=== PATIENT | male | born 1935 | race Caucasian/White ===

== ENCOUNTER 2016-06-29 16:10 | Inpatient (IN) | payer OTHER ==
[~2016-06-29] VITALS: Ht 170.2 cm; Wt 95.9 kg
[~2016-06-29 16:10] MED LIST: ALBU6.7H INH; ASPI81 PO; ATOR20TA PO; CLOP75 PO; DILT360T PO; FENO160T2 PO; FLUO40CA PO; IPRA0.02 NEB; ISOS30TA3 PO; LEVO112T2 PO; METF-324 PO; NITR.3 SL
[2016-06-29 16:11] VITALS: BP_SYST 146; BP_DIAS 70; BP_DIAS 78; PULSE 101; PULSE 113; RESP 18; RESP 33; TEMP 97.7; TEMP 98; O2SAT 84
[2016-06-29 16:18] VITALS: BP 146/70; PULSE 113; RESP 22; RESP 33; TEMP 98; O2SAT 84; O2SAT 94
[2016-06-29] MEDS ORDERED: SODIUM CHLORIDE 0.9% FLUSH 5 ML FLUSH IVF PRN ×2 (16:30→20:00)
[2016-06-29] MEDS: RESP: ALBUTEROL 2.5 MG/IPRATROPIUM 0.5 MG NEB (SCH) INH ×2 (16:51→20:38)
--- NOTE | 2016-06-29 16:52 | RADRPT ---
EXAM DATE/TIME: 06/29/2016 16:23 [facility] COMPARISON: No previous studies available for comparison. INDICATIONS : Wheezing and very short of breath today, no chest pain at this time MEDICAL HISTORY : Emphysema. Chronic obstructive pulmonary disease. Cardiovascular disease. asthma SURGICAL HISTORY : Coronary artery stent. ENCOUNTER: Initial ACUITY: 1 day PAIN SCORE: 0/10 LOCATION: Bilateral chest FINDINGS: The heart size is normal. There is elevation of the right hemidiaphragm. There does appear to be so me prominence in the interstitium throughout. A focal consolidation is not seen. CONCLUSION: 1. Scattered areas of interstitial disease. This may represent some underlying chronic disease. 2. Elevation of the right hemidiaphragm. Tate Parada MD on June 29, 2016 at 16:47 Board Certified Radiologist. This report was verified electronically.
[2016-06-29 17:00] VITALS: BP 151/70; PULSE 103; RESP 32; O2SAT 92
[2016-06-29 17:08] LABS: AUTOMATED NEUTROPHIL # 14.7 TH/MM3 (1.8-7.7); BASOPHIL # 0.1 TH/MM3 (0-0.2); BASOPHIL % 0.4 % (0.0-2.0); EOSINOPHIL # 0.1 TH/MM3 (0-0.4); EOSINOPHIL % 0.4 % (0.0-4.0); HEMATOCRIT 42.7 % (39.0-51.0); HEMO FLAGS DIFF FINAL; LYMPH % 15.7 % (9.0-44.0); MEAN CELL VOLUME 84.5 FL (80.0-100.0); MEAN CORPUSCULAR HEMOGLOBIN 27.2 PG (27.0-34.0); MEAN CORPUSCULAR HGB CONC 32.2 % (32.0-36.0); MONO % 7.1 % (0.0-8.0); NEUT % 76.4 % (16.0-70.0); PLATELET COUNT 320 TH/MM3 (150-450); RED BLOOD COUNT 5.05 MIL/MM3 (4.50-5.90); RED CELL DISTRIBUTION WIDTH 16.8 % (11.6-17.2); WHITE BLOOD COUNT 19.2 TH/MM3 (4.0-11.0)
--- NOTE | 2016-06-29 17:11 | PD ---
HPI Chief Complaint: Respiratory Distress Time Seen by Provider: 16:20 Travel History International Travel<30 days: No Contact w/Intl Traveler<30days: No Traveled to known affect area: No History of Present Illness HPI Patient 80-year-old male presents emergency murmur or shortness of breath and cough for the past few weeks. Patient states that several courses of prednisone as well as other steroids at home and is not beginning to be any better. He does have a history of COPD and is on home oxygen. On arrival patient's oxygen tank is nearly empty but still has some flow to it. Patient is saturating 82% on this tank by nasal cannula. On arrival he appears quite short of breath and was removing emergency department immediately. She states he did have fever to 102 prior to arrival yesterday. States symptoms are gradually worsening. Denies any chest pain abdominal pain nausea vomiting or diarrhea. PFSH Past Medical History Hx Anticoagulant Therapy: Yes (PLAVIX , ASA ) Atrial Fibrillation: Yes Cancer: No Cardiac Catheterization: Yes Cardiovascular Problems: Yes (STENTS, HTN , CAD ) Chest Pain: Yes COPD: Yes Coronary Artery Disease: Yes Diabetes: Yes Patient Takes Glucophage: Yes Diminished Hearing: No Hepatitis: No Hiatal Hernia: No Hypertension: Yes Respiratory: Yes (COPD ) Sleep Apnea: Yes Thyroid Disease: Yes Tetanus Vaccination: < 5 Years Influenza Vaccination: Yes Past Surgical History Abdominal Surgery: Yes (APPENDECTOMY AGE 23) Appendectomy: Yes (AGE 23) Cardiac Surgery: Yes (CARDIAC STENTS X 3) Coronary Stent: Yes (X3) Pacemaker: No Other Surgery: Yes Social History Alcohol Use: Yes (OCC) Tobacco Use: Yes (QUIT) Substance Use: No Allergies-Medications (Allergen,Severity, Reaction): Coded Allergies: Sulfa (Verified Allergy, Unknown, CAN'T RECALL , 06/29/16) Reported Meds & Prescriptions Reported Meds & Active Scripts Active Reported Nitrostat (Nitroglycerin) 0.3 Mg Sub Unknown Dose SL DIRECTED PRN Atrovent Ud 0.02% (0.5 Mg/2.5 Ml) (Ipratropium [place]) 0.5 Mg/2.5 Ml Nebu 0.5 Mg NEB BID NEB PRN Proventil Hfa (Albuterol Sulfate) 6.7 Gm Aero 2 Puff INH QID PRN * SHAKE WELL BEFORE USE * Isosorbide Mononitrate Er (Isosorbide Mononitrate) 30 Mg Tab 30 Mg PO DAILY Fluoxetine (Fluoxetine HCl) 40 Mg Cap 40 Mg PO DAILY Atorvastatin 20 mg tab (Atorvastatin Calcium) 20 Mg Tab 20 Mg PO HS 30 Days Metformin ER 24 HR (Metformin HCl) 1,000 Mg Tab 1,000 Mg PO HS Cardizem La 360 mg (Diltiazem La 360 mg) 360 Mg Tab 360 Mg PO HS Levothyroxine 112 mcg (Levothyroxine Sodium) 112 Mcg Tab 112 Mcg PO DAILY Plavix (Clopidogrel Bisulfate) 75 Mg Tab 75 Mg PO HS Aspirin 81 Mg Tab 162 Mg PO BID Review of Systems Except as stated in HPI: all other systems reviewed are Neg Physical Exam Narrative GENERAL: Well developed well-nourished, tachypneic and increased work of breathing. SKIN: Warm and dry. And pink. HEAD: Atraumatic. Normocephalic. EYES: Pupils equal and round. No scleral icterus. No injection or drainage. ENT: No nasal bleeding or discharge. Mucous membranes pink and moist. NECK: Trachea midline. No JVD. CARDIOVASCULAR: Regular rhythm with tachycardia. No murmurs gallops or rubs. 2 + bilaterally compulsive all 4 extremity's. RESPIRATORY: Tachypneic, clear to auscultation all lung winn, fair air entry. Super clavicular retractions. GASTROINTESTINAL: Abdomen soft, non-tender, nondistended. Hepatic and splenic margins not palpable. MUSCULOSKELETAL: No obvious deformities. No clubbing. No cyanosis. No edema. NEUROLOGICAL: Awake and alert. No obvious cranial nerve deficits. Motor grossly within normal limits. Normal speech. PSYCHIATRIC: Appropriate mood and affect; insight and judgment normal. Data Data Last Documented VS Vital Signs Date Time Temp Pulse Resp B/P Pulse Ox O2 Delivery O2 Flow Rate FiO2 06/29/16 17:00 103 32 151/70 92 Nasal Cannula 4 06/29/16 16:18 98.0 Orders Electrocardiogram (06/29/16 16:20) Arterial Blood Gas (Abg) (06/29/16 16:20) Complete Blood Count With Diff (06/29/16 16:20) Comprehensive Metabolic Panel (06/29/16 16:20) Chest, Single Ap (06/29/16 16:20) Ecg Monitoring (06/29/16 16:20) Iv Access Insert/Monitor (06/29/16 16:20) Oximetry (06/29/16 16:20) Oxygen Administration (06/29/16 16:20) Albuterol-Ipratropium Neb (Duoneb Neb) (06/29/16 16:30) Sodium Chloride 0.9% Flush (Ns Flush) (06/29/16 16:30) Troponin I (06/29/16 16:20) Ct Pulmonary Angiogram (06/29/16 ) Lactic Acid (06/29/16 16:20) Blood Culture (06/29/16 16:20) Sodium Chlor 0.9% 1000 Ml Inj (Ns 1000 M (06/29/16 17:45) Sodium Chlor 0.9% 1000 Ml Inj (Ns 1000 M (06/29/16 17:45) Vancomycin Inj (Vancomycin Inj) (06/29/16 17:45) Piperacil-Tazo 3.375 Gm Premix (Zosyn 3. (06/29/16 17:45) Sodium Chlor 0.9% 1000 Ml Inj (Ns 1000 M (06/29/16 17:45) Iohexol 350 Inj (Omnipaque 350 Inj) (06/29/16 19:03) Admit Order (Ed Use Only) (06/29/16 ) Labs Laboratory Tests Test 06/29/16 06/29/16 06/29/16 16:25 16:32 16:35 White Blood Count 19.2 TH/MM3 Red Blood Count 5.05 MIL/MM3 Hemoglobin 13.7 GM/DL Hematocrit 42.7 % Mean Corpuscular Volume 84.5 FL Mean Corpuscular Hemoglobin 27.2 PG Mean Corpuscular Hemoglobin 32.2 % Concent Red Cell Distribution Width 16.8 % Platelet Count 320 TH/MM3 Mean Platelet Volume 8.5 FL Neutrophils (%) (Auto) 76.4 % Lymphocytes (%) (Auto) 15.7 % Monocytes (%) (Auto) 7.1 % Eosinophils (%) (Auto) 0.4 % Basophils (%) (Auto) 0.4 % Neutrophils # (Auto) 14.7 TH/MM3 Lymphocytes # (Auto) 3.0 TH/MM3 Monocytes # (Auto) 1.4 TH/MM3 Eosinophils # (Auto) 0.1 TH/MM3 Basophils # (Auto) 0.1 TH/MM3 CBC Comment DIFF FINAL Differential Comment Sodium Level 141 MEQ/L Potassium Level 3.3 MEQ/L Chloride Level 103 MEQ/L Carbon Dioxide Level 24.6 MEQ/L Anion Gap 13 MEQ/L Blood Urea Nitrogen 21 MG/DL Creatinine 1.30 MG/DL Estimat Glomerular Filtration 53 ML/MIN Rate Random Glucose 205 MG/DL Calcium Level 8.6 MG/DL Total Bilirubin 0.5 MG/DL Aspartate Amino Transf 31 U/L (AST/SGOT) Alanine Aminotransferase 42 U/L (ALT/SGPT) Alkaline Phosphatase 117 U/L Troponin I LESS THAN 0.02 NG/ML Total Protein 6.6 GM/DL Albumin 2.1 GM/DL Blood Gas Puncture Site RT BRACHIAL Blood Gas Patient Temperature 98.6 Blood Gas HCO3 23 mmol/L Blood Gas Base Excess -0.6 mmol/L Blood Gas Oxygen Saturation 92 % Arterial Blood pH 7.46 Arterial Blood Partial 33 mmHg Pressure CO2 Arterial Blood Partial 66 mmHG Pressure O2 Arterial Blood Oxygen Content 19.8 Vol % Arterial Blood 1.2 % Carboxyhemoglobin Arterial Blood Methemoglobin 0.7 % Blood Gas Hemoglobin 15.4 G/DL Oxygen Delivery Device NASAL CANNULA Blood Gas Liter Flow 5 L/M Blood Gas Inspired Oxygen 40 % Lactic Acid Level 4.6 mmol/L MDM Medical Decision Making Medical Screen Exam Complete: Yes Emergency Medical Condition: Yes Interpretation(s) EKG shows sinus rhythm with a normal axis and normal R-wave progression. Large QRS, which is in V1 and nonspecific RSR prime pattern in 1-[address] No [address] T changes. Is a nonspecific EKG. Comparison to 11/01/2015 shows no change Differential Diagnosis COPD exacerbation, pneumonia, hypoxic respiratory failure, hypercapnic respiratory failure. Narrative Course Patient was roomed in the emergency department, he was placed on 4 L nasal cannula, respiratory was paged visit. We would escalate BiPAP however on respiratory arrival patient is now satting 93-95% on 4 L cannula. BiPAP was placed on hold his patient was started to feel better and ABG reveals the patient's pH is 7.5 with a PCO2 of 30. She'll presents mild respiratory alkalosis. Last [address] Angiography 06/29/16 0000 Signed Impressions: Service Date/Time: Wednesday, June 29, 2016 18:47 - CONCLUSION: 1. No evidence of PE. 2. 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 Jeison Deutsch MD Patient's white blood count is elevated 19 lactic acid is 4. This meets Sirs criteria given his vital signs. Suspecting a pneumonia as cause sepsis protocol was started. However the patient does not have confirmed pneumonia at this time. His white blood cell count could be from hysteria use concurrently lactic acid could be from stress reaction from hypoxia. However at this time patient does meet admission criteria. Patient was discussed with Dr. Gutierrez for admission and he is agreeable. Diagnosis Primary Impression: Acute respiratory failure with hypoxia Additional Impression: SIRS (systemic inflammatory response syndrome) Admitting Information Admitting Physician Requests: Admit Condition: Stable Hubert Sampson MD Jun 29, 2016 17:11
[2016-06-29 17:16] LABS: BLOOD GAS BASE EXCESS -0.6 mmol/L (-2-2); BLOOD GAS CARBOXYHEMOGLOBIN 1.2 % (0-4); BLOOD GAS HCO3 23 mmol/L (22-26); BLOOD GAS METHEMOGLOBIN 0.7 % (0-2); BLOOD GAS O2 HGB SATURATION 92 % (90-100); BLOOD GAS OXYGEN CONTENT 19.8 Vol % (12.0-20.0); BLOOD GAS PCO2 33 mmHg (38-42); BLOOD GAS PO2 66 mmHG (61-120); BLOOD GAS TOTAL HGB 15.4 G/DL (12.0-16.0); TEMP CORR TO 98.6
[2016-06-29 17:17] LABS: CRITICAL VALUE NO; DRAW SITE RT BRACHIAL; FIO2 40 %; LITER FLOW 5 L/M; NUMBER OF ARTERIAL PUNCTURES 1; OXYGEN DEVICE NASAL CANNULA; STAT YES
[2016-06-29 17:25] LABS: ANION GAP 13 MEQ/L (5-15); AST (GOT) 31 U/L (15-37); BICARBONATE 24.6 MEQ/L (21.0-32.0); BLOOD UREA NITROGEN 21 MG/DL (7-18); CHLORIDE 103 MEQ/L (98-107); GLOMERULAR FILTRATION RATE 53 ML/MIN (>89); POTASSIUM 3.3 MEQ/L (3.5-5.1); SODIUM (NA) 141 MEQ/L (136-145)
[2016-06-29 17:30] LABS: ALKALINE PHOSPHATASE 117 U/L (45-117); ALT (GPT) 42 U/L (12-78); TOTAL BILIRUBIN ADULT 0.5 MG/DL (0.2-1.0)
[2016-06-29] MEDS ORDERED: PIPERACIL-TAZO 3.375 GM PREMIX 50 ML IV ONE (17:45)
[2016-06-29] MEDS ORDERED: VANCOMYCIN INJ 1,000 MG in SODIUM CHLOR 0.9% 250 ML INJ 250 ML IV ONE (17:45)
[2016-06-29] MEDS ORDERED: SODIUM CHLOR 0.9% 1000 ML INJ 1,000 ML IV ONE ×3 (17:45)
[2016-06-29] MEDS ORDERED: IOHEXOL 350 MG/ML 10 ML VIAL (for RAD DIAG) IV ONE (19:03)
--- NOTE | 2016-06-29 19:11 | RADRPT ---
EXAM DATE/TIME: 06/29/2016 18:47 [facility] COMPARISON: No previous studies available for comparison. INDICATIONS : respiratory distress,for one month. IV CONTRAST: 65 cc Omnipaque 350 (iohexol) IV RADIATION DOSE: 6.24 CTDIvol (mGy) MEDICAL HISTORY : Chronic obstructive pulmonary disease. Cardiovascular disease Hypertension.Diabetes SURGICAL HISTORY : Appendectomy. ENCOUNTER: Initial ACUITY: 1 month PAIN SCALE: 0/10 LOCATION: chest TECHNIQUE: Volumetric scanning of the chest was performed using a pulmonary embolism protocol MIP images were re constructed. Using automated exposure control and adjustment of the mA and/or kV according to patien t size, radiation dose was kept as low as reasonably achievable to obtain optimal diagnostic quality images. FINDINGS: PULMONARY ARTERIES: No filling defects are seen in the pulmonary arteries through the segmental level. LUNGS: Severe bullous emphysema with chronic bilateral interstitial lung disease. Some of this appears to be most likely pulmonary fibrosis. Can't exclude underlying inflammatory process. PLEURAE: Mild pleural thickening. No pleural effusions. MEDIASTINUM: Nonspecific lymph nodes in the mediastinum. MUSCULOSKELETAL: Within normal limits for patient age. MISCELLANEOUS: The visualized upper abdominal organs demonstrate no acute abnormality. CONCLUSION: 1. No evidence of PE. 2. 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 Jeison Deutsch MD on June 29, 2016 at 19:07 Board Certified Radiologist. This report was verified electronically.
[2016-06-29 20:35] VITALS: O2SAT 94
[2016-06-29] MEDS: methylPREDNISolone SOD SUCC 125 MG/2 ML VIAL IVP SCH (21:14)
[2016-06-29] MEDS: ENOXAPARIN SODIUM 30 MG/0.3 ML SYRINGE SQ SCH (21:17)
[2016-06-29] MEDS: AZITHROMYCIN INJ 500 MG in SODIUM CHLOR 0.9% 250 ML INJ 250 ML IV SCH (21:18)
[2016-06-29 21:37] VITALS: BP 184/82; PULSE 97; RESP 24; O2SAT 94
[2016-06-29] MEDS: cefTRIAXone INJ 2,000 MG in SODIUM CHLORIDE 0.9% INJ 100 ML IV SCH (22:51)
[2016-06-29] MEDS: SODIUM CHLORIDE 0.9% FLUSH 5 ML FLUSH IVF SCH (22:52)
[2016-06-29 23:18] LABS: LACTIC ACID GHOST NOT REPORTABLE
[2016-06-30] VITALS (12 sets, daily range): BP systolic 142–181; BP diastolic 68–83; PULSE 69–93; RESP 18–22; TEMP 97–99; O2SAT 92–96
[2016-06-30] MEDS: RESP: ALBUTEROL 2.5 MG/3 ML NEB (PRN) INH (00:04)
[2016-06-30] MEDS ORDERED: cloNIDine HCL 0.1 MG TAB PO ONE (01:00)
[2016-06-30] MEDS: methylPREDNISolone SOD SUCC 125 MG/2 ML VIAL IVP SCH ×4 (01:57→22:21)
[2016-06-30] MEDS ORDERED: RESP: IPRATROPIUM 0.5 MG/2.5 ML NEB NEB PRN (03:00)
[2016-06-30] MEDS ORDERED: ALBUTEROL SULFATE 90 MCG/ACT HFA 8 GM INHALER INH PRN (03:00)
[2016-06-30] MEDS ORDERED: DILTIAZEM-CD 180 MG CAP ER PO ONE (03:00)
--- NOTE | 2016-06-30 03:16 | HHI.HP ---
[facility] Service [facility] Primary Care Physician Corby Tavera MD Admission Diagnosis Hypoxic Respiratory failure, COPD exacerbation, SIRS. Diagnoses: Chief Complaint: sob Travel History International Travel<30 Days: No Contact w/Intl Traveler <30 Da: No Traveled to Known Affected Are: No Sepsis Criteria SIRS Criteria (2 or more): Heart rate over 90, WBC > 23881, < 4000 or > 10% bands History of Present Illness 80 y/o male with a history of COPD and continuous 3 L at home, CAD, diabetes, A. fib, hypothyroidism, and depression presented to the ED with worsening shortness of breath. Patient states his wheezing and shortness of breath began about 5 weeks ago with the increase in pollen, and over the course of time he was treated with prednisone by his PCP. Today he called his iuss master analyst Dr. booker who reviewed his outpatient chest x-rays and sent him to the ED. Patient states over the last week he is just continued to get worse despite taking prednisone 20 mg daily, he had a fever at home of 100.7, complains of having a productive cough with very little sputum, night sweats and chills. He denies any chest pain, nausea or vomiting. PCP is Dr. Tavera Supervisor Winter is Dr. booker Review of Systems Constitutional: COMPLAINS OF: Fever, Chills, DENIES: Dizziness Respiratory: COMPLAINS OF: Cough, Sputum production, Shortness of breath Cardiovascular: DENIES: Chest pain, Dyspnea on Exertion, Lower Extremity Edema Gastrointestinal: DENIES: Constipation, Diarrhea, Nausea, Vomiting Genitourinary: DENIES: Hematuria, Dysuria Musculoskeletal: DENIES: Back pain, Neck pain Integumentary: DENIES: Rash Hematologic/lymphatic: DENIES: Lymphadenopathy Immunologic/allergic: DENIES: Urticaria Neurologic: DENIES: Headache, Localized weakness Past Family Social History Past Medical History COPD on continuous 3 L at home CAD Diabetes A. fib Hypothyroidism Depression Past Surgical History Heart stents Tonsillectomy Appendectomy Reported Medications Reported Meds & Active Scripts Active Reported Nitrostat (Nitroglycerin) 0.3 Mg Sub Unknown Dose SL DIRECTED PRN Atrovent Ud 0.02% (0.5 Mg/2.5 Ml) (Ipratropium [place]) 0.5 Mg/2.5 Ml Nebu 0.5 Mg NEB BID NEB PRN Proventil Hfa (Albuterol Sulfate) 6.7 Gm Aero 2 Puff INH QID PRN * SHAKE WELL BEFORE USE * Isosorbide Mononitrate Er (Isosorbide Mononitrate) 30 Mg Tab 30 Mg PO DAILY Fluoxetine (Fluoxetine HCl) 40 Mg Cap 40 Mg PO DAILY Atorvastatin 20 mg tab (Atorvastatin Calcium) 20 Mg Tab 20 Mg PO HS 30 Days Metformin ER 24 HR (Metformin HCl) 1,000 Mg Tab 1,000 Mg PO HS Cardizem La 360 mg (Diltiazem La 360 mg) 360 Mg Tab 360 Mg PO HS Levothyroxine 112 mcg (Levothyroxine Sodium) 112 Mcg Tab 112 Mcg PO DAILY Plavix (Clopidogrel Bisulfate) 75 Mg Tab 75 Mg PO HS Aspirin 81 Mg Tab 162 Mg PO BID Allergies: Coded Allergies: Sulfa (Verified Allergy, Unknown, CAN'T RECALL , 06/29/16) Active Ordered Medications Current Medications Medications (Trade) Dose Ordered Sig/Nya Route Start Time Stop Time Status Last Admin Ceftriaxone Sodium 2000 mg/ Sodium Chloride 100 ml @ 200 mls/hr Q24H IV 06/29/16 22:00 06/29/16 22:51 (Zithromax Inj/ NS 250 ml Inj) 250 ml @ 250 mls/hr Q24H IV 06/29/16 21:00 06/29/16 21:18 (NS Flush) 2 ml BID IVF 06/29/16 21:00 06/29/16 22:52 (NS Flush) 2 ml UNSCH PRN IVF 06/29/16 20:00 (SoluMEDROL INJ) 60 mg Q6H IVP 06/29/16 21:00 06/30/16 01:57 (Lovenox Inj) 30 mg Q24H SQ 06/29/16 21:00 06/29/16 21:17 (Proair Hfa Inh) 2 puff QID PRN INH 06/30/16 03:00 (Aspirin Chew) 162 mg BID PO 06/30/16 09:00 (Lipitor) 20 mg HS PO 06/30/16 21:00 (Plavix) 75 mg HS PO 06/30/16 21:00 (Imdur) 30 mg DAILY PO 06/30/16 09:00 (Synthroid) 112 mcg DAILY@0600 PO 06/30/16 06:00 Non-Formulary Medication 360 mg HS PO 06/30/16 21:00 UNV (PROzac) 40 mg DAILY PO 06/30/16 09:00 Non-Formulary Medication 1,000 mg HS PO 06/30/16 21:00 UNV Family History Patient denies any family history of cardiac history or diabetes Social History Tobacco use: Quit 25 years ago prior to this he smoked for 45 years. Alcohol use: Denies Illicit drug use: Denies Physical Exam Vital Signs Vital Signs Date Time Temp Pulse Resp B/P Pulse Ox O2 Delivery O2 Flow Rate FiO2 06/30/16 00:07 93 Nasal Cannula 3.00 06/30/16 00:00 99.0 93 20 181/81 94 06/29/16 21:37 97 24 184/82 94 Nasal Cannula 06/29/16 20:35 94 Nasal Cannula 5.00 06/29/16 17:00 103 32 151/70 92 Nasal Cannula 4 06/29/16 16:35 93 Aerosol Mask 06/29/16 16:32 Aerosol Mask 06/29/16 16:25 3 Nasal Cannula 06/29/16 16:25 84 Nasal Cannula 3 06/29/16 16:18 98.0 113 33 146/70 84 06/29/16 16:11 98.0 113 33 146/70 84 Nasal Cannula 3 06/29/16 16:11 97.7 101 18 146/78 84 Physical Exam GENERAL: This is a well-nourished, well-developed patient, in no apparent distress. SKIN: No rashes, ecchymoses or lesions. Cool and dry. HEAD: Atraumatic. Normocephalic. No temporal or scalp tenderness. EYES: Pupils equal round and reactive. Extraocular motions intact. No scleral icterus. No injection or drainage. ENT: Nose without bleeding, purulent drainage or septal hematoma. Throat without erythema, tonsillar hypertrophy or exudate. Uvula midline. Airway patent. NECK: Trachea midline. No JVD or lymphadenopathy. Supple, nontender, no meningeal signs. CARDIOVASCULAR: Regular rate and rhythm without murmurs, gallops, or rubs. RESPIRATORY: Clear to auscultation. Breath sounds equal bilaterally. No wheezes , rales, or rhonchi. GASTROINTESTINAL: Abdomen soft, non-tender, nondistended. No hepato-splenomegaly , or palpable masses. No guarding. MUSCULOSKELETAL: Extremities without clubbing, cyanosis, or edema. No joint tenderness, effusion, or edema noted. No calf tenderness. Negative Homans sign bilaterally. NEUROLOGICAL: Awake and alert. Cranial nerves II through XII intact. Motor and sensory grossly within normal limits. Five out of 5 muscle strength in all muscle groups. Normal speech. Laboratory Laboratory Tests Test 06/29/16 06/29/16 06/29/16 06/29/16 16:25 16:32 16:35 20:55 White Blood Count 19.2 Red Blood Count 5.05 Hemoglobin 13.7 Hematocrit 42.7 Mean Corpuscular Volume 84.5 Mean Corpuscular Hemoglobin 27.2 Mean Corpuscular Hemoglobin 32.2 Concent Red Cell Distribution Width 16.8 Platelet Count 320 Mean Platelet Volume 8.5 Neutrophils (%) (Auto) 76.4 Lymphocytes (%) (Auto) 15.7 Monocytes (%) (Auto) 7.1 Eosinophils (%) (Auto) 0.4 Basophils (%) (Auto) 0.4 Neutrophils # (Auto) 14.7 Lymphocytes # (Auto) 3.0 Monocytes # (Auto) 1.4 Eosinophils # (Auto) 0.1 Basophils # (Auto) 0.1 CBC Comment DIFF FINAL Differential Comment Sodium Level 141 Potassium Level 3.3 Chloride Level 103 Carbon Dioxide Level 24.6 Anion Gap 13 Blood Urea Nitrogen 21 Creatinine 1.30 Estimat Glomerular Filtration 53 Rate Random Glucose 205 Calcium Level 8.6 Total Bilirubin 0.5 Aspartate Amino Transf 31 (AST/SGOT) Alanine Aminotransferase 42 (ALT/SGPT) Alkaline Phosphatase 117 Troponin I LESS THAN 0.02 Total Protein 6.6 Albumin 2.1 Blood Gas Puncture Site RT BRACHIAL Blood Gas Patient Temperature 98.6 Blood Gas HCO3 23 Blood Gas Base Excess -0.6 Blood Gas Oxygen Saturation 92 Arterial Blood pH 7.46 Arterial Blood Partial 33 Pressure CO2 Arterial Blood Partial 66 Pressure O2 Arterial Blood Oxygen Content 19.8 Arterial Blood 1.2 Carboxyhemoglobin Arterial Blood Methemoglobin 0.7 Blood Gas Hemoglobin 15.4 Oxygen Delivery Device NASAL CANNULA Blood Gas Liter Flow 5 Blood Gas Inspired Oxygen 40 Lactic Acid Level 4.6 2.7 Test 06/30/16 00:21 Lactic Acid Level 1.7 Date/Time Procedure Status Source Growth 06/29/16 21:15 Influenza Types A,B Antigen (BRIDGER) - Final Complete Nasal Washing NEGATIVE FOR FLU A AND B ANTIGEN.... 06/29/16 16:35 Aerobic Blood Culture Received Blood Peripheral Pending 06/29/16 16:35 Anaerobic Blood Culture Received Blood Peripheral Pending Result Diagram: 06/29/16 1625 06/29/[address] Angiography 06/29/16 0000 Signed Impressions: Service Date/Time: Wednesday, June 29, 2016 18:47 - CONCLUSION: 1. No evidence of PE. 2. 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 Jeison Deutsch MD Assessment and Plan Problem List: (1) COPD exacerbation ICD Code: J44.1 Status: Acute (2) Leukocytosis ICD Code: D72.829 Status: Acute (3) HTN (hypertension) ICD Code: I10 Status: Chronic (4) A-fib ICD Code: I48.91 Status: Chronic (5) Diabetes ICD Code: E11.9 Status: Chronic Assessment and Plan 80 y/o male with a history of COPD and continuous 3 L at home, CAD, diabetes, A. fib, hypothyroidism, and depression presented to the ED with worsening shortness of breath. COPD exacerbation Imaging: CTA shows No evidence PE. 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 Labs: Flu negative -DuoNeb's -Consult pulmonology -IV antibiotics Rocephin and azithromycin -Solu-Medrol IV Leukocytosis/ Sirs criteria Labs: WBC is 19.2, neutrophils 76%, lactic acid 4.6, down to 1.7, heart rate greater than 90 -CBC in a.m. -Blood cultures pending Hypertension, chronic -Monitor vitals -PRNs if needed A. fib, chronic -Monitor telemetry -Order home medications Cardizem 240mg HS, Plavix Diabetes, chronic -Accu-Cheks AC/HS with SSI -Order home medications metformin DVT prophylaxis: Lovenox GI prophylaxis: Protonix Written by Katelin NOYOLA, acting as scribe for Dr. Rodriguez on 06/30/16 at 0237. All or portions of this note were transcribed by JAZMÍN Peters. I, Dr. Michael Rodriguez personally performed the history, physical exam, and medical decision making; and confirmed the accuracy of the information in the transcribed note. Authenticated by Dr. Michael Rodriguez on 06/30/16 at 04:54. Code Status FULL Discussed Condition With Patient and RN Physician Certification 2 Midnight Certification Type: Admission for Inpatient Services Order for Inpatient Services The services are ordered in accordance with Medicare regulations or non- Medicare payer requirements, as applicable. In the case of services not specified as inpatient-only, they are appropriately provided as inpatient services in accordance with the 2-midnight benchmark. Estimated LOS (days): 3 days is the estimated time the patient will need to remain in the hospital, assuming treatment plan goals are met and no additional complications. Post-Hospital Plan: Home Problem Qualifiers (1) Diabetes: Katelin Dixon Jun 30, 2016 03:16 Michael Rodriguez MD Jun 30, 2016 04:54
[2016-06-30] MEDS ORDERED: DEXTROSE 50% IN WATER 50 ML VIAL(D50) IV PUSH PRN (03:30)
[2016-06-30] MEDS ORDERED: GLUCAGON 1 MG/ML VIAL OTHER PRN (03:30)
[2016-06-30] MEDS ORDERED: PANTOPRAZOLE SODIUM 40 MG VIAL IV PUSH ONE (04:30)
[2016-06-30] MEDS ORDERED: DILTIAZEM-CD 240 MG CAP ER PO ONE (04:45)
[2016-06-30] MEDS: LEVOTHYROXINE SODIUM 112 MCG TAB PO SCH (04:59)
[2016-06-30] MEDS: INSULIN ASPART SUPPLEMENTAL SCALE SQ SCH ×4 (05:53→22:22)
[2016-06-30] MEDS: RESP: ALBUTEROL 2.5 MG/IPRATROPIUM 0.5 MG NEB (SCH) INH ×4 (07:44→19:18)
[2016-06-30] MEDS: SODIUM CHLORIDE 0.9% FLUSH 5 ML FLUSH IVF SCH ×2 (08:50→22:23)
[2016-06-30] MEDS: ASPIRIN 81 MG CHEW TAB PO SCH ×2 (08:50→22:21)
[2016-06-30] MEDS: ISOSORBIDE MONONITRATE 30 MG TAB PO SCH (08:50)
[2016-06-30] MEDS: FLUoxetine HCL 20 MG CAP PO SCH (08:50)
[2016-06-30 08:52] LABS: AUTOMATED NEUTROPHIL # 7.5 TH/MM3 (1.8-7.7); HEMATOCRIT 34.5 % (39.0-51.0); HEMO FLAGS DIFF FINAL; LYMPH % 5.3 % (9.0-44.0); LYMPHOCYTE # 0.4 TH/MM3 (1.0-4.8); MEAN CELL VOLUME 84.3 FL (80.0-100.0); MEAN CORPUSCULAR HEMOGLOBIN 27.7 PG (27.0-34.0); MEAN CORPUSCULAR HGB CONC 32.9 % (32.0-36.0); MONO % 5.1 % (0.0-8.0); NEUT % 89.6 % (16.0-70.0); PLATELET COUNT 197 TH/MM3 (150-450); RED BLOOD COUNT 4.09 MIL/MM3 (4.50-5.90); RED CELL DISTRIBUTION WIDTH 16.6 % (11.6-17.2); WHITE BLOOD COUNT 8.4 TH/MM3 (4.0-11.0)
[2016-06-30] MEDS ORDERED: metFORMIN HCL 500 MG TAB PO SCH (09:00)
[2016-06-30 09:19] LABS: BICARBONATE 21.6 MEQ/L (21.0-32.0); POTASSIUM 3.9 MEQ/L (3.5-5.1)
[2016-06-30 09:33] LABS: CALCIUM-PROTEIN CORRECTED 8.1 MG/DL (8.5-10.1)
--- NOTE | 2016-06-30 11:14 | HHI.PR ---
Subjective Remarks in no acute distress. says that his sob has improved. no chest pain. afebrile. Objective Vitals Vital Signs Date Time Temp Pulse Resp B/P Pulse Ox O2 Delivery O2 Flow Rate FiO2 06/30/16 09:40 Nasal Cannula 3.00 06/30/16 08:00 97.7 81 20 160/76 95 06/30/16 07:47 95 Nasal Cannula 3.00 06/30/16 04:00 98.5 92 18 171/83 93 06/30/16 00:07 93 Nasal Cannula 3.00 06/30/16 00:00 99.0 93 20 181/81 94 06/30/16 00:00 93 06/29/16 23:00 Nasal Cannula 3.00 06/29/16 21:37 97 24 184/82 94 Nasal Cannula 06/29/16 20:35 94 Nasal Cannula 5.00 06/29/16 17:00 103 32 151/70 92 Nasal Cannula 4 06/29/16 16:35 93 Aerosol Mask 06/29/16 16:32 Aerosol Mask 06/29/16 16:25 3 Nasal Cannula 06/29/16 16:25 84 Nasal Cannula 3 06/29/16 16:18 98.0 113 33 146/70 84 06/29/16 16:11 98.0 113 33 146/70 84 Nasal Cannula 3 06/29/16 16:11 97.7 101 18 146/78 84 I/O 06/29/16 06/29/16 06/29/16 06/30/16 06/30/16 06/30/16 07:00 15:00 23:00 07:00 15:00 23:00 Intake Total 240 ml Output Total 400 ml Balance -160 ml Intake Oral 240 ml Output Urine Total 400 ml # Bowel Movements 0 Result Diagram: 06/30/16 0753 06/30/16 [address] Angiography 06/29/16 0000 Signed Impressions: Service Date/Time: Wednesday, June 29, 2016 18:47 - CONCLUSION: 1. No evidence of PE. 2. 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 Jeison Deutsch MD Objective Remarks GENERAL: This is a well-nourished, well-developed patient, in no apparent distress. CARDIOVASCULAR: Regular rate and regular rhythm without murmurs, gallops, or rubs. RESPIRATORY: bilateral crackles GASTROINTESTINAL: Abdomen soft, non-tender, nondistended. Normal, active bowel sounds MUSCULOSKELETAL: Extremities without clubbing, cyanosis, or edema. NEURO: Alert & Oriented x4 to person, place, time, situation. Moves all ext x4 Procedures none Medications and IVs Current Medications Albuterol/ Ipratropium (Duoneb Neb) 1 ampule Q15M INH Last administered on 06/29 16:51; Start 06/29/16 at 16:30; Stop 06/29/16 at 17:01; Status DC IV Flush 2 ml 2 ml UNSCH PRN IVF FLUSH AFTER USING IV ACCESS; Start 06/29/16 at 16:30; Stop 06/29/16 at 20:09; Status DC Sodium Chloride 1,000 ml @ 999 mls/hr BOLUS ONCE IV Last administered on 06/29 19:24; Start 06/29/16 at 17:45; Stop 06/29/16 at 18:45; Status DC Sodium Chloride 1,000 ml @ 999 mls/hr BOLUS ONCE IV Last administered on 06/29 20:36; Start 06/29/16 at 17:45; Stop 06/29/16 at 18:45; Status DC Vancomycin HCl 1000 mg/Sodium Chloride 250 ml @ 250 mls/hr ONCE ONCE IV Last administered on 06/29/16 19:05; Start 06/29/16 at 17:45; Stop 06/29/16 at 18:44 ; Status DC Piperacillin Sod/ Tazobactam Sod 50 ml @ 100 mls/hr ONCE ONCE IV Last administered on 06/29/16 17:45; Start 06/29/16 at 17:45; Stop 06/29/16 at 18:14 ; Status DC Sodium Chloride (NS 1000 ml Inj) 1,000 ml @ 999 mls/hr BOLUS ONCE IV Last administered on 06/29/16 20:36; Start 06/29/16 at 17:45; Stop 06/29/16 at 18:45 ; Status DC Iohexol 65 ml 65 ml STK-MED ONCE IV ; Start 06/29/16 at 19:03; Stop 06/29/16 at 19:04; Status DC Ceftriaxone Sodium 2000 mg/ Sodium Chloride 100 ml @ 200 mls/hr Q24H IV Last administered on 06/29/16 22:51; Start 06/29/16 at 22:00 Azithromycin/ Sodium Chloride (Zithromax Inj/ NS 250 ml Inj) 250 ml @ 250 mls/ hr Q24H IV Last administered on 06/29/16 21:18; Start 06/29/16 at 21:00 IV Flush (NS Flush) 2 ml BID IVF Last administered on 06/30/16 08:50; Start at 21:00 IV Flush (NS Flush) 2 ml UNSCH PRN IVF FLUSH AFTER USING IV ACCESS; Start 06/29 at 20:00 Albuterol/ Ipratropium (Duoneb Neb) 1 ampule QID NEB INH Last administered on 06/30/16 07:44; Start 06/29/16 at 20:00 Albuterol Sulfate (Albuterol Neb) 2.5 mg Q2HR NEB PRN INH SHORTNESS OF BREATH Last administered on 06/30/16 00:04; Start 06/29/16 at 20:00 Methylprednisolone Sodium Succinate (SoluMEDROL INJ) 60 mg Q6H IVP Last administered on 06/30/16 08:50; Start 06/29/16 at 21:00 Enoxaparin Sodium (Lovenox Inj) 30 mg Q24H SQ Last administered on 06/29/16 21 :17; Start 06/29/16 at 21:00 Clonidine (Catapres) 0.1 mg ONCE ONCE PO Last administered on 06/30/16 01:53 ; Start 06/30/16 at 01:00; Stop 06/30/16 at 01:01; Status DC Albuterol Sulfate (Proair Hfa Inh) 2 puff QID PRN INH SHORTNESS OF BREATH; Start 06/30/16 at 03:00 Aspirin (Aspirin Chew) 162 mg BID PO Last administered on 06/30/16 08:50; Start 06/30/16 at 09:00 Atorvastatin Calcium (Lipitor) 20 mg HS PO ; Start 06/30/16 at 21:00 Clopidogrel Bisulfate (Plavix) 75 mg HS PO ; Start 06/30/16 at 21:00 Ipratropium [place] (Atrovent Neb) 0.5 mg BID NEB PRN NEB SHORTNESS OF BREATH; Start 06/30/16 at 03:00 Isosorbide Mononitrate (Imdur) 30 mg DAILY PO Last administered on 06/30/16 08 :50; Start 06/30/16 at 09:00 Levothyroxine Sodium (Synthroid) 112 mcg DAILY@0600 PO Last administered on 04:59; Start 06/30/16 at 06:00 Diltiazem HCl (Cardizem Cd) 360 mg HS PO ; Start 06/30/16 at 21:00; Stop at 21:00; Status DC Fluoxetine HCl (PROzac) 40 mg DAILY PO Last administered on 06/30/16 08:50; Start 06/30/16 at 09:00 Metformin HCl (Glucophage) 500 mg BIDPC PO ; Start 06/30/16 at 09:00; Stop 06/30 at 09:00; Status DC Diltiazem HCl (Cardizem Cd) 360 mg ONCE ONCE PO ; Start 06/30/16 at 03:00; Stop 06/30/16 at 03:16; Status DC Dextrose (D50w (Vial) Inj) 25 ml UNSCH PRN IV PUSH HYPOGLYCEMIA-SEE COMMENTS; Start 06/30/16 at 03:30 Glucagon (Glucagon Inj) 1 mg UNSCH PRN OTHER HYPOGLYCEMIA-SEE COMMENTS; Start 06/30/16 at 03:30 Insulin Aspart (NovoLOG SUPPLEMENTAL SCALE) 1 ACHS SLIDING SCALE SQ Last administered on 06/30/16 05:53; Start 06/30/16 at 07:00 Pantoprazole Sodium (Protonix Inj) 40 mg NOW ONCE IV PUSH Last administered on 06/30/16 04:58; Start 06/30/16 at 04:30; Stop 06/30/16 at 04:31; Status DC Pantoprazole Sodium (Protonix Inj) 40 mg DAILY@04 IV PUSH ; Start 07/01/16 at 04 :00 Diltiazem HCl (Cardizem Cd) 240 mg HS PO ; Start 06/30/16 at 21:00; Stop at 21:00; Status DC Diltiazem HCl (Cardizem Cd) 240 mg ONCE ONCE PO Last administered on 04:57; Start 06/30/16 at 04:45; Stop 06/30/16 at 04:46; Status DC Diltiazem HCl (Cardizem Cd) 240 mg HS PO ; Start 06/30/16 at 21:00 A/P Assessment and Plan A/P COPD exacerbation Imaging: CTA shows No evidence PE. 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 Flu negative -DuoNeb's -Consulted pulmonology -IV antibiotics Rocephin and azithromycin -Solu-Medrol IV Leukocytosis/ Sirs criteria Labs: WBC is 19.2, neutrophils 76%, lactic acid 4.6, down to 1.7, heart rate greater than 90 -Blood cultures pending Hypertension, chronic - continue imdur and Cardizem -Monitor vitals -vasotec prn A. fib, chronic -Monitor telemetry -Order home medications Cardizem 240mg HS, Plavix Diabetes, chronic -Accu-Cheks AC/HS with SSI -hold metformin DVT prophylaxis: Lovenox GI prophylaxis: Protonix Kalie Quintero MD Jun 30, 2016 11:14
[2016-06-30] MEDS ORDERED: ENALAPRILAT 1.25 MG/ML VIAL IV PUSH PRN (11:15)
--- NOTE | 2016-06-30 14:59 | EKG ---
Date Performed: 06/29/2016 Time Performed: 16:37:52 PTAGE: 80 years EKG: Sinus rhythm Compared to prior tracing no significant change NORMAL ECG INTERPRETATION BASED ON A DEFAULT AGE OF 40 YEARS PREVIOUS TRACING 11/01/2015@16.19.59 DOCTOR: Barry Ruelas Interpretating Date/Time 06/30/2016 15:04:07
--- NOTE | 2016-06-30 20:16 | MB ---
cc: KATHY BYRD M.D., R. STEVEN M.D. DATE OF CONSULTATION: 06/30/2016 HISTORY Mr. Munguia is an 80-year-old white male whom I have followed for two years now with COPD and chronic fibrosis mild severity. I last saw him in the office in March at which time he had been recovering from an acute exacerbation treated with antibiotics and steroids. Apparently he improved and had done well until about a week ago when he called complaining of an additional flareup. Chest x-ray was negative, there was no purulent sputum. We placed him on a short course of prednisone but he called yesterday with increasing shortness of breath, some sputum production and now a low-grade temperature. We referred him to the ER for possible pneumonia and respiratory failure. He was admitted after initial evaluation in the ER. He presented hypoxic and in some respiratory distress but with no significant temperature. Initial blood gases on 5 liters nasal cannula pO2 of 66, pH 7.4, pCO2 of 33. White count was markedly elevated though at 19. CT angiogram revealed no evidence of pulmonary embolism with severe bullous emphysema and chronic interstitial changes but no acute infiltrates were identified or fluid. Nasal washing for influenza negative and blood cultures initial report negative. He was begun on aerosol bronchodilators along with corticosteroids, Zithromax and Rocephin and today is sitting up in bed feeling much better. PAST MEDICAL HISTORY 1. Hypertension. 2. Coronary artery disease as well as peripheral arterial disease, he has had previous stents. 3. He has had a stable pulmonary nodule for at least two years. 4. He also has a history of obstructive sleep apnea but has not used CPAP recently. 5. Prior history of kidney stones. 6. Atrial fibrillation for which he had an ablation. 7. He had pneumonia and was hospitalized in July of 2014. No history of respiratory failure with mechanical ventilatory support. MEDICATIONS Medications were reviewed in the EMR. SOCIAL HISTORY , living with his . They do have a dog at home. He is retired from sales work. Smoked [id number] packs per day for 20-30 years, quit smoking many years ago. No significant alcohol intake. REVIEW OF SYSTEMS No chest pain. No increasing edema. No nausea or vomiting. Cough with some clear sputum. No hemoptysis. PHYSICAL EXAMINATION VITAL SIGNS: 98, 113 pulse, respirations 24, sat on 4 liters 92-94%. HEENT: Sclerae anicteric. Mucous membranes are moist. NECK: Neck veins are flat. No adenopathy in the neck. CHEST: Some minimal scattered wheezes with mild congestion. No rhonchi. CARDIAC: Regular rhythm. No harsh murmur. ABDOMEN: Abdomen is soft. EXTREMITIES: No pitting edema. No cyanosis or clubbing. DISCUSSION Mr. Munguia presents with an acute exacerbation of COPD/fibrosis. He is doing well. We will continue the antibiotics, IV corticosteroids, aerosolized bronchodilators and oxygen for the next 24-48 hours, try to get him more mobilized. Further diagnostic and/or therapeutic intervention will depend on his ongoing clinical course and response to therapy. R. MD DAVID Mascorro/[place] /7:23 PM /7:59 PM
[2016-06-30] MEDS ORDERED: DILTIAZEM-CD 180 MG CAP ER PO SCH ×2 (21:00)
[2016-06-30] MEDS: ENOXAPARIN SODIUM 30 MG/0.3 ML SYRINGE SQ SCH (22:19)
[2016-06-30] MEDS: CLOPIDOGREL 75 MG TAB PO SCH (22:20)
[2016-06-30] MEDS: DILTIAZEM-CD 240 MG CAP ER PO SCH (22:20)
[2016-06-30] MEDS: ATORVASTATIN 20 MG TAB PO SCH (22:21)
[2016-06-30] MEDS: cefTRIAXone INJ 2,000 MG in SODIUM CHLORIDE 0.9% INJ 100 ML IV SCH (22:22)
[2016-06-30] MEDS: AZITHROMYCIN INJ 500 MG in SODIUM CHLOR 0.9% 250 ML INJ 250 ML IV SCH (22:23)
[2016-07-01] VITALS (11 sets, daily range): BP systolic 136–160; BP diastolic 63–77; PULSE 60–76; RESP 18–24; TEMP 97.3–97.7; O2SAT 92–96
[2016-07-01] MEDS: PANTOPRAZOLE SODIUM 40 MG VIAL IV PUSH SCH (03:52)
[2016-07-01] MEDS: methylPREDNISolone SOD SUCC 125 MG/2 ML VIAL IVP SCH ×4 (03:53→21:58)
[2016-07-01] MEDS: RESP: ALBUTEROL 2.5 MG/3 ML NEB (PRN) INH (06:17)
[2016-07-01] MEDS: LEVOTHYROXINE SODIUM 112 MCG TAB PO SCH (06:19)
[2016-07-01] MEDS: INSULIN ASPART SUPPLEMENTAL SCALE SQ SCH ×3 (06:20→15:12)
[2016-07-01] MEDS: ISOSORBIDE MONONITRATE 30 MG TAB PO SCH (08:11)
[2016-07-01] MEDS: FLUoxetine HCL 20 MG CAP PO SCH (08:12)
[2016-07-01] MEDS: ASPIRIN 81 MG CHEW TAB PO SCH ×2 (08:12→21:59)
[2016-07-01] MEDS: SODIUM CHLORIDE 0.9% FLUSH 5 ML FLUSH IVF SCH ×2 (08:12→22:00)
[2016-07-01] MEDS: RESP: ALBUTEROL 2.5 MG/IPRATROPIUM 0.5 MG NEB (SCH) INH ×4 (09:35→19:52)
--- NOTE | 2016-07-01 11:24 | HHI.PR ---
Subjective Remarks f/u; copd exacerbation still with some sob. says that he's not feeling as good as yesterday. has some dry cough. no fever. Objective Vitals Vital Signs Date Time Temp Pulse Resp B/P Pulse Ox O2 Delivery O2 Flow Rate FiO2 07/01/16 09:47 66 07/01/16 09:35 96 Nasal Cannula 3.00 07/01/16 08:50 Nasal Cannula 3.00 07/01/16 08:00 97.7 68 20 160/77 92 07/01/16 06:20 93 Nasal Cannula 3.00 07/01/16 04:07 97.4 60 18 136/65 94 06/30/16 23:20 97.2 74 18 147/70 95 06/30/16 20:45 Nasal Cannula 3.00 06/30/16 20:24 86 06/30/16 20:15 97.3 84 20 148/68 93 06/30/16 16:00 97.4 74 22 163/78 96 06/30/16 15:54 92 Nasal Cannula 3.00 06/30/16 12:00 97.0 69 20 142/72 92 I/O 06/30/16 06/30/16 06/30/16 07/01/16 07/01/16 07/01/16 07:00 15:00 23:00 07:00 15:00 23:00 Intake Total 240 ml 240 ml 240 ml Output Total 400 ml 650 ml 200 ml 250 ml Balance -160 ml -650 ml 40 ml -10 ml Intake Oral 240 ml 240 ml 240 ml Output Urine Total 400 ml 650 ml 200 ml 250 ml # Bowel Movements 0 0 2 0 Result Diagram: 06/30/16 0753 06/30/16 0753 Imaging Last Impressions Chest X-Ray 06/29/16 1620 Signed Impressions: Service Date/Time: Wednesday, June 29, 2016 16:23 - CONCLUSION: 1. Scattered areas of interstitial disease. This may represent some underlying chronic disease. 2. Elevation of the right hemidiaphragm. Tate Parada MD CT Angiography 06/29/16 0000 Signed Impressions: Service Date/Time: Wednesday, June 29, 2016 18:47 - CONCLUSION: 1. No evidence of PE. 2. 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 Jeison Deutsch MD Objective Remarks GENERAL: with some sob CARDIOVASCULAR: Regular rate and regular rhythm without murmurs, gallops, or rubs. RESPIRATORY: bilateral crackles GASTROINTESTINAL: Abdomen soft, non-tender, nondistended. Normal, active bowel sounds MUSCULOSKELETAL: Extremities without clubbing, cyanosis, or edema. NEURO: Alert & Oriented x4 to person, place, time, situation. Moves all ext x4 Procedures none Medications and IVs Current Medications Albuterol/ Ipratropium (Duoneb Neb) 1 ampule Q15M INH Last administered on 06/29 16:51; Start 06/29/16 at 16:30; Stop 06/29/16 at 17:01; Status DC IV Flush 2 ml 2 ml UNSCH PRN IVF FLUSH AFTER USING IV ACCESS; Start 06/29/16 at 16:30; Stop 06/29/16 at 20:09; Status DC Sodium Chloride 1,000 ml @ 999 mls/hr BOLUS ONCE IV Last administered on 06/29 19:24; Start 06/29/16 at 17:45; Stop 06/29/16 at 18:45; Status DC Sodium Chloride 1,000 ml @ 999 mls/hr BOLUS ONCE IV Last administered on 06/29 20:36; Start 06/29/16 at 17:45; Stop 06/29/16 at 18:45; Status DC Vancomycin HCl 1000 mg/Sodium Chloride 250 ml @ 250 mls/hr ONCE ONCE IV Last administered on 06/29/16 19:05; Start 06/29/16 at 17:45; Stop 06/29/16 at 18:44 ; Status DC Piperacillin Sod/ Tazobactam Sod 50 ml @ 100 mls/hr ONCE ONCE IV Last administered on 06/29/16 17:45; Start 06/29/16 at 17:45; Stop 06/29/16 at 18:14 ; Status DC Sodium Chloride (NS 1000 ml Inj) 1,000 ml @ 999 mls/hr BOLUS ONCE IV Last administered on 06/29/16 20:36; Start 06/29/16 at 17:45; Stop 06/29/16 at 18:45 ; Status DC Iohexol 65 ml 65 ml STK-MED ONCE IV ; Start 06/29/16 at 19:03; Stop 06/29/16 at 19:04; Status DC Ceftriaxone Sodium 2000 mg/ Sodium Chloride 100 ml @ 200 mls/hr Q24H IV Last administered on 06/30/16 22:22; Start 06/29/16 at 22:00 Azithromycin/ Sodium Chloride (Zithromax Inj/ NS 250 ml Inj) 250 ml @ 250 mls/ hr Q24H IV Last administered on 06/30/16 22:23; Start 06/29/16 at 21:00 IV Flush (NS Flush) 2 ml BID IVF Last administered on 07/01/16 08:12; Start at 21:00 IV Flush (NS Flush) 2 ml UNSCH PRN IVF FLUSH AFTER USING IV ACCESS; Start 06/29 at 20:00 Albuterol/ Ipratropium (Duoneb Neb) 1 ampule QID NEB INH Last administered on 07/01/16 09:35; Start 06/29/16 at 20:00 Albuterol Sulfate (Albuterol Neb) 2.5 mg Q2HR NEB PRN INH SHORTNESS OF BREATH Last administered on 07/01/16 06:17; Start 06/29/16 at 20:00 Methylprednisolone Sodium Succinate (SoluMEDROL INJ) 60 mg Q6H IVP Last administered on 07/01/16 08:12; Start 06/29/16 at 21:00 Enoxaparin Sodium (Lovenox Inj) 30 mg Q24H SQ Last administered on 06/30/16 22 :19; Start 06/29/16 at 21:00 Clonidine (Catapres) 0.1 mg ONCE ONCE PO Last administered on 06/30/16 01:53 ; Start 06/30/16 at 01:00; Stop 06/30/16 at 01:01; Status DC Albuterol Sulfate (Proair Hfa Inh) 2 puff QID PRN INH SHORTNESS OF BREATH; Start 06/30/16 at 03:00 Aspirin (Aspirin Chew) 162 mg BID PO Last administered on 07/01/16 08:12; Start 06/30/16 at 09:00 Atorvastatin Calcium (Lipitor) 20 mg HS PO Last administered on 06/30/16 22:21 ; Start 06/30/16 at 21:00 Clopidogrel Bisulfate (Plavix) 75 mg HS PO Last administered on 06/30/16 22:20 ; Start 06/30/16 at 21:00 Ipratropium [place] (Atrovent Neb) 0.5 mg BID NEB PRN NEB SHORTNESS OF BREATH; Start 06/30/16 at 03:00 Isosorbide Mononitrate (Imdur) 30 mg DAILY PO Last administered on 07/01/16 08 :11; Start 06/30/16 at 09:00 Levothyroxine Sodium (Synthroid) 112 mcg DAILY@0600 PO Last administered on 06:19; Start 06/30/16 at 06:00 Diltiazem HCl (Cardizem Cd) 360 mg HS PO ; Start 06/30/16 at 21:00; Stop at 21:00; Status DC Fluoxetine HCl (PROzac) 40 mg DAILY PO Last administered on 07/01/16 08:12; Start 06/30/16 at 09:00 Metformin HCl (Glucophage) 500 mg BIDPC PO ; Start 06/30/16 at 09:00; Stop 06/30 at 09:00; Status DC Diltiazem HCl (Cardizem Cd) 360 mg ONCE ONCE PO ; Start 06/30/16 at 03:00; Stop 06/30/16 at 03:16; Status DC Dextrose (D50w (Vial) Inj) 25 ml UNSCH PRN IV PUSH HYPOGLYCEMIA-SEE COMMENTS; Start 06/30/16 at 03:30 Glucagon (Glucagon Inj) 1 mg UNSCH PRN OTHER HYPOGLYCEMIA-SEE COMMENTS; Start 06/30/16 at 03:30 Insulin Aspart (NovoLOG SUPPLEMENTAL SCALE) 1 ACHS SLIDING SCALE SQ Last administered on 07/01/16 06:20; Start 06/30/16 at 07:00 Pantoprazole Sodium (Protonix Inj) 40 mg NOW ONCE IV PUSH Last administered on 06/30/16 04:58; Start 06/30/16 at 04:30; Stop 06/30/16 at 04:31; Status DC Pantoprazole Sodium (Protonix Inj) 40 mg DAILY@04 IV PUSH Last administered on 07/01/16 03:52; Start 07/01/16 at 04:00 Diltiazem HCl (Cardizem Cd) 240 mg HS PO ; Start 3/14/17 at 21:00; Stop at 21:00; Status DC Diltiazem HCl (Cardizem Cd) 240 mg ONCE ONCE PO Last administered on 04:57; Start 06/30/16 at 04:45; Stop 06/30/16 at 04:46; Status DC Diltiazem HCl (Cardizem Cd) 240 mg HS PO Last administered on 06/30/16 22:20; Start 06/30/16 at 21:00 Enalaprilat (Vasotec Inj) 1.25 mg Q8H PRN IV PUSH SBP> OR = 180, DBP> OR = 100 ; Start 06/30/16 at 11:15 A/P Assessment and Plan A/P COPD exacerbation Imaging: CTA shows No evidence PE. 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 Flu negative -DuoNeb's -pulmonary consult appreciated. -IV antibiotics Rocephin and azithromycin -Solu-Medrol IV Leukocytosis/ Sirs criteria Labs: WBC is 19.2, neutrophils 76%, lactic acid 4.6, down to 1.7, heart rate greater than 90 -Blood cultures negative. Hypertension, chronic - continue imdur and Cardizem -Monitor vitals -vasotec prn A. fib, chronic -Monitor telemetry -Order home medications Cardizem 240mg HS, Plavix Diabetes, chronic- -Accu-Cheks AC/HS with SSI -start long acting insulin while in the hospital -hold metformin DVT prophylaxis: Lovenox GI prophylaxis: Protonix Kalie Quintero MD Jul 01, 2016 11:24
[2016-07-01] MEDS ORDERED: INSULIN ASPART 1,000 UNITS/10 ML VIAL SQ ONE (16:15)
[2016-07-01] MEDS ORDERED: INSULIN DETEMIR 100 UNITS/ML VIAL SQ SCH (21:00)
[2016-07-01] MEDS: ENOXAPARIN SODIUM 30 MG/0.3 ML SYRINGE SQ SCH (21:54)
--- NOTE | 2016-07-01 21:54 | HHI.PR ---
Subjective Remarks 80 YOWM with COPD Exac,HTN,DM,AF Feels better has wheezing, " I always have wheezing" No Cough or sp Objective Vital Signs Vital Signs Date Time Temp Pulse Resp B/P Pulse Ox O2 Delivery O2 Flow Rate FiO2 07/01/16 20:17 97.3 73 24 154/71 92 07/01/16 16:00 97.5 70 20 148/70 92 07/01/16 15:58 92 Nasal Cannula 3.00 07/01/16 12:00 97.4 73 20 145/63 94 07/01/16 09:47 66 07/01/16 09:35 96 Nasal Cannula 3.00 07/01/16 08:50 Nasal Cannula 3.00 07/01/16 08:00 97.7 68 20 160/77 92 07/01/16 06:20 93 Nasal Cannula 3.00 07/01/16 04:07 97.4 60 18 136/65 94 06/30/16 23:20 97.2 74 18 147/70 95 I/O 06/30/16 06/30/16 06/30/16 07/01/16 07/01/16 07/01/16 07:00 15:00 23:00 07:00 15:00 23:00 Intake Total 240 ml 240 ml 240 ml 960 ml Output Total 400 ml 650 ml 200 ml 250 ml 450 ml Balance -160 ml -650 ml 40 ml -10 ml 510 ml Intake Oral 240 ml 240 ml 240 ml 960 ml Output Urine Total 400 ml 650 ml 200 ml 250 ml 450 ml # Bowel Movements 0 0 2 0 1 Result Diagram: 06/30/16 0753 07/01/16 1625 Objective Remarks GENERAL:WBWn Wm, mild sob SKIN: Warm and dry. HEAD: Normocephalic. EYES: No scleral icterus. No injection or drainage. NECK: Supple, trachea midline. No JVD or lymphadenopathy. CARDIOVASCULAR: Regular rate and rhythm without murmurs, gallops, or rubs. RESPIRATORY: Breath sounds equal bilaterally. No accessory muscle use. Exp rhonchi GASTROINTESTINAL: Abdomen soft, non-tender, nondistended. MUSCULOSKELETAL: No cyanosis, or edema. BACK: Nontender without obvious deformity. No CVA tenderness. A/P Assessment and Plan COPD exac Bronchitis DM AF Leucocytosis PLAN: IV Solumedrol Aerosol nebs Cont Abx monitor CBC 02 to keep sat >90% Brandin Gayle MD Jul 01, 2016 21:54
[2016-07-01] MEDS: cefTRIAXone INJ 2,000 MG in SODIUM CHLORIDE 0.9% INJ 100 ML IV SCH (21:56)
[2016-07-01] MEDS: AZITHROMYCIN INJ 500 MG in SODIUM CHLOR 0.9% 250 ML INJ 250 ML IV SCH (21:58)
[2016-07-01] MEDS: ATORVASTATIN 20 MG TAB PO SCH (21:59)
[2016-07-01] MEDS: CLOPIDOGREL 75 MG TAB PO SCH (21:59)
[2016-07-01] MEDS: DILTIAZEM-CD 240 MG CAP ER PO SCH (21:59)
[2016-07-01] MEDS: MEDIUM DOSE INSULIN NOVOLOG SUPPLEMENTAL SCALE SQ SCH (22:01)
[2016-07-02] MEDS: methylPREDNISolone SOD SUCC 125 MG/2 ML VIAL IVP SCH (04:01)
[2016-07-02] MEDS: PANTOPRAZOLE SODIUM 40 MG VIAL IV PUSH SCH (04:01)
[2016-07-02 04:27] VITALS: BP 162/76; PULSE 74; RESP 20; TEMP 97.5; O2SAT 93
[2016-07-02] MEDS: LEVOTHYROXINE SODIUM 112 MCG TAB PO SCH (06:19)
[2016-07-02] MEDS: MEDIUM DOSE INSULIN NOVOLOG SUPPLEMENTAL SCALE SQ SCH ×2 (06:20→11:13)
[2016-07-02 08:00] VITALS: BP 173/76; PULSE 69; RESP 20; TEMP 97.4; O2SAT 91
--- NOTE | 2016-07-02 08:10 | HHI.PR ---
Subjective Remarks Follow-up COPD exacerbation 07/02/16-patient seen and examined, reports significant improvement or shortness of breath and denies any wheezing. Currently afebrile and no acute event overnight. States he would like to be discharged home as patient in his own words says "I feel good" Objective Vitals Vital Signs Date Time Temp Pulse Resp B/P Pulse Ox O2 Delivery O2 Flow Rate FiO2 07/02/16 04:27 97.5 74 20 162/76 93 07/01/16 23:28 97.7 76 24 159/73 92 07/01/16 20:45 Nasal Cannula 3.00 07/01/16 20:41 71 07/01/16 20:17 97.3 73 24 154/71 92 07/01/16 16:00 97.5 70 20 148/70 92 07/01/16 15:58 92 Nasal Cannula 3.00 07/01/16 12:00 97.4 73 20 145/63 94 07/01/16 09:47 66 07/01/16 09:35 96 Nasal Cannula 3.00 07/01/16 08:50 Nasal Cannula 3.00 I/O 07/01/16 07/01/16 07/01/16 07/02/16 07/02/16 07/02/16 07:00 15:00 23:00 07:00 15:00 23:00 Intake Total 240 ml 960 ml 480 ml 240 ml Output Total 250 ml 450 ml 175 ml 450 ml Balance -10 ml 510 ml 305 ml -210 ml Intake Oral 240 ml 960 ml 480 ml 240 ml Output Urine Total 250 ml 450 ml 175 ml 450 ml # Bowel Movements 0 1 1 0 Result Diagram: 06/30/16 0753 07/01/16 1625 Imaging Last Impressions Chest X-Ray 06/29/16 1620 Signed Impressions: Service Date/Time: Wednesday, June 29, 2016 16:23 - CONCLUSION: 1. Scattered areas of interstitial disease. This may represent some underlying chronic disease. 2. Elevation of the right hemidiaphragm. Tate Parada MD CT Angiography 06/29/16 0000 Signed Impressions: Service Date/Time: Wednesday, June 29, 2016 18:47 - CONCLUSION: 1. No evidence of PE. 2. 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 Jeison Deutsch MD Objective Remarks GENERAL: NAD SKIN: Warm and dry. HEAD: Normocephalic. EYES: No scleral icterus. No injection or drainage. NECK: Supple, trachea midline. No JVD or lymphadenopathy. CARDIOVASCULAR: Regular rate and rhythm without murmurs, gallops, or rubs. RESPIRATORY: Breath sounds equal bilaterally. No accessory muscle use. GASTROINTESTINAL: Abdomen soft, non-tender, nondistended. MUSCULOSKELETAL: No cyanosis, or edema. BACK: Nontender without obvious deformity. No CVA tenderness. Procedures none A/P Problem List: (1) COPD exacerbation ICD Code: J44.1 Status: Resolved (2) Leukocytosis ICD Code: D72.829 Status: Acute (3) HTN (hypertension) ICD Code: I10 Status: Chronic (4) A-fib ICD Code: I48.91 Status: Chronic (5) Diabetes ICD Code: E11.9 Status: Chronic Assessment and Plan 80-year-old man with COPD exacerbation: Resolved Imaging: CTA shows No evidence PE. 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 Flu negative -DuoNeb's -pulmonary consult appreciated. -IV antibiotics Rocephin and azithromycin -Currently on Solu-Medrol IV, which I will switch to by mouth prednisone 20 mg twice a day Leukocytosis/ Sirs criteria: Resolved Labs: WBC is 19.2, neutrophils 76%, lactic acid 4.6, down to 1.7, heart rate greater than 90 -Blood cultures negative. Hypertension, chronic - continue imdur and Cardizem -Monitor vitals -vasotec prn A. fib, chronic -Monitor telemetry -Order home medications Cardizem 240mg HS, Plavix Diabetes, chronic- labile blood glucose exacerbated by steroid treatment ; repeat BMP this morning and treat accordingly. -Accu-Cheks AC/HS with SSI -Continue long acting insulin while in the hospital -Resume metformin today DVT prophylaxis: Lovenox GI prophylaxis: Protonix Discharge Planning Likely discharge today when hyperglycemia control Problem Qualifiers (1) Diabetes: Wero Bray MD Jul 02, 2016 08:10
[2016-07-02] MEDS: RESP: ALBUTEROL 2.5 MG/IPRATROPIUM 0.5 MG NEB (SCH) INH ×2 (08:27→11:57)
[2016-07-02 08:28] VITALS: O2SAT 93
--- NOTE | 2016-07-02 08:34 | HHI.FF ---
Face to Face Verification Diagnosis: (1) COPD exacerbation (2) SIRS (systemic inflammatory response syndrome) (3) Diabetes (4) A-fib (5) HTN (hypertension) Home Health Nursing Order: Signs/symptoms of disease process I have seen patient Hubert Arnold on 07/02/16. My clinical findings support the need for the requested home health care services because: Patient has SOB I certify that my clinical findings support that this patient is homebound because: Poor cardiac reserve Wero Bray MD Jul 02, 2016 08:34
[2016-07-02] MEDS: ASPIRIN 81 MG CHEW TAB PO SCH (08:45)
[2016-07-02] MEDS: FLUoxetine HCL 20 MG CAP PO SCH (08:45)
[2016-07-02] MEDS: SODIUM CHLORIDE 0.9% FLUSH 5 ML FLUSH IVF SCH (08:45)
[2016-07-02] MEDS: ISOSORBIDE MONONITRATE 30 MG TAB PO SCH (08:45)
[2016-07-02] MEDS ORDERED: predniSONE 20 MG TAB PO SCH (09:00)
[2016-07-02 09:49] VITALS: PULSE 70
[2016-07-02] MEDS ORDERED: PRED20 PO (09:58)
[2016-07-02] MEDS ORDERED: CEFT250T8 PO (09:59)
--- NOTE | 2016-07-02 10:00 | HHI.DS ---
Discharge Summary Admission Date Jun 29, 2016 at 19:35 Discharge Date: Jul 02, 2016 Admitting Diagnosis Hypoxic Respiratory failure, COPD exacerbation, SIRS. (1) COPD exacerbation ICD Code: J44.1 (2) Leukocytosis ICD Code: D72.829 (3) HTN (hypertension) ICD Code: I10 (4) A-fib ICD Code: I48.91 (5) Diabetes ICD Code: E11.9 Procedures none Brief History - From Admission 80 y/o male with a history of COPD and continuous 3 L at home, CAD, diabetes, A. fib, hypothyroidism, and depression presented to the ED with worsening shortness of breath. Patient states his wheezing and shortness of breath began about 5 weeks ago with the increase in pollen, and over the course of time he was treated with prednisone by his PCP. Today he called his ground nuclear weapons assembly officer Dr. booker who reviewed his outpatient chest x-rays and sent him to the ED. Patient states over the last week he is just continued to get worse despite taking prednisone 20 mg daily, he had a fever at home of 100.7, complains of having a productive cough with very little sputum, night sweats and chills. He denies any chest pain, nausea or vomiting. PCP is Dr. Tavera Gambreler Helper is Dr. booker CBC/BMP: 06/30/16 0753 07/01/16 1625 Significant Findings Laboratory Tests Test 06/29/16 06/29/16 06/29/16 06/29/16 16:25 16:32 16:35 20:55 White Blood Count 19.2 TH/MM3 (4.0-11.0) Neutrophils (%) (Auto) 76.4 % (16.0-70.0) Neutrophils # (Auto) 14.7 TH/MM3 (1.8-7.7) Monocytes # (Auto) 1.4 TH/MM3 (0-0.9) Potassium Level 3.3 MEQ/L (3.5-5.1) Blood Urea Nitrogen 21 MG/DL (7-18) Estimat Glomerular Filtration 53 ML/MIN (>89) Rate Random Glucose 205 MG/DL (74-106) Troponin I LESS THAN 0.02 NG/ML (0.02-0.05) Albumin 2.1 GM/DL (3.4-5.0) Arterial Blood pH 7.46 (7.380-7.420) Arterial Blood Partial 33 mmHg (38-42) Pressure CO2 Lactic Acid Level 4.6 mmol/L 2.7 mmol/L (0.4-2.0) (0.4-2.0) Test 06/30/16 07/01/16 07:53 16:25 Red Blood Count 4.09 MIL/MM3 (4.50-5.90) Hemoglobin 11.3 GM/DL (13.0-17.0) Hematocrit 34.5 % (39.0-51.0) Neutrophils (%) (Auto) 89.6 % (16.0-70.0) Lymphocytes (%) (Auto) 5.3 % (9.0-44.0) Lymphocytes # (Auto) 0.4 TH/MM3 (1.0-4.8) Estimat Glomerular Filtration 70 ML/MIN (>89) Rate Random Glucose 365 MG/DL 483 MG/DL (74-106) (74-106) Calcium Level 7.4 MG/DL (8.5-10.1) Protein Corrected Calcium 8.1 MG/DL (8.5-10.1) Total Protein 5.8 GM/DL (6.4-8.2) PE at Discharge GENERAL: NAD SKIN: Warm and dry. HEAD: Normocephalic. EYES: No scleral icterus. No injection or drainage. NECK: Supple, trachea midline. No JVD or lymphadenopathy. CARDIOVASCULAR: Regular rate and rhythm without murmurs, gallops, or rubs. RESPIRATORY: Breath sounds equal bilaterally. No accessory muscle use. GASTROINTESTINAL: Abdomen soft, non-tender, nondistended. MUSCULOSKELETAL: No cyanosis, or edema. BACK: Nontender without obvious deformity. No CVA tenderness. Hospital Course COPD exacerbation: Resolved Imaging: CTA shows No evidence PE. 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 Flu negative -DuoNeb's -pulmonary consult appreciated. -IV antibiotics Rocephin and azithromycin -Currently on Solu-Medrol IV, which I will switch to by mouth prednisone 20 mg twice a day Leukocytosis/ Sirs criteria: Resolved Labs: WBC is 19.2, neutrophils 76%, lactic acid 4.6, down to 1.7, heart rate greater than 90 -Blood cultures negative. Hypertension, chronic - continue imdur and Cardizem -Monitor vitals -vasotec prn A. fib, chronic -Monitor telemetry -Order home medications Cardizem 240mg HS, Plavix Diabetes, chronic- labile blood glucose exacerbated by steroid treatment ; repeat BMP this morning and treat accordingly. -Accu-Cheks AC/HS with SSI -Continue long acting insulin while in the hospital -Resume metformin today DVT prophylaxis: Lovenox GI prophylaxis: Protonix Pt Condition on Discharge: Stable Discharge Disposition: Disch w/ Home Health Serv Discharge Time: > 30 minutes Discharge Instructions DIET: Follow Instructions for: Diabetic Diet Follow up Referrals: PCP Follow-up - 1 Week New Medications: Cefuroxime (Ceftin) 250 Mg Tab 250 MG PO BID Infection #6 Ref 0 TAB Prednisone (Prednisone) 20 Mg Tab 20 MG PO DIRECTED 40 MG twice a day x 3 days, then 20 MG daily x 3 days, then 10 MG daily x 3 days Inflammation #11 Ref 0 TAB Continued Medications: Albuterol Sulfate (Proventil Hfa) 6.7 Gm Aero 2 PUFF INH QID * SHAKE WELL BEFORE USE * PRN SHORTNESS OF BREATH BOX Aspirin (Aspirin) 81 Mg Tab 162 MG PO BID Ref 0 Atorvastatin 20 mg (Atorvastatin 20 mg tab) 20 Mg Tab 20 MG PO HS Days 30 TAB Clopidogrel Bisulfate (Plavix) 75 Mg Tab 75 MG PO HS Ref 0 Diltiazem La 360 mg (Cardizem La 360 mg) 360 Mg Tab 360 MG PO HS Fluoxetine (Fluoxetine) 40 Mg Cap 40 MG PO DAILY CAP Ipratropium [place] (Atrovent Ud 0.02% (0.5 Mg/2.5 Ml)) 0.5 Mg/2.5 Ml Nebu 0.5 MG NEB BID NEB PRN SHORTNESS OF BREATH AMPULE Isosorbide Mononitrate (Isosorbide Mononitrate Er) 30 Mg Tab 30 MG PO DAILY TAB Levothyroxine Sodium (Levothyroxine 112 mcg) 112 Mcg Tab 112 MCG PO DAILY Metformin ER 24 HR (Metformin ER 24 HR) 1,000 Mg Tab 1000 MG PO HS Nitroglycerin (Nitrostat) 0.3 Mg Sub Unknown Dose SL DIRECTED PRN CHEST PAIN SUB Pontey,Wero MD Jul 02, 2016 10:00
[2016-07-02 12:00] VITALS: BP 168/76; PULSE 75; RESP 18; TEMP 97.3; O2SAT 90
[2016-07-02 12:21] VITALS: BP 148/68
[2016-07-02 12:44] LABS: BICARBONATE 24.6 MEQ/L (21.0-32.0); POTASSIUM 3.7 MEQ/L (3.5-5.1)
--- NOTE | 2016-07-05 10:16 | PQ ---
Physician Query Response Document PATIENT: JAMEEL GAMEZ : 1935 ADMIT DATE: 06/29/2016 7:35 PM DISCH DATE: 07/02/2016 3:36 PM RESPONDING PROVIDER #: Denise QUERY TEXT: Respiratory Failure Acuity and Type Respiratory Failure is documented in the Medical Record. 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 Flu negative ABGS ph 7.46 and pco2 33 on 5L oxygen Query created by: Sofy Hardy on 07/02/2016 10:37 AM RESPONSE TEXT: Acute on Chronic respiratory failure with Hypoxia Electronically signed by: Wero Bray MD 07/05/2016 10:12 AM
== END 2016-07-02 15:36 | disposition home or self-care (01) | DRG 190 ==
LOC: NEPC 16:10 → NEDA 19:35 → N04B 22:43
PROVIDERS: ADMIT Hospitalist; ATTEND Hospitalist
DX: J44.1 Chronic obstructive pulmonary disease with (acute) exacerbation (principal); J96.20 Acute and chronic respiratory failure, unspecified whether with hypoxia or hypercapnia; Z99.81 Dependence on supplemental oxygen; I48.91 Unspecified atrial fibrillation; R65.10 Systemic inflammatory response syndrome (SIRS) of non-infectious origin without acute organ dysfunction; E11.9 Type 2 diabetes mellitus without complications; Z79.84 Long term (current) use of oral hypoglycemic drugs; I10 Essential (primary) hypertension; D72.829 Elevated white blood cell count, unspecified; F32.9 Major depressive disorder, single episode, unspecified; I25.10 Atherosclerotic heart disease of native coronary artery without angina pectoris; Z95.5 Presence of coronary angioplasty implant and graft; Z79.02 Long term (current) use of antithrombotics/antiplatelets; Z79.82 Long term (current) use of aspirin; E03.9 Hypothyroidism, unspecified; R91.1 Solitary pulmonary nodule; G47.33 Obstructive sleep apnea (adult) (pediatric); Z87.01 Personal history of pneumonia (recurrent); Z87.891 Personal history of nicotine dependence
CPT/HCPCS: 36600; 71010; 71275; 80048; 80053; 82805; 82947; 82948; 83605; 84155; 84484; 85025; 87040; 87641; 87804; 93005; 94150; 94640; 94664; 96365; C9113; J0456; J0696; J1650; J1815; J2543; J2930; J3370; J7030; J7050; J7512; J7613; Q9967

== ENCOUNTER 2016-07-24 12:38 | Inpatient (IN) | payer OTHER, MEDICARE ==
[2016-07-24] VITALS (10 sets, daily range): BP systolic 110–193; BP diastolic 61–94; PULSE 96–115; RESP 20–28; TEMP 97.6–97.7; O2SAT 70–96
[~2016-07-24] VITALS: Ht 170.2 cm; Wt 107.6 kg
[~2016-07-24 12:38] MED LIST changes: +CEFT250T8 PO; -FENO160T2 PO; +PRED20 PO
--- NOTE | 2016-07-24 12:52 | PD ---
HPI Chief Complaint: Respiratory Symptoms Time Seen by Provider: 12:52 Travel History International Travel<30 days: No Contact w/Intl Traveler<30days: No Traveled to known affect area: No History of Present Illness HPI 80-year-old male coming in from home with his , with reports of hypoxia home of around 78-81 on 3 L oxygen via nasal cannula. Patient was just seen by his sheet rock finisher Dr. Gerardo and Dr. Alvarez his third steel pourer earlier this week, and given a green light. Patient denies fever chills recently. Patient states he's had "rib pain" for the past several weeks off and on. Patient states increased shortness of breath with exertion in the last several days. Patient denies coughing up anything significant. Patient denies history of CHF. Patient has had stents in both of his lower extremities as well as his heart in the past. Patient denies nausea, vomiting, or upper respiratory symptoms. Patient was recently seen here on 29 June with similar presentation, but with history of fever 102 the day before. At that time the patient was diagnosed with SIRS, and COPD with acute exacerbation with hypoxia. The patient was hospitalized at that time. Patient is allergic to sulfa, and has history of MRSA. PFSH Past Medical History Hx Anticoagulant Therapy: Yes (PLAVIX , ASA ) Arthritis: Yes Asthma: Yes Atrial Fibrillation: Yes Anxiety: Yes Depression: Yes Heart Rhythm Problems: Yes (ablation 3ya) Cancer: Yes (squamous cell back) Cardiac Catheterization: Yes Cardiovascular Problems: Yes (STENTS, HTN , CAD ) High Cholesterol: Yes Chest Pain: Yes Congestive Heart Failure: Yes COPD: Yes Coronary Artery Disease: Yes (2 stints) Diabetes: Yes Diminished Hearing: No Endocrine: Yes GERD: No Genitourinary: Yes Hepatitis: No Hiatal Hernia: No Hypertension: Yes Immune Disorder: No Kidney Stones: Yes Musculoskeletal: Yes Neurologic: No Psychiatric: Yes Reproductive: No Respiratory: Yes (COPD ) Renal Failure: No Sleep Apnea: Yes Thyroid Disease: Yes Ulcer: No Past Surgical History Abdominal Surgery: Yes (APPENDECTOMY AGE 23) AICD: No Appendectomy: Yes (AGE 23) Cardiac Surgery: Yes (CARDIAC STENTS X 3) Coronary Stent: Yes (X3) Ear Surgery: No Endocrine Surgery: No Genitourinary Surgery: No Gynecologic Surgery: No Oral Surgery: No Pacemaker: No Thoracic Surgery: No Other Surgery: Yes Social History Alcohol Use: Yes (OCC) Tobacco Use: Yes (QUIT) Substance Use: No Allergies-Medications (Allergen,Severity, Reaction): Coded Allergies: Sulfa (Verified Allergy, Unknown, CAN'T RECALL , 06/29/16) *MDRO Multi-Drug Resistant Organism (Verified Adverse Reaction, Unknown, ) MRSA PCR Screen POSITIVE - 06/30/2016 Reported Meds & Prescriptions Reported Meds & Active Scripts Active Prednisone 20 Mg Tab 20 Mg PO DIRECTED 40 MG twice a day x 3 days, then 20 MG daily x 3 days, then 10 MG daily x 3 days Reported Nitrostat (Nitroglycerin) 0.3 Mg Sub Unknown Dose SL DIRECTED PRN Atrovent Ud 0.02% (0.5 Mg/2.5 Ml) (Ipratropium [place]) 0.5 Mg/2.5 Ml Nebu 0.5 Mg NEB BID NEB PRN Proventil Hfa (Albuterol Sulfate) 6.7 Gm Aero 2 Puff INH QID PRN * SHAKE WELL BEFORE USE * Isosorbide Mononitrate Er (Isosorbide Mononitrate) 30 Mg Tab 30 Mg PO DAILY Fluoxetine (Fluoxetine HCl) 40 Mg Cap 40 Mg PO DAILY Atorvastatin 20 mg tab (Atorvastatin Calcium) 20 Mg Tab 20 Mg PO HS 30 Days Metformin ER 24 HR (Metformin HCl) 1,000 Mg Tab 1,000 Mg PO HS Cardizem La 360 mg (Diltiazem La 360 mg) 360 Mg Tab 360 Mg PO HS Levothyroxine 112 mcg (Levothyroxine Sodium) 112 Mcg Tab 112 Mcg PO DAILY Plavix (Clopidogrel Bisulfate) 75 Mg Tab 75 Mg PO HS Aspirin 81 Mg Tab 162 Mg PO BID Review of Systems Except as stated in HPI: all other systems reviewed are Neg General / Constitutional: No: Fever, Chills Eyes: No: Visual changes HENT: No: Headaches, Sore Throat, Rhinitis, Rhinorrhea, Congestion, Neck Stiffness, Neck Pain, Earache Cardiovascular: Positive: Chest Pain or Discomfort (see history present illness.), Dyspnea on exertion, No: Palpitations, Irregular Rhythm, Tachycardia , Diaphoresis, Syncope, Edema, Claudication Respiratory: Positive: Cough, Shortness of Breath, Orthopnea, Pleuritic Pain, No: Sneezing, Hemoptysis, Stridor, Night Sweats, Other Gastrointestinal: No: Nausea, Vomiting, Diarrhea, Abdominal Pain, Loss of Appetite Genitourinary: No: Dysuria Musculoskeletal: No: Pain Skin: No Rash Neurologic: No: Weakness Psychiatric: No: Depression Endocrine: No: Polydipsia Hematologic/Lymphatic: No: Easy Bruising Physical Exam Narrative GENERAL: Patient appears in moderate respiratory distress with tachypnea and accessory muscle use. SKIN: Warm and dry. Normal color. Normal turgor. No diaphoresis. HEAD: Atraumatic. Normocephalic. EYES: Pupils equal and round. No scleral icterus. No injection or drainage. ENT: No nasal bleeding or discharge. Mucous membranes pink and moist. Pharynx is clear. Airway is patent. NECK: Trachea midline. No JVD. Neck is supple nontender. CARDIOVASCULAR: Tachycardic rate and normal rhythm. No murmurs gallops or rubs appreciated. RESPIRATORY: No accessory muscle use. Mild wheezing throughout to auscultation. Breath sounds are generally diminished equal bilaterally. GASTROINTESTINAL: Abdomen soft, non-tender, nondistended. Hepatic and splenic margins not palpable. MUSCULOSKELETAL: Extremities without clubbing, cyanosis, or edema. No obvious deformities. NEUROLOGICAL: Awake and alert. No obvious cranial nerve deficits. Motor grossly within normal limits. Five out of 5 muscle strength in the arms and legs. Normal speech. PSYCHIATRIC: Appropriate mood and affect; insight and judgment normal. Data Data Last Documented VS Vital Signs Date Time Temp Pulse Resp B/P Pulse Ox O2 Delivery O2 Flow Rate FiO2 07/24/16 14:00 107 24 148/76 94 Non-Rebreather 15 07/24/16 12:39 97.6 Orders Complete Blood Count With Diff (07/24/16 12:52) Comprehensive Metabolic Panel (07/24/16 12:52) B-Type Natriuretic Peptide (07/24/16 12:52) Act Partial Throm Time (Ptt) (07/24/16 12:52) Prothrombin Time / Inr (Pt) (07/24/16 12:52) Magnesium (Mg) (07/24/16 12:52) Ckmb (Isoenzyme) Profile (07/24/16 12:52) Troponin I (07/24/16 12:52) Arterial Blood Gas (Abg) (07/24/16 12:52) Influenzae A/B Antigen (07/24/16 12:52) Blood Culture (07/24/16 12:52) Iv Access Insert/Monitor (07/24/16 12:52) Electrocardiogram (07/24/16 12:52) Ecg Monitoring (07/24/16 12:52) Oximetry (07/24/16 12:52) Oxygen Administration (07/24/16 12:52) Chest, Single Ap (07/24/16 12:52) Sodium Chloride 0.9% Flush (Ns Flush) (07/24/16 13:00) Furosemide Inj (Lasix Inj) (07/24/16 13:00) Methylprednisolone So Succ Inj (Solumedr (07/24/16 13:00) Albuterol-Ipratropium Neb (Duoneb Neb) (07/24/16 13:00) Lactic Acid Sepsis Protocol (07/24/16 13:11) Vancomycin Inj (Vancomycin Inj) (07/24/16 13:45) Cefepime Inj (Maxipime Inj) (07/24/16 13:45) Sodium Chlorid 0.9% 500 Ml Inj (Ns 500 M (07/24/16 14:00) Magnesium Sulfate 1 Gm Premix (Magnesium (07/24/16 14:00) Cta Chest W Iv Contrast W 3d (07/24/16 14:50) Sodium Chlorid 0.9% 500 Ml Inj (Ns 500 M (07/24/16 15:00) Labs Laboratory Tests Test 07/24/16 07/24/16 12:50 13:05 Blood Gas Puncture Site RT RADIAL Blood Gas Patient Temperature 98.6 Blood Gas HCO3 19 mmol/L Blood Gas Base Excess -5.1 mmol/L Blood Gas Oxygen Saturation 96 % Arterial Blood pH 7.39 Arterial Blood Partial 32 mmHg Pressure CO2 Arterial Blood Partial 111 mmHG Pressure O2 Arterial Blood Oxygen Content 19.0 Vol % Arterial Blood 1.6 % Carboxyhemoglobin Arterial Blood Methemoglobin 0.7 % Blood Gas Hemoglobin 14.1 G/DL Oxygen Delivery Device NASAL CANNULA Blood Gas Liter Flow 5 L/M White Blood Count 19.1 TH/MM3 Red Blood Count 5.20 MIL/MM3 Hemoglobin 14.0 GM/DL Hematocrit 44.4 % Mean Corpuscular Volume 85.4 FL Mean Corpuscular Hemoglobin 26.9 PG Mean Corpuscular Hemoglobin 31.5 % Concent Red Cell Distribution Width 17.7 % Platelet Count 390 TH/MM3 Mean Platelet Volume 8.2 FL Neutrophils (%) (Auto) 71.1 % Lymphocytes (%) (Auto) 20.2 % Monocytes (%) (Auto) 7.0 % Eosinophils (%) (Auto) 0.9 % Basophils (%) (Auto) 0.8 % Neutrophils # (Auto) 13.6 TH/MM3 Lymphocytes # (Auto) 3.9 TH/MM3 Monocytes # (Auto) 1.3 TH/MM3 Eosinophils # (Auto) 0.2 TH/MM3 Basophils # (Auto) 0.1 TH/MM3 CBC Comment DIFF FINAL Differential Comment Prothrombin Time 11.7 SEC Prothromb Time International 1.1 RATIO Ratio Activated Partial 28.7 SEC Thromboplast Time Sodium Level 141 MEQ/L Potassium Level 3.8 MEQ/L Chloride Level 104 MEQ/L Carbon Dioxide Level 23.8 MEQ/L Anion Gap 13 MEQ/L Blood Urea Nitrogen 11 MG/DL Creatinine 1.35 MG/DL Estimat Glomerular Filtration 51 ML/MIN Rate Random Glucose 237 MG/DL Lactic Acid Level 6.4 mmol/L Calcium Level 9.0 MG/DL Magnesium Level 1.2 MG/DL Total Bilirubin 0.6 MG/DL Aspartate Amino Transf 14 U/L (AST/SGOT) Alanine Aminotransferase 20 U/L (ALT/SGPT) Alkaline Phosphatase 97 U/L Total Creatine Kinase 38 U/L Troponin I LESS THAN 0.02 NG/ML B-Type Natriuretic Peptide 38 PG/ML Total Protein 7.0 GM/DL Albumin 2.7 GM/DL MDM Medical Decision Making Medical Screen Exam Complete: Yes Emergency Medical Condition: Yes Differential Diagnosis COPD with acute exacerbation. Pneumonia. Wheezing. Hypoxia. History of SIRS. Acute respiratory failure with hypoxia. Narrative Course Patient is in respiratory distress, but apparently medically stable at time of exam. Patient is discussed with Dr. Gruber who sees the patient. Labs ordered including CBC, CMP, lactic acid, BNP, coagulation studies, and cardiac enzymes. Rapid influenza is ordered. An arterial blood gas showing a CO2 of 19, base excess of -5.1, O2 sat 96 on 5 L via nasal cannula. PCO2 is 32. EKG shows sinus tachycardia with possible left atrial enlargement with nonspecific ST changes. This is reviewed by Dr. Gruber. IV access is obtained patient is given 40 mg Lasix IV, 125 mg Solu-Medrol IV, and DuoNeb every 15 minutes 3. Chest x-ray is ordered. Lactic acid comes back elevated at 6.4. Creatinine is 1.35, random glucose is 237, magnesium was low at 1.2. Troponin is pending. Troponin is less than 0.02, and BNP is 38. Rapid influenza test is negative. Dr. Gruber recommends vancomycin and cefepime IV. Chest x-ray showed bilateral effusions worsen the left right. These signs were discussed with Dr. Gruber who recommended admission under the landscape manager. Patient is given 500 mL normal saline bolus. 1450 hrs. patient discussed with the landscape manager Dr. Mcghee, and he recommended CTA, and an additional 500 mL of normal saline bolus. He will admit the patient to the ICU. Diagnosis Primary Impression: SIRS (systemic inflammatory response syndrome) Additional Impressions: Acute respiratory failure with hypoxia Pleural effusion associated with pulmonary infection Admitting Information Admitting Physician Requests: Admit Condition: Stable Brandon Mosley Jul 24, 2016 12:52
[2016-07-24] MEDS ORDERED: methylPREDNISolone SOD SUCC 125 MG/2 ML VIAL IVP ONE (13:00)
[2016-07-24] MEDS ORDERED: FUROSEMIDE 40 MG/4 ML VIAL IVP ONE (13:00)
[2016-07-24 13:03] LABS: BLOOD GAS BASE EXCESS -5.1 mmol/L (-2-2); BLOOD GAS CARBOXYHEMOGLOBIN 1.6 % (0-4); BLOOD GAS HCO3 19 mmol/L (22-26); BLOOD GAS METHEMOGLOBIN 0.7 % (0-2); BLOOD GAS O2 HGB SATURATION 96 % (90-100); BLOOD GAS PCO2 32 mmHg (38-42); BLOOD GAS PO2 111 mmHG (61-120); BLOOD GAS TOTAL HGB 14.1 G/DL (12.0-16.0); CRITICAL VALUE NO; DRAW SITE RT RADIAL; LITER FLOW 5 L/M; NUMBER OF ARTERIAL PUNCTURES 1; OXYGEN DEVICE NASAL CANNULA; STAT YES; TEMP CORR TO 98.6; ULNAR PULSE PRESENT
[2016-07-24] MEDS: RESP: ALBUTEROL 2.5 MG/IPRATROPIUM 0.5 MG NEB (SCH) INH ×5 (13:05→23:52)
[2016-07-24 13:26] LABS: AUTOMATED NEUTROPHIL # 13.6 TH/MM3 (1.8-7.7); BASOPHIL # 0.1 TH/MM3 (0-0.2); BASOPHIL % 0.8 % (0.0-2.0); EOSINOPHIL # 0.2 TH/MM3 (0-0.4); EOSINOPHIL % 0.9 % (0.0-4.0); HEMATOCRIT 44.4 % (39.0-51.0); HEMO FLAGS DIFF FINAL; LYMPH % 20.2 % (9.0-44.0); LYMPHOCYTE # 3.9 TH/MM3 (1.0-4.8); MEAN CELL VOLUME 85.4 FL (80.0-100.0); MEAN CORPUSCULAR HEMOGLOBIN 26.9 PG (27.0-34.0); MEAN CORPUSCULAR HGB CONC 31.5 % (32.0-36.0); NEUT % 71.1 % (16.0-70.0); PLATELET COUNT 390 TH/MM3 (150-450); RED CELL DISTRIBUTION WIDTH 17.7 % (11.6-17.2); WHITE BLOOD COUNT 19.1 TH/MM3 (4.0-11.0)
[2016-07-24] MEDS: SODIUM CHLORIDE 0.9% FLUSH 10 ML FLUSH IVF PRN (13:28)
[2016-07-24 13:34] LABS: APTT (PATIENT) 28.7 SEC (24.3-30.1); INTERNATIONAL NORMALIZED RATIO 1.1 RATIO; PROTHROMBIN TIME - PATIENT 11.7 SEC (9.8-11.6)
[2016-07-24 13:42] LABS: ALT (GPT) 20 U/L (12-78); ANION GAP 13 MEQ/L (5-15); AST (GOT) 14 U/L (15-37); BICARBONATE 23.8 MEQ/L (21.0-32.0); BLOOD UREA NITROGEN 11 MG/DL (7-18); CHLORIDE 104 MEQ/L (98-107); GLOMERULAR FILTRATION RATE 51 ML/MIN (>89); MAGNESIUM 1.2 MG/DL (1.5-2.5); POTASSIUM 3.8 MEQ/L (3.5-5.1); SODIUM (NA) 141 MEQ/L (136-145)
[2016-07-24] MEDS ORDERED: VANCOMYCIN INJ 1,000 MG in SODIUM CHLOR 0.9% 250 ML INJ 250 ML IV ONE (13:45)
[2016-07-24] MEDS ORDERED: CEFEPIME INJ 1,000 MG in SODIUM CHLORIDE 0.9% INJ 100 ML IV ONE (13:45)
[2016-07-24 13:46] LABS: ALKALINE PHOSPHATASE 97 U/L (45-117); TOTAL BILIRUBIN ADULT 0.6 MG/DL (0.2-1.0)
[2016-07-24 13:48] LABS: CREATINE KINASE 38 U/L (39-308)
[2016-07-24] MEDS ORDERED: SODIUM CHLORID 0.9% 500 ML INJ 500 ML IV ONE ×2 (14:00→15:00)
[2016-07-24] MEDS ORDERED: MAGNESIUM SULFATE 1 GM PREMIX 100 ML IV ONE (14:00)
--- NOTE | 2016-07-24 14:15 | RADRPT ---
EXAM DATE/TIME: 07/24/2016 13:13 [facility] COMPARISON: CT PULMONARY ANGIOGRAM, June 29, 2016, 18:47. CHEST SINGLE AP, June 29, 2016, 16:23. INDICATIONS : Short of breath. MEDICAL HISTORY : Chronic obstructive pulmonary disease. Hypertension Cardiovascular disease. SURGICAL HISTORY : Appendectomy. ENCOUNTER: Initial ACUITY: 1 day PAIN SCORE: 0/10 LOCATION: Bilateral upper chest FINDINGS: Study is abnormal. The heart is enlarged. Patchy air-space disease is seen in both lungs with coars e pleural changes on both the right and the left. CONCLUSION: Further deterioration in the appearance of the chest when compared to the study of 06/29/2014. Oscar Stewatr MD FACR on July 24, 2016 at 13:48 Board Certified Radiologist. This report was verified electronically.
[2016-07-24 15:15] LABS: LACTIC ACID GHOST NOT REPORTABLE
[2016-07-24] MEDS ORDERED: LORazepam 2 MG/ML VIAL IV PUSH ONE (15:15)
[2016-07-24] MEDS ORDERED: IOHEXOL 350 MG/ML 10 ML VIAL (for RAD DIAG) IV ONE (15:37)
[2016-07-24] MEDS ORDERED: RESP: ALBUTEROL 2.5 MG/IPRATROPIUM 0.5 MG NEB (PRN) INH (15:45)
[2016-07-24] MEDS ORDERED: DEXTROSE 50% IN WATER 50 ML VIAL(D50) IV PUSH PRN (15:45)
[2016-07-24] MEDS ORDERED: GLUCAGON 1 MG/ML VIAL OTHER PRN (15:45)
[2016-07-24] MEDS ORDERED: CHLORHEXIDINE GLUCONATE 2 % 1 PACK (2 CLOTHS) TOP PRN (15:45)
[2016-07-24] MEDS ORDERED: MISCELLANEOUS NURSING INFORMATION XX SCH (15:45)
--- NOTE | 2016-07-24 15:50 | RADRPT ---
EXAM DATE/TIME: 07/24/2016 15:29 [facility] COMPARISON: CT PULMONARY ANGIOGRAM, June 29, 2016, 18:47. INDICATIONS : Hypoxia and shortness of breath. IV CONTRAST: 70 cc Omnipaque 350 (iohexol) IV RADIATION DOSE: 23.27 CTDIvol (mGy) MEDICAL HISTORY : Chronic obstructive pulmonary disease. Congestive heart failure. Hypertension.Skin cancer. SURGICAL HISTORY : Appendectomy. ENCOUNTER: Initial ACUITY: 1 day PAIN SCALE: 5/10 LOCATION: chest TECHNIQUE: Volumetric scanning of the chest was performed using a pulmonary embolism protocol MIP images were re constructed. Using automated exposure control and adjustment of the mA and/or kV according to patien t size, radiation dose was kept as low as reasonably achievable to obtain optimal diagnostic quality images. FINDINGS: The examination is of excellent diagnostic quality. No pulmonary embolus is identified. The heart is mildly enlarged. There is atherosclerotic plaquing in the coronary arteries. No pericard ial effusion is seen. No significant hilar or mediastinal adenopathy is seen. There are advanced COPD changes with interstitial fibrotic change and multiple emphysematous blebs. T here is a large left-sided pleural effusion. This is new compared to the prior examination dated 06/29. Findings would be most consistent with congestive failure. On the prior examination there was a 2.0 x 1.4 cm nodule in the posterior aspect of the left lower lo be this is obscured by the pleural fluid and atelectasis on today's exam. CONCLUSION: 1. No pulmonary embolus identified. 2. Advanced COPD. 3. Interval development of a large left pleural effusion. There is diffuse interstitial prominence an d cardiomegaly. Exam would suggest congestive failure. 4. Nodule at the left lung base which was seen on previous dated 06/29/16 is obscured by the pleural e ffusion. Raymond Stewart MD on July 24, 2016 at 15:46 Board Certified Radiologist. This report was verified electronically.
[2016-07-24] MEDS: SODIUM CHLOR 0.9% 1000 ML INJ 1,000 ML IV SCH (17:15)
[2016-07-24] MEDS ORDERED: CYAN100025 SL (17:16)
[2016-07-24] MEDS ORDERED: NITR1SUB2 SL (17:16)
[2016-07-24] MEDS ORDERED: ASPI81TA81 PO (17:16)
[2016-07-24] MEDS ORDERED: LEVO112T2 PO (17:16)
[2016-07-24] MEDS ORDERED: DILT-64 PO (17:16)
[2016-07-24] MEDS ORDERED: ISOS30TA3 PO (17:16)
[2016-07-24] MEDS ORDERED: ATOR20TA15 PO (17:16)
[2016-07-24] MEDS ORDERED: MAGN250T2 PO (17:16)
[2016-07-24] MEDS ORDERED: IPRASOL INH (17:16)
[2016-07-24] MEDS ORDERED: PLAV75TA29 PO (17:16)
[2016-07-24] MEDS ORDERED: ALBU6.7H INH (17:16)
[2016-07-24] MEDS ORDERED: METF-382 PO (17:16)
[2016-07-24] MEDS ORDERED: VITA100018 PO (17:16)
[2016-07-24] MEDS ORDERED: PROZ40CA PO (17:16)
[2016-07-24] MEDS: PIPERACIL-TAZO 4.5 GM PREMIX 100 ML IV SCH (17:26)
[2016-07-24] MEDS: HEPARIN SODIUM - SQ 10,000 UNITS/ML VIAL SQ SCH (17:26)
[2016-07-24] MEDS: AZITHROMYCIN INJ 500 MG in SODIUM CHLOR 0.9% 250 ML INJ 250 ML IV SCH (17:27)
[2016-07-24] MEDS: PANTOPRAZOLE SODIUM 40 MG VIAL IV SCH (17:27)
[2016-07-24] MEDS: INSULIN NovoLIN REGULAR SUPPLEMENTAL SCALE SQ SCH (18:02)
--- NOTE | 2016-07-24 18:03 | MH ---
cc: TEVIN ACKERMAN DATE OF ADMISSION 07/24/2016 DATE OF 1935 HISTORY OF PRESENT ILLNESS The patient is an 80-year-old male with past medical history of COPD on three liters home oxygen continuously in addition to nebulizers, history of hypertension, diabetes mellitus, hyperlipidemia and hypothyroidism. He presented to [facility] ED with a one-week history of progressive worsening shortness of breath. The patient denies any associated symptoms of orthopnea, PND or edema of lower extremities. He is being followed by Dr. Alvarez, his outpatient reed polisher, and Dr. Gerardo from cardiology. He denies any nausea, vomiting or abdominal pain. On arrival to the ED, the patient was hypoxic with O2 saturation in the 70s on nasal cannula and he was subsequently placed on a non-rebreather mask with a saturation of 94%. Chest x-ray on arrival showed patchy airspace disease bilaterally with coarse pleural changes. Due to his respiratory distress, CT angiogram of the chest was obtained which showed no evidence of a pulmonary embolism, however, it showed interstitial fibrotic changes with multiple emphysematous blebs and left-sided pleural effusion. Also a 2 x 1.4 cm nodule was seen in the posterior aspect of the left lower lobe. In the emergency room, he was given 500 mL of normal saline, vancomycin, cefepime, DuoNeb, Solu-Medrol 125 mg IV push and magnesium sulfate. His labs notable for lactic acid of 6.4 and leukocytosis with a WBC count of 19.1. The patient was admitted last month on June 29 with similar presentation and he also had a CT angiogram of the chest at that time which showed advanced COPD along with pulmonary fibrosis. Nasal washing in the ER negative for influenza. The patient denies any nausea, vomiting or any abdominal pain. PAST MEDICAL HISTORY 1. Chronic obstructive pulmonary disease 2. Hypertension, 3. Diabetes mellitus, 4. Hyperlipidemia, 5. Hypothyroidism 6. Coronary artery disease. PAST SURGICAL HISTORY 1. Previous coronary stents 2. Previous appendectomy SOCIAL HISTORY The patient quit smoking over 20 years ago. Occasional drinker. ALLERGIES SULFA MEDICATIONS 1. Plavix. 2. Aspirin. 3. Cardizem LA 360 mg p.o. q.h.s. 4. Metformin. 5. Atorvastatin 6. Fluoxetine FAMILY HISTORY Noncontributory. REVIEW OF SYSTEMS As per HPI, rest of review of systems unremarkable. PHYSICAL EXAMINATION GENERAL: An 80-year-old male lying in bed in mild to moderate respiratory distress. VITAL SIGNS: Temperature 97.6, pulse of 109, blood pressure 154/71, saturation 94% on a non-rebreather mask. HEENT: Atraumatic, normocephalic. Pupils are equal, round, reactive to light and accommodation. Extraocular muscles intact. Conjunctivae pink. Nonicteric sclerae. Oral mucosa within normal. NECK: Supple. No JVD, adenopathy or thyromegaly. Trachea in the midline, CARDIOVASCULAR: Tachycardiac normal S1-S2. No murmurs, rubs or gallops noted. PULMONARY: Bilateral equal entry with coarse breath sounds. ABDOMEN: Soft, nontender, no distension. Positive bowel sounds. EXTREMITIES: No cyanosis, clubbing or edema. NEUROLOGIC: No focal sensory deficit. LABORATORY DATA Sodium of 141, potassium 3.8, chloride 104, CO2 23, BUN 11, creatinine 1.35, glucose of 237, lactic acid 6.4, AST 14, ALT 20, total bilirubin 0.6, magnesium 1.2, calcium nine, troponin less than 0.02 with total CK 38, BNP 38. Albumin 2.7. WBC 19, hemoglobin 14, hematocrit 44, platelet count 390, INR 1.1, PT 11.7, PTT 28.7. IMAGING STUDIES CT angiogram of the chest in the ER negative for PE, however, it showed advanced COPD in addition to chronic interstitial lung changes, left pleural effusion and nodule at the left lung base. IMPRESSION 1. Acute hypoxemic respiratory failure. 2. Chronic obstructive pulmonary disease exacerbation. 3. Pulmonary fibrosis/chronic interstitial lung disease 4. Lactic acidemia 5. Leukocytosis 6. Left pleural effusion. 7. Left lung base nodule 8. Hypertension 9. Hyperlipidemia. 10. Hyperglycemia with underlying history of diabetes mellitus. 11. Hypothyroidism. 12. History of coronary artery disease. RECOMMENDATIONS 1. Monitor neuro status closely and avoid any sedatives. 2. Continue with oxygen and maintain saturation above 92%. 3. Bronchodilators in the form of DuoNeb q. 4 puffs q. 2 p.r.n. for shortness of breath. In addition, we will place the patient on Symbicort 160/4.5 2 puffs q. 12-hour and Pulmicort 0.25 mg nebulizers q. 12. 4. IV steroids Solu-Medrol 60 mg IV q. eight. 5. Noninvasive positive pressure ventilation p.r.n. for respiratory distress. If there are any changes in respiratory status or clinical condition, we will proceed with intubation and mechanical ventilation. 6. Monitor heart rate and blood pressure closely and maintain MAP greater than the 65 mmHg. Continue with aspirin, Lipitor and Plavix. 7. Serial lactic acid monitoring. A CT of the chest in the ER negative for PE. 8. Monitor renal function Is and Os and electrolyte replacement as needed. 9. Place on IV fluids in the form of NS at 75 mL an hour. Of note, the patient's BNP is 38. 10. Keep n.p.o. for now until respiratory status improves and place on Protonix 40 mg daily for GI prophylaxis. 11. Continue with broad-spectrum antibiotics in the form of Zosyn and azithromycin. The patient received one dose of vancomycin in the ER. Monitor for signs of infections which include fever and WBC. His nasal washing for influenza is negative. We will obtain a sputum culture with gram stain and we will check strep pneumonia and Legionella urinary antigen. 12. Monitor CBC. 13. Place on sliding scale insulin with Accu-Chek q. 6-hour for glycemic control. 14. GI prophylaxis with Protonix 40 mg daily and DVT prophylaxis with SCDs and heparin 5000 units q. 12-hour. 15. Continue with Synthroid 112 mcg p.o. daily and we will obtain a baseline TSH level. Further recommendations will be based on hospital course. Critical care time 35 minutes excluding procedures. MD RYDER James/ /3:56 PM /5:42 PM
[2016-07-24] MEDS: RESP: BUDESONIDE 0.25 MG/2 ML NEB NEB SCH (20:00)
[2016-07-24] MEDS ORDERED: ASPIRIN 81 MG CHEW TAB PO SCH (21:00)
[2016-07-24] MEDS: ATORVASTATIN 20 MG TAB PO SCH (21:04)
[2016-07-24] MEDS: CLOPIDOGREL 75 MG TAB PO SCH (21:04)
[2016-07-25] VITALS (16 sets, daily range): BP systolic 132–177; BP diastolic 62–87; PULSE 91–107; RESP 22–32; TEMP 97.9–98.8; O2SAT 90–96
[2016-07-25] MEDS: RESP: ALBUTEROL 2.5 MG/IPRATROPIUM 0.5 MG NEB (SCH) INH ×6 (03:45→23:35)
[2016-07-25] MEDS: CHLORHEXIDINE GLUCONATE 2 % 1 PACK (2 CLOTHS) TOP SCH (04:00)
[2016-07-25 04:46] LABS: AUTOMATED NEUTROPHIL # 13.1 TH/MM3 (1.8-7.7); BASOPHIL % 0.3 % (0.0-2.0); HEMATOCRIT 37.6 % (39.0-51.0); HEMO FLAGS DIFF FINAL; LYMPH % 10.2 % (9.0-44.0); LYMPHOCYTE # 1.5 TH/MM3 (1.0-4.8); MEAN CELL VOLUME 83.6 FL (80.0-100.0); MEAN CORPUSCULAR HEMOGLOBIN 27.3 PG (27.0-34.0); MEAN CORPUSCULAR HGB CONC 32.6 % (32.0-36.0); MONO % 2.8 % (0.0-8.0); NEUT % 86.7 % (16.0-70.0); PLATELET COUNT 281 TH/MM3 (150-450); RED CELL DISTRIBUTION WIDTH 17.5 % (11.6-17.2); WHITE BLOOD COUNT 15.1 TH/MM3 (4.0-11.0)
[2016-07-25] MEDS: methylPREDNISolone SOD SUCC 40 MG/1 ML VIAL IV PUSH SCH ×4 (04:59→21:41)
[2016-07-25] MEDS: HEPARIN SODIUM - SQ 10,000 UNITS/ML VIAL SQ SCH ×2 (04:59→16:54)
[2016-07-25] MEDS: LEVOTHYROXINE SODIUM 112 MCG TAB PO SCH (04:59)
[2016-07-25] MEDS: BUDESONIDE-FORMOTEROL 160/4.5 MCG INHALER INH SCH ×3 (05:00→20:00)
[2016-07-25] MEDS: INSULIN NovoLIN REGULAR SUPPLEMENTAL SCALE SQ SCH ×4 (05:03→16:55)
[2016-07-25] MEDS: PIPERACIL-TAZO 4.5 GM PREMIX 100 ML IV SCH ×4 (05:10→21:41)
[2016-07-25 05:20] LABS: BICARBONATE 23.8 MEQ/L (21.0-32.0); MAGNESIUM 1.7 MG/DL (1.5-2.5); POTASSIUM 3.8 MEQ/L (3.5-5.1)
[2016-07-25] MEDS: SODIUM CHLOR 0.9% 1000 ML INJ 1,000 ML IV SCH ×2 (05:20→16:58)
[2016-07-25] MEDS: RESP: BUDESONIDE 0.25 MG/2 ML NEB NEB SCH ×2 (07:12→20:56)
[2016-07-25] MEDS: METOPROLOL TARTRATE 5 MG/5 ML VIAL IV PUSH PRN (09:29)
[2016-07-25] MEDS: FLUoxetine HCL 20 MG CAP PO SCH (09:29)
[2016-07-25] MEDS: ISOSORBIDE MONONITRATE 30 MG TAB PO SCH (09:29)
[2016-07-25] MEDS: PANTOPRAZOLE SODIUM 40 MG VIAL IV SCH (09:30)
[2016-07-25] MEDS: ASPIRIN EC 81 MG TABEC PO SCH ×2 (09:30→19:59)
--- NOTE | 2016-07-25 14:44 | EKG ---
Date Performed: 07/24/2016 Time Performed: 13:03:49 PTAGE: 80 years EKG: SINUS TACHYCARDIA POSSIBLE LEFT ATRIAL ENLARGEMENT NONSPECIFIC ST & T-WAVE ABNORMALITY Comp ared to prior tracing no significant change ABNORMAL RHYTHM ECG PREVIOUS TRACING : 06/29/2016 16.37 DOCTOR: Pascual Flores Interpretating Date/Time 07/25/2016 14:40:18
[2016-07-25] MEDS: AZITHROMYCIN INJ 500 MG in SODIUM CHLOR 0.9% 250 ML INJ 250 ML IV SCH (16:54)
--- NOTE | 2016-07-25 17:19 | HHI.CCPN ---
Subjective Remarks/Hospital Course The patient is an 80-year-old male with past medical history of COPD on 3 L/m home oxygen continuously in addition to nebulizer, history of hypertension and diabetes mellitus, hyperlipidemia, and hypothyroidism. He presented to [facility] ED with a one-week history of progressive dyspnea. The patient denies any associated symptoms such as orthopnea, PND or edema of the lower extremities. He is being followed by Dr. booker, his outpatient web user experience strategist, and Dr. Gerardo his security and compliance project manager. He denies any nausea vomiting or abdominal pain. Upon arrival to the ED, the patient was hypoxic with O2 saturation in the 70s on nasal cannula and he was subsequently placed on a nonrebreather mask and O2 sats of 94%. Chest x-ray upon arrival showed patchy airspace disease bilateral with coarse pleural changes. CT angiogram of his chest was obtained which showed no evidence of pulmonary embolus however, it showed interstitial fibrotic changes with multiple emphysematous blebs and left-sided pleural effusion. Also a 2 x 1.4 cm nodule was seen in the posterior aspect of the left lower lobe. In the emergency room he was given 500 cc of normal saline, vancomycin, cefepime, DuoNeb, Solu-Medrol 125 mg IV push and magnesium sulfate. Nasal washings were negative for influenza. Critical care medicine was consult for management. Subjective 07/25: Early this a.m. patient was noted to be on a nonrebreather mask with O2 sats in the 80s. The patient apparently has significant history for obstructive sleep apnea at which point he utilizes a CPAP machine at home. The place and was placed on CPAP with O2 sats 94%. Plan today to wean to high flow nasal cannula and aggressive pulmonary toileting, continue dosing of antibiotics. Objective Vital Signs Date Time Temp Pulse Resp B/P Pulse Ox O2 Delivery O2 Flow Rate FiO2 07/25/16 15:17 92 60 07/25/16 14:15 High Flow Nasal Cannula 30.00 07/25/16 06:00 104 07/25/16 04:00 98.0 28 177/81 Intake and Output 07/24/16 07/24/16 07/25/16 08:00 16:00 00:00 Intake Total 240 ml 862 ml Output Total 200 ml 300 ml Balance 40 ml 562 ml Result Diagram: 07/25/16 0406 07/25/16 0406 Other Results Microbiology Date/Time Procedure Status Source Growth 07/24/16 14:10 Influenza Types A,B Antigen (BRIDGER) - Final Complete Nasal Washing NEGATIVE FOR FLU A AND B ANTIGEN.... Imaging Last Impressions CT Angiography 07/24/16 1450 Signed Impressions: Service Date/Time: Sunday, July 24, 2016 15:29 - CONCLUSION: 1. No pulmonary embolus identified. 2. Advanced COPD. 3. Interval development of a large left pleural effusion. There is diffuse interstitial prominence and cardiomegaly. Exam would suggest congestive failure. 4. Nodule at the left lung base which was seen on previous dated 06/29/16 is obscured by the pleural effusion. Raymond Stewart MD Chest X-Ray 07/24/16 1252 Signed Impressions: Service Date/Time: Sunday, July 24, 2016 13:13 - CONCLUSION: Further deterioration in the appearance of the chest when compared to the study of 06/29/2014. Oscar Stewart MD FACR Objective Remarks GENERAL: Well-developed, obese male, currently semi-recombinant on BiPAP in no apparent distress, O2 sat 94% SKIN: Warm and dry. HEAD: Atraumatic. Normocephalic. EYES: Pupils equal and round. No scleral icterus. No injection or drainage. ENT: No nasal bleeding or discharge. Mucous membranes pink and moist. NECK: Trachea midline. No JVD. CARDIOVASCULAR: Normal rate, regular rhythm. RESPIRATORY: No accessory muscle use. Coarse breath sounds throughout lung winn. Breath sounds equal bilaterally. GASTROINTESTINAL: Abdomen soft, non-tender, nondistended. No guarding. MUSCULOSKELETAL: Extremities without clubbing, cyanosis, or edema. No obvious deformities. NEUROLOGICAL: Awake and alert. RASS 0. No gross focal/sensory deficits. Follows commands in all 4 extremities. A/P Assessment and Plan Plan by systems: Neurologic: Maintain sleep hygiene to avoid ICU delirium Respiratory: COPD exacerbation Pulmonary edema RADHA Continue empiric antibiotics-azithromycin, Zosyn Weaned to high flow nasal cannula if possible Continue duo nebs scheduled every 4 hours Maintain CPAP at night Maintain head of bed 30 Pulmonology consult Will maintain sats O2 sat greater than 90% Cardiovascular: Coronary artery disease Cardiomegaly Hypertension Resume Cardizem, continue statin, aspirin (home medication) Continue Plavix Obtained BNP Renal: Monitor BMP -- Strict I/Os FEN/GI: Replete electrolytes per ICU protocol Begin clear liquid diet, if tolerated may advance to a heart healthy diet if high flow nasal cannula as tolerated Heme/ID: Lactic acidosis Follow-up cultures Monitor CBC Currently on azithromycin, Zosyn (day 2) Lactate from 6.3-> 3.4 Endocrine: Glucose monitoring per ICU protocol -- SSI Prophylaxis: GI Prophylaxis Protonix DVT Prophylaxis -- SCDs Heparin 5000u subcutaneous twice a day Lines: Peripheral IVs. Central line if indicated Dispo: Discussed with ENVIRONMENTAL SERVICES AIDE and family at bedside This patient remains critically ill with one or more organ systems which are or may become a threat to life. I have spent in excess of 39 minutes discontinuously in the care and management of this patient. This time is exclusive of procedures, and includes, but is not limited to, evaluation of the patient, review of the medical record, discussions with family, consultants, nursing staff, or respiratory therapy, and documentation in the medical record. Physician Willow Casiano MD Jul 25, 2016 17:19
[2016-07-25] MEDS ORDERED: FUROSEMIDE 20 MG/2 ML VIAL IV PUSH ONE (18:15)
[2016-07-25] MEDS: DILTIAZEM-CD 240 MG CAP ER PO SCH (19:59)
[2016-07-25] MEDS: ATORVASTATIN 20 MG TAB PO SCH (19:59)
[2016-07-25] MEDS: CLOPIDOGREL 75 MG TAB PO SCH (19:59)
[2016-07-26] VITALS (18 sets, daily range): BP systolic 103–180; BP diastolic 54–99; PULSE 61–104; RESP 13–33; TEMP 98.1–98.9; O2SAT 88–96
[2016-07-26] MEDS: CHLORHEXIDINE GLUCONATE 2 % 1 PACK (2 CLOTHS) TOP SCH (00:22)
[2016-07-26] MEDS: RESP: ALBUTEROL 2.5 MG/IPRATROPIUM 0.5 MG NEB (SCH) INH ×5 (04:12→20:30)
[2016-07-26 05:30] LABS: BICARBONATE 26.8 MEQ/L (21.0-32.0); MAGNESIUM 1.7 MG/DL (1.5-2.5); POTASSIUM 3.2 MEQ/L (3.5-5.1)
[2016-07-26] MEDS: HEPARIN SODIUM - SQ 10,000 UNITS/ML VIAL SQ SCH ×2 (05:37→16:50)
[2016-07-26] MEDS: PIPERACIL-TAZO 4.5 GM PREMIX 100 ML IV SCH ×4 (05:38→23:02)
[2016-07-26] MEDS: methylPREDNISolone SOD SUCC 40 MG/1 ML VIAL IV PUSH SCH ×3 (05:38→21:16)
[2016-07-26] MEDS: LEVOTHYROXINE SODIUM 112 MCG TAB PO SCH (05:38)
[2016-07-26] MEDS: INSULIN NovoLIN REGULAR SUPPLEMENTAL SCALE SQ SCH ×5 (05:43→23:05)
[2016-07-26 05:44] LABS: HEMATOCRIT 34.9 % (39.0-51.0); MEAN CELL VOLUME 83.5 FL (80.0-100.0); MEAN CORPUSCULAR HEMOGLOBIN 27.5 PG (27.0-34.0); MEAN CORPUSCULAR HGB CONC 32.9 % (32.0-36.0); PLATELET COUNT 345 TH/MM3 (150-450); RED BLOOD COUNT 4.18 MIL/MM3 (4.50-5.90); RED CELL DISTRIBUTION WIDTH 17.3 % (11.6-17.2); REVIEW FLAG FINAL; WHITE BLOOD COUNT 18.1 TH/MM3 (4.0-11.0)
--- NOTE | 2016-07-26 06:27 | RADRPT ---
EXAM DATE/TIME: 07/26/2016 04:46 [facility] COMPARISON: CT PULMONARY ANGIOGRAM, July 24, 2016, 15:29. CHEST SINGLE AP, July 24, 2016, 13:13. INDICATIONS : Shortness of breath, possible pulmonary disease. MEDICAL HISTORY : Chronic obstructive pulmonary disease. Congestive heart failure. Hypertension. SURGICAL HISTORY : Appendectomy. ENCOUNTER: Subsequent ACUITY: 3 days PAIN SCORE: Non-responsive. LOCATION: Bilateral chest FINDINGS: The study is limited by motion blurring. The heart size appears normal. There is a left pleural effus ion. There is also some pleural fluid or thickening over the superior lateral right chest. There is i ncreased density seen throughout much of the left lung especially in the left perihilar region. There is focal bullous change in the left base. There is lesser degree of density seen in the perihilar re gion in the right lung. CONCLUSION: 1. Left lung parenchymal disease especially in the left perihilar region appears also a moderate left effusion. 2. Milder interstitial disease in the right lung. A small right effusion may be present over the supe rior lateral right chest. Tate Parada MD on July 26, 2016 at 6:23 Board Certified Radiologist. This report was verified electronically.
[2016-07-26] MEDS: RESP: BUDESONIDE 0.25 MG/2 ML NEB NEB SCH ×2 (07:44→20:31)
[2016-07-26] MEDS ORDERED: MAGNESIUM SULFATE INJ 2 GM in SODIUM CHLORIDE 0.9% INJ 96 ML IV PRN (08:45)
[2016-07-26] MEDS ORDERED: POTASSIUM CHLOR 40 MEQ PREMIX 100 ML IV-CENTRAL PRN ×2 (08:45)
[2016-07-26] MEDS ORDERED: MAGNESIUM SULFATE INJ 4 GM in SODIUM CHLORIDE 0.9% INJ 92 ML IV PRN (08:45)
[2016-07-26] MEDS ORDERED: SODIUM PHOSPHATE INJ 30 MMOL in SODIUM CHLOR 0.9% 250 ML INJ 240 ML IV PRN (08:45)
[2016-07-26] MEDS ORDERED: POTASSIUM CHLOR 20 MEQ PREMIX 100 ML IV PRN ×2 (08:45)
[2016-07-26] MEDS ORDERED: MAGNESIUM OXIDE 400 MG TAB PO PRN (08:45)
[2016-07-26] MEDS ORDERED: POTASSIUM PHOSPHATE INJ 30 MMOL in SODIUM CHLOR 0.9% 250 ML INJ 250 ML IV PRN (08:45)
[2016-07-26] MEDS ORDERED: POTASSIUM PHOSPHATE MONOBASIC 500 MG TAB PO/TUBE PRN (08:45)
[2016-07-26] MEDS: ISOSORBIDE MONONITRATE 30 MG TAB PO SCH (09:15)
[2016-07-26] MEDS: FLUoxetine HCL 20 MG CAP PO SCH (09:16)
[2016-07-26] MEDS: BUDESONIDE-FORMOTEROL 160/4.5 MCG INHALER INH SCH ×2 (09:16→21:00)
[2016-07-26] MEDS: PANTOPRAZOLE SODIUM 40 MG VIAL IV SCH (09:16)
[2016-07-26] MEDS: ASPIRIN EC 81 MG TABEC PO SCH ×2 (09:16→21:15)
[2016-07-26] MEDS: METOPROLOL TARTRATE 5 MG/5 ML VIAL IV PUSH PRN ×2 (09:20→13:18)
--- NOTE | 2016-07-26 09:38 | HHI.CCPN ---
Subjective Remarks/Hospital Course The patient is an 80-year-old male with past medical history of COPD on 3 L/m home oxygen continuously in addition to nebulizer, history of hypertension and diabetes mellitus, hyperlipidemia, and hypothyroidism. He presented to [facility] ED with a one-week history of progressive dyspnea. The patient denies any associated symptoms such as orthopnea, PND or edema of the lower extremities. He is being followed by Dr. booker, his outpatient press puller, and Dr. Gerardo his magnetic locater. He denies any nausea vomiting or abdominal pain. Upon arrival to the ED, the patient was hypoxic with O2 saturation in the 70s on nasal cannula and he was subsequently placed on a nonrebreather mask and O2 sats of 94%. Chest x-ray upon arrival showed patchy airspace disease bilateral with coarse pleural changes. CT angiogram of his chest was obtained which showed no evidence of pulmonary embolus however, it showed interstitial fibrotic changes with multiple emphysematous blebs and left-sided pleural effusion. Also a 2 x 1.4 cm nodule was seen in the posterior aspect of the left lower lobe. In the emergency room he was given 500 cc of normal saline, vancomycin, cefepime, DuoNeb, Solu-Medrol 125 mg IV push and magnesium sulfate. Nasal washings were negative for influenza. Critical care medicine was consult for management. Subjective 07/25: Early this a.m. patient was noted to be on a nonrebreather mask with O2 sats in the 80s. The patient apparently has significant history for obstructive sleep apnea at which point he utilizes a CPAP machine at home. The place and was placed on CPAP with O2 sats 94%. Plan today to wean to high flow nasal cannula and aggressive pulmonary toileting, continue dosing of antibiotics. 07/26: The patient was weaned yesterday to high flow nasal cannula, to maintain an O2 sat of 90%. Patient was additionally diuresed with Lasix 40 mg approximately 1 L output yesterday. The patient was able to tolerate a clear liquid diet, diet advance to heart healthy this a.m.. The patient was noted to have an elevation in WBC count despite empiric antibiotics. ID consulted. Objective Vital Signs Date Time Temp Pulse Resp B/P Pulse Ox O2 Delivery O2 Flow Rate FiO2 07/26/16 08:35 89 High Flow Nasal Cannula 40.00 100 07/26/16 06:00 98 07/26/16 04:00 98.7 26 161/74 Intake and Output 07/25/16 07/25/16 07/26/16 08:00 16:00 00:00 Intake Total 815 ml 750 ml 655 ml Output Total 500 ml 200 ml 1100 ml Balance 315 ml 550 ml -445 ml Result Diagram: 07/26/16 0340 07/26/16 0340 Other Results Microbiology Date/Time Procedure Status Source Growth 07/24/16 14:10 Influenza Types A,B Antigen (BRIDGER) - Final Complete Nasal Washing NEGATIVE FOR FLU A AND B ANTIGEN.... Imaging Last Impressions CT Angiography 07/24/16 1450 Signed Impressions: Service Date/Time: Sunday, July 24, 2016 15:29 - CONCLUSION: 1. No pulmonary embolus identified. 2. Advanced COPD. 3. Interval development of a large left pleural effusion. There is diffuse interstitial prominence and cardiomegaly. Exam would suggest congestive failure. 4. Nodule at the left lung base which was seen on previous dated 06/29/16 is obscured by the pleural effusion. Raymond Stewart MD Chest X-Ray 07/24/16 1252 Signed Impressions: Service Date/Time: Sunday, July 24, 2016 13:13 - CONCLUSION: Further deterioration in the appearance of the chest when compared to the study of 06/29/2014. Oscar Stewart MD FACR Objective Remarks GENERAL: Well-developed, obese male, currently semi-recombinant on high flow nasal cannula in no apparent distress, O2 sat 91% SKIN: Warm and dry. HEAD: Atraumatic. Normocephalic. EYES: Pupils equal and round. No scleral icterus. No injection or drainage. ENT: No nasal bleeding or discharge. Mucous membranes pink and moist. NECK: Trachea midline. No JVD. CARDIOVASCULAR: Normal rate, regular rhythm. RESPIRATORY: No accessory muscle use. Breath sounds clear to auscultation, diminished left base GASTROINTESTINAL: Abdomen soft, non-tender, nondistended. No guarding. MUSCULOSKELETAL: Extremities without clubbing, cyanosis, or edema. No obvious deformities. NEUROLOGICAL: Awake and alert. RASS 0. No gross focal/sensory deficits. Follows commands in all 4 extremities. Urinary Catheter: Yes Assessment to: Continue Olvera insert reason: Measure Accurate Output A/P Assessment and Plan Plan by systems: Neurologic: Anxiety disorder Pain Maintain sleep hygiene to avoid ICU delirium Continue Prozac 40 mg daily Patient complaint of left posterior back pain Acetaminophen 650 every 6 hours when necessary CXR 07/26 left moderate pleural effusion, decreasing since admission. Will give 1 dose 250 mg Diamox IV Respiratory: COPD exacerbation Pulmonary edema Acute on chronic respiratory failure RADHA Continue empiric antibiotics-azithromycin, Zosyn Continue Methylprednisolone 60 mg every 8hr Weaned to high flow nasal cannula if possible Continue duo nebs scheduled every 4 hours Maintain CPAP at night Maintain head of bed 30 Pulmonology consult-follow up recommendation Will maintain sats O2 sat greater than 89% CTA 07/24-left lung base nodule 06/29 2.01.4 cm nodule posterior aspect left lower lung CXR 07/26 left moderate pleural effusion, decreasing since admission. Will give 1 dose 250 mg Diamox IV now, then scheduled Lasix daily Cardiovascular: Coronary artery disease Cardiomegaly Hypertension Continue Cardizem, statin, aspirin (home medication) Continue Plavix 07/26 BNP 53 Renal: Monitor BMP -- Strict I/Os FEN/GI: Hypokalemia Hypomagnesemia Hypophosphatemia Replete electrolytes per ICU protocol Patient will receive 40 mEq of KCl PO, 2 doses today, for potassium level of 3.2 Heart healthy diet Bowel regimen Heme/ID: Lactic acidosis anemia of chronic disease Leukocytosis Follow-up cultures WBC from 15-> 18 today Monitor CBC Currently on azithromycin, Zosyn (day 3) Lactate from 6.3-> 3.4 Follow-up pending lactate level ID consult Endocrine: Glucose monitoring per ICU protocol -- SSI Prophylaxis: GI Prophylaxis Protonix DVT Prophylaxis -- SCDs Heparin 5000u subcutaneous twice a day Lines: Peripheral IVs. Central line if indicated Dispo: Level 3 Discussed with DEPUTY COUNTY CLERK at bedside. Physician Willow Casiano MD Jul 26, 2016 09:38
[2016-07-26] MEDS ORDERED: POTASSIUM CHLORIDE 20 MEQ CONTROLLED RELEASE TAB PO SCH ×2 (10:00→11:00)
[2016-07-26] MEDS ORDERED: Vancomycin Consult Pharmacy 1 EA OTHER SCH (11:15)
--- NOTE | 2016-07-26 11:22 | PD.ID.CON ---
History of Present Illness Service ID Consult Requested By Reason for Consult Evaluation and Mment of Pneumonia, Effusion in patient with COPD exacerbation and persistent leucocytosis. Primary Care Physician Corby Tavera MD Diagnoses: History of Present Illness is an 80 y/o CM with PMHx of COPD, pulm fibrosis and emphysema on 3L Oxygen at home at baseline who sees Life Skills Coordinator Volunteer. His PMHx is also significant for HTN, diabetes mellitus, hyperlipidemia and hypothyroidism. He presented to [facility] ED with a one-week history of progressive worsening shortness of breath. The patient denies any associated symptoms of orthopnea, PND or edema of lower extremities. His aircraft painter apprentice is Dr. Gerardo from cardiology. On arrival to the ED, the patient was hypoxic with O2 saturation in the 70s on NC and he was subsequently placed on a non-rebreather mask with a saturation of 94%. Chest x-ray on arrival showed patchy airspace disease bilaterally with coarse pleural changes. Due to his respiratory distress, CT angiogram of the chest was obtained which showed no evidence of a pulmonary embolism, however, it showed interstitial fibrotic changes with multiple emphysematous blebs and left-sided pleural effusion. Also a 2 x 1.4 cm nodule was seen in the posterior aspect of the left lower lobe. In the emergency room, he was given 500 mL of normal saline, vancomycin, cefepime, DuoNeb, Solu-Medrol 125 mg IV push and magnesium sulfate. His labs notable for lactic acid of 6.4 and leukocytosis with a WBC count of 19.1. The patient was admitted last month on June 29 with similar presentation and he also had a CT angiogram of the chest at that time which showed advanced COPD along with pulmonary fibrosis. Nasal washing in the ER negative for influenza. The patient denies any nausea, vomiting or any abdominal pain. Review of records indicate he has PMHx of MRSA from notes and his screen is positive for MRSA this admission. At the time of my evaluation patient is in the IMC on NRB, alert responding appropriately to questions and moving all 4 extremities. Not on pressors, good urine output. ID consulted for persistent leucocytosis. Review of Systems ROS Limitations: Clinical Condition (on NRB mask) Past Family Social History Allergies: Coded Allergies: Sulfa (Verified Allergy, Unknown, CAN'T RECALL , 06/29/16) *MDRO Multi-Drug Resistant Organism (Verified Adverse Reaction, Unknown, ) MRSA PCR Screen POSITIVE - 06/30/2016 Past Medical History COPD on 3 L History of MRSA infection Diabetes mellitus Atrial fibrillation COPD Coronary artery disease status post 3 stents Hypertension Hyperlipidemia Hypertriglyceridemia History of kidney stones Hypothyroidism Depression Past Surgical History Appendectomy Tonsillectomy Cardiac stents Right SFA atherectomy in March 2008 Right SFA angioplasty in March 2008 Right SFA stent placement in March 2008 Closure of left SFA in March 2008 Right SFA atherectomy, angioplasty as well as stent placement in August 2010. Reported Medications Reported Meds & Active Scripts Active Reported Magnesium 250 Mg Tab Unknown Dose PO DAILY Vitamin D3 (Cholecalciferol) 1,000 Unit Tab Unknown Dose PO DAILY B-12 (Cyanocobalamin) 1,000 Mcg Subl Unknown Dose SL DAILY Duoneb (Ipratropium-Albuterol Neb) 0.5-2.5 Mg/3 Ml Neb 1 Nebule INH QID NEB PRN Nitroglycerin SL (Nitroglycerin) 0.3 Mg Subl 0.3 Mg SL DIRECTED PRN ONE TABLET UNDER THE TONGUE NEEDED FOR CHEST PAIN, MAY REPEAT EVERY FIVE MINUTES FOR A TOTAL OF 3 DOSES OR CALL 911 IF NO RELIEF Metformin ER (Metformin HCl) 1,000 Mg Emeka 1,000 Mg PO HS With evening meal Levothyroxine (Levothyroxine Sodium) 112 Mcg Tab 112 Mcg PO DAILY Isosorbide Mononitrate ER (Isosorbide Mononitrate) 30 Mg Emeka 30 Mg PO DAILY Prozac (Fluoxetine HCl) 40 Mg Cap 40 Mg PO DAILY Diltiazem CD 24 HR 240 Mg Caper 240 Mg PO HS Plavix (Clopidogrel Bisulfate) 75 Mg Tab 75 Mg PO HS Atorvastatin (Atorvastatin Calcium) 20 Mg Tab 20 Mg PO HS Aspir-81 (Aspirin) 81 Mg Tabdr 81 Mg PO BID Proventil Hfa 6.7 GM Inh (Albuterol Sulfate) 90 Mcg/Act Aer 2 Puff INH QID PRN Active Ordered Medications Current Medications Medications (Trade) Dose Ordered Sig/Nya Route Start Time Stop Time Status Last Admin (NS Flush) 2 ml UNSCH PRN IVF 07/24/16 13:00 07/24/16 13:28 (Protonix Inj) 40 mg DAILY IV 07/24/16 16:00 07/26/16 09:16 (Heparin Inj) 5,000 units Q12H SQ 07/24/16 17:00 07/26/16 05:37 Miscellaneous Information 1 [id number] XX 07/24/16 15:45 (Chlorhexidine 2% Cloth) 3 pack Taper DAILY@04 TOP 07/25/16 04:00 07/21/17 03:59 07/26/16 00:22 (Chlorhexidine 2% Cloth) 3 pack UNSCH PRN TOP 07/24/16 15:45 (D50w (Vial) Inj) 25 ml UNSCH PRN IV PUSH 07/24/16 15:45 (Glucagon Inj) 1 mg UNSCH PRN OTHER 07/24/16 15:45 Insulin Human Regular 1 1 Q6HR SQ 07/24/16 18:00 07/26/16 05:43 Piperacillin Sod/ Tazobactam Sod 100 ml @ 200 mls/hr Q6H IV 07/24/16 17:00 07/26/16 11:26 (Zithromax Inj/ NS 250 ml Inj) 250 ml @ 250 mls/hr Q24H IV 07/24/16 16:00 07/25/16 16:54 Methylprednisolone Sodium Succinate 60 mg 60 mg Q8HR IV PUSH 07/24/16 22:00 07/26/16 05:38 (NS 1000 ml Inj) 1,000 ml @ 75 mls/hr [id number] IV 07/24/16 16:00 07/25/16 16:58 (Lipitor) 20 mg HS PO 07/24/16 21:00 07/25/16 19:59 (Plavix) 75 mg HS PO 07/24/16 21:00 07/25/16 19:59 (Synthroid) 112 mcg DAILY@06 PO 07/25/16 06:00 07/26/16 05:38 (Symbicort 160-4.5 Inh) 2 puff Q12HR INH 07/24/16 21:00 07/26/16 09:16 (Cardizem Cd) 240 mg HS PO 07/25/16 21:00 07/25/16 19:59 (Ecotrin Ec) 81 mg BID PO 07/25/16 10:00 07/26/16 09:16 (Imdur) 30 mg DAILY PO 07/25/16 10:00 07/26/16 09:15 (PROzac) 40 mg DAILY PO 07/25/16 10:00 07/26/16 09:16 Metoprolol Tartrate 2.5 mg 2.5 mg Q6H PRN IV PUSH 07/25/16 09:00 07/26/16 09:20 Potassium Chloride 100 ml @ 50 mls/hr Q2H PRN IV-CENTRAL 07/26/16 08:45 Potassium Chloride 100 ml @ 50 mls/hr Q2H PRN IV 07/26/16 08:45 07/26/16 09:21 Potassium Chloride 100 ml @ 25 mls/hr UNSCH PRN IV-CENTRAL 07/26/16 08:45 Potassium Chloride 100 ml @ 50 mls/hr Q2H PRN IV 07/26/16 08:45 (Magnesium Sulfate Inj/NS Inj) 100 ml @ 50 mls/hr UNSCH PRN IV 07/26/16 08:45 Magnesium Oxide 800 mg 800 mg UNSCH PRN PO 07/26/16 08:45 (Magnesium Sulfate Inj/NS Inj) 100 ml @ 50 mls/hr UNSCH PRN IV 07/26/16 08:45 Potassium Phosphate 2000 mg 2,000 mg Q4H PRN PO 07/26/16 08:45 (Sodium Phosphate Inj/NS 250 ml Inj) 250 ml @ 42 mls/hr UNSCH PRN IV 07/26/16 08:45 Potassium Phosphate 2000 mg 2,000 mg UNSCH PRN PO/TUBE 07/26/16 08:45 (Potassium Phosphate Inj/NS 250 ml Inj) 260 ml @ 42 mls/hr UNSCH PRN IV 07/26/16 08:45 (KCl) 20 meq Q12HR PO 07/26/16 10:00 (Lasix Inj) 20 mg BID IV PUSH 07/26/16 21:00 (Tylenol) 650 mg Q6H PRN PO 07/26/16 10:00 Potassium Chloride 40 meq 40 meq Q4H PO 07/26/16 11:00 07/26/16 15:01 07/26/16 11:00 Pharmacy Profile Note 0 ml @ 0 mls/hr UNSCH OTHER 07/26/16 11:15 Vancomycin HCl 1750 mg/Sodium Chloride 517.5 ml @ 250 mls/hr ONCE ONCE IV 07/26/16 13:00 07/26/16 15:04 (Vancomycin Inj/ NS 250 ml Inj) 250 ml @ 250 mls/hr Q12H IV 07/27/16 01:00 Miscellaneous Information SPECIFIC LAB TO BE JOHN... ONCE ONCE .XX 07/28/16 00:45 07/28/16 00:46 Family History Reviewed and noncontributory to current infectious disease problem. Social History Used to smoke extensively quit 20 years back. Occasional alcohol intake. Physical Exam Vital Signs Vital Signs Date Time Temp Pulse Resp B/P Pulse Ox O2 Delivery O2 Flow Rate FiO2 07/26/16 09:45 92 80 07/26/16 08:35 89 High Flow Nasal Cannula 40.00 100 07/26/16 07:44 90 70 07/26/16 06:00 98 07/26/16 04:12 91 70 07/26/16 04:00 98.7 94 26 161/74 91 07/26/16 04:00 94 07/26/16 02:00 102 07/26/16 00:00 98.8 104 27 153/78 94 07/26/16 00:00 104 07/25/16 23:37 92 70 07/25/16 22:00 106 07/25/16 20:57 93 60 07/25/16 20:10 90 60 07/25/16 20:00 101 07/25/16 20:00 93 Bi-Pap 60 07/25/16 20:00 98.4 101 28 140/74 90 07/25/16 19:00 90 07/25/16 16:00 98.8 97 26 132/70 93 07/25/16 15:17 92 60 07/25/16 14:15 92 High Flow Nasal Cannula 30.00 100 07/25/16 12:00 98.4 100 32 168/87 91 Physical Exam GENERAL: Elderly male patient, in mild respiratory distress. SKIN: No rashes, ecchymoses or lesions. Cool and dry. HEAD: Atraumatic. Normocephalic. No temporal or scalp tenderness. EYES: Pupils equal round and reactive. Extraocular motions intact. No scleral icterus. No injection or drainage. ENT: Nose without bleeding, purulent drainage or septal hematoma. Throat without erythema, tonsillar hypertrophy or exudate. Uvula midline. Airway patent. NECK: Trachea midline. Supple, nontender, no meningeal signs. CARDIOVASCULAR: RRR RESPIRATORY: Decreased air entry in left base. Occ wheezes. GASTROINTESTINAL: Abdomen soft, non-tender, nondistended. No hepato-splenomegaly , or palpable masses. No guarding. MUSCULOSKELETAL: Extremities without clubbing, cyanosis, or edema. No joint tenderness, effusion, or edema noted. No calf tenderness. Negative Homans sign bilaterally. NEUROLOGICAL: Awake and alert. Grossly nonfocal. Psych cooperative IV line sites with no evidence of infection. Laboratory Laboratory Tests Test 07/26/16 03:40 White Blood Count 18.1 Red Blood Count 4.18 Hemoglobin 11.5 Hematocrit 34.9 Mean Corpuscular Volume 83.5 Mean Corpuscular Hemoglobin 27.5 Mean Corpuscular Hemoglobin 32.9 Concent Red Cell Distribution Width 17.3 Platelet Count 345 Mean Platelet Volume 8.4 Sodium Level 144 Potassium Level 3.2 Chloride Level 107 Carbon Dioxide Level 26.8 Anion Gap 10 Blood Urea Nitrogen 15 Creatinine 0.93 Estimat Glomerular Filtration 78 Rate Random Glucose 217 Calcium Level 7.6 Phosphorus Level 2.8 Magnesium Level 1.7 B-Type Natriuretic Peptide 53 Date/Time Procedure Status Source Growth 07/25/16 15:00 Gram Stain Ordered Sputum Expectorated Sputum Pending 07/25/16 15:00 Sputum Culture Ordered Sputum Expectorated Sputum Pending 07/24/16 14:10 Influenza Types A,B Antigen (BRIDGER) - Final Complete Nasal Washing NEGATIVE FOR FLU A AND B ANTIGEN.... 07/24/16 13:10 Aerobic Blood Culture - Preliminary Resulted Blood Peripheral NO GROWTH IN 2 DAYS 07/24/16 13:10 Anaerobic Blood Culture - Preliminary Resulted Blood Peripheral NO GROWTH IN 2 DAYS Result Diagram: 07/26/16 0340 07/26/16 0340 Imaging Last Impressions Chest X-Ray 07/26/16 0600 Signed Impressions: Service Date/Time: Tuesday, July 26, 2016 04:46 - CONCLUSION: 1. Left lung parenchymal disease especially in the left perihilar region appears also a moderate left effusion. 2. Milder interstitial disease in the right lung. A small right effusion may be present over the superior lateral right chest. Tate Parada MD CT Angiography 07/24/16 1450 Signed Impressions: Service Date/Time: Sunday, July 24, 2016 15:29 - CONCLUSION: 1. No pulmonary embolus identified. 2. Advanced COPD. 3. Interval development of a large left pleural effusion. There is diffuse interstitial prominence and cardiomegaly. Exam would suggest congestive failure. 4. Nodule at the left lung base which was seen on previous dated 06/29/16 is obscured by the pleural effusion. Raymond Stewart MD Assessment and Plan Assessment and Plan Sepsis (Leucocytosis, tachycardia, hypothermia,lactic acidemia) on admission Pneumonia (CAP vs HCAP) Acute respiratory failure Acute COPD exacerbation Acute renal failure on admission now resolved. CAD, PAD s/p stents and procedures. Recs: Continue Zosyn IV Continue Azithro IV Continue Vanco IV (target 15-20) Follow cultures Follow clinically. Recommend Left side thoracentesis. There is a bleb right above the fluid level consider IR guided thoracentesis unless clinically resp condition deteriorates. Please send fluid for lab and micro testing. MRSA screen positive: isolation per hospital policy. d/w RN, and patient. d/w patient about need for thoracentesis. At the end of my visit patient started deteriorating resp castillo and ended up needing intubation. D.w patients son and the CT findings and showed them imaging. Especially, pointed out the pleural effusion on left side and the multiple blebs that put him at risk for pneumothorax while on vent or during thoracentesis. Critical thinking and decision making. Slime Person MD Jul 26, 2016 11:22
[2016-07-26] MEDS ORDERED: PROPOFOL 1000 MG/100 ML INJ 100 ML ONE (12:13)
--- NOTE | 2016-07-26 12:31 | PD.PROCEDR ---
Procedure Note Procedure Endotracheal Intubation Diagnosis: Acute hypoxic respiratory failure Indications: Acute hypoxic respiratory failure Consent: Obtained from patient and family/son Anesthesia: see MAR Description of the Procedure: The patient was positioned in the sniffing position. Pre-oxygenation was performed using a [id number]. Anesthesia was induced via rapid sequence, with cricoid pressure. A glide scope #4 was used for laryngoscopy and a Grade 1 view was obtained. A 8.0 cuffed endotracheal tube was inserted atraumatically through the vocal cords. Confirmation of correct endotracheal tube placement was made by equal and bilateral breath sounds and colorimetric CO2 detection. The endotracheal tube was secured at [ ] cm at the teeth. There were no immediate complications noted. The patient remained hemodynamically stable throughout the procedure. A chest x-ray has been ordered. I personally performed the procedure. Willow Bennett MD Jul 26, 2016 12:31
[2016-07-26] MEDS ORDERED: VANCOMYCIN INJ 1,750 MG in SODIUM CHLORID 0.9% 500 ML INJ 500 ML IV ONE (13:00)
--- NOTE | 2016-07-26 13:01 | RADRPT ---
EXAM DATE/TIME: 07/26/2016 12:11 [facility] COMPARISON: CT PULMONARY ANGIOGRAM, June 29, 2016, 18:47. CT PULMONARY ANGIOGRAM, July 24, 2016, 15:29. CHEST SINGLE AP, July 26, 2016, 4:46. INDICATIONS : Thoracentesis placement. MEDICAL HISTORY : Venous insufficiency. Chronic obstructive pulmonary disease. Hypertension Cardiovascular diseas e. SURGICAL HISTORY : Appendectomy. ENCOUNTER: Subsequent ACUITY: 1 week PAIN SCORE: Non-responsive. LOCATION: Bilateral chest FINDINGS: There has been interval placement of an endotracheal tube with the tip just beyond the level of the c lavicles. The heart size is grossly unremarkable on this portable exam. There is bilateral hazy airsp lucille opacities consistent with the patient's known areas of interstitial fibrosis. There is a lucent r egion within the left lung base at the site of a large bleb seen on prior CT. Moderate sized left-claribel ed layering pleural effusion. CONCLUSION: Interval intubation with the endotracheal tube seen just beyond the level of the clavicles. Stable bi lateral severe lung disease and moderate sized left-sided pleural effusion. Elaine Alberto MD on July 26, 2016 at 12:55 Board Certified Radiologist. This report was verified electronically.
[2016-07-26] MEDS: fentaNYL DRIP 250 ML IV SCH (14:27)
[2016-07-26] MEDS: SODIUM CHLOR 0.9% 1000 ML INJ 1,000 ML IV SCH ×2 (14:30→23:02)
[2016-07-26] MEDS: PROPOFOL 1000 MG/100 ML INJ 100 ML IV SCH (14:51)
[2016-07-26] MEDS ORDERED: POTASSIUM CHLORIDE 25 MEQ EFFERVESCENT TAB NG SCH (15:00)
--- NOTE | 2016-07-26 15:59 | MB ---
cc: Em MUHAMMAD M.D. DATE OF CONSULTATION 07/26/2016 HISTORY Mr. Munguia is an 80-year-old white male whom I have known for about two years now with severe COPD. He was hospitalized here a month ago with an exacerbation. A CT scan at that time revealed no evidence of thromboembolic disease but bullous emphysema with some interstitial fibrosis. No obvious pneumonia. He presented back on the of this month with increasing shortness of breath, presented hypoxic with a left lower lobe infiltrate and effusion, probable pneumonia. Blood cultures have been negative. Influenza A and B were negative but his nasal screen for MRSA was positive. He was admitted, started on broad-spectrum antibiotics including Zithromax, Zosyn and vancomycin and infectious disease saw him earlier today. Over the course of the morning today though his hypoxemia worsened, he was on high-flow, he was becoming more to tachypneic and Dr. Bennett intubated and instituted mechanical ventilation. She also ordered a CT guided thoracentesis and orders have been written for that fluid. PAST MEDICAL HISTORY The patient's past medical history is remarkable for: 1. Coronary artery disease as well. He has had previous stents. Dr. Gerardo has followed him. 2. He also has peripheral arterial disease. 3. A history of diabetes. 4. Obstructive sleep apnea although to my knowledge he has not been using C-PAP. 5. Atrial fibrillation with a prior ablation. 6. Kidney stones. 7. An appendectomy. 8. No prior history of respiratory failure this significant. ALLERGIES SULFA. MEDICATIONS Reviewed in the EMR. SOCIAL HISTORY He is living with his . She has early Alzheimer's disease. I spoke to his son James today who is designated spokesperson and decision-maker. He is retired from sales. He did smoke two to three packs a day for about 30 years although he quit smoking many years ago and there is no significant alcohol intake. REVIEW OF SYSTEMS Review of systems is not obtainable other than that from the record. PHYSICAL EXAMINATION GENERAL: Elderly white male intubated, sedated. VITAL SIGNS: Blood pressure 160/70, pulse is 90, respirations currently 24 on mechanical ventilatory support and an O2 saturation in the mid 90s. HEENT: Sclerae anicteric. NECK: The neck veins are flat. LUNGS: Diffuse congestion in both lungs. No audible wheezes. CARDIOVASCULAR: No harsh murmur. No audible S3. ABDOMEN: Soft. EXTREMITIES: He has no peripheral edema. SCDs in place. No cyanosis. DISCUSSION Mr. Munguia presents with acute respiratory failure probably due to pneumonia in the left. He is on broad-spectrum antibiotics. Infectious disease is following as well as critical care. Hemodynamics are stable. He does have significant underlying chronic pulmonary disease related to a prior smoking history. I spoke to his son James today. They are in favor of full resuscitation and all measures being taken at present and I think that is very reasonable. Over the course of the next several days, we will see how he responds to intensive therapy with further diagnostic and/or therapeutic intervention depending on his ongoing clinical course. Aspirated endotracheal sputum specimen will be sent as well. R. Oscar Muhammad MD RSW/KK /3:34 PM /3:48 PM
--- NOTE | 2016-07-26 16:07 | PD.PROCEDR ---
Procedure Note Procedure Procedure: Arterial Line Placement Left radial arterial line placement Diagnosis: Hypoxic respiratory failure Indications: None Consent: Emergent-family made aware Description of the Procedure: The left wrist was prepped and draped sterilely. 1 % lidocaine was used for local anesthesia. The pulse was located and a needle was advanced into the artery. A 20 gauge, 1.34 cm catheter was advanced into the artery using a modified Seldinger technique. The catheter was sutured to the skin and a sterile dressing was applied. The catheter was connected to a pressure transducer and an arterial waveform was noted. There were no immediate complications noted. There was minimal EBL. I personally performed the procedure. Willow Bennett MD Jul 26, 2016 16:07
--- NOTE | 2016-07-26 16:22 | RADRPT ---
EXAM DATE/TIME: 07/26/2016 15:34 [facility] COMPARISON: CT PULMONARY ANGIOGRAM, July 24, 2016, 15:29. INDICATIONS : Evaluate for pneumothorax. MEDICAL HISTORY : Hypertension. Chronic obstructive pulmonary disease. Cardiovascular disease. Venous insufficiency . SURGICAL HISTORY : None. ENCOUNTER: Initial ACUITY: 1 day PAIN SCORE: Non-responsive. LOCATION: Bilateral chest FINDINGS: A single view of the chest demonstrates endotracheal tube tip in good position. Nasogastric tube coil ed in stomach. Bilateral airspace disease and left effusion similar to July 26. Loculated air lower l eft lung is stable in appearance, probably related to bullous change. CONCLUSION: No new findings. Stable loculated air left lung base. Left effusion. Airspace disease and pulmonary f ibrotic changes again noted bilaterally. Zoltan Jacobs MD on July 26, 2016 at 16:12 Board Certified Radiologist. This report was verified electronically.
[2016-07-26 16:30] LABS: BLOOD GAS BASE EXCESS -2.1 mmol/L (-2-2); BLOOD GAS CARBOXYHEMOGLOBIN 1.1 % (0-4); BLOOD GAS HCO3 25 mmol/L (22-26); BLOOD GAS METHEMOGLOBIN 1.3 % (0-2); BLOOD GAS O2 HGB SATURATION 86 % (90-100); BLOOD GAS OXYGEN CONTENT 14.3 Vol % (12.0-20.0); BLOOD GAS PCO2 65 mmHg (38-42); BLOOD GAS PO2 70 mmHg (61-120); BLOOD GAS TOTAL HGB 11.7 G/DL (12.0-16.0); CRITICAL VALUE YES; OXYGEN DEVICE VENTILATOR; TEMP CORR TO 98.6
[2016-07-26 16:31] LABS: DRAW SITE ART LINE; FIO2 100 %; STAT YES; ULNAR PULSE PRESENT; VENT SETTINGS PRVC/15/550/I.T.9/+5
[2016-07-26] MEDS: AZITHROMYCIN INJ 500 MG in SODIUM CHLOR 0.9% 250 ML INJ 250 ML IV SCH (16:50)
[2016-07-26] MEDS: DILTIAZEM-CD 240 MG CAP ER PO SCH (21:15)
[2016-07-26] MEDS: CLOPIDOGREL 75 MG TAB PO SCH (21:15)
[2016-07-26] MEDS: POTASSIUM CHLORIDE 25 MEQ EFFERVESCENT TAB NG SCH (21:15)
[2016-07-26] MEDS: FUROSEMIDE 20 MG/2 ML VIAL IV PUSH SCH (21:16)
[2016-07-26] MEDS: ATORVASTATIN 20 MG TAB PO SCH (23:05)
[2016-07-27] VITALS (20 sets, daily range): BP systolic 78–147; BP diastolic 44–67; PULSE 61–79; RESP 22–24; TEMP 97.3–99; O2SAT 91–95
[2016-07-27] MEDS: RESP: ALBUTEROL 2.5 MG/IPRATROPIUM 0.5 MG NEB (SCH) INH ×7 (00:17→23:34)
[2016-07-27] MEDS: VANCOMYCIN 1,000 MG/NS 250 ML IV SCH ×4 (01:17→13:16)
[2016-07-27] MEDS: CHLORHEXIDINE GLUCONATE 2 % 1 PACK (2 CLOTHS) TOP SCH (04:00)
[2016-07-27] MEDS: PROPOFOL 1000 MG/100 ML INJ 100 ML IV SCH ×3 (04:38→23:16)
[2016-07-27] MEDS ORDERED: SODIUM CHLOR 0.9% 250 ML INJ 250 ML IV ONE (04:45)
[2016-07-27] MEDS: PIPERACIL-TAZO 4.5 GM PREMIX 100 ML IV SCH ×4 (06:25→23:16)
[2016-07-27] MEDS: HEPARIN SODIUM - SQ 10,000 UNITS/ML VIAL SQ SCH ×2 (06:26→16:22)
[2016-07-27] MEDS: LEVOTHYROXINE SODIUM 112 MCG TAB PO SCH (06:26)
[2016-07-27] MEDS: methylPREDNISolone SOD SUCC 40 MG/1 ML VIAL IV PUSH SCH ×3 (06:27→20:59)
[2016-07-27] MEDS: INSULIN NovoLIN REGULAR SUPPLEMENTAL SCALE SQ SCH ×4 (06:33→20:49)
[2016-07-27 07:05] LABS: PROTHROMBIN TIME - PATIENT 11.3 SEC (9.8-11.6)
[2016-07-27] MEDS: SODIUM CHLOR 0.9% 1000 ML INJ 1,000 ML IV SCH ×2 (07:40→15:27)
[2016-07-27] MEDS: RESP: BUDESONIDE 0.25 MG/2 ML NEB NEB SCH ×2 (08:34→20:18)
[2016-07-27] MEDS: BUDESONIDE-FORMOTEROL 160/4.5 MCG INHALER INH SCH ×2 (09:00→21:00)
[2016-07-27] MEDS: FUROSEMIDE 20 MG/2 ML VIAL IV PUSH SCH ×2 (09:22→20:49)
[2016-07-27] MEDS: PANTOPRAZOLE SODIUM 40 MG VIAL IV SCH (09:22)
[2016-07-27] MEDS: FLUoxetine HCL 20 MG CAP PO SCH (09:23)
[2016-07-27] MEDS: POTASSIUM CHLORIDE 25 MEQ EFFERVESCENT TAB NG SCH ×2 (09:23→20:49)
[2016-07-27] MEDS ORDERED: LIDOCAINE 1%/EPINEPHrine 1:100,000 SOLN 20 ML VIAL ONE (09:43)
[2016-07-27] MEDS ORDERED: ISOSORBIDE MONONITRATE 30 MG TAB PO SCH (10:00)
[2016-07-27 10:09] LABS: AUTOMATED NEUTROPHIL # 16.1 TH/MM3 (1.8-7.7); BASOPHIL # 0.1 TH/MM3 (0-0.2); BASOPHIL % 0.3 % (0.0-2.0); HEMATOCRIT 33.2 % (39.0-51.0); HEMO FLAGS DIFF FINAL; LYMPH % 4.7 % (9.0-44.0); LYMPHOCYTE # 0.8 TH/MM3 (1.0-4.8); MEAN CELL VOLUME 84.4 FL (80.0-100.0); MEAN CORPUSCULAR HEMOGLOBIN 27.4 PG (27.0-34.0); MEAN CORPUSCULAR HGB CONC 32.4 % (32.0-36.0); MONO % 3.7 % (0.0-8.0); NEUT % 91.3 % (16.0-70.0); PLATELET COUNT 351 TH/MM3 (150-450); RED BLOOD COUNT 3.93 MIL/MM3 (4.50-5.90); RED CELL DISTRIBUTION WIDTH 17.9 % (11.6-17.2); WHITE BLOOD COUNT 17.7 TH/MM3 (4.0-11.0)
[2016-07-27 10:20] LABS: BICARBONATE 25.5 MEQ/L (21.0-32.0); POTASSIUM 4.1 MEQ/L (3.5-5.1)
[2016-07-27 10:41] LABS: CALCIUM-PROTEIN CORRECTED 8.1 MG/DL (8.5-10.1)
[2016-07-27] MEDS: ASPIRIN 81 MG CHEW TAB PO SCH (11:20)
[2016-07-27] MEDS: fentaNYL DRIP 250 ML IV SCH (11:22)
--- NOTE | 2016-07-27 12:41 | HHI.CCPN ---
Subjective Remarks/Hospital Course The patient is an 80-year-old male with past medical history of COPD on 3 L/m home oxygen continuously in addition to nebulizer, history of hypertension and diabetes mellitus, hyperlipidemia, and hypothyroidism. He presented to [facility] ED with a one-week history of progressive dyspnea. The patient denies any associated symptoms such as orthopnea, PND or edema of the lower extremities. He is being followed by Dr. booker, his outpatient outside sales representative, and Dr. Gerardo his client specialist. He denies any nausea vomiting or abdominal pain. Upon arrival to the ED, the patient was hypoxic with O2 saturation in the 70s on nasal cannula and he was subsequently placed on a nonrebreather mask and O2 sats of 94%. Chest x-ray upon arrival showed patchy airspace disease bilateral with coarse pleural changes. CT angiogram of his chest was obtained which showed no evidence of pulmonary embolus however, it showed interstitial fibrotic changes with multiple emphysematous blebs and left-sided pleural effusion. Also a 2 x 1.4 cm nodule was seen in the posterior aspect of the left lower lobe. In the emergency room he was given 500 cc of normal saline, vancomycin, cefepime, DuoNeb, Solu-Medrol 125 mg IV push and magnesium sulfate. Nasal washings were negative for influenza. Critical care medicine was consult for management. Subjective 07/25: Early this a.m. patient was noted to be on a nonrebreather mask with O2 sats in the 80s. The patient apparently has significant history for obstructive sleep apnea at which point he utilizes a CPAP machine at home. The place and was placed on CPAP with O2 sats 94%. Plan today to wean to high flow nasal cannula and aggressive pulmonary toileting, continue dosing of antibiotics. 07/26: The patient was weaned yesterday to high flow nasal cannula, to maintain an O2 sat of 90%. Patient was additionally diuresed with Lasix 40 mg approximately 1 L output yesterday. The patient was able to tolerate a clear liquid diet, diet advance to heart healthy this a.m.. The patient was noted to have an elevation in WBC count despite empiric antibiotics. ID consulted. 07/27: Afebrile. Yesterday afternoon the patient had hypoxic respiratory failure and required emergent intubation, secondary to decompensation. Plan for IR to do a CT-guided thoracentesis secondary to the numerous blebs and layering of fluid, unable to be performed at bedside. Thoracentesis performed approximately 2.4 L removed today the patient is now down to FiO2 of 50% .PEEP 8 with plan for weaning as clinically tolerated. Objective Vital Signs Date Time Temp Pulse Resp B/P Pulse Ox O2 Delivery O2 Flow Rate FiO2 07/27/16 12:08 95 50 07/27/16 06:00 62 07/27/16 04:00 98.1 22 82/50 114/44 07/27/16 03:00 Mechanical Ventilator 07/26/16 08:35 40.00 Intake and Output 07/26/16 07/26/16 07/27/16 08:00 16:00 00:00 Intake Total 620 ml 1380 ml 975 ml Output Total 200 ml 750 ml 200 ml Balance 420 ml 630 ml 775 ml Result Diagram: 07/27/16 0945 07/27/16 0945 Other Results Microbiology Date/Time Procedure Status Source Growth 07/24/16 14:10 Influenza Types A,B Antigen (BRIDGER) - Final Complete Nasal Washing NEGATIVE FOR FLU A AND B ANTIGEN.... Laboratory Tests Test 07/26/16 16:25 Blood Gas Puncture Site ART LINE Blood Gas Patient Temperature 98.6 Blood Gas HCO3 25 mmol/L (22-26) Blood Gas Base Excess -2.1 mmol/L (-2-2) Blood Gas Oxygen Saturation 86 % (90-100) Arterial Blood pH 7.21 (7.380-7.420) Arterial Blood Partial 65 mmHg (38-42) Pressure CO2 Arterial Blood Partial 70 mmHg Pressure O2 (61-120) Arterial Blood Oxygen Content 14.3 Vol % (12.0-20.0) Arterial Blood 1.1 % (0-4) Carboxyhemoglobin Arterial Blood Methemoglobin 1.3 % (0-2) Blood Gas Hemoglobin 11.7 G/DL (12.0-16.0) Oxygen Delivery Device VENTILATOR Blood Gas Ventilator Setting [facility]/15/550/I.T.9/+5 Blood Gas Inspired Oxygen 100 % Imaging Last Impressions CT Angiography 07/24/16 1450 Signed Impressions: Service Date/Time: Sunday, July 24, 2016 15:29 - CONCLUSION: 1. No pulmonary embolus identified. 2. Advanced COPD. 3. Interval development of a large left pleural effusion. There is diffuse interstitial prominence and cardiomegaly. Exam would suggest congestive failure. 4. Nodule at the left lung base which was seen on previous dated 06/29/16 is obscured by the pleural effusion. Raymond Stewart MD Chest X-Ray 07/24/16 1252 Signed Impressions: Service Date/Time: Sunday, July 24, 2016 13:13 - CONCLUSION: Further deterioration in the appearance of the chest when compared to the study of 06/29/2014. Oscar Stewart MD FACR Objective Remarks GENERAL: Well-developed, obese male, currently semi-recombinant on high flow nasal cannula in no apparent distress, O2 sat 91% SKIN: Warm and dry. HEAD: Atraumatic. Normocephalic. EYES: Pupils equal and round. No scleral icterus. No injection or drainage. ENT: No nasal bleeding or discharge. Mucous membranes pink and moist. NECK: Trachea midline. No JVD. CARDIOVASCULAR: Normal rate, regular rhythm. RESPIRATORY: No accessory muscle use. Breath sounds clear to auscultation, diminished left base GASTROINTESTINAL: Abdomen soft, non-tender, nondistended. No guarding. MUSCULOSKELETAL: Extremities without clubbing, cyanosis, or edema. No obvious deformities. NEUROLOGICAL: Awake and alert. RASS 0. No gross focal/sensory deficits. Follows commands in all 4 extremities. Urinary Catheter: Yes Olvera insert reason: Measure Accurate Output A/P Assessment and Plan Plan by systems: Neurologic: Anxiety disorder Pain Maintain sleep hygiene to avoid ICU delirium Continue Prozac 40 mg daily Acetaminophen 650 every 6 hours when necessary CXR 07/26 left moderate pleural effusion, decreasing since admission. Minimal diuresis resulted with Diamox. Respiratory: COPD exacerbation Pulmonary edema Acute on chronic respiratory failure RADHA Acute hypoxic respiratory failure 07/26 Intubated-8.0 ETT Mechanical ventilation-previously on FIO2 90% PEEP 8 RR 22 I:E 1.3, FIO2 45% now decreased S/P thoracentesis Continue empiric antibiotics-azithromycin, Zosyn Continue Methylprednisolone 60 mg every 8hr Continue duo nebs scheduled every 4 hours Maintain head of bed 30 ABG-7.33/46/71/23/-1.7 Pulmonology consult-follow up recommendations Will maintain sats O2 sat greater than 90% CTA 07/24-left lung base nodule 06/29 2.01.4 cm nodule posterior aspect left lower lung CXR 07/26 left moderate pleural effusion, decreasing since admission. 07/27-CT guided thoracentesis-2.4 L removed, cultures and cytology pending Cardiovascular: Coronary artery disease Cardiomegaly Hypertension Continue Cardizem, statin, aspirin (home medication) Continue Plavix 07/26 BNP 53 Renal: Monitor BMP -- Strict I/Os FEN/GI: Hypokalemia Hypomagnesemia Hypophosphatemia Replete electrolytes per ICU protocol Patient on scheduled doses of potassium BID Tube feeds initiated Glucerna 1.5 Bowel regimen Heme/ID: Lactic acidosis Anemia of chronic disease Leukocytosis History of MRSA Follow-up cultures ID consulted -Dr. Person WBC from 15-> 18 today Monitor CBC Currently on azithromycin, Zosyn (day 4) Lactate from 6.3-> 3.4->2.3 today Endocrine: Glucose monitoring per ICU protocol -- SSI Prophylaxis: GI Prophylaxis Protonix DVT Prophylaxis -- SCDs Heparin 5000u subcutaneous twice a day Lines: Peripheral IVs. Central line if indicated Dispo: This patient remains critically ill with one or more organ systems which are or may become a threat to life. I have spent in excess of 47 minutes discontinuously in the care and management of this patient. This time is exclusive of procedures, and includes, but is not limited to, evaluation of the patient, review of the medical record, discussions with family, consultants, nursing staff, or respiratory therapy, and documentation in the medical record. Discussed with MELANGEUR OPERATOR at bedside. Physician Willow Casiano MD Jul 27, 2016 12:41
[2016-07-27 12:42] LABS: BLOOD GAS BASE EXCESS -1.7 mmol/L (-2-2); BLOOD GAS CARBOXYHEMOGLOBIN 1.5 % (0-4); BLOOD GAS HCO3 23 mmol/L (22-26); BLOOD GAS METHEMOGLOBIN 1.2 % (0-2); BLOOD GAS O2 HGB SATURATION 90 % (90-100); BLOOD GAS OXYGEN CONTENT 13.1 Vol % (12.0-20.0); BLOOD GAS PCO2 46 mmHg (38-42); BLOOD GAS PO2 71 mmHg (61-120); BLOOD GAS TOTAL HGB 10.4 G/DL (12.0-16.0); CRITICAL VALUE NO; OXYGEN DEVICE VENTILATOR; TEMP CORR TO 98.6
[2016-07-27 12:43] LABS: DRAW SITE ALINE; FIO2 45 %; STAT NO
[2016-07-27 12:52] LABS: TOTAL PROTEIN,PLEURAL FLUID 3.4 GM/DL
--- NOTE | 2016-07-27 13:09 | HHI.IDPN ---
Subjective Subjective Remarks Delayed entry patient seen at ~ 10 am. is an 80 y/o CM with PMHx of COPD, pulm fibrosis and emphysema on 3L Oxygen at home at baseline who sees Finisher Plate. His PMHx is also significant for HTN, diabetes mellitus, hyperlipidemia and hypothyroidism. He presented to [facility] ED with a one-week history of progressive worsening shortness of breath. The patient denies any associated symptoms of orthopnea, PND or edema of lower extremities. His ux visual designer is Dr. Gerardo from cardiology. On arrival to the ED, the patient was hypoxic with O2 saturation in the 70s on NC and he was subsequently placed on a non-rebreather mask with a saturation of 94%. Chest x-ray on arrival showed patchy airspace disease bilaterally with coarse pleural changes. Due to his respiratory distress, CT angiogram of the chest was obtained which showed no evidence of a pulmonary embolism, however, it showed interstitial fibrotic changes with multiple emphysematous blebs and left-sided pleural effusion. Also a 2 x 1.4 cm nodule was seen in the posterior aspect of the left lower lobe. In the emergency room, he was given 500 mL of normal saline, vancomycin, cefepime, DuoNeb, Solu-Medrol 125 mg IV push and magnesium sulfate. His labs notable for lactic acid of 6.4 and leukocytosis with a WBC count of 19.1. The patient was admitted last month on June 29 with similar presentation and he also had a CT angiogram of the chest at that time which showed advanced COPD along with pulmonary fibrosis. Nasal washing in the ER negative for influenza. The patient denies any nausea, vomiting or any abdominal pain. ID following for HCAP, Pleural effusion. Overnight events reviewed. s/p 2.1 L of pleural fluid drainage by IR. No CT placed per RN. Not on pressors. Remains on Vent 50% FiO2, PEEP 8) On Fentanyl and Diprivan. No rash No diarrhea Antibiotics Zosyn IV Vanco IV Azithro IV Lines Line sites with no e.o infection. Past Medical History reviewed Allergies: Coded Allergies: Sulfa (Verified Allergy, Unknown, CAN'T RECALL , 06/29/16) *MDRO Multi-Drug Resistant Organism (Verified Adverse Reaction, Unknown, ) MRSA PCR Screen POSITIVE - 06/30/2016, 07/24/16 Objective . Vital Signs Date Time Temp Pulse Resp B/P Pulse Ox O2 Delivery O2 Flow Rate FiO2 07/27/16 12:08 95 50 07/27/16 10:00 95 100 07/27/16 08:34 91 85 07/27/16 06:00 62 07/27/16 04:00 100 07/27/16 04:00 98.1 68 22 82/50 94 114/44 07/27/16 04:00 68 07/27/16 03:50 94 100 07/27/16 03:00 94 Mechanical Ventilator 100 07/27/16 02:00 72 07/27/16 01:27 95 100 07/27/16 01:26 100 07/27/16 00:24 92 100 07/27/16 00:00 61 07/27/16 00:00 98.3 61 22 103/55 94 132/54 07/26/16 23:00 94 Mechanical Ventilator 90 07/26/16 22:15 100 07/26/16 22:00 66 07/26/16 20:31 92 90 07/26/16 20:00 90 07/26/16 20:00 98.9 62 22 103/59 93 127/54 07/26/16 20:00 62 07/26/16 19:00 93 Mechanical Ventilator 90 07/26/16 16:39 94 90 07/26/16 16:00 98.6 78 13 126/99 96 07/26/16 14:05 88 80 07/26/16 13:10 92 70 07/26/16 07/26/16 07/27/16 15:00 23:00 07:00 Intake Total 1380 ml 975 ml 1087 ml Output Total 750 ml 200 ml 300 ml Balance 630 ml 775 ml 787 ml Intake Oral 300 ml 0 ml IV Total 1080 ml 868 ml 1087 ml Tube Feeding 47 ml 0 ml Other 60 ml Output Urine Total 750 ml 200 ml 300 ml # Bowel Movements 1 0 0 . Laboratory Tests Test 07/26/16 07/27/16 03:40 09:45 White Blood Count 18.1 TH/MM3 17.7 TH/MM3 Red Blood Count 4.18 MIL/MM3 3.93 MIL/MM3 Hemoglobin 11.5 GM/DL 10.7 GM/DL Hematocrit 34.9 % 33.2 % Mean Corpuscular Volume 83.5 FL 84.4 FL Mean Corpuscular Hemoglobin 27.5 PG 27.4 PG Mean Corpuscular Hemoglobin 32.9 % 32.4 % Concent Red Cell Distribution Width 17.3 % 17.9 % Platelet Count 345 TH/MM3 351 TH/MM3 Mean Platelet Volume 8.4 FL 8.2 FL Neutrophils (%) (Auto) 91.3 % Lymphocytes (%) (Auto) 4.7 % Monocytes (%) (Auto) 3.7 % Eosinophils (%) (Auto) 0.0 % Basophils (%) (Auto) 0.3 % Neutrophils # (Auto) 16.1 TH/MM3 Lymphocytes # (Auto) 0.8 TH/MM3 Monocytes # (Auto) 0.6 TH/MM3 Eosinophils # (Auto) 0.0 TH/MM3 Basophils # (Auto) 0.1 TH/MM3 CBC Comment DIFF FINAL Differential Comment Laboratory Tests Test 07/26/16 07/26/16 07/27/16 03:40 10:54 09:45 Sodium Level 144 MEQ/L 147 MEQ/L Potassium Level 3.2 MEQ/L 4.1 MEQ/L Chloride Level 107 MEQ/L 112 MEQ/L Carbon Dioxide Level 26.8 MEQ/L 25.5 MEQ/L Anion Gap 10 MEQ/L 10 MEQ/L Blood Urea Nitrogen 15 MG/DL 26 MG/DL Creatinine 0.93 MG/DL 1.24 MG/DL Estimat Glomerular Filtration 78 ML/MIN 56 ML/MIN Rate Random Glucose 217 MG/DL 238 MG/DL Calcium Level 7.6 MG/DL 7.4 MG/DL Phosphorus Level 2.8 MG/DL 2.6 MG/DL Magnesium Level 1.7 MG/DL 2.0 MG/DL B-Type Natriuretic Peptide 53 PG/ML Lactic Acid Level 2.3 mmol/L Protein Corrected Calcium 8.1 MG/DL Total Protein 5.8 GM/DL Microbiology Date/Time Procedure Status Source Growth 07/24/16 13:10 Aerobic Blood Culture - Preliminary Resulted Blood Peripheral NO GROWTH IN 3 DAYS 07/24/16 13:10 Anaerobic Blood Culture - Preliminary Resulted Blood Peripheral NO GROWTH IN 3 DAYS 07/24/16 14:10 Influenza Types A,B Antigen (BRIDGER) - Final Complete Nasal Washing NEGATIVE FOR FLU A AND B ANTIGEN.... 07/25/16 15:00 Gram Stain Ordered Sputum Expectorated Sputum Pending 07/25/16 15:00 Sputum Culture Ordered Sputum Expectorated Sputum Pending 07/26/16 13:00 Gram Stain - Final Resulted Sputum Expectorated Sputum 07/26/16 13:00 Sputum Culture Resulted Sputum Expectorated Sputum Pending 07/26/16 15:00 Gram Stain Marie Batch Sputum Expectorated Sputum Pending 07/26/16 15:00 Sputum Culture Marie Batch Sputum Expectorated Sputum Pending 07/27/16 08:30 Gram Stain Received Sputum Endotracheal Pending 07/27/16 08:30 Sputum Culture Received Sputum Endotracheal Pending 07/27/16 08:30 Acid Fast Stain Received Sputum Endotracheal Pending 07/27/16 08:30 Mycobacterial Culture Received Sputum Endotracheal Pending 07/27/16 10:32 Gram Stain Received Fluid Pleural Fluid Pending 07/27/16 10:32 Body Fluid Culture Received Fluid Pleural Fluid Pending 07/27/16 10:32 Acid Fast Stain Received Fluid Pleural Fluid Pending 07/27/16 10:32 Mycobacterial Culture Received Fluid Pleural Fluid Pending 07/27/16 10:32 Fungal Smear Received Fluid Pleural Fluid Pending 07/27/16 10:32 Fungal Culture Received Fluid Pleural Fluid Pending Imaging Last Impressions Chest X-Ray 07/26/16 0600 Signed Impressions: Service Date/Time: Tuesday, July 26, 2016 04:46 - CONCLUSION: 1. Left lung parenchymal disease especially in the left perihilar region appears also a moderate left effusion. 2. Milder interstitial disease in the right lung. A small right effusion may be present over the superior lateral right chest. Tate Parada MD CT Angiography 07/24/16 1450 Signed Impressions: Service Date/Time: Sunday, July 24, 2016 15:29 - CONCLUSION: 1. No pulmonary embolus identified. 2. Advanced COPD. 3. Interval development of a large left pleural effusion. There is diffuse interstitial prominence and cardiomegaly. Exam would suggest congestive failure. 4. Nodule at the left lung base which was seen on previous dated 06/29/16 is obscured by the pleural effusion. Raymond Stewart MD Physical Exam GENERAL: Elderly male patient, in mild respiratory distress. SKIN: No rashes, ecchymoses or lesions. Cool and dry. HEAD: Atraumatic. Normocephalic. No temporal or scalp tenderness. EYES: Pupils equal round and reactive. Extraocular motions intact. No scleral icterus. No injection or drainage. ENT: Nose without bleeding, purulent drainage or septal hematoma. Throat without erythema, tonsillar hypertrophy or exudate. Uvula midline. Airway patent. NECK: Trachea midline. Supple, nontender, no meningeal signs. CARDIOVASCULAR: RRR RESPIRATORY: Decreased air entry in left base. Occ wheezes. GASTROINTESTINAL: Abdomen soft, non-tender, nondistended. No hepato-splenomegaly , or palpable masses. No guarding. MUSCULOSKELETAL: Extremities without clubbing, cyanosis, or edema. No joint tenderness, effusion, or edema noted. No calf tenderness. Negative Homans sign bilaterally. NEUROLOGICAL: Awake and alert. Grossly nonfocal. Psych cooperative IV line sites with no evidence of infection. Assessment & Plan Remarks Sepsis (Leucocytosis, tachycardia, hypothermia,lactic acidemia) on admission Pneumonia (CAP vs HCAP) Acute respiratory failure Acute COPD exacerbation Acute renal failure on admission now resolved. CAD, PAD s/p stents and procedures. Recs: Continue Zosyn IV Continue Azithro IV Continue Vanco IV (target 15-20) Follow cultures Follow clinically. Please send fluid for lab and micro testing. d/w RN, and patient. Slime Person MD Jul 27, 2016 13:08
[2016-07-27 13:12] LABS: PLEURAL FLUID LYMPHS 42 %
[2016-07-27] MEDS ORDERED: DEXTROSE 50% IN WATER 50 ML VIAL(D50) IV PUSH PRN (13:15)
[2016-07-27] MEDS ORDERED: GLUCAGON 1 MG/ML VIAL OTHER PRN (13:15)
[2016-07-27] MEDS: ISOSORBIDE DINITRATE 10 MG TAB PO SCH (13:17)
--- NOTE | 2016-07-27 13:53 | RADRPT ---
EXAM DATE/TIME: 07/27/2016 10:18 INDICATIONS : Pleural effusion. SEDATION TIME: 0 minutes DEVICE(S): 1.) 6 Fr Udou-P-[id number] FLUID: Total volume of 2450 cc of clear, red fluid was removed. Fluid was sent for laboratory ordered studies. MEDICAL HISTORY : Chronic obstructive pulmonary disease. Congestive heart failure. Hypertension. SURGICAL HISTORY : ablation ENCOUNTER: Initial ACUITY: 1 day PAIN SCORE: Non-responsive LOCATION: Bilateral chest PROCEDURE: 1. CT guided left thoracentesis. 2. Conscious sedation with continuous EKG and oximetry monitoring. 3. EKG and oximetry remained stable throughout the procedure. The site was prepped in sterile fashion. Full sterile technique was used, including cap, mask, steri le gloves and gown and a large sterile sheet. Hand hygiene and 2% chlorhexidine and/or betadine/alco hol prep was utilized per protocol for cutaneous antisepsis. The skin and subcutaneous tissues were infiltrated with local anesthetic solution. Using automated exposure control and adjustment of the mA and/or kV according to patient size, radiation dose was kept as low as reasonably achievable to obta in optimal diagnostic quality images. With the patient supine on the CT table, filter changer images were obtained through the chest demonstrating t he large left pleural effusion. Dermatotomy was made and the prescribed catheter was advanced into t he pleural fluid. The pleural fluid as above was removed from the hemithorax. Post procedure imaging demonstrates complete evacuation of the pleural effusion with no pneumothorax. There are large bulla in the left lung. The patient tolerated the procedure well and there were no complications. EKG and oximetry remained s table throughout the procedure. The patient was sent to recovery in stable condition. CONCLUSION: Uncomplicated CT-guided left thoracentesis. Sample was saved and sent to lab for evaluation, as order ed. Tate Street MD on July 27, 2016 at 13:49 Board Certified Radiologist. This report was verified electronically.
--- NOTE | 2016-07-27 15:35 | EC ---
Study Study Date:07/27/2016 STUDY CONCLUSIONS SUMMARY AORTIC VALVE: Valve area: 2.92cm^2 (Vmax). If LV function is below 40, please consider prescribing an ACEI or ARB or document rationale for non-use. PROCEDURE DATA STUDY STATUS: Elective. Procedure: Valvular structures not visualized Transthoracic echocardiography. Image quality was suboptimal. Scanning was performed from the parasternal, apical, and subcostal acoustic windows. Study completion: The patient tolerated the procedure well. Transthoracic echocardiography. M-mode, complete 2D, complete spectral Doppler, and color Doppler. Height: Height: 67in. Weight: Weight: 202.6lb. Body mass index: BMI: 31.8kg/m^2. Body surface area: BSA: 2.03m^2. Patient status: Inpatient. CARDIAC ANATOMY AORTIC VALVE: Doppler: Valve area: 2.92cm^2 (Vmax). Indexed valve area: 1.44cm^2/m^2 (Vmax). Patient weight: 202.6lb _Ejection fraction:_ 65-75% _Fractional shortening:_ 32% up to 5Kg 5-11.5Kg 11.6-22.9Kg 23-45Kg 45-57Kg Aortic Root 7-13 <17 13-22 17-27 17-27 LA diam 6-13 <23 24-38 33-47 37-40 RVID 10-17 7-15 7-15 7-18 8-17 LVIDd 12-22 <32 24-38 33-47 37-40 LVPW 2-4 3-6 5-7 6-8 7-8 IVS 2-4 3-6 5-7 6-8 7-8 BASIC MEASUREMENTS ADULT NORMAL Left ventricle LV internal dimension, ED, chordal *40.2 mm 43-52 level, PLAX LV internal dimension, ES, chordal 30.4 mm 23-38 level, PLAX Fractional shortening, chordal level, *24 % >29 PLAX LV posterior wall thickness, ED 7.99 mm IVS/LVPW ratio, ED 0.97 <1.3 Ventricular septum Septal thickness, ED 7.73 mm Right ventricle RV internal dimension, ED, PLAX 21.8 mm 19-38 BASIC MEASUREMENTS ADULT NORMAL Aorta Root diameter, ED 21 mm 20-37 Left atrium Anterior-posterior dimension, ES 36 mm 19-40 Anterior-posterior dimension index, ES 1.77 cm/m^2 <2.2 LA/aortic root ratio 1.71 DOPPLER MEASUREMENTS ADULT NORMAL Aortic valve Peak velocity, S 110 cm/s Valve area, Vmax 2.92 cm^2 Valve area index, Vmax 1.44 cm^2/m^2 Mitral valve Peak E-wave velocity 63.7 cm/s Peak A-wave velocity 78.5 cm/s Deceleration time 194 ms 150-230 Peak E/A ratio 0.8 Pulmonic valve Peak velocity, S 80.1 cm/s LEGEND: Mean values are shown as u=mean value. Asterisk (*) dee values outside specified normal range. Prepared and signed by Davonte Paredes [id number]
[2016-07-27] MEDS: AZITHROMYCIN INJ 500 MG in SODIUM CHLOR 0.9% 250 ML INJ 250 ML IV SCH (16:21)
[2016-07-27] MEDS: ATORVASTATIN 20 MG TAB PO SCH (20:49)
[2016-07-27] MEDS: CLOPIDOGREL 75 MG TAB PO SCH (20:49)
[2016-07-28] VITALS (18 sets, daily range): BP systolic 94–163; BP diastolic 52–75; PULSE 66–95; RESP 22–24; TEMP 97.8–99.7; O2SAT 90–97
[2016-07-28] MEDS ORDERED: ROCURONIUM INJ 50 MG/5 ML VIAL IV ONE (00:45)
[2016-07-28] MEDS ORDERED: ETOMIDATE 20 MG/10 ML VIAL IV PUSH ONE (00:45)
[2016-07-28] MEDS ORDERED: PHARMACY ORDERED LAB ONE (00:45)
[2016-07-28] MEDS ORDERED: DEXMEDETOMIDINE INJ 1,000 MCG in SODIUM CHLOR 0.9% 250 ML INJ 240 ML IV SCH (01:15)
[2016-07-28] MEDS ORDERED: HALOPERIDOL LACTATE 5 MG/ML AMP IV PUSH ONE (02:00)
[2016-07-28 02:32] LABS: BLOOD GAS CARBOXYHEMOGLOBIN 1.3 % (0-4); BLOOD GAS HCO3 14 mmol/L (22-26); BLOOD GAS METHEMOGLOBIN 1.3 % (0-2); BLOOD GAS O2 HGB SATURATION 95 % (90-100); BLOOD GAS OXYGEN CONTENT 14.5 Vol % (12.0-20.0); BLOOD GAS PCO2 35 mmHg (38-42); BLOOD GAS PO2 116 mmHg (61-120); BLOOD GAS TOTAL HGB 10.8 G/DL (12.0-16.0); TEMP CORR TO 98.6
[2016-07-28 02:33] LABS: CRITICAL VALUE YES; DRAW SITE ART LINE; FIO2 50 %; OXYGEN DEVICE BIPAP; STAT YES; VENT SETTINGS IPAP15/EPAP5
[2016-07-28] MEDS ORDERED: SODIUM BICARBONATE 8.4% INJ 50 MEQ/50 ML SYR IV PUSH ONE ×2 (03:15→06:00)
[2016-07-28 03:30] LABS: BASOPHIL % 0.3 % (0.0-2.0); HEMATOCRIT 31.9 % (39.0-51.0); LYMPH % 2.6 % (9.0-44.0); LYMPHOCYTE # 0.4 TH/MM3 (1.0-4.8); MEAN CELL VOLUME 84.5 FL (80.0-100.0); MEAN CORPUSCULAR HEMOGLOBIN 27.6 PG (27.0-34.0); MEAN CORPUSCULAR HGB CONC 32.7 % (32.0-36.0); MONO % 3.6 % (0.0-8.0); NEUT % 93.5 % (16.0-70.0); PLATELET COUNT 314 TH/MM3 (150-450); RED BLOOD COUNT 3.78 MIL/MM3 (4.50-5.90); RED CELL DISTRIBUTION WIDTH 17.9 % (11.6-17.2)
[2016-07-28 03:36] LABS: HEMO FLAGS AUTO DIFF
[2016-07-28] MEDS: RESP: ALBUTEROL 2.5 MG/IPRATROPIUM 0.5 MG NEB (SCH) INH ×6 (03:50→23:10)
[2016-07-28] MEDS: CHLORHEXIDINE GLUCONATE 2 % 1 PACK (2 CLOTHS) TOP SCH (04:00)
[2016-07-28 04:16] LABS: BICARBONATE 22.4 MEQ/L (21.0-32.0); MAGNESIUM 2.3 MG/DL (1.5-2.5); POTASSIUM 4.3 MEQ/L (3.5-5.1)
[2016-07-28] MEDS: PIPERACIL-TAZO 4.5 GM PREMIX 100 ML IV SCH ×4 (04:17→21:11)
[2016-07-28] MEDS: HEPARIN SODIUM - SQ 10,000 UNITS/ML VIAL SQ SCH ×2 (04:18→17:43)
[2016-07-28] MEDS: methylPREDNISolone SOD SUCC 40 MG/1 ML VIAL IV PUSH SCH ×3 (04:20→19:59)
[2016-07-28 04:41] LABS: CALCIUM-PROTEIN CORRECTED 8.4 MG/DL (8.5-10.1)
[2016-07-28 05:06] LABS: ACANTHOCYTES OCC (NORMAL); BANDS 2 % (0-6); CORRECTED NUCLEATED RBC 2 /100 WBC (0-0); MYELOCYTES 1 % (0-0); NEUTROPHIL # MANUAL DIFF 15.2 TH/MM3 (1.8-7.7); OVALOCYTES 1+ (NORMAL); PLATELET ESTIMATE SMEAR NORMAL (NORMAL); PLATELET MORPHOLOGY NORMAL (NORMAL); POLYS (SEG NEUTROPHILS) 92 % (16-70); SCAN/DIFF FINAL DIFF MANUAL; WBC DIFF SAMPLE 100
[2016-07-28] MEDS: LEVOTHYROXINE SODIUM 112 MCG TAB PO SCH (05:19)
--- NOTE | 2016-07-28 05:22 | RADRPT ---
EXAM DATE/TIME: 07/28/2016 03:50 [facility] COMPARISON: CHEST SINGLE AP, July 26, 2016, 15:34. INDICATIONS : Respiratory distress. MEDICAL HISTORY : Hypertension. Chronic obstructive pulmonary disease. Cardiovascular disease. Venous insufficiency. SURGICAL HISTORY : None. ENCOUNTER: Subsequent ACUITY: 3 days PAIN SCORE: Non-responsive. LOCATION: Bilateral chest FINDINGS: A single view of the chest demonstrates diffuse interstitial and alveolar opacities. There is some vo lume loss on the right. Heart and the upper limits of normal in size. The cardiomediastinal contours are unremarkable. Osseous structures are intact. Left-sided pleural fluid has been drained. CONCLUSION: Stable interstitial and alveolar opacities, likely chronic. No left-sided pleural effusion or pneumot horax. Wero Arzate MD on July 28, 2016 at 5:18 Board Certified Radiologist. This report was verified electronically.
--- NOTE | 2016-07-28 05:55 | PD.PROCEDR ---
Procedure Note Procedure PROCEDURE NOTE PROCEDURE: Endotracheal intubation INDICATION: Acute respiratory failure DETAILS OF PROCEDURE: The patient was placed in optimal position and preoxygenated with 100% FiO2 via [id number]. Oximeter oxygen saturation of 90% was obtained prior to direct laryngoscopy. The patient was administered etomidate 20 mg IV for sedation and rocuronium 50 mg IV for paralysis. Laryngoscopy was performed with a 4 Glidescope blade and a grade 1 Cormack-Lehane view was obtained. On single attempt a size 8.0 endotracheal tube was visualized passing through the cords. Correct placement was confirmed with colorimetric CO2 detector. Breath sounds were equal bilaterally. No sounds auscultated over the stomach. The endotracheal tube was secured with a commercial tube rodríguez at a depth of 24 cm at the lips. The patient was connected to the ventilator. The patient tolerated the procedure well without any apparent complication. Oxygen saturations were maintained greater than 88% at all times. Stat chest x-ray was ordered. Yudy Atkinson MD Jul 28, 2016 05:55
[2016-07-28] MEDS ORDERED: SODIUM CHLORID 0.9% 500 ML INJ 500 ML IV ONE (06:00)
--- NOTE | 2016-07-28 06:26 | RADRPT ---
EXAM DATE/TIME: 07/28/2016 05:58 [facility] COMPARISON: CHEST SINGLE AP, July 28, 2016, 3:50. INDICATIONS : Post intubation. MEDICAL HISTORY : Hypertension. Chronic obstructive pulmonary disease. Cardiovascular disease. Venous insufficiency. SURGICAL HISTORY : None. ENCOUNTER: Subsequent ACUITY: 3 days PAIN SCORE: Non-responsive. LOCATION: Bilateral chest FINDINGS: A single view of the chest demonstrates diffuse interstitial and alveolar opacities unchanged. Mild l oss of the right hemithorax again seen. Endotracheal tube 5.5 cm above the delores. Nasogastric tube w ith tip likely in stomach but below the inferior margin of the image. The cardiomediastinal contours are unremarkable. Osseous structures are intact. CONCLUSION: Adequate placement of endotracheal tube. Diffuse interstitial and alveolar opacities, unchanged. Wero Arzate MD on July 28, 2016 at 6:24 Board Certified Radiologist. This report was verified electronically.
[2016-07-28] MEDS: INSULIN NovoLIN REGULAR SUPPLEMENTAL SCALE SQ SCH ×4 (06:31→20:18)
[2016-07-28] MEDS: SODIUM CHLOR 0.9% 1000 ML INJ 1,000 ML IV SCH (06:37)
[2016-07-28 06:38] LABS: BLOOD GAS BASE EXCESS 0.5 mmol/L (-2-2); BLOOD GAS CARBOXYHEMOGLOBIN 1.4 % (0-4); BLOOD GAS HCO3 25 mmol/L (22-26); BLOOD GAS METHEMOGLOBIN 1.3 % (0-2); BLOOD GAS O2 HGB SATURATION 95 % (90-100); BLOOD GAS OXYGEN CONTENT 14.5 Vol % (12.0-20.0); BLOOD GAS PCO2 45 mmHg (38-42); BLOOD GAS PO2 108 mmHg (61-120); BLOOD GAS TOTAL HGB 10.7 G/DL (12.0-16.0); TEMP CORR TO 98.6
[2016-07-28 06:39] LABS: CRITICAL VALUE NO; OXYGEN DEVICE VENTILATOR; VENT SETTINGS PRVC/AC
[2016-07-28 06:40] LABS: DRAW SITE ART LINE; FIO2 70 %; STAT NO
[2016-07-28] MEDS: FLUoxetine HCL 20 MG CAP PO SCH (07:44)
[2016-07-28] MEDS: PROPOFOL 1000 MG/100 ML INJ 100 ML IV SCH ×5 (07:45→21:00)
[2016-07-28] MEDS: POTASSIUM CHLORIDE 25 MEQ EFFERVESCENT TAB NG SCH ×2 (07:45→19:56)
[2016-07-28] MEDS: ISOSORBIDE DINITRATE 10 MG TAB PO SCH (07:45)
[2016-07-28] MEDS: PANTOPRAZOLE SODIUM 40 MG VIAL IV SCH (07:45)
[2016-07-28] MEDS: BUDESONIDE-FORMOTEROL 160/4.5 MCG INHALER INH SCH ×2 (07:46→20:00)
[2016-07-28] MEDS: ASPIRIN 81 MG CHEW TAB PO SCH (07:46)
[2016-07-28] MEDS: RESP: BUDESONIDE 0.25 MG/2 ML NEB NEB SCH ×2 (08:47→19:48)
[2016-07-28] MEDS: SODIUM CHLOR 0.45% 1000 ML INJ 1,000 ML IV SCH (10:15)
[2016-07-28] MEDS ORDERED: FUROSEMIDE 20 MG/2 ML VIAL IV PUSH ONE (10:30)
--- NOTE | 2016-07-28 10:42 | HHI.CCPN ---
Subjective Remarks/Hospital Course The patient is an 80-year-old male with past medical history of COPD on 3 L/m home oxygen continuously in addition to nebulizer, history of hypertension and diabetes mellitus, hyperlipidemia, and hypothyroidism. He presented to [facility] ED with a one-week history of progressive dyspnea. The patient denies any associated symptoms such as orthopnea, PND or edema of the lower extremities. He is being followed by Dr. booker, his outpatient hand printed circuit board assembler, and Dr. Gerardo his information management specialist. He denies any nausea vomiting or abdominal pain. Upon arrival to the ED, the patient was hypoxic with O2 saturation in the 70s on nasal cannula and he was subsequently placed on a nonrebreather mask and O2 sats of 94%. Chest x-ray upon arrival showed patchy airspace disease bilateral with coarse pleural changes. CT angiogram of his chest was obtained which showed no evidence of pulmonary embolus however, it showed interstitial fibrotic changes with multiple emphysematous blebs and left-sided pleural effusion. Also a 2 x 1.4 cm nodule was seen in the posterior aspect of the left lower lobe. In the emergency room he was given 500 cc of normal saline, vancomycin, cefepime, DuoNeb, Solu-Medrol 125 mg IV push and magnesium sulfate. Nasal washings were negative for influenza. Critical care medicine was consult for management. Subjective 07/25: Early this a.m. patient was noted to be on a nonrebreather mask with O2 sats in the 80s. The patient apparently has significant history for obstructive sleep apnea at which point he utilizes a CPAP machine at home. The place and was placed on CPAP with O2 sats 94%. Plan today to wean to high flow nasal cannula and aggressive pulmonary toileting, continue dosing of antibiotics. 07/26: The patient was weaned yesterday to high flow nasal cannula, to maintain an O2 sat of 90%. Patient was additionally diuresed with Lasix 40 mg approximately 1 L output yesterday. The patient was able to tolerate a clear liquid diet, diet advance to heart healthy this a.m.. The patient was noted to have an elevation in WBC count despite empiric antibiotics. ID consulted. 07/27: Afebrile. Yesterday afternoon the patient had hypoxic respiratory failure and required emergent intubation, secondary to decompensation. Plan for IR to do a CT-guided thoracentesis secondary to the numerous blebs and layering of fluid, unable to be performed at bedside. Thoracentesis performed approximately 2.4 L removed today the patient is now down to FiO2 of 50% .PEEP 8 with plan for weaning as clinically tolerated. 07/28: Overnight the patient became confused and self extubated at 12 midnight. The patient was maintained on BiPAP for several hours received Haldol, and Precedex. The patient subsequently was reintubated at 5:30 this morning after obtaining ABGs. Postintubation ABGs 7.36/44/108/25/05. The patient is now sedated, weaning FiO2 requirements. Objective Vital Signs Date Time Temp Pulse Resp B/P Pulse Ox O2 Delivery O2 Flow Rate FiO2 07/28/16 08:48 97 50 07/28/16 06:00 88 07/28/16 04:00 99.6 22 140/75 163/63 07/27/16 03:00 Mechanical Ventilator 07/26/16 08:35 40.00 Intake and Output 07/27/16 07/27/16 07/28/16 08:00 16:00 00:00 Intake Total 1087 ml 800 ml 580 ml Output Total 300 ml 675 ml 650 ml Balance 787 ml 125 ml -70 ml Result Diagram: 07/28/16 0320 07/28/16 0320 Other Results Microbiology Date/Time Procedure Status Source Growth 07/26/16 13:00 Gram Stain - Final Complete Sputum Expectorated Sputum 07/26/16 13:00 Sputum Culture - Final Complete Sputum Expectorated Sputum MODERATE GROWTH NORMAL RESPIRATORY ANISHA Laboratory Tests Test 07/27/16 07/28/16 07/28/16 12:30 02:20 06:25 Blood Gas Puncture Site MARVEL ART LINE ART LINE Blood Gas Patient Temperature 98.6 98.6 98.6 Blood Gas HCO3 23 mmol/L 14 mmol/L 25 mmol/L (22-26) (22-26) (22-26) Blood Gas Base Excess -1.7 mmol/L -12.0 mmol/L 0.5 mmol/L (-2-2) (-2-2) (-2-2) Blood Gas Oxygen Saturation 90 % (90-100) 95 % (90-100) 95 % (90-100) Arterial Blood pH 7.33 7.23 7.37 (7.380-7.420) (7.380-7.420) (7.380-7.420) Arterial Blood Partial 46 mmHg (38-42) 35 mmHg (38-42) 45 mmHg (38-42) Pressure CO2 Arterial Blood Partial 71 mmHg 116 mmHg 108 mmHg Pressure O2 (61-120) (61-120) (61-120) Arterial Blood Oxygen Content 13.1 Vol % 14.5 Vol % 14.5 Vol % (12.0-20.0) (12.0-20.0) (12.0-20.0) Arterial Blood 1.5 % (0-4) 1.3 % (0-4) 1.4 % (0-4) Carboxyhemoglobin Arterial Blood Methemoglobin 1.2 % (0-2) 1.3 % (0-2) 1.3 % (0-2) Blood Gas Hemoglobin 10.4 G/DL 10.8 G/DL 10.7 G/DL (12.0-16.0) (12.0-16.0) (12.0-16.0) Oxygen Delivery Device VENTILATOR BIPAP VENTILATOR Blood Gas Ventilator Setting IPAP15/[id number] PRVC/AC Blood Gas Inspired Oxygen 45 % 50 % 70 % Imaging Last Impressions CT Angiography 07/24/16 1450 Signed Impressions: Service Date/Time: Sunday, July 24, 2016 15:29 - CONCLUSION: 1. No pulmonary embolus identified. 2. Advanced COPD. 3. Interval development of a large left pleural effusion. There is diffuse interstitial prominence and cardiomegaly. Exam would suggest congestive failure. 4. Nodule at the left lung base which was seen on previous dated 06/29/16 is obscured by the pleural effusion. Raymond Stewart MD Chest X-Ray 07/24/16 1252 Signed Impressions: Service Date/Time: Sunday, July 24, 2016 13:13 - CONCLUSION: Further deterioration in the appearance of the chest when compared to the study of 06/29/2014. Oscar Stewart MD FACR Objective Remarks GENERAL: Well-developed, obese male, currently intubated and sedated SKIN: Warm and dry. HEAD: Atraumatic. Normocephalic. EYES: Pupils equal and round. No scleral icterus. No injection or drainage. ENT: No nasal bleeding or discharge. Mucous membranes pink and moist. Orotracheally intubated. NECK: Trachea midline. No JVD. CARDIOVASCULAR: Normal rate, regular rhythm. RESPIRATORY: No accessory muscle use. Breath sounds clear to auscultation, diminished left base GASTROINTESTINAL: Abdomen soft, non-tender, nondistended. No guarding. MUSCULOSKELETAL: Extremities without clubbing, cyanosis, or edema. No obvious deformities. NEUROLOGICAL: Intubated and sedated Urinary Catheter: Yes Date of Insertion: Jul 26, 2016 Vascular Central Line Catheter: No A/P Assessment and Plan Plan by systems: Neurologic: Anxiety disorder Pain Maintain sleep hygiene to avoid ICU delirium Continue Prozac 40 mg daily Acetaminophen 650 every 6 hours when necessary CXR 07/26 left moderate pleural effusion, decreasing since admission. Minimal diuresis resulted with Diamox. Respiratory: COPD exacerbation Pulmonary edema Acute on chronic respiratory failure RADHA Acute hypoxic respiratory failure 07/26 Intubated-8.0 ETT Mechanical ventilation-previously on FIO2 90% PEEP 8 RR 22 I:E 1.3, FIO2 45% now decreased S/P thoracentesis Continue antibiotics per ID Continue Methylprednisolone 60 mg every 8hr Continue duo nebs scheduled every 4 hours Maintain head of bed 30 ABG-7.36/44/108/25/0.5 on FiO2 of 80%, will continue to wean Pulmonology consult-follow up recommendations Will maintain sats O2 sat greater than 90% CTA 07/24-left lung base nodule 06/29 2.01.4 cm nodule posterior aspect left lower lung 07/27-CT guided thoracentesis-2.4 L removed, cultures and cytology pending Cardiovascular: Coronary artery disease Cardiomegaly Hypertension Continue Cardizem, statin, aspirin (home medication) Continue Plavix 07/26 BNP 53->177 today Renal: Monitor BMP -- Strict I/Os FEN/GI: Hypokalemia Hypomagnesemia Hypophosphatemia Replete electrolytes per ICU protocol Patient on scheduled doses of potassium BID Tube feeds initiated Glucerna 1.5 Bowel regimen Heme/ID: Lactic acidosis Anemia of chronic disease Leukocytosis History of MRSA Follow-up cultures ID consulted -Dr. Person WBC from -> 18 today Monitor CBC Currently on azithromycin, Zosyn (day 5) Lactate elevation 10.5 today Endocrine: Glucose monitoring per ICU protocol Medium dose sliding scale, Levemir 5 units twice a day added -- SSI Prophylaxis: GI Prophylaxis Protonix DVT Prophylaxis -- SCDs Heparin 5000u subcutaneous twice a day Lines: Peripheral IVs. Central line if indicated Dispo: This patient remains critically ill with one or more organ systems which are or may become a threat to life. I have spent in excess of 43 minutes discontinuously in the care and management of this patient. This time is exclusive of procedures, and includes, but is not limited to, evaluation of the patient, review of the medical record, discussions with family, consultants, nursing staff, or respiratory therapy, and documentation in the medical record. Discussed with ACCOUNTS RECEIVABLE CLERK at bedside. Physician Willow aCsiano MD Jul 28, 2016 10:42
[2016-07-28] MEDS: INSULIN DETEMIR 100 UNITS/ML VIAL SQ SCH ×2 (11:15→19:57)
[2016-07-28] MEDS: DILTIAZEM HCL 60 MG TAB PO SCH ×2 (11:56→17:43)
[2016-07-28] MEDS: VANCOMYCIN INJ 1,500 MG in SODIUM CHLORID 0.9% 500 ML INJ 500 ML IV SCH (11:56)
[2016-07-28 12:17] LABS: BLOOD GAS CARBOXYHEMOGLOBIN 1.9 % (0-4); BLOOD GAS HCO3 27 mmol/L (22-26); BLOOD GAS METHEMOGLOBIN 1.2 % (0-2); BLOOD GAS O2 HGB SATURATION 94 % (90-100); BLOOD GAS OXYGEN CONTENT 13.6 Vol % (12.0-20.0); BLOOD GAS PCO2 37 mmHg (38-42); BLOOD GAS PO2 87 mmHg (61-120); BLOOD GAS TOTAL HGB 10.1 G/DL (12.0-16.0); TEMP CORR TO 98.6
[2016-07-28 12:18] LABS: CRITICAL VALUE NO; DRAW SITE ART LINE; FIO2 50 %; NUMBER OF ARTERIAL PUNCTURES 0; STAT NO; ULNAR PULSE PRESENT; VENT SETTINGS PRVC/AC
[2016-07-28] MEDS: AZITHROMYCIN INJ 500 MG in SODIUM CHLOR 0.9% 250 ML INJ 250 ML IV SCH (15:43)
[2016-07-28] MEDS: SODIUM CHLORIDE 0.9% FLUSH 10 ML FLUSH IVF PRN (16:12)
[2016-07-28] MEDS: fentaNYL 2,500 MCG/NS 250 ML IV SCH (18:10)
[2016-07-28] MEDS: ATORVASTATIN 20 MG TAB PO SCH (19:56)
[2016-07-28] MEDS: DOCUSATE SODIUM 100 MG/10 ML UDC PO SCH (19:56)
[2016-07-28] MEDS: CLOPIDOGREL 75 MG TAB PO SCH (19:57)
[2016-07-28] MEDS: SENNOSIDES 8.6 MG TAB PO SCH (19:57)
[2016-07-29] VITALS (22 sets, daily range): BP systolic 96–156; BP diastolic 48–73; PULSE 64–151; RESP 19–24; TEMP 98–98.8; O2SAT 88–94
[2016-07-29] MEDS ORDERED: DILTIAZEM HCL 25 MG/5 ML VIAL IVP ONE (00:30)
[2016-07-29] MEDS: DILTIAZEM INJ 125 MG in SODIUM CHLORIDE 0.9% INJ 100 ML IV SCH ×2 (00:39→13:43)
[2016-07-29] MEDS: PROPOFOL 1000 MG/100 ML INJ 100 ML IV SCH ×7 (00:39→23:03)
[2016-07-29] MEDS ORDERED: DILTIAZEM HCL 25 MG/5 ML VIAL IVP PRN (00:45)
[2016-07-29] MEDS: RESP: ALBUTEROL 2.5 MG/IPRATROPIUM 0.5 MG NEB (SCH) INH ×6 (03:29→23:41)
[2016-07-29] MEDS: CHLORHEXIDINE GLUCONATE 2 % 1 PACK (2 CLOTHS) TOP SCH (04:00)
[2016-07-29 04:24] LABS: HEMATOCRIT 29.1 % (39.0-51.0); MEAN CELL VOLUME 84.3 FL (80.0-100.0); MEAN CORPUSCULAR HEMOGLOBIN 27.3 PG (27.0-34.0); MEAN CORPUSCULAR HGB CONC 32.4 % (32.0-36.0); PLATELET COUNT 304 TH/MM3 (150-450); RED BLOOD COUNT 3.45 MIL/MM3 (4.50-5.90); REVIEW FLAG FINAL; WHITE BLOOD COUNT 17.1 TH/MM3 (4.0-11.0)
[2016-07-29] MEDS: PIPERACIL-TAZO 4.5 GM PREMIX 100 ML IV SCH ×4 (04:44→22:55)
[2016-07-29 04:53] LABS: MAGNESIUM 2.4 MG/DL (1.5-2.5)
[2016-07-29] MEDS: HEPARIN SODIUM - SQ 10,000 UNITS/ML VIAL SQ SCH ×2 (05:19→16:28)
[2016-07-29] MEDS: INSULIN NovoLIN REGULAR SUPPLEMENTAL SCALE SQ SCH ×4 (05:20→21:08)
[2016-07-29] MEDS: methylPREDNISolone SOD SUCC 40 MG/1 ML VIAL IV PUSH SCH ×3 (05:20→21:09)
--- NOTE | 2016-07-29 05:39 | RADRPT ---
EXAM DATE/TIME: 07/29/2016 03:35 [place] COMPARISON: CHEST SINGLE AP, July 28, 2016, 5:58. INDICATIONS : Shortness of breath. MEDICAL HISTORY : Hypertension. Chronic obstructive pulmonary disease. Cardiovascular disease. Venous insufficiency SURGICAL HISTORY : None. ENCOUNTER: Subsequent ACUITY: 3 days PAIN SCORE: Non-responsive. LOCATION: Bilateral chest FINDINGS: A single view of the chest demonstrates unchanged position of the endotracheal tube and nasogastric t ube. Interstitial and alveolar opacities are again seen. Slight volume loss on the right. The cardiom ediastinal contours are unremarkable. Osseous structures are intact. CONCLUSION: Stable chest. Wero Arzate MD on July 29, 2016 at 5:36 Board Certified Radiologist. This report was verified electronically.
[2016-07-29] MEDS: DILTIAZEM HCL 60 MG TAB PO SCH ×3 (06:50→11:17)
[2016-07-29] MEDS: LEVOTHYROXINE SODIUM 112 MCG TAB PO SCH (06:50)
[2016-07-29] MEDS ORDERED: MIDAZOLAM HCL 5 MG/ML VIAL (1 ML) ONE (07:18)
[2016-07-29] MEDS: RESP: BUDESONIDE 0.25 MG/2 ML NEB NEB SCH ×2 (08:16→19:42)
[2016-07-29] MEDS: BUDESONIDE-FORMOTEROL 160/4.5 MCG INHALER INH SCH ×2 (08:56→21:00)
[2016-07-29] MEDS: INSULIN DETEMIR 100 UNITS/ML VIAL SQ SCH ×2 (08:56→21:08)
[2016-07-29] MEDS: DOCUSATE SODIUM 100 MG/10 ML UDC PO SCH ×2 (08:57→21:07)
[2016-07-29] MEDS: SENNOSIDES 8.6 MG TAB PO SCH ×2 (08:57→21:00)
[2016-07-29] MEDS: ASPIRIN 81 MG CHEW TAB PO SCH (08:58)
[2016-07-29] MEDS: FLUoxetine HCL 20 MG CAP PO SCH (08:58)
[2016-07-29] MEDS: ISOSORBIDE DINITRATE 10 MG TAB PO SCH (08:58)
[2016-07-29] MEDS: PANTOPRAZOLE SODIUM 40 MG VIAL IV SCH (08:58)
[2016-07-29] MEDS: POTASSIUM CHLORIDE 25 MEQ EFFERVESCENT TAB NG SCH ×2 (09:04→21:07)
[2016-07-29] MEDS: SODIUM CHLOR 0.45% 1000 ML INJ 1,000 ML IV SCH (10:16)
[2016-07-29] MEDS: VANCOMYCIN INJ 1,500 MG in SODIUM CHLORID 0.9% 500 ML INJ 500 ML IV SCH (11:16)
[2016-07-29 12:29] LABS: BLOOD GAS BASE EXCESS 1.2 mmol/L (-2-2); BLOOD GAS CARBOXYHEMOGLOBIN 1.5 % (0-4); BLOOD GAS HCO3 26 mmol/L (22-26); BLOOD GAS METHEMOGLOBIN 1.3 % (0-2); BLOOD GAS O2 HGB SATURATION 92 % (90-100); BLOOD GAS OXYGEN CONTENT 14.2 Vol % (12.0-20.0); BLOOD GAS PCO2 46 mmHg (38-42); BLOOD GAS PO2 77 mmHg (61-120); CRITICAL VALUE NO; OXYGEN DEVICE VENT; TEMP CORR TO 98.6
[2016-07-29 12:31] LABS: DRAW SITE ALINE; FIO2 45 %
[2016-07-29 12:32] LABS: STAT NO
--- NOTE | 2016-07-29 13:11 | HHI.CCPN ---
Subjective Remarks/Hospital Course The patient is an 80-year-old male with past medical history of COPD on 3 L/m home oxygen continuously in addition to nebulizer, history of hypertension and diabetes mellitus, hyperlipidemia, and hypothyroidism. He presented to [facility] ED with a one-week history of progressive dyspnea. The patient denies any associated symptoms such as orthopnea, PND or edema of the lower extremities. He is being followed by Dr. booker, his outpatient long term care pharmacist, and Dr. Gerardo his mesh man. He denies any nausea vomiting or abdominal pain. Upon arrival to the ED, the patient was hypoxic with O2 saturation in the 70s on nasal cannula and he was subsequently placed on a nonrebreather mask and O2 sats of 94%. Chest x-ray upon arrival showed patchy airspace disease bilateral with coarse pleural changes. CT angiogram of his chest was obtained which showed no evidence of pulmonary embolus however, it showed interstitial fibrotic changes with multiple emphysematous blebs and left-sided pleural effusion. Also a 2 x 1.4 cm nodule was seen in the posterior aspect of the left lower lobe. In the emergency room he was given 500 cc of normal saline, vancomycin, cefepime, DuoNeb, Solu-Medrol 125 mg IV push and magnesium sulfate. Nasal washings were negative for influenza. Critical care medicine was consult for management. Subjective 07/25: Early this a.m. patient was noted to be on a nonrebreather mask with O2 sats in the 80s. The patient apparently has significant history for obstructive sleep apnea at which point he utilizes a CPAP machine at home. The place and was placed on CPAP with O2 sats 94%. Plan today to wean to high flow nasal cannula and aggressive pulmonary toileting, continue dosing of antibiotics. 07/26: The patient was weaned yesterday to high flow nasal cannula, to maintain an O2 sat of 90%. Patient was additionally diuresed with Lasix 40 mg approximately 1 L output yesterday. The patient was able to tolerate a clear liquid diet, diet advance to heart healthy this a.m.. The patient was noted to have an elevation in WBC count despite empiric antibiotics. ID consulted. 07/27: Afebrile. Yesterday afternoon the patient had hypoxic respiratory failure and required emergent intubation, secondary to decompensation. Plan for IR to do a CT-guided thoracentesis secondary to the numerous blebs and layering of fluid, unable to be performed at bedside. Thoracentesis performed approximately 2.4 L removed today the patient is now down to FiO2 of 50% .PEEP 8 with plan for weaning as clinically tolerated. 07/28: Overnight the patient became confused and self extubated at 12 midnight. The patient was maintained on BiPAP for several hours received Haldol, and Precedex. The patient subsequently was reintubated at 5:30 this morning after obtaining ABGs. Postintubation ABGs 7.36/44/108/25/05. The patient is now sedated, weaning FiO2 requirements. 07/29: Afebrile. Patient was noted to go into atrial fibrillation with a heart rate in the 150s last night. Received a bolus of Cardizem with subsequent Cardizem infusion. Resolution of atrial fib heart rate 90s, now normal sinus rhythm. The patient was noted to have ventilator dyssynchrony, the patient was bolused with Versed 5 mg IV, with resolution. Ventilator O2 requirements were successfully decreased to FiO2 of 40%. Objective Vital Signs Date Time Temp Pulse Resp B/P Pulse Ox O2 Delivery O2 Flow Rate FiO2 07/29/16 12:14 93 45 07/29/16 07:00 77 07/29/16 05:04 98.8 21 118/73 156/63 07/27/16 03:00 Mechanical Ventilator 07/26/16 08:35 40.00 Intake and Output 07/28/16 07/28/16 07/29/16 08:00 16:00 00:00 Intake Total 536 ml 1181 ml 1387 ml Output Total 775 ml 1150 ml 310 ml Balance -239 ml 31 ml 1077 ml Result Diagram: 07/29/16 0405 07/28/16 0320 Other Results Microbiology Date/Time Procedure Status Source Growth 07/26/16 13:00 Gram Stain - Final Complete Sputum Expectorated Sputum 07/26/16 13:00 Sputum Culture - Final Complete Sputum Expectorated Sputum MODERATE GROWTH NORMAL RESPIRATORY ANISHA 07/26/16 17:00 Legionella Antigen - Final Complete Urine Random Urine PRESUMPTIVE NEGATIVE FOR LEGIONELLA P... 07/26/16 17:00 Streptococcus pneumoniae Antigen (M - Final Complete Urine Random Urine PRESUMPTIVE NEGATIVE FOR STREPTOCOCCU... 07/27/16 08:30 Gram Stain - Final Complete Sputum Endotracheal 07/27/16 08:30 Sputum Culture - Final Complete Sputum Endotracheal LIGHT GROWTH NORMAL RESPIRATORY ANISHA Laboratory Tests Test 07/29/16 12:18 Blood Gas Puncture Site MARVEL Blood Gas Patient Temperature 98.6 Blood Gas HCO3 26 mmol/L (22-26) Blood Gas Base Excess 1.2 mmol/L (-2-2) Blood Gas Oxygen Saturation 92 % (90-100) Arterial Blood pH 7.37 (7.380-7.420) Arterial Blood Partial 46 mmHg (38-42) Pressure CO2 Arterial Blood Partial 77 mmHg Pressure O2 (61-120) Arterial Blood Oxygen Content 14.2 Vol % (12.0-20.0) Arterial Blood 1.5 % (0-4) Carboxyhemoglobin Arterial Blood Methemoglobin 1.3 % (0-2) Blood Gas Hemoglobin 11.0 G/DL (12.0-16.0) Oxygen Delivery Device VENT Blood Gas Ventilator Setting Blood Gas Inspired Oxygen 45 % Imaging Last Impressions CT Angiography 07/24/16 1450 Signed Impressions: Service Date/Time: Sunday, July 24, 2016 15:29 - CONCLUSION: 1. No pulmonary embolus identified. 2. Advanced COPD. 3. Interval development of a large left pleural effusion. There is diffuse interstitial prominence and cardiomegaly. Exam would suggest congestive failure. 4. Nodule at the left lung base which was seen on previous dated 06/29/16 is obscured by the pleural effusion. Raymond Stewart MD Chest X-Ray 07/24/16 1252 Signed Impressions: Service Date/Time: Sunday, July 24, 2016 13:13 - CONCLUSION: Further deterioration in the appearance of the chest when compared to the study of 06/29/2014. Oscar Stewart MD FACR Objective Remarks GENERAL: Well-developed, obese male, currently intubated and sedated SKIN: Warm and dry. HEAD: Atraumatic. Normocephalic. EYES: Pupils equal and round. No scleral icterus. No injection or drainage. ENT: No nasal bleeding or discharge. Mucous membranes pink and moist. Orotracheally intubated. NECK: Trachea midline. No JVD. CARDIOVASCULAR: Normal rate, regular rhythm. RESPIRATORY: Mechanical ventilation.No accessory muscle use. Breath sounds clear to auscultation. GASTROINTESTINAL: Abdomen soft, non-tender, nondistended. No guarding. MUSCULOSKELETAL: Extremities without clubbing, cyanosis, or edema. No obvious deformities. NEUROLOGICAL: Intubated and sedated Urinary Catheter: Yes Date of Insertion: Jul 26, 2016 A/P Assessment and Plan Plan by systems: Neurologic: Anxiety disorder H/O PTSD Pain Versed PRN for anxiety Continue Prozac 40 mg daily Acetaminophen 650 every 6 hours when necessary for temperature > 101.0 Respiratory: COPD exacerbation Pulmonary edema Acute on chronic respiratory failure RADHA Acute hypoxic respiratory failure 07/26 Intubated-8.0 ETT Mechanical ventilation-previously on FIO2 90% PEEP 8 RR 22 I:E 1.3, FIO2 45% now decreased S/P thoracentesis Continue antibiotics per ID Continue Methylprednisolone 60 mg every 8hr Continue duo nebs scheduled every 4 hours Maintain head of bed 30 ABG-7.37/46/77/26/1.2 on FiO2 0.45, will continue to wean to maintain PaO2 > 60 Pulmonology consult-follow up recommendations Maintain sats O2 sat greater than 89-90%, ensure PaO2 > 60mmhg CTA 07/24-left lung base nodule 06/29 2.01.4 cm nodule posterior aspect left lower lung 07/27-CT guided thoracentesis-2.4 L removed, cultures and cytology pending Cardiovascular: Coronary artery disease Cardiomegaly Hypertension Atrial fibrillation 07/29 Continue on Cardizem infusion Continue statin, aspirin (home medication) Continue Plavix Renal: Monitor BMP -- Strict I/Os FEN/GI: Hypokalemia Hypomagnesemia Hypophosphatemia Replete electrolytes per ICU protocol Patient on scheduled doses of potassium BID Tube feeds initiated Glucerna 1.5 Bowel regimen Heme/ID: Lactic acidosis Anemia of chronic disease Leukocytosis History of MRSA Follow-up cultures ID consulted -Dr. Person WBC from 15-> 18 _> 17.8 today Monitor CBC Lactate WNL Endocrine: Glucose monitoring per ICU protocol Medium dose sliding scale, increase Levemir 10 units BID -- SSI Prophylaxis: GI Prophylaxis Protonix DVT Prophylaxis -- SCDs Heparin 5000u subcutaneous twice a day Lines: Peripheral IVs. Central line if indicated Dispo: Discussed with family present and STAFF SERVICES MANAGER at bedside. This patient remains critically ill with one or more organ systems which are or may become a threat to life. I have spent in excess of 45 minutes discontinuously in the care and management of this patient. This time is exclusive of procedures, and includes, but is not limited to, evaluation of the patient, review of the medical record, discussions with family, consultants, nursing staff, or respiratory therapy, and documentation in the medical record. Discussed with STAFF SERVICES MANAGER at bedside. Physician Willow Casiano MD Jul 29, 2016 13:11
[2016-07-29] MEDS: fentaNYL 2,500 MCG/NS 250 ML IV SCH (13:44)
[2016-07-29 14:12] LABS: BICARBONATE 29.9 MEQ/L (21.0-32.0)
[2016-07-29 14:26] LABS: CALCIUM-PROTEIN CORRECTED 8.5 MG/DL (8.5-10.1)
[2016-07-29] MEDS: AZITHROMYCIN INJ 500 MG in SODIUM CHLOR 0.9% 250 ML INJ 250 ML IV SCH (15:06)
[2016-07-29] MEDS: POTASSIUM PHOSPHATE MONOBASIC 500 MG TAB PO PRN (15:07)
[2016-07-29] MEDS ORDERED: FUROSEMIDE 20 MG/2 ML VIAL IV PUSH ONE (15:15)
--- NOTE | 2016-07-29 16:22 | HHI.IDPN ---
Subjective Subjective Remarks Delayed entry. is an 80 y/o CM with PMHx of COPD, pulm fibrosis and emphysema on 3L Oxygen at home at baseline who sees Floor Scrubber. His PMHx is also significant for HTN, diabetes mellitus, hyperlipidemia and hypothyroidism. He presented to [facility] ED with a one-week history of progressive worsening shortness of breath. The patient denies any associated symptoms of orthopnea, PND or edema of lower extremities. His senior java engineer is Dr. Gerardo from cardiology. On arrival to the ED, the patient was hypoxic with O2 saturation in the 70s on NC and he was subsequently placed on a non-rebreather mask with a saturation of 94%. Chest x-ray on arrival showed patchy airspace disease bilaterally with coarse pleural changes. Due to his respiratory distress, CT angiogram of the chest was obtained which showed no evidence of a pulmonary embolism, however, it showed interstitial fibrotic changes with multiple emphysematous blebs and left-sided pleural effusion. Also a 2 x 1.4 cm nodule was seen in the posterior aspect of the left lower lobe. In the emergency room, he was given 500 mL of normal saline, vancomycin, cefepime, DuoNeb, Solu-Medrol 125 mg IV push and magnesium sulfate. His labs notable for lactic acid of 6.4 and leukocytosis with a WBC count of 19.1. The patient was admitted last month on June 29 with similar presentation and he also had a CT angiogram of the chest at that time which showed advanced COPD along with pulmonary fibrosis. Nasal washing in the ER negative for influenza. The patient denies any nausea, vomiting or any abdominal pain. ID following for HCAP, Pleural effusion. Overnight events reviewed. Not on pressors. Remains on Vent. On Fentanyl and Diprivan. No rash No diarrhea Antibiotics Zosyn IV Vanco IV Azithro IV Lines Line sites with no e.o infection. Past Medical History reviewed Allergies: Coded Allergies: Sulfa (Verified Allergy, Unknown, CAN'T RECALL , 06/29/16) *MDRO Multi-Drug Resistant Organism (Verified Adverse Reaction, Unknown, ) MRSA PCR Screen POSITIVE - 06/30/2016, 07/24/16 Objective . Vital Signs Date Time Temp Pulse Resp B/P Pulse Ox O2 Delivery O2 Flow Rate FiO2 07/29/16 15:36 93 40 07/29/16 14:00 40 07/29/16 14:00 71 07/29/16 12:14 93 45 07/29/16 12:00 45 07/29/16 12:00 64 07/29/16 12:00 98.7 64 22 96/54 91 133/48 07/29/16 10:00 74 07/29/16 08:06 92 45 07/29/16 08:00 40 07/29/16 08:00 98.6 76 24 112/55 89 153/64 07/29/16 08:00 76 07/29/16 07:00 77 07/29/16 06:00 81 07/29/16 05:04 98.8 87 21 118/73 91 156/63 07/29/16 04:00 94 55 07/29/16 04:00 55 07/29/16 04:00 83 07/29/16 04:00 98.8 83 22 115/57 94 146/55 07/29/16 02:00 144 07/29/16 01:15 98.7 144 22 111/62 115/58 07/29/16 00:45 98.0 151 19 121/60 91 111/56 07/29/16 00:34 88 45 07/29/16 00:00 91 07/29/16 00:00 45 07/29/16 00:00 98.7 91 19 121/60 91 121/60 07/28/16 22:00 76 07/28/16 20:00 71 07/28/16 20:00 45 07/28/16 20:00 99.2 71 22 103/52 94 94/65 07/28/16 19:42 93 45 07/28/16 18:00 84 07/28/16 16:24 90 45 07/28/16 07/28/16 07/29/16 15:00 23:00 07:00 Intake Total 1181 ml 1387 ml 624 ml Output Total 1150 ml 310 ml 350 ml Balance 31 ml 1077 ml 274 ml IV Total 841 ml 986 ml 287 ml Tube Feeding 340 ml 281 ml 337 ml Other 120 ml Output Urine Total 1150 ml 300 ml 350 ml Stool Total 0 ml 0 ml Gastric Drainage Total 10 ml # Bowel Movements 1 1 . Laboratory Tests Test 07/28/16 07/29/16 03:20 04:05 White Blood Count 16.0 TH/MM3 17.1 TH/MM3 Red Blood Count 3.78 MIL/MM3 3.45 MIL/MM3 Hemoglobin 10.5 GM/DL 9.4 GM/DL Hematocrit 31.9 % 29.1 % Mean Corpuscular Volume 84.5 FL 84.3 FL Mean Corpuscular Hemoglobin 27.6 PG 27.3 PG Mean Corpuscular Hemoglobin 32.7 % 32.4 % Concent Red Cell Distribution Width 17.9 % 18.0 % Platelet Count 314 TH/MM3 304 TH/MM3 Mean Platelet Volume 8.3 FL 8.6 FL Neutrophils (%) (Auto) 93.5 % Lymphocytes (%) (Auto) 2.6 % Monocytes (%) (Auto) 3.6 % Eosinophils (%) (Auto) 0.0 % Basophils (%) (Auto) 0.3 % Neutrophils # (Auto) 15.0 TH/MM3 Lymphocytes # (Auto) 0.4 TH/MM3 Monocytes # (Auto) 0.6 TH/MM3 Eosinophils # (Auto) 0.0 TH/MM3 Basophils # (Auto) 0.0 TH/MM3 CBC Comment AUTO DIFF Differential Total Cells 100 Counted Neutrophils % (Manual) 92 % Band Neutrophils % 2 % Lymphocytes % 3 % Monocytes % 2 % Neutrophils # (Manual) 15.2 TH/MM3 Myelocytes 1 % Nucleated Red Blood Cells 2 /100 WBC Differential Comment FINAL DIFF MANUAL Platelet Estimate NORMAL Platelet Morphology Comment NORMAL Ovalocytes 1+ Acanthocytes OCC Laboratory Tests Test 07/28/16 07/28/16 07/28/16 07/29/16 03:20 05:10 13:20 04:05 Sodium Level 149 MEQ/L Potassium Level 4.3 MEQ/L Chloride Level 113 MEQ/L Carbon Dioxide Level 22.4 MEQ/L Anion Gap 14 MEQ/L Blood Urea Nitrogen 28 MG/DL Creatinine 1.34 MG/DL Estimat Glomerular Filtration 51 ML/MIN Rate Random Glucose 222 MG/DL Lactic Acid Level 6.8 mmol/L 10.5 mmol/L 1.5 mmol/L 1.9 mmol/L Calcium Level 7.4 MG/DL Protein Corrected Calcium 8.4 MG/DL Phosphorus Level 2.5 MG/DL 1.9 MG/DL Magnesium Level 2.3 MG/DL 2.4 MG/DL B-Type Natriuretic Peptide 177 PG/ML 229 PG/ML Total Protein 5.3 GM/DL Test 07/29/16 12:00 Sodium Level 148 MEQ/L Potassium Level 4.0 MEQ/L Chloride Level 112 MEQ/L Carbon Dioxide Level 29.9 MEQ/L Anion Gap 6 MEQ/L Blood Urea Nitrogen 35 MG/DL Creatinine 1.16 MG/DL Estimat Glomerular Filtration 60 ML/MIN Rate Random Glucose 287 MG/DL Calcium Level 7.1 MG/DL Protein Corrected Calcium 8.5 MG/DL Total Protein 4.5 GM/DL Microbiology Date/Time Procedure Status Source Growth 07/26/16 17:00 Legionella Antigen - Final Complete Urine Random Urine PRESUMPTIVE NEGATIVE FOR LEGIONELLA P... 07/26/16 17:00 Streptococcus pneumoniae Antigen (M - Final Complete Urine Random Urine PRESUMPTIVE NEGATIVE FOR STREPTOCOCCU... 07/27/16 08:30 Gram Stain - Final Complete Sputum Endotracheal 07/27/16 08:30 Sputum Culture - Final Complete Sputum Endotracheal LIGHT GROWTH NORMAL RESPIRATORY ANISHA 07/27/16 08:30 Acid Fast Stain - Final Resulted Sputum Endotracheal NO ACID FAST BACILLI SEEN 07/27/16 08:30 Mycobacterial Culture Resulted Sputum Endotracheal Pending 07/27/16 10:32 Gram Stain - Final Resulted Fluid Pleural Fluid 07/27/16 10:32 Body Fluid Culture - Preliminary Resulted Fluid Pleural Fluid NO GROWTH IN 48 HOURS. 07/27/16 10:32 Acid Fast Stain - Final Resulted Fluid Pleural Fluid NO ACID FAST BACILLI SEEN 07/27/16 10:32 Mycobacterial Culture Resulted Fluid Pleural Fluid Pending 07/27/16 10:32 Fungal Smear - Final Resulted Fluid Pleural Fluid NO FUNGAL ELEMENTS SEEN. 07/27/16 10:32 Fungal Culture Resulted Fluid Pleural Fluid Pending Imaging Last Impressions Chest X-Ray 07/26/16 0600 Signed Impressions: Service Date/Time: Tuesday, July 26, 2016 04:46 - CONCLUSION: 1. Left lung parenchymal disease especially in the left perihilar region appears also a moderate left effusion. 2. Milder interstitial disease in the right lung. A small right effusion may be present over the superior lateral right chest. Tate Parada MD CT Angiography 07/24/16 1450 Signed Impressions: Service Date/Time: Sunday, July 24, 2016 15:29 - CONCLUSION: 1. No pulmonary embolus identified. 2. Advanced COPD. 3. Interval development of a large left pleural effusion. There is diffuse interstitial prominence and cardiomegaly. Exam would suggest congestive failure. 4. Nodule at the left lung base which was seen on previous dated 06/29/16 is obscured by the pleural effusion. Raymond Stewart MD Physical Exam GENERAL: Elderly male patient, in mild respiratory distress. SKIN: No rashes, ecchymoses or lesions. Cool and dry. HEAD: Atraumatic. Normocephalic. No temporal or scalp tenderness. EYES: Pupils equal round and reactive. Extraocular motions intact. No scleral icterus. No injection or drainage. ENT: Nose without bleeding, purulent drainage or septal hematoma. Throat without erythema, tonsillar hypertrophy or exudate. Uvula midline. Airway patent. NECK: Trachea midline. Supple, nontender, no meningeal signs. CARDIOVASCULAR: RRR RESPIRATORY: Decreased air entry in left base. Occ wheezes. GASTROINTESTINAL: Abdomen soft, non-tender, nondistended. MUSCULOSKELETAL: Extremities without clubbing, cyanosis, or edema. NEUROLOGICAL: Awake and alert. Grossly nonfocal. Psych cooperative IV line sites with no evidence of infection. Assessment & Plan Remarks Sepsis (Leucocytosis, tachycardia, hypothermia,lactic acidemia) on admission Pneumonia (CAP vs HCAP) Acute respiratory failure Acute COPD exacerbation Acute renal failure on admission now resolved. CAD, PAD s/p stents and procedures. Recs: Continue Zosyn IV Continue Azithro IV Continue Vanco IV (target 15-20) Follow cultures Follow clinically. Please send fluid for lab and micro testing. d/w RN, and patient. Slime Person MD Jul 29, 2016 16:22
[2016-07-29] MEDS: ATORVASTATIN 20 MG TAB PO SCH (21:07)
[2016-07-29] MEDS: CLOPIDOGREL 75 MG TAB PO SCH (21:07)
[2016-07-30] VITALS (18 sets, daily range): BP systolic 109–174; BP diastolic 57–69; PULSE 61–77; RESP 20–22; TEMP 97.8–99.9; O2SAT 88–93
[2016-07-30] MEDS: PROPOFOL 1000 MG/100 ML INJ 100 ML IV SCH ×5 (02:43→20:59)
[2016-07-30] MEDS: RESP: ALBUTEROL 2.5 MG/IPRATROPIUM 0.5 MG NEB (SCH) INH ×5 (03:06→20:35)
[2016-07-30] MEDS: CHLORHEXIDINE GLUCONATE 2 % 1 PACK (2 CLOTHS) TOP SCH (04:00)
[2016-07-30 04:32] LABS: HEMATOCRIT 29.8 % (39.0-51.0); MEAN CORPUSCULAR HGB CONC 31.7 % (32.0-36.0); PLATELET COUNT 292 TH/MM3 (150-450); RED CELL DISTRIBUTION WIDTH 18.1 % (11.6-17.2); REVIEW FLAG FINAL; WHITE BLOOD COUNT 19.5 TH/MM3 (4.0-11.0)
--- NOTE | 2016-07-30 05:07 | RADRPT ---
EXAM DATE/TIME: 07/30/2016 02:39 [facility] COMPARISON: CHEST SINGLE AP, July 29, 2016, 3:35. INDICATIONS : Shortness of breath, possible pulmonary disease. MEDICAL HISTORY : Hypertension. Chronic obstructive pulmonary disease. Cardiovascular disease. SURGICAL HISTORY : None. ENCOUNTER: Subsequent ACUITY: 4 - 6 days PAIN SCORE: Non-responsive. LOCATION: Bilateral chest FINDINGS: A single view of the chest demonstrates bilateral patchy airspace disease again noted. Slight volume loss on the right again seen. Endotracheal tube and nasogastric tube are unchanged. Emphysema and cy stic changes are seen greater in the left lower lobe. Osseous structures are intact. CONCLUSION: Diffuse bilateral patchy airspace disease. Wero Arzate MD on July 30, 2016 at 5:04 Board Certified Radiologist. This report was verified electronically.
[2016-07-30] MEDS: HEPARIN SODIUM - SQ 10,000 UNITS/ML VIAL SQ SCH ×2 (05:20→15:51)
[2016-07-30] MEDS: methylPREDNISolone SOD SUCC 40 MG/1 ML VIAL IV PUSH SCH ×2 (05:20→13:19)
[2016-07-30] MEDS: PIPERACIL-TAZO 4.5 GM PREMIX 100 ML IV SCH ×4 (05:20→23:23)
[2016-07-30] MEDS: LEVOTHYROXINE SODIUM 112 MCG TAB PO SCH (05:21)
[2016-07-30] MEDS: fentaNYL 2,500 MCG/NS 250 ML IV SCH ×2 (05:46→23:19)
[2016-07-30] MEDS: INSULIN NovoLIN REGULAR SUPPLEMENTAL SCALE SQ SCH ×4 (05:47→21:00)
[2016-07-30 06:01] LABS: BICARBONATE 30.1 MEQ/L (21.0-32.0); MAGNESIUM 2.3 MG/DL (1.5-2.5); POTASSIUM 4.7 MEQ/L (3.5-5.1)
[2016-07-30 06:27] LABS: CALCIUM-PROTEIN CORRECTED 8.1 MG/DL (8.5-10.1)
[2016-07-30] MEDS: POTASSIUM CHLORIDE 25 MEQ EFFERVESCENT TAB NG SCH ×2 (07:54→21:04)
[2016-07-30] MEDS: FLUoxetine HCL 20 MG CAP PO SCH (07:55)
[2016-07-30] MEDS: ASPIRIN 81 MG CHEW TAB PO SCH (07:55)
[2016-07-30] MEDS: AZITHROMYCIN 250 MG TAB PO SCH (07:55)
[2016-07-30] MEDS: PANTOPRAZOLE SODIUM 40 MG VIAL IV SCH (07:57)
[2016-07-30] MEDS: DOCUSATE SODIUM 100 MG/10 ML UDC PO SCH ×2 (07:59→21:05)
[2016-07-30] MEDS: SENNOSIDES 8.6 MG TAB PO SCH ×2 (08:00→21:05)
[2016-07-30] MEDS: INSULIN DETEMIR 100 UNITS/ML VIAL SQ SCH ×2 (08:00→21:00)
[2016-07-30] MEDS: ISOSORBIDE DINITRATE 10 MG TAB PO SCH (08:06)
[2016-07-30] MEDS: RESP: BUDESONIDE 0.25 MG/2 ML NEB NEB SCH ×2 (08:46→20:35)
[2016-07-30] MEDS: POTASSIUM PHOSPHATE MONOBASIC 500 MG TAB PO PRN (08:49)
[2016-07-30] MEDS: BUDESONIDE-FORMOTEROL 160/4.5 MCG INHALER INH SCH ×2 (09:00→20:58)
[2016-07-30 10:33] LABS: BLOOD GAS BASE EXCESS 1.6 mmol/L (-2-2); BLOOD GAS CARBOXYHEMOGLOBIN 1.6 % (0-4); BLOOD GAS HCO3 26 mmol/L (22-26); BLOOD GAS METHEMOGLOBIN 1.3 % (0-2); BLOOD GAS O2 HGB SATURATION 90 % (90-100); BLOOD GAS OXYGEN CONTENT 12.4 Vol % (12.0-20.0); BLOOD GAS PCO2 47 mmHg (38-42); BLOOD GAS PO2 69 mmHg (61-120); BLOOD GAS TOTAL HGB 9.8 G/DL (12.0-16.0); CRITICAL VALUE NO; DRAW SITE ART LINE; FIO2 55 %; OXYGEN DEVICE VENTILATOR; STAT NO; TEMP CORR TO 98.6; ULNAR PULSE PRESENT; VENT SETTINGS PRVC/AC
[2016-07-30] MEDS ORDERED: PHARMACY ORDERED LAB ONE (11:45)
--- NOTE | 2016-07-30 12:21 | HHI.IDPN ---
Subjective Subjective Remarks Delayed entry. is an 80 y/o CM with PMHx of COPD, pulm fibrosis and emphysema on 3L Oxygen at home at baseline who sees Architect Intern. His PMHx is also significant for HTN, diabetes mellitus, hyperlipidemia and hypothyroidism. He presented to [facility] ED with a one-week history of progressive worsening shortness of breath. The patient denies any associated symptoms of orthopnea, PND or edema of lower extremities. His management trainer is Dr. Gerardo from cardiology. On arrival to the ED, the patient was hypoxic with O2 saturation in the 70s on NC and he was subsequently placed on a non-rebreather mask with a saturation of 94%. Chest x-ray on arrival showed patchy airspace disease bilaterally with coarse pleural changes. Due to his respiratory distress, CT angiogram of the chest was obtained which showed no evidence of a pulmonary embolism, however, it showed interstitial fibrotic changes with multiple emphysematous blebs and left-sided pleural effusion. Also a 2 x 1.4 cm nodule was seen in the posterior aspect of the left lower lobe. In the emergency room, he was given 500 mL of normal saline, vancomycin, cefepime, DuoNeb, Solu-Medrol 125 mg IV push and magnesium sulfate. His labs notable for lactic acid of 6.4 and leukocytosis with a WBC count of 19.1. The patient was admitted last month on June 29 with similar presentation and he also had a CT angiogram of the chest at that time which showed advanced COPD along with pulmonary fibrosis. Nasal washing in the ER negative for influenza. The patient denies any nausea, vomiting or any abdominal pain. ID following for HCAP, Pleural effusion. Overnight events reviewed. Not on pressors. Remains on Vent. On Fentanyl and Diprivan. No rash No diarrhea Antibiotics Zosyn IV Vanco IV Azithro IV Lines Line sites with no e.o infection. Past Medical History reviewed Allergies: Coded Allergies: Sulfa (Verified Allergy, Unknown, CAN'T RECALL , 06/29/16) *MDRO Multi-Drug Resistant Organism (Verified Adverse Reaction, Unknown, ) MRSA PCR Screen POSITIVE - 06/30/2016, 07/24/16 Objective . Vital Signs Date Time Temp Pulse Resp B/P Pulse Ox O2 Delivery O2 Flow Rate FiO2 07/30/16 12:09 91 45 07/30/16 09:06 91 55 07/30/16 08:00 70 07/30/16 08:00 55 07/30/16 08:00 98.4 70 22 148/69 91 07/30/16 06:00 66 07/30/16 04:04 93 55 07/30/16 04:00 98.5 68 22 141/67 93 174/66 07/30/16 04:00 68 07/30/16 04:00 55 07/30/16 02:00 63 07/30/16 01:02 88 45 07/30/16 00:00 62 07/30/16 00:00 98.5 62 22 109/57 90 146/57 07/30/16 00:00 45 07/29/16 22:20 89 45 07/29/16 22:00 64 07/29/16 20:00 45 07/29/16 20:00 65 07/29/16 20:00 98.7 65 22 105/56 91 138/48 07/29/16 19:37 90 45 07/29/16 18:00 66 07/29/16 16:00 76 07/29/16 16:00 98.5 76 22 111/59 94 148/54 07/29/16 16:00 40 07/29/16 15:36 93 40 07/29/16 14:00 40 07/29/16 14:00 71 07/29/16 07/29/16 07/30/16 15:00 23:00 07:00 Intake Total 1680 ml 1235 ml 1327 ml Output Total 325 ml 350 ml 700 ml Balance 1355 ml 885 ml 627 ml IV Total 1270 ml 842 ml 989 ml Tube Feeding 410 ml 393 ml 338 ml Output Urine Total 325 ml 350 ml 700 ml Stool Total 0 ml 0 ml . Laboratory Tests Test 07/29/16 07/30/16 04:05 03:14 White Blood Count 17.1 TH/MM3 19.5 TH/MM3 Red Blood Count 3.45 MIL/MM3 3.50 MIL/MM3 Hemoglobin 9.4 GM/DL 9.4 GM/DL Hematocrit 29.1 % 29.8 % Mean Corpuscular Volume 84.3 FL 85.0 FL Mean Corpuscular Hemoglobin 27.3 PG 27.0 PG Mean Corpuscular Hemoglobin 32.4 % 31.7 % Concent Red Cell Distribution Width 18.0 % 18.1 % Platelet Count 304 TH/MM3 292 TH/MM3 Mean Platelet Volume 8.6 FL 8.7 FL Laboratory Tests Test 07/28/16 07/29/16 07/29/16 07/30/16 13:20 04:05 12:00 03:14 Lactic Acid Level 1.5 mmol/L 1.9 mmol/L Phosphorus Level 1.9 MG/DL 2.4 MG/DL Magnesium Level 2.4 MG/DL 2.3 MG/DL B-Type Natriuretic Peptide 229 PG/ML Sodium Level 148 MEQ/L 147 MEQ/L Potassium Level 4.0 MEQ/L 4.7 MEQ/L Chloride Level 112 MEQ/L 110 MEQ/L Carbon Dioxide Level 29.9 MEQ/L 30.1 MEQ/L Anion Gap 6 MEQ/L 7 MEQ/L Blood Urea Nitrogen 35 MG/DL 35 MG/DL Creatinine 1.16 MG/DL 1.07 MG/DL Estimat Glomerular Filtration 60 ML/MIN 66 ML/MIN Rate Random Glucose 287 MG/DL 260 MG/DL Calcium Level 7.1 MG/DL 7.0 MG/DL Protein Corrected Calcium 8.5 MG/DL 8.1 MG/DL Total Protein 4.5 GM/DL 5.0 GM/DL Imaging Last Impressions Chest X-Ray 07/26/16 0600 Signed Impressions: Service Date/Time: Tuesday, July 26, 2016 04:46 - CONCLUSION: 1. Left lung parenchymal disease especially in the left perihilar region appears also a moderate left effusion. 2. Milder interstitial disease in the right lung. A small right effusion may be present over the superior lateral right chest. Tate Parada MD CT Angiography 07/24/16 1450 Signed Impressions: Service Date/Time: Sunday, July 24, 2016 15:29 - CONCLUSION: 1. No pulmonary embolus identified. 2. Advanced COPD. 3. Interval development of a large left pleural effusion. There is diffuse interstitial prominence and cardiomegaly. Exam would suggest congestive failure. 4. Nodule at the left lung base which was seen on previous dated 06/29/16 is obscured by the pleural effusion. Raymond Stewart MD Physical Exam GENERAL: Elderly male patient, in mild respiratory distress. SKIN: No rashes, ecchymoses or lesions. Cool and dry. HEAD: Atraumatic. Normocephalic. No temporal or scalp tenderness. EYES: Pupils equal round and reactive. Extraocular motions intact. No scleral icterus. No injection or drainage. ENT: Nose without bleeding, purulent drainage or septal hematoma. Throat without erythema, tonsillar hypertrophy or exudate. Uvula midline. Airway patent. NECK: Trachea midline. Supple, nontender, no meningeal signs. CARDIOVASCULAR: RRR RESPIRATORY: Decreased air entry in left base. Occ wheezes. GASTROINTESTINAL: Abdomen soft, non-tender, nondistended. MUSCULOSKELETAL: Extremities without clubbing, cyanosis, or edema. NEUROLOGICAL: Awake and alert. Grossly nonfocal. Psych cooperative IV line sites with no evidence of infection. Assessment & Plan Remarks Sepsis (Leucocytosis, tachycardia, hypothermia,lactic acidemia) on admission Pneumonia (CAP vs HCAP) Acute respiratory failure Acute COPD exacerbation Acute renal failure on admission now resolved. CAD, PAD s/p stents and procedures. Recs: Continue Zosyn IV Continue Azithro oral. Follow cultures Follow clinically. d/w RN, and patient. Slime Person MD Jul 30, 2016 12:21
[2016-07-30 12:32] LABS: BLOOD GAS CARBOXYHEMOGLOBIN 1.6 % (0-4); BLOOD GAS HCO3 26 mmol/L (22-26); BLOOD GAS METHEMOGLOBIN 1.2 % (0-2); BLOOD GAS O2 HGB SATURATION 90 % (90-100); BLOOD GAS OXYGEN CONTENT 18.7 Vol % (12.0-20.0); BLOOD GAS PCO2 43 mmHg (38-42); BLOOD GAS PO2 68 mmHg (61-120); BLOOD GAS TOTAL HGB 14.7 G/DL (12.0-16.0); TEMP CORR TO 98.6
[2016-07-30 12:33] LABS: CRITICAL VALUE NO; OXYGEN DEVICE VENT
[2016-07-30 12:34] LABS: DRAW SITE ALINE; FIO2 45 %; STAT NO
--- NOTE | 2016-07-30 14:16 | HHI.CCPN ---
Subjective Remarks/Hospital Course The patient is an 80-year-old male with past medical history of COPD on 3 L/m home oxygen continuously in addition to nebulizer, history of hypertension and diabetes mellitus, hyperlipidemia, and hypothyroidism. He presented to [facility] ED with a one-week history of progressive dyspnea. The patient denies any associated symptoms such as orthopnea, PND or edema of the lower extremities. He is being followed by Dr. booker, his outpatient plaster lather, and Dr. Gerardo his house carpenter. He denies any nausea vomiting or abdominal pain. Upon arrival to the ED, the patient was hypoxic with O2 saturation in the 70s on nasal cannula and he was subsequently placed on a nonrebreather mask and O2 sats of 94%. Chest x-ray upon arrival showed patchy airspace disease bilateral with coarse pleural changes. CT angiogram of his chest was obtained which showed no evidence of pulmonary embolus however, it showed interstitial fibrotic changes with multiple emphysematous blebs and left-sided pleural effusion. Also a 2 x 1.4 cm nodule was seen in the posterior aspect of the left lower lobe. In the emergency room he was given 500 cc of normal saline, vancomycin, cefepime, DuoNeb, Solu-Medrol 125 mg IV push and magnesium sulfate. Nasal washings were negative for influenza. Critical care medicine was consult for management. Subjective 07/25: Early this a.m. patient was noted to be on a nonrebreather mask with O2 sats in the 80s. The patient apparently has significant history for obstructive sleep apnea at which point he utilizes a CPAP machine at home. The place and was placed on CPAP with O2 sats 94%. Plan today to wean to high flow nasal cannula and aggressive pulmonary toileting, continue dosing of antibiotics. 07/26: The patient was weaned yesterday to high flow nasal cannula, to maintain an O2 sat of 90%. Patient was additionally diuresed with Lasix 40 mg approximately 1 L output yesterday. The patient was able to tolerate a clear liquid diet, diet advance to heart healthy this a.m.. The patient was noted to have an elevation in WBC count despite empiric antibiotics. ID consulted. 07/27: Afebrile. Yesterday afternoon the patient had hypoxic respiratory failure and required emergent intubation, secondary to decompensation. Plan for IR to do a CT-guided thoracentesis secondary to the numerous blebs and layering of fluid, unable to be performed at bedside. Thoracentesis performed approximately 2.4 L removed today the patient is now down to FiO2 of 50% .PEEP 8 with plan for weaning as clinically tolerated. 07/28: Overnight the patient became confused and self extubated at 12 midnight. The patient was maintained on BiPAP for several hours received Haldol, and Precedex. The patient subsequently was reintubated at 5:30 this morning after obtaining ABGs. Postintubation ABGs 7.36/44/108/25/05. The patient is now sedated, weaning FiO2 requirements. 07/29: Afebrile. Patient was noted to go into atrial fibrillation with a heart rate in the 150s last night. Received a bolus of Cardizem with subsequent Cardizem infusion. Resolution of atrial fib heart rate 90s, now normal sinus rhythm. The patient was noted to have ventilator dyssynchrony, the patient was bolused with Versed 5 mg IV, with resolution. Ventilator O2 requirements were successfully decreased to FiO2 of 40%. 07/30: The patient's FiO2 was increased to 55% overnight, the patient opted mechanical vent settings unchanged. The patient became agitated last night and required additional sedation. Versed when necessary added to medication regimen. The patient is continued on ARDS protocol, with goals of diminishing FiO2 with maintaining PEEP. The patient has currently been weaned down this morning to 45%. The patient blood glucose is still elevated most likely secondary to his steroid medication regimen in setting of diabetes mellitus. Levemir increased, steroids now being weaned. Pleural fluid cultures preliminarily negative. Objective Vital Signs Date Time Temp Pulse Resp B/P Pulse Ox O2 Delivery O2 Flow Rate FiO2 07/30/16 12:09 91 45 07/30/16 12:00 97.8 63 22 125/63 07/27/16 03:00 Mechanical Ventilator 07/26/16 08:35 40.00 Intake and Output 07/29/16 07/29/16 07/30/16 08:00 16:00 00:00 Intake Total 624 ml 1680 ml 1235 ml Output Total 350 ml 325 ml 350 ml Balance 274 ml 1355 ml 885 ml Result Diagram: 07/30/16 0314 07/30/16 0314 Other Results Laboratory Tests Test 07/30/16 07/30/16 10:20 12:20 Blood Gas Puncture Site ART LINE MARVEL Blood Gas Patient Temperature 98.6 98.6 Blood Gas HCO3 26 mmol/L 26 mmol/L (22-26) (22-26) Blood Gas Base Excess 1.6 mmol/L 2.0 mmol/L (-2-2) (-2-2) Blood Gas Oxygen Saturation 90 % (90-100) 90 % (90-100) Arterial Blood pH 7.37 7.40 (7.380-7.420) (7.380-7.420) Arterial Blood Partial 47 mmHg (38-42) 43 mmHg (38-42) Pressure CO2 Arterial Blood Partial 69 mmHg 68 mmHg Pressure O2 (61-120) (61-120) Arterial Blood Oxygen Content 12.4 Vol % 18.7 Vol % (12.0-20.0) (12.0-20.0) Arterial Blood 1.6 % (0-4) 1.6 % (0-4) Carboxyhemoglobin Arterial Blood Methemoglobin 1.3 % (0-2) 1.2 % (0-2) Blood Gas Hemoglobin 9.8 G/DL 14.7 G/DL (12.0-16.0) (12.0-16.0) Oxygen Delivery Device VENTILATOR VENT Blood Gas Ventilator Setting PRVC/AC Blood Gas Inspired Oxygen 55 % 45 % Imaging Last Impressions CT Angiography 07/24/16 1450 Signed Impressions: Service Date/Time: Sunday, July 24, 2016 15:29 - CONCLUSION: 1. No pulmonary embolus identified. 2. Advanced COPD. 3. Interval development of a large left pleural effusion. There is diffuse interstitial prominence and cardiomegaly. Exam would suggest congestive failure. 4. Nodule at the left lung base which was seen on previous dated 06/29/16 is obscured by the pleural effusion. Raymond Stewart MD Chest X-Ray 07/24/16 1252 Signed Impressions: Service Date/Time: Sunday, July 24, 2016 13:13 - CONCLUSION: Further deterioration in the appearance of the chest when compared to the study of 06/29/2014. Oscar Stewart MD FACR Objective Remarks GENERAL: Well-developed, obese male, currently intubated and sedated SKIN: Warm and dry. HEAD: Atraumatic. Normocephalic. EYES: Pupils equal and round. No scleral icterus. No injection or drainage. ENT: No nasal bleeding or discharge. Mucous membranes pink and moist. Orotracheally intubated. NECK: Trachea midline. No JVD. CARDIOVASCULAR: Normal rate, regular rhythm. RESPIRATORY: Mechanical ventilation.No accessory muscle use. Breath sounds clear to auscultation, noted decrease breath sounds left. GASTROINTESTINAL: Abdomen soft, non-tender, nondistended. No guarding. Oral gastric tube-tube feeds infusing MUSCULOSKELETAL: Extremities without clubbing, cyanosis, 2+ peripheral edema. No obvious deformities. NEUROLOGICAL: Intubated and sedated Urinary Catheter: Yes Date of Insertion: Jul 26, 2016 A/P Assessment and Plan Plan by systems: Neurologic: Anxiety disorder H/O PTSD Pain Versed PRN for anxiety Continue Prozac 40 mg daily Acetaminophen 650 every 6 hours when necessary for temperature > 101.0 Respiratory: COPD exacerbation Pulmonary edema Acute on chronic respiratory failure RADHA Acute hypoxic respiratory failure 07/26 Intubated-8.0 ETT Mechanical ventilation-previously on FIO2 90% PEEP 8 RR 22 I:E 1.3, FIO2 45% now decreased S/P thoracentesis Continue antibiotics per ID Wean Methylprednisolone 60 mg every 8hr to every 12 hours Continue duo nebs scheduled every 4 hours Maintain head of bed 30 ABG-7.37/46/77/26/1.2 on FiO2 0.45, will continue to wean to maintain PaO2 > 60 Pulmonology consult-follow up recommendations Maintain sats O2 sat greater than 89-90%, ensure PaO2 > 60mmhg CTA 07/24-left lung base nodule 06/29 2.01.4 cm nodule posterior aspect left lower lung 07/27-CT guided thoracentesis-2.4 L removed, cultures and cytology pending Cardiovascular: Coronary artery disease Cardiomegaly Hypertension Atrial fibrillation 07/29 Continue on Cardizem infusion Continue statin, aspirin (home medication) Continue Plavix Renal: Monitor BMP -- Strict I/Os FEN/GI: Hypokalemia Hypomagnesemia Hypophosphatemia Replete electrolytes per ICU protocol Patient on scheduled doses of potassium BID Tube feeds initiated Glucerna 1.5@goal, minimal residual Bowel regimen BM 07/29 Heme/ID: Lactic acidosis-resolved Anemia of chronic disease Leukocytosis History of MRSA Follow-up cultures ID consulted -Dr. Person WBC from 15-> 18 -> 17.8->19 today Monitor CBC Lactate WNL Endocrine: Glucose monitoring per ICU protocol Medium dose sliding scale, increased Levemir 20 units BID -- SSI Prophylaxis: GI Prophylaxis Protonix DVT Prophylaxis -- SCDs Heparin 5000u subcutaneous twice a day Lines: Peripheral IVs. Central line if indicated Dispo: Discussed with family present and SPEECH LANGUAGE PATHOLOGY ASSISTANT at bedside. This patient remains critically ill with one or more organ systems which are or may become a threat to life. I have spent in excess of 41 minutes discontinuously in the care and management of this patient. This time is exclusive of procedures, and includes, but is not limited to, evaluation of the patient, review of the medical record, discussions with family, consultants, nursing staff, or respiratory therapy, and documentation in the medical record. Discussed with SPEECH LANGUAGE PATHOLOGY ASSISTANT at bedside. Physician Willow Casiano MD Jul 30, 2016 14:15
[2016-07-30] MEDS: FUROSEMIDE 20 MG/2 ML VIAL IV PUSH SCH (14:24)
[2016-07-30 15:09] LABS: BLOOD GAS CARBOXYHEMOGLOBIN 1.5 % (0-4); BLOOD GAS HCO3 27 mmol/L (22-26); BLOOD GAS METHEMOGLOBIN 1.2 % (0-2); BLOOD GAS O2 HGB SATURATION 86 % (90-100); BLOOD GAS OXYGEN CONTENT 16.2 Vol % (12.0-20.0); BLOOD GAS PCO2 48 mmHg (38-42); BLOOD GAS PO2 60 mmHg (61-120); BLOOD GAS TOTAL HGB 13.3 G/DL (12.0-16.0); TEMP CORR TO 98.6
[2016-07-30 15:10] LABS: CRITICAL VALUE YES; DRAW SITE ALINE; FIO2 45 %; OXYGEN DEVICE VENT; STAT NO
[2016-07-30] MEDS: DILTIAZEM HCL 60 MG TAB PO SCH ×2 (15:52→21:05)
[2016-07-30 16:48] LABS: BLOOD GAS BASE EXCESS 2.4 mmol/L (-2-2); BLOOD GAS CARBOXYHEMOGLOBIN 1.7 % (0-4); BLOOD GAS HCO3 27 mmol/L (22-26); BLOOD GAS METHEMOGLOBIN 0.9 % (0-2); BLOOD GAS O2 HGB SATURATION 91 % (90-100); BLOOD GAS OXYGEN CONTENT 17.6 Vol % (12.0-20.0); BLOOD GAS PCO2 46 mmHg (38-42); BLOOD GAS PO2 70 mmHg (61-120); BLOOD GAS TOTAL HGB 13.8 G/DL (12.0-16.0); CRITICAL VALUE NO; TEMP CORR TO 98.6
[2016-07-30 16:49] LABS: DRAW SITE ALINE; FIO2 45 %; OXYGEN DEVICE VENT; STAT NO
[2016-07-30] MEDS: methylPREDNISolone SOD SUCC 125 MG/2 ML VIAL IV PUSH SCH (21:00)
[2016-07-30] MEDS: ATORVASTATIN 20 MG TAB PO SCH (21:04)
[2016-07-30] MEDS: CLOPIDOGREL 75 MG TAB PO SCH (21:05)
[2016-07-31] VITALS (18 sets, daily range): BP systolic 109–162; BP diastolic 49–68; PULSE 62–150; RESP 20–22; TEMP 98.5–99.7; O2SAT 87–93
[2016-07-31] MEDS: RESP: ALBUTEROL 2.5 MG/IPRATROPIUM 0.5 MG NEB (SCH) INH ×6 (00:05→20:29)
[2016-07-31] MEDS: PROPOFOL 1000 MG/100 ML INJ 100 ML IV SCH ×6 (01:19→23:41)
[2016-07-31] MEDS: DILTIAZEM HCL 60 MG TAB PO SCH ×3 (03:39→16:05)
[2016-07-31] MEDS: CHLORHEXIDINE GLUCONATE 2 % 1 PACK (2 CLOTHS) TOP SCH (04:00)
[2016-07-31 05:25] LABS: BLOOD GAS BASE EXCESS 2.7 mmol/L (-2-2); BLOOD GAS CARBOXYHEMOGLOBIN 1.9 % (0-4); BLOOD GAS HCO3 27 mmol/L (22-26); BLOOD GAS METHEMOGLOBIN 1.4 % (0-2); BLOOD GAS O2 HGB SATURATION 91 % (90-100); BLOOD GAS OXYGEN CONTENT 13.1 Vol % (12.0-20.0); BLOOD GAS PCO2 48 mmHg (38-42); BLOOD GAS PO2 76 mmHg (61-120); BLOOD GAS TOTAL HGB 10.1 G/DL (12.0-16.0); CRITICAL VALUE NO; OXYGEN DEVICE VENTILATOR; TEMP CORR TO 98.6
[2016-07-31 05:26] LABS: DRAW SITE ART LINE; FIO2 45 %; STAT NO; VENT SETTINGS PRVC / AC
[2016-07-31] MEDS: HEPARIN SODIUM - SQ 10,000 UNITS/ML VIAL SQ SCH ×2 (05:45→16:06)
[2016-07-31] MEDS: LEVOTHYROXINE SODIUM 112 MCG TAB PO SCH (05:46)
[2016-07-31] MEDS: PIPERACIL-TAZO 4.5 GM PREMIX 100 ML IV SCH ×4 (05:46→22:23)
[2016-07-31] MEDS: INSULIN NovoLIN REGULAR SUPPLEMENTAL SCALE SQ SCH ×4 (07:00→21:02)
[2016-07-31] MEDS: RESP: BUDESONIDE 0.25 MG/2 ML NEB NEB SCH ×2 (08:19→20:29)
[2016-07-31] MEDS: DOCUSATE SODIUM 100 MG/10 ML UDC PO SCH ×2 (08:43→21:00)
[2016-07-31] MEDS: FLUoxetine HCL 20 MG CAP PO SCH (08:43)
[2016-07-31] MEDS: SENNOSIDES 8.6 MG TAB PO SCH ×2 (08:43→21:00)
[2016-07-31] MEDS: AZITHROMYCIN 250 MG TAB PO SCH (08:43)
[2016-07-31] MEDS: ISOSORBIDE DINITRATE 10 MG TAB PO SCH (08:43)
[2016-07-31] MEDS: POTASSIUM CHLORIDE 25 MEQ EFFERVESCENT TAB NG SCH ×2 (08:43→21:03)
[2016-07-31] MEDS: FUROSEMIDE 20 MG/2 ML VIAL IV PUSH SCH (08:44)
[2016-07-31] MEDS: PANTOPRAZOLE SODIUM 40 MG VIAL IV SCH (08:44)
[2016-07-31] MEDS: BUDESONIDE-FORMOTEROL 160/4.5 MCG INHALER INH SCH ×3 (08:45→21:10)
[2016-07-31] MEDS: INSULIN DETEMIR 100 UNITS/ML VIAL SQ SCH ×2 (08:45→21:03)
[2016-07-31] MEDS: ASPIRIN 81 MG CHEW TAB PO SCH (09:23)
[2016-07-31] MEDS: methylPREDNISolone SOD SUCC 125 MG/2 ML VIAL IV PUSH SCH ×2 (09:24→21:06)
[2016-07-31 10:47] LABS: BLOOD GAS BASE EXCESS 4.1 mmol/L (-2-2); BLOOD GAS HCO3 29 mmol/L (22-26); BLOOD GAS METHEMOGLOBIN 1.3 % (0-2); BLOOD GAS O2 HGB SATURATION 86 % (90-100); BLOOD GAS OXYGEN CONTENT 11.3 Vol % (12.0-20.0); BLOOD GAS PCO2 49 mmHg (38-42); BLOOD GAS PO2 61 mmHg (61-120); BLOOD GAS TOTAL HGB 9.4 G/DL (12.0-16.0); TEMP CORR TO 98.6
[2016-07-31 10:49] LABS: CRITICAL VALUE YES
[2016-07-31 10:50] LABS: DRAW SITE ALINE; FIO2 40 %; OXYGEN DEVICE VENT; STAT NO
[2016-07-31 12:45] LABS: BICARBONATE 31.3 MEQ/L (21.0-32.0); MAGNESIUM 2.5 MG/DL (1.5-2.5)
[2016-07-31 12:47] LABS: POTASSIUM 5.3 MEQ/L (3.5-5.1)
[2016-07-31 12:58] LABS: CALCIUM-PROTEIN CORRECTED 8.5 MG/DL (8.5-10.1)
--- NOTE | 2016-07-31 13:57 | HHI.IDPN ---
Subjective Subjective Remarks is an 80 y/o CM with PMHx of COPD, pulm fibrosis and emphysema on 3L Oxygen at home at baseline who sees [employer]. His PMHx is also significant for HTN, diabetes mellitus, hyperlipidemia and hypothyroidism. He presented to [facility] ED with a one-week history of progressive worsening shortness of breath. The patient denies any associated symptoms of orthopnea, PND or edema of lower extremities. His exhauster engineer is Dr. Gerardo from cardiology. On arrival to the ED, the patient was hypoxic with O2 saturation in the 70s on NC and he was subsequently placed on a non-rebreather mask with a saturation of 94%. Chest x-ray on arrival showed patchy airspace disease bilaterally with coarse pleural changes. Due to his respiratory distress, CT angiogram of the chest was obtained which showed no evidence of a pulmonary embolism, however, it showed interstitial fibrotic changes with multiple emphysematous blebs and left-sided pleural effusion. Also a 2 x 1.4 cm nodule was seen in the posterior aspect of the left lower lobe. In the emergency room, he was given 500 mL of normal saline, vancomycin, cefepime, DuoNeb, Solu-Medrol 125 mg IV push and magnesium sulfate. His labs notable for lactic acid of 6.4 and leukocytosis with a WBC count of 19.1. The patient was admitted last month on June 29 with similar presentation and he also had a CT angiogram of the chest at that time which showed advanced COPD along with pulmonary fibrosis. Nasal washing in the ER negative for influenza. The patient denies any nausea, vomiting or any abdominal pain. ID following for HCAP, Pleural effusion. Overnight events reviewed. Not on pressors. Remains on Vent. On Fentanyl and Diprivan. No rash No diarrhea Antibiotics Zosyn IV Vanco IV Azithro IV Lines Line sites with no e.o infection. Past Medical History reviewed Allergies: Coded Allergies: Sulfa (Verified Allergy, Unknown, CAN'T RECALL , 06/29/16) *MDRO Multi-Drug Resistant Organism (Verified Adverse Reaction, Unknown, ) MRSA PCR Screen POSITIVE - 06/30/2016, 07/24/16 Objective . Vital Signs Date Time Temp Pulse Resp B/P Pulse Ox O2 Delivery O2 Flow Rate FiO2 07/31/16 13:45 89 40 07/31/16 12:00 40 07/31/16 10:00 80 07/31/16 08:19 89 40 07/31/16 08:00 99.0 80 22 147/68 91 162/56 07/31/16 08:00 80 07/31/16 08:00 40 07/31/16 06:00 91 07/31/16 04:00 45 07/31/16 04:00 81 07/31/16 04:00 98.5 81 20 135/62 92 07/31/16 03:59 92 45 07/31/16 02:00 72 07/31/16 00:08 90 45 07/31/16 00:00 45 07/31/16 00:00 98.8 62 22 121/60 90 07/31/16 00:00 62 07/30/16 22:00 70 07/30/16 20:38 92 45 07/30/16 20:00 99.0 74 20 121/58 91 07/30/16 20:00 74 07/30/16 20:00 45 07/30/16 18:00 74 07/30/16 16:12 90 45 07/30/16 16:00 45 07/30/16 16:00 77 07/30/16 16:00 99.9 77 22 127/60 91 07/30/16 14:00 67 07/30/16 07/30/16 07/31/16 15:00 23:00 07:00 Intake Total 696 ml 839 ml 649 ml Output Total 400 ml 1150 ml 450 ml Balance 296 ml -311 ml 199 ml Intake Oral 0 ml IV Total 340 ml 390 ml 369 ml Tube Feeding 356 ml 449 ml 280 ml Output Urine Total 400 ml 1150 ml 450 ml Stool Total 0 ml 0 ml . Laboratory Tests Test 07/30/16 03:14 White Blood Count 19.5 TH/MM3 Red Blood Count 3.50 MIL/MM3 Hemoglobin 9.4 GM/DL Hematocrit 29.8 % Mean Corpuscular Volume 85.0 FL Mean Corpuscular Hemoglobin 27.0 PG Mean Corpuscular Hemoglobin 31.7 % Concent Red Cell Distribution Width 18.1 % Platelet Count 292 TH/MM3 Mean Platelet Volume 8.7 FL Laboratory Tests Test 07/30/16 07/31/16 03:14 11:50 Sodium Level 147 MEQ/L 149 MEQ/L Potassium Level 4.7 MEQ/L 5.3 MEQ/L Chloride Level 110 MEQ/L 111 MEQ/L Carbon Dioxide Level 30.1 MEQ/L 31.3 MEQ/L Anion Gap 7 MEQ/L 7 MEQ/L Blood Urea Nitrogen 35 MG/DL 42 MG/DL Creatinine 1.07 MG/DL 1.18 MG/DL Estimat Glomerular Filtration 66 ML/MIN 59 ML/MIN Rate Random Glucose 260 MG/DL 241 MG/DL Calcium Level 7.0 MG/DL 7.2 MG/DL Protein Corrected Calcium 8.1 MG/DL 8.5 MG/DL Phosphorus Level 2.4 MG/DL Magnesium Level 2.3 MG/DL 2.5 MG/DL Total Protein 5.0 GM/DL 4.8 GM/DL Imaging Last Impressions Chest X-Ray 07/26/16 0600 Signed Impressions: Service Date/Time: Tuesday, July 26, 2016 04:46 - CONCLUSION: 1. Left lung parenchymal disease especially in the left perihilar region appears also a moderate left effusion. 2. Milder interstitial disease in the right lung. A small right effusion may be present over the superior lateral right chest. Tate Parada MD CT Angiography 07/24/16 1450 Signed Impressions: Service Date/Time: Sunday, July 24, 2016 15:29 - CONCLUSION: 1. No pulmonary embolus identified. 2. Advanced COPD. 3. Interval development of a large left pleural effusion. There is diffuse interstitial prominence and cardiomegaly. Exam would suggest congestive failure. 4. Nodule at the left lung base which was seen on previous dated 06/29/16 is obscured by the pleural effusion. Raymond Stewart MD Physical Exam GENERAL: Elderly male patient, in mild respiratory distress. SKIN: No rashes, ecchymoses or lesions. Cool and dry. HEAD: Atraumatic. Normocephalic. No temporal or scalp tenderness. EYES: Pupils equal round and reactive. Extraocular motions intact. No scleral icterus. No injection or drainage. ENT: Nose without bleeding, purulent drainage or septal hematoma. Throat without erythema, tonsillar hypertrophy or exudate. Uvula midline. Airway patent. NECK: Trachea midline. Supple, nontender, no meningeal signs. CARDIOVASCULAR: RRR RESPIRATORY: Decreased air entry in left base. Occ wheezes. GASTROINTESTINAL: Abdomen soft, non-tender, nondistended. MUSCULOSKELETAL: Extremities without clubbing, cyanosis, or edema. NEUROLOGICAL: Awake and alert. Grossly nonfocal. Psych cooperative IV line sites with no evidence of infection. Assessment & Plan Remarks Sepsis (Leucocytosis, tachycardia, hypothermia,lactic acidemia) on admission Pneumonia (CAP vs HCAP) Acute respiratory failure Acute COPD exacerbation Acute renal failure on admission now resolved. CAD, PAD s/p stents and procedures. Recs: Continue Zosyn IV Continue Azithro oral. CXR reviewed by me: In view of low grade fevers, WBC 19, change in secretions will check sputum Cultures to r/o HCAP. Follow cultures Follow clinically. d/w RN, and patient. covering for me this weekend. Slime Person MD Jul 31, 2016 13:57
--- NOTE | 2016-07-31 14:05 | RADRPT ---
EXAM DATE/TIME: 07/31/2016 13:25 [facility] COMPARISON: CHEST SINGLE AP, July 30, 2016, 2:39. INDICATIONS : Respiratory status. MEDICAL HISTORY : Hypertension. Cardiovascular disease. Chronic obstructive pulmonary disease. SURGICAL HISTORY : None. ENCOUNTER: Subsequent ACUITY: 3 days PAIN SCORE: Non-responsive. LOCATION: Bilateral upper chest FINDINGS: Endotracheal tube in satisfactory position. NG tube courses beneath the diaphragm. There is patchy bi lateral renchymal consolidation which is stable. Cardiome egaly.CONCLUSION: No significant change has occurred. Mikhail Cabrera MD on July 31, 2016 at 14:04 Board Certified Radiologist. This report was verified electronically.
[2016-07-31] MEDS: fentaNYL 2,500 MCG/NS 250 ML IV SCH (14:40)
[2016-07-31] MEDS ORDERED: FUROSEMIDE 20 MG/2 ML VIAL IV PUSH ONE (16:00)
[2016-07-31 17:34] LABS: BLOOD GAS BASE EXCESS 5.4 mmol/L (-2-2); BLOOD GAS CARBOXYHEMOGLOBIN 2.2 % (0-4); BLOOD GAS HCO3 30 mmol/L (22-26); BLOOD GAS METHEMOGLOBIN 1.4 % (0-2); BLOOD GAS O2 HGB SATURATION 85 % (90-100); BLOOD GAS OXYGEN CONTENT 11.7 Vol % (12.0-20.0); BLOOD GAS PCO2 48 mmHg (38-42); BLOOD GAS PO2 57 mmHg (61-120); BLOOD GAS TOTAL HGB 9.8 G/DL (12.0-16.0); CRITICAL VALUE YES; OXYGEN DEVICE VENTILATOR; TEMP CORR TO 98.6
[2016-07-31 17:35] LABS: DRAW SITE ART LINE; FIO2 40 %; STAT YES
[2016-07-31] MEDS ORDERED: DILTIAZEM HCL 25 MG/5 ML VIAL IVP ONE ×2 (18:00→18:30)
--- NOTE | 2016-07-31 18:19 | HHI.PR ---
Subjective Remarks 80 YOWM with VDRF,COPD,PF,Pneumonia Developed AF with RVR On PRVC AC, fi02 50% no Fever minimal trach secretions Sedated with Diprivan Objective Vital Signs Vital Signs Date Time Temp Pulse Resp B/P Pulse Ox O2 Delivery O2 Flow Rate FiO2 07/31/16 16:00 40 07/31/16 16:00 99.7 69 22 135/61 89 149/49 07/31/16 16:00 69 07/31/16 15:55 87 40 07/31/16 14:00 73 07/31/16 13:45 89 40 07/31/16 12:00 74 07/31/16 12:00 99.7 74 22 115/58 87 137/49 07/31/16 12:00 40 07/31/16 10:00 80 07/31/16 08:19 89 40 07/31/16 08:00 99.0 80 22 147/68 91 162/56 07/31/16 08:00 80 07/31/16 08:00 40 07/31/16 06:00 91 07/31/16 04:00 45 07/31/16 04:00 81 07/31/16 04:00 98.5 81 20 135/62 92 07/31/16 03:59 92 45 07/31/16 02:00 72 07/31/16 00:08 90 45 07/31/16 00:00 45 07/31/16 00:00 98.8 62 22 121/60 90 07/31/16 00:00 62 07/30/16 22:00 70 07/30/16 20:38 92 45 07/30/16 20:00 99.0 74 20 121/58 91 07/30/16 20:00 74 07/30/16 20:00 45 I/O 07/30/16 07/30/16 07/30/16 07/31/16 07/31/16 07/31/16 07:00 15:00 23:00 07:00 15:00 23:00 Intake Total 1327 ml 696 ml 839 ml 649 ml 897 ml Output Total 700 ml 400 ml 1150 ml 450 ml 1200 ml Balance 627 ml 296 ml -311 ml 199 ml -303 ml Intake Oral 0 ml IV Total 989 ml 340 ml 390 ml 369 ml 458 ml Tube Feeding 338 ml 356 ml 449 ml 280 ml 439 ml Output Urine Total 700 ml 400 ml 1150 ml 450 ml 1200 ml Stool Total 0 ml 0 ml 0 ml # Bowel Movements 0 Result Diagram: 07/30/16 0314 07/31/16 1150 Objective Remarks GENERAL: MBMN WM, on Vent Sedated SKIN: Warm and dry. HEAD: Normocephalic. EYES: No scleral icterus. No injection or drainage. NECK: Supple, trachea midline. No JVD or lymphadenopathy. CARDIOVASCULAR: IrRegular rate and rhythm without murmurs, gallops, or rubs. HR high RESPIRATORY: Breath sounds equal bilaterally. No accessory muscle use. Insp rales GASTROINTESTINAL: Abdomen soft, non-tender, nondistended. MUSCULOSKELETAL: No cyanosis, or edema. BACK: Nontender without obvious deformity. No CVA tenderness. A/P Assessment and Plan VDRF Pneumonia COPD exac PF AF with RVR PLAN: Vent support with PRVC AC 50% Cont Abx per ID cardiazem drip Diprivan for sedation. Brandin Gayle MD Jul 31, 2016 18:19
[2016-07-31] MEDS: DILTIAZEM INJ 125 MG in SODIUM CHLORIDE 0.9% INJ 100 ML IV SCH (18:40)
--- NOTE | 2016-07-31 18:44 | HHI.CCPN ---
Subjective Remarks/Hospital Course The patient is an 80-year-old male with past medical history of COPD on 3 L/m home oxygen continuously in addition to nebulizer, history of hypertension and diabetes mellitus, hyperlipidemia, and hypothyroidism. He presented to [facility] ED with a one-week history of progressive dyspnea. The patient denies any associated symptoms such as orthopnea, PND or edema of the lower extremities. He is being followed by Dr. booker, his outpatient boat detailer, and Dr. Gerardo his disabilities services officer. He denies any nausea vomiting or abdominal pain. Upon arrival to the ED, the patient was hypoxic with O2 saturation in the 70s on nasal cannula and he was subsequently placed on a nonrebreather mask and O2 sats of 94%. Chest x-ray upon arrival showed patchy airspace disease bilateral with coarse pleural changes. CT angiogram of his chest was obtained which showed no evidence of pulmonary embolus however, it showed interstitial fibrotic changes with multiple emphysematous blebs and left-sided pleural effusion. Also a 2 x 1.4 cm nodule was seen in the posterior aspect of the left lower lobe. In the emergency room he was given 500 cc of normal saline, vancomycin, cefepime, DuoNeb, Solu-Medrol 125 mg IV push and magnesium sulfate. Nasal washings were negative for influenza. Critical care medicine was consult for management. Subjective 07/25: Early this a.m. patient was noted to be on a nonrebreather mask with O2 sats in the 80s. The patient apparently has significant history for obstructive sleep apnea at which point he utilizes a CPAP machine at home. The place and was placed on CPAP with O2 sats 94%. Plan today to wean to high flow nasal cannula and aggressive pulmonary toileting, continue dosing of antibiotics. 07/26: The patient was weaned yesterday to high flow nasal cannula, to maintain an O2 sat of 90%. Patient was additionally diuresed with Lasix 40 mg approximately 1 L output yesterday. The patient was able to tolerate a clear liquid diet, diet advance to heart healthy this a.m.. The patient was noted to have an elevation in WBC count despite empiric antibiotics. ID consulted. 07/27: Afebrile. Yesterday afternoon the patient had hypoxic respiratory failure and required emergent intubation, secondary to decompensation. Plan for IR to do a CT-guided thoracentesis secondary to the numerous blebs and layering of fluid, unable to be performed at bedside. Thoracentesis performed approximately 2.4 L removed today the patient is now down to FiO2 of 50% .PEEP 8 with plan for weaning as clinically tolerated. 07/28: Overnight the patient became confused and self extubated at 12 midnight. The patient was maintained on BiPAP for several hours received Haldol, and Precedex. The patient subsequently was reintubated at 5:30 this morning after obtaining ABGs. Postintubation ABGs 7.36/44/108/25/05. The patient is now sedated, weaning FiO2 requirements. 07/29: Afebrile. Patient was noted to go into atrial fibrillation with a heart rate in the 150s last night. Received a bolus of Cardizem with subsequent Cardizem infusion. Resolution of atrial fib heart rate 90s, now normal sinus rhythm. The patient was noted to have ventilator dyssynchrony, the patient was bolused with Versed 5 mg IV, with resolution. Ventilator O2 requirements were successfully decreased to FiO2 of 40%. 07/30: The patient's FiO2 was increased to 55% overnight, the patient opted mechanical vent settings unchanged. The patient became agitated last night and required additional sedation. Versed when necessary added to medication regimen. The patient is continued on ARDS protocol, with goals of diminishing FiO2 with maintaining PEEP. The patient has currently been weaned down this morning to 45%. The patient blood glucose is still elevated most likely secondary to his steroid medication regimen in setting of diabetes mellitus. Levemir increased, steroids now being weaned. Pleural fluid cultures preliminarily negative. 07/31: The patient went into A. fib RVR, Cardizem bolused 15 mg, followed by 10 mg and an infusion was initiated. The patient continues to have elevation in WBC count, ID following. ABGs this a.m. showed a PaO2 of 76 on 45%. However in the setting of A. fib ABG was drawn and PaO2 decreased, FiO2 was increased to 50% ABG now pending this evening. The patient continues on propofol and fentanyl infusion. The patient responding adequately to diuresis with Lasix. Objective Vital Signs Date Time Temp Pulse Resp B/P Pulse Ox O2 Delivery O2 Flow Rate FiO2 07/31/16 16:00 40 07/31/16 16:00 99.7 69 22 135/61 89 149/49 Intake and Output 07/30/16 07/30/16 07/31/16 08:00 16:00 00:00 Intake Total 1327 ml 696 ml 839 ml Output Total 700 ml 400 ml 1150 ml Balance 627 ml 296 ml -311 ml Result Diagram: 07/30/16 0314 07/31/16 1150 Other Results Laboratory Tests Test 07/31/16 07/31/16 07/31/16 05:14 10:25 17:23 Blood Gas Puncture Site ART LINE MARVEL ART LINE Blood Gas Patient Temperature 98.6 98.6 98.6 Blood Gas HCO3 27 mmol/L 29 mmol/L 30 mmol/L (22-26) (22-26) (22-26) Blood Gas Base Excess 2.7 mmol/L 4.1 mmol/L 5.4 mmol/L (-2-2) (-2-2) (-2-2) Blood Gas Oxygen Saturation 91 % (90-100) 86 % (90-100) 85 % (90-100) Arterial Blood pH 7.38 7.39 7.41 (7.380-7.420) (7.380-7.420) (7.380-7.420) Arterial Blood Partial 48 mmHg (38-42) 49 mmHg (38-42) 48 mmHg (38-42) Pressure CO2 Arterial Blood Partial 76 mmHg 61 mmHg 57 mmHg Pressure O2 (61-120) (61-120) (61-120) Arterial Blood Oxygen Content 13.1 Vol % 11.3 Vol % 11.7 Vol % (12.0-20.0) (12.0-20.0) (12.0-20.0) Arterial Blood 1.9 % (0-4) 2.0 % (0-4) 2.2 % (0-4) Carboxyhemoglobin Arterial Blood Methemoglobin 1.4 % (0-2) 1.3 % (0-2) 1.4 % (0-2) Blood Gas Hemoglobin 10.1 G/DL 9.4 G/DL 9.8 G/DL (12.0-16.0) (12.0-16.0) (12.0-16.0) Oxygen Delivery Device VENTILATOR VENT VENTILATOR Blood Gas Ventilator Setting PRVC / AC Blood Gas Inspired Oxygen 45 % 40 % 40 % Imaging Last Impressions CT Angiography 07/24/16 1450 Signed Impressions: Service Date/Time: Sunday, July 24, 2016 15:29 - CONCLUSION: 1. No pulmonary embolus identified. 2. Advanced COPD. 3. Interval development of a large left pleural effusion. There is diffuse interstitial prominence and cardiomegaly. Exam would suggest congestive failure. 4. Nodule at the left lung base which was seen on previous dated 06/29/16 is obscured by the pleural effusion. Raymond Stewart MD Chest X-Ray 07/24/16 1252 Signed Impressions: Service Date/Time: Sunday, July 24, 2016 13:13 - CONCLUSION: Further deterioration in the appearance of the chest when compared to the study of 06/29/2014. Oscar Stewart MD FACR Objective Remarks GENERAL: Well-developed, obese male, currently intubated and sedated SKIN: Warm and dry. HEAD: Atraumatic. Normocephalic. EYES: Pupils equal and round. No scleral icterus. No injection or drainage. ENT: No nasal bleeding or discharge. Mucous membranes pink and moist. Orotracheally intubated. NECK: Trachea midline. No JVD. CARDIOVASCULAR: Normal rate, regular rhythm. RESPIRATORY: Mechanical ventilation.No accessory muscle use. Breath sounds clear to auscultation, noted decrease breath sounds left. GASTROINTESTINAL: Abdomen soft, non-tender, nondistended. No guarding. Oral gastric tube-tube feeds infusing MUSCULOSKELETAL: Extremities without clubbing, cyanosis, 2+ peripheral edema. No obvious deformities. NEUROLOGICAL: Intubated and sedated Urinary Catheter: Yes Olvera insert reason: ICU Pt Getting Diuretics Date of Insertion: Jul 26, 2016 A/P Assessment and Plan Plan by systems: Neurologic: Anxiety disorder H/O PTSD Pain Versed PRN for anxiety Continue Prozac 40 mg daily Acetaminophen 650 every 6 hours when necessary for temperature > 101.0 Fentanyl propofol infusions for sedation Respiratory: COPD exacerbation Pulmonary edema Acute on chronic respiratory failure RADHA Acute hypoxic respiratory failure 07/26 Intubated-8.0 ETT Mechanical ventilation-previously on FIO2 90% PEEP 8 RR 22 I:E 1.3, FIO2 45% now decreased S/P thoracentesis Continue antibiotics per ID Methylprednisolone 40 mg 12 hours Continue duo nebs scheduled every 4 hours Maintain head of bed 30 Wean FIO2 to maintain PaO2 > 60 Pulmonology consult-follow up recommendations Maintain sats O2 sat greater than 89-90%, ensure PaO2 > 60mmhg CTA 07/24-left lung base nodule 06/29 2.01.4 cm nodule posterior aspect left lower lung 07/27-CT guided thoracentesis-2.4 L removed, cultures and cytology pending 07/30 Lasix 20 mg daily Cardiovascular: Coronary artery disease Cardiomegaly Hypertension Atrial fibrillation 07/29, 07/31 07/31 25 Cardizem bolus, Continue on Cardizem infusion Continue statin, aspirin (home medication) Continue Plavix Renal: Monitor BMP -- Strict I/Os FEN/GI: Hypokalemia Hypomagnesemia Hypophosphatemia Replete electrolytes per ICU protocol Patient on scheduled doses of potassium BID Tube feeds initiated Glucerna 1.5@goal, minimal residual Bowel regimen BM 07/29 Heme/ID: Lactic acidosis-resolved Anemia of chronic disease Persistent Leukocytosis History of MRSA Follow-up cultures ID consulted -Dr. Person Monitor CBC Lactate WNL Endocrine: Glucose monitoring per ICU protocol Medium dose sliding scale, Levemir 20 units BID -- SSI Prophylaxis: GI Prophylaxis Protonix DVT Prophylaxis -- SCDs Heparin 5000u subcutaneous twice a day Lines: Peripheral IVs. Central line if indicated Dispo: Discussed with family present and [employer] at bedside. This patient remains critically ill with one or more organ systems which are or may become a threat to life. I have spent in excess of 45 minutes discontinuously in the care and management of this patient. This time is exclusive of procedures, and includes, but is not limited to, evaluation of the patient, review of the medical record, discussions with family, consultants, nursing staff, or respiratory therapy, and documentation in the medical record. Discussed with [employer] at bedside. Physician Willwo Casiano MD Jul 31, 2016 18:44
[2016-07-31] MEDS ORDERED: AMIODARONE INJ 150 MG in DEXTROSE 5% IN WATER 100ML INJ 97 ML IV ONE ×2 (21:00)
[2016-07-31] MEDS: ATORVASTATIN 20 MG TAB PO SCH (21:03)
[2016-07-31] MEDS: CLOPIDOGREL 75 MG TAB PO SCH (21:06)
[2016-07-31] MEDS: SODIUM CHLORIDE 0.9% FLUSH 10 ML FLUSH IVF PRN (21:07)
[2016-07-31] MEDS: AMIODARONE INJ 450 MG in DEXTROSE 5% IN WATE(EXCEL) INJ 241 ML IV SCH ×2 (21:38)
[2016-08-01] VITALS (18 sets, daily range): BP systolic 84–172; BP diastolic 54–83; PULSE 59–127; RESP 17–22; TEMP 98.3–99.7; O2SAT 92–98
[2016-08-01] MEDS: RESP: ALBUTEROL 2.5 MG/IPRATROPIUM 0.5 MG NEB (SCH) INH ×7 (00:26→23:20)
[2016-08-01 01:31] LABS: BLOOD GAS BASE EXCESS 2.7 mmol/L (-2-2); BLOOD GAS CARBOXYHEMOGLOBIN 1.8 % (0-4); BLOOD GAS HCO3 28 mmol/L (22-26); BLOOD GAS METHEMOGLOBIN 1.1 % (0-2); BLOOD GAS O2 HGB SATURATION 93 % (90-100); BLOOD GAS OXYGEN CONTENT 14.7 Vol % (12.0-20.0); BLOOD GAS PCO2 50 mmHg (38-42); BLOOD GAS PO2 85 mmHg (61-120); BLOOD GAS TOTAL HGB 11.1 G/DL (12.0-16.0); CRITICAL VALUE NO; OXYGEN DEVICE VENTILATOR; TEMP CORR TO 98.6
[2016-08-01 01:32] LABS: DRAW SITE ART LINE; FIO2 50 %; STAT NO; VENT SETTINGS PRVC
[2016-08-01] MEDS: CHLORHEXIDINE GLUCONATE 2 % 1 PACK (2 CLOTHS) TOP SCH (04:00)
[2016-08-01] MEDS: PROPOFOL 1000 MG/100 ML INJ 100 ML IV SCH ×5 (04:10→21:41)
[2016-08-01] MEDS: HEPARIN SODIUM - SQ 10,000 UNITS/ML VIAL SQ SCH ×3 (04:10→21:14)
[2016-08-01] MEDS: PIPERACIL-TAZO 4.5 GM PREMIX 100 ML IV SCH ×4 (04:10→22:06)
[2016-08-01 05:58] LABS: BLOOD GAS BASE EXCESS 4.7 mmol/L (-2-2); BLOOD GAS CARBOXYHEMOGLOBIN 1.9 % (0-4); BLOOD GAS HCO3 29 mmol/L (22-26); BLOOD GAS METHEMOGLOBIN 1.1 % (0-2); BLOOD GAS O2 HGB SATURATION 92 % (90-100); BLOOD GAS OXYGEN CONTENT 12.5 Vol % (12.0-20.0); BLOOD GAS PCO2 47 mmHg (38-42); BLOOD GAS PO2 77 mmHg (61-120); BLOOD GAS TOTAL HGB 9.6 G/DL (12.0-16.0); TEMP CORR TO 98.6
[2016-08-01 05:59] LABS: CRITICAL VALUE NO; OXYGEN DEVICE VENTILATOR
[2016-08-01 06:00] LABS: DRAW SITE ART LINE; FIO2 50 %; VENT SETTINGS PRVC
[2016-08-01 06:08] LABS: HEMATOCRIT 29.8 % (39.0-51.0); MEAN CELL VOLUME 85.4 FL (80.0-100.0); MEAN CORPUSCULAR HEMOGLOBIN 27.4 PG (27.0-34.0); MEAN CORPUSCULAR HGB CONC 32.1 % (32.0-36.0); PLATELET COUNT 263 TH/MM3 (150-450); RED BLOOD COUNT 3.49 MIL/MM3 (4.50-5.90); RED CELL DISTRIBUTION WIDTH 18.6 % (11.6-17.2); REVIEW FLAG FINAL; WHITE BLOOD COUNT 25.3 TH/MM3 (4.0-11.0)
[2016-08-01] MEDS: LEVOTHYROXINE SODIUM 112 MCG TAB PO SCH (06:14)
[2016-08-01] MEDS: INSULIN NovoLIN REGULAR SUPPLEMENTAL SCALE SQ SCH ×4 (06:14→21:13)
[2016-08-01] MEDS: AMIODARONE INJ 450 MG in DEXTROSE 5% IN WATE(EXCEL) INJ 241 ML IV SCH ×2 (06:23)
[2016-08-01 06:39] LABS: BICARBONATE 31.1 MEQ/L (21.0-32.0); MAGNESIUM 2.7 MG/DL (1.5-2.5); POTASSIUM 6.1 MEQ/L (3.5-5.1)
[2016-08-01 07:01] LABS: CALCIUM-PROTEIN CORRECTED 8.5 MG/DL (8.5-10.1)
[2016-08-01] MEDS ORDERED: FUROSEMIDE 20 MG/2 ML VIAL IV PUSH ONE (07:30)
[2016-08-01] MEDS: FUROSEMIDE 20 MG/2 ML VIAL IV PUSH SCH (07:49)
[2016-08-01] MEDS: fentaNYL 2,500 MCG/NS 250 ML IV SCH ×2 (07:50→21:49)
[2016-08-01] MEDS: RESP: BUDESONIDE 0.25 MG/2 ML NEB NEB SCH ×2 (08:34→19:21)
[2016-08-01] MEDS: BUDESONIDE-FORMOTEROL 160/4.5 MCG INHALER INH SCH ×2 (09:00→21:00)
[2016-08-01] MEDS: ISOSORBIDE DINITRATE 10 MG TAB PO SCH (09:00)
[2016-08-01] MEDS: POTASSIUM CHLORIDE 25 MEQ EFFERVESCENT TAB NG SCH ×2 (09:00→21:00)
--- NOTE | 2016-08-01 09:54 | HHI.CCPN ---
Subjective Remarks/Hospital Course The patient is an 80-year-old male with past medical history of COPD on 3 L/m home oxygen continuously in addition to nebulizer, history of hypertension and diabetes mellitus, hyperlipidemia, and hypothyroidism. He presented to [facility] ED with a one-week history of progressive dyspnea. The patient denies any associated symptoms such as orthopnea, PND or edema of the lower extremities. He is being followed by Dr. booker, his outpatient salesperson used cars, and Dr. Gerardo his gifted teacher. He denies any nausea vomiting or abdominal pain. Upon arrival to the ED, the patient was hypoxic with O2 saturation in the 70s on nasal cannula and he was subsequently placed on a nonrebreather mask and O2 sats of 94%. Chest x-ray upon arrival showed patchy airspace disease bilateral with coarse pleural changes. CT angiogram of his chest was obtained which showed no evidence of pulmonary embolus however, it showed interstitial fibrotic changes with multiple emphysematous blebs and left-sided pleural effusion. Also a 2 x 1.4 cm nodule was seen in the posterior aspect of the left lower lobe. In the emergency room he was given 500 cc of normal saline, vancomycin, cefepime, DuoNeb, Solu-Medrol 125 mg IV push and magnesium sulfate. Nasal washings were negative for influenza. Critical care medicine was consult for management. Subjective 07/25: Early this a.m. patient was noted to be on a nonrebreather mask with O2 sats in the 80s. The patient apparently has significant history for obstructive sleep apnea at which point he utilizes a CPAP machine at home. The place and was placed on CPAP with O2 sats 94%. Plan today to wean to high flow nasal cannula and aggressive pulmonary toileting, continue dosing of antibiotics. 07/26: The patient was weaned yesterday to high flow nasal cannula, to maintain an O2 sat of 90%. Patient was additionally diuresed with Lasix 40 mg approximately 1 L output yesterday. The patient was able to tolerate a clear liquid diet, diet advance to heart healthy this a.m.. The patient was noted to have an elevation in WBC count despite empiric antibiotics. ID consulted. 07/27: Afebrile. Yesterday afternoon the patient had hypoxic respiratory failure and required emergent intubation, secondary to decompensation. Plan for IR to do a CT-guided thoracentesis secondary to the numerous blebs and layering of fluid, unable to be performed at bedside. Thoracentesis performed approximately 2.4 L removed today the patient is now down to FiO2 of 50% .PEEP 8 with plan for weaning as clinically tolerated. 07/28: Overnight the patient became confused and self extubated at 12 midnight. The patient was maintained on BiPAP for several hours received Haldol, and Precedex. The patient subsequently was reintubated at 5:30 this morning after obtaining ABGs. Postintubation ABGs 7.36/44/108/25/05. The patient is now sedated, weaning FiO2 requirements. 07/29: Afebrile. Patient was noted to go into atrial fibrillation with a heart rate in the 150s last night. Received a bolus of Cardizem with subsequent Cardizem infusion. Resolution of atrial fib heart rate 90s, now normal sinus rhythm. The patient was noted to have ventilator dyssynchrony, the patient was bolused with Versed 5 mg IV, with resolution. Ventilator O2 requirements were successfully decreased to FiO2 of 40%. 07/30: The patient's FiO2 was increased to 55% overnight, the patient opted mechanical vent settings unchanged. The patient became agitated last night and required additional sedation. Versed when necessary added to medication regimen. The patient is continued on ARDS protocol, with goals of diminishing FiO2 with maintaining PEEP. The patient has currently been weaned down this morning to 45%. The patient blood glucose is still elevated most likely secondary to his steroid medication regimen in setting of diabetes mellitus. Levemir increased, steroids now being weaned. Pleural fluid cultures preliminarily negative. 07/31: The patient went into A. fib RVR, Cardizem bolused 15 mg, followed by 10 mg and an infusion was initiated. The patient continues to have elevation in WBC count, ID following. ABGs this a.m. showed a PaO2 of 76 on 45%. However in the setting of A. fib ABG was drawn and PaO2 decreased, FiO2 was increased to 50% ABG now pending this evening. The patient continues on propofol and fentanyl infusion. The patient responding adequately to diuresis with Lasix. 08/01: Afebrile. Last evening the patient went into A. fib with a rate of 150s. 25 mg IV bolus of Cardizem was given in 2 doses, patient was placed on a Cardizem infusion. The patient was then changed to an amiodarone bolus and amiodarone infusion, with subsequent conversion to normal sinus rhythm. The patient has remained in normal sinus rhythm, normotensive overnight. Amiodarone has been discontinued. The patient has been placed on Cardizem PO at increased dosage every 6 hours. Objective Vital Signs Date Time Temp Pulse Resp B/P Pulse Ox O2 Delivery O2 Flow Rate FiO2 08/01/16 08:35 95 50 08/01/16 06:00 59 08/01/16 04:00 99.7 22 123/59 143/56 Intake and Output 07/31/16 07/31/16 08/01/16 08:00 16:00 00:00 Intake Total 649 ml 897 ml 1012 ml Output Total 450 ml 1200 ml 975 ml Balance 199 ml -303 ml 37 ml Result Diagram: 08/01/16 0420 08/01/16 0420 Other Results Laboratory Tests Test 07/31/16 07/31/16 08/01/16 10:25 17:23 05:28 Blood Gas Puncture Site MARVEL ART LINE ART LINE Blood Gas Patient Temperature 98.6 98.6 98.6 Blood Gas HCO3 29 mmol/L 30 mmol/L 29 mmol/L (22-26) (22-26) (22-26) Blood Gas Base Excess 4.1 mmol/L 5.4 mmol/L 4.7 mmol/L (-2-2) (-2-2) (-2-2) Blood Gas Oxygen Saturation 86 % (90-100) 85 % (90-100) 92 % (90-100) Arterial Blood pH 7.39 7.41 7.41 (7.380-7.420) (7.380-7.420) (7.380-7.420) Arterial Blood Partial 49 mmHg (38-42) 48 mmHg (38-42) 47 mmHg (38-42) Pressure CO2 Arterial Blood Partial 61 mmHg 57 mmHg 77 mmHg Pressure O2 (61-120) (61-120) (61-120) Arterial Blood Oxygen Content 11.3 Vol % 11.7 Vol % 12.5 Vol % (12.0-20.0) (12.0-20.0) (12.0-20.0) Arterial Blood 2.0 % (0-4) 2.2 % (0-4) 1.9 % (0-4) Carboxyhemoglobin Arterial Blood Methemoglobin 1.3 % (0-2) 1.4 % (0-2) 1.1 % (0-2) Blood Gas Hemoglobin 9.4 G/DL 9.8 G/DL 9.6 G/DL (12.0-16.0) (12.0-16.0) (12.0-16.0) Oxygen Delivery Device VENT VENTILATOR VENTILATOR Blood Gas Inspired Oxygen 40 % 40 % 50 % Blood Gas Ventilator Setting [facility] Imaging Last Impressions Chest X-Ray 07/31/16 0000 Signed Impressions: Service Date/Time: Sunday, July 31, 2016 13:25 - CONCLUSION: No significant change has occurred. Mikhail Cabrera MD Thoracentesis 07/27/16 0000 Signed Impressions: Service Date/Time: Wednesday, July 27, 2016 10:18 - CONCLUSION: Uncomplicated CT-guided left thoracentesis. Sample was saved and sent to lab for evaluation, as ordered. Tate Street MD CT Angiography 07/24/16 1450 Signed Impressions: Service Date/Time: Sunday, July 24, 2016 15:29 - CONCLUSION: 1. No pulmonary embolus identified. 2. Advanced COPD. 3. Interval development of a large left pleural effusion. There is diffuse interstitial prominence and cardiomegaly. Exam would suggest congestive failure. 4. Nodule at the left lung base which was seen on previous dated 06/29/16 is obscured by the pleural effusion. Raymond Stewart MD Last Impressions CT Angiography 07/24/16 1450 Signed Impressions: Service Date/Time: Sunday, July 24, 2016 15:29 - CONCLUSION: 1. No pulmonary embolus identified. 2. Advanced COPD. 3. Interval development of a large left pleural effusion. There is diffuse interstitial prominence and cardiomegaly. Exam would suggest congestive failure. 4. Nodule at the left lung base which was seen on previous dated 06/29/16 is obscured by the pleural effusion. Raymond Stewart MD Chest X-Ray 07/24/16 1252 Signed Impressions: Service Date/Time: Sunday, July 24, 2016 13:13 - CONCLUSION: Further deterioration in the appearance of the chest when compared to the study of 06/29/2014. Oscar Stewart MD FACR Objective Remarks GENERAL: Well-developed, obese male, currently intubated and sedated on propofol and fentanyl infusion SKIN: Warm and dry. HEAD: Atraumatic. Normocephalic. EYES: Pupils equal and round. No scleral icterus. No injection or drainage. ENT: No nasal bleeding or discharge. Mucous membranes pink and moist. Orotracheally intubated. NECK: Trachea midline. No JVD. CARDIOVASCULAR: Normal rate, regular rhythm. RESPIRATORY: Mechanical ventilation.No accessory muscle use. Breath sounds clear to auscultation, noted decrease breath sounds left. GASTROINTESTINAL: Abdomen soft, non-tender, nondistended. No guarding. Oral gastric tube-tube feeds infusing MUSCULOSKELETAL: Extremities without clubbing, cyanosis, 2+ peripheral edema. No obvious deformities. NEUROLOGICAL: GCS 11 T Procedures Bronchoscopy this am with BAL Urinary Catheter: Yes Olvera insert reason: Measure Accurate Output Date of Insertion: Jul 26, 2016 A/P Assessment and Plan Plan by systems: Neurologic: Anxiety disorder H/O PTSD Pain Versed 2 mg every 4 hours PRN for anxiety Continue Prozac 40 mg daily Acetaminophen 650 every 6 hours when necessary for temperature > 101.0 Fentanyl and propofol infusions for sedation for ventilator synchrony Respiratory: COPD exacerbation Pulmonary edema Acute on chronic respiratory failure RADHA Acute hypoxic respiratory failure 07/26 Intubated-8.0 ETT Mechanical ventilation-previously on FIO2 90% PEEP 8 RR 22 I:E 1.3, FIO2 45% now decreased S/P thoracentesis Continue antibiotics per ID Methylprednisolone 40 mg 12 hours Continue duo nebs scheduled every 4 hours Maintain head of bed 30 Wean FIO2 to maintain PaO2 > 60 ABG this a.m. 7.41/47/77/29 on FiO2 of 50% Pulmonology consult-follow up recommendations Maintain sats O2 sat greater than 89-90%, ensure PaO2 > 60mmhg CTA 07/24-left lung base nodule 06/29 2.01.4 cm nodule posterior aspect left lower lung 07/27-CT guided thoracentesis-2.4 L removed, cultures and cytology pending 07/30 Lasix 20 mg daily 08/01 plan bronchoscopy with BAL Cardiovascular: Coronary artery disease Cardiomegaly Hypertension Paroxysmal Atrial fibrillation 07/29, 07/31-resolved 08/01 Restart Cardizem infusion and begin increase Cardizem by mouth to 90 mg every 6 hours (home medication), discontinue amiodarone, will attempt to use calcium channel blockers and beta blockers in the setting of pulmonary dysfunction, and pre-existing pulmonary fibrosis 08/01 Telemetry normal sinus rhythm Continue statin, aspirin (home medication) Continue Plavix 75 g daily at bedtime Renal: Hyperkalemia Monitor BMP Potassium 6.1 this a.m., Lasix 20 mg IV given Follow-up BMP today Lasix 20 mg daily -- Strict I/Os FEN/GI: Replete electrolytes per ICU protocol Tube feeds initiated Glucerna 1.5@goal, minimal residual Bowel regimen BM 07/31 Heme/ID: Lactic acidosis-resolved Anemia of chronic disease Persistent Leukocytosis History of MRSA Follow-up cultures ID consulted -Dr. Person WBC17->19-> 25 today 07/26-Legionella and influenza negative 07/27-pleural fluid-NGTD 08/01-obtain blood and urine cultures 08/01-bronchoscopy with BAL Monitor CBC Lactate WNL Endocrine: Diabetes mellitus Hyperglycemia of critical illness Glucose monitoring per ICU protocol Medium dose sliding scale, increase Levemir 30 units every 12 hours -- SSI Prophylaxis: GI Prophylaxis Protonix DVT Prophylaxis -- SCDs Heparin 5000u subcutaneous 3 times a day Lines: Peripheral IVs. Central line if indicated Dispo: Discussed with family present and P[employer]EN[employer]RAKEMAN at bedside. This patient remains critically ill with one or more organ systems which are or may become a threat to life. I have spent in excess of 41 minutes discontinuously in the care and management of this patient. This time is exclusive of procedures, and includes, but is not limited to, evaluation of the patient, review of the medical record, discussions with family, consultants, nursing staff, or respiratory therapy, and documentation in the medical record. Discussed with , son and PASSENGER BRAKEMAN at bedside. Physician Willow Casiano MD Aug 01, 2016 09:54
[2016-08-01] MEDS ORDERED: DILTIAZEM HCL 25 MG/5 ML VIAL IV ONE (10:45)
[2016-08-01] MEDS: METOPROLOL TARTRATE 5 MG/5 ML VIAL IV PUSH PRN (10:59)
[2016-08-01] MEDS: DOCUSATE SODIUM 100 MG/10 ML UDC PO SCH ×2 (11:00→21:00)
[2016-08-01] MEDS: MIDAZOLAM HCL 2 MG/2 ML VIAL IV PUSH PRN ×2 (11:00→14:49)
[2016-08-01] MEDS: PANTOPRAZOLE SODIUM 40 MG VIAL IV SCH (11:00)
[2016-08-01] MEDS: ASPIRIN 81 MG CHEW TAB PO SCH (11:01)
[2016-08-01] MEDS: SENNOSIDES 8.6 MG TAB PO SCH ×2 (11:01→21:00)
[2016-08-01] MEDS: FLUoxetine HCL 20 MG CAP PO SCH (11:01)
[2016-08-01] MEDS: methylPREDNISolone SOD SUCC 125 MG/2 ML VIAL IV PUSH SCH ×2 (11:02→21:07)
[2016-08-01] MEDS: AZITHROMYCIN 250 MG TAB PO SCH (11:03)
[2016-08-01] MEDS: DILTIAZEM INJ 125 MG in SODIUM CHLORIDE 0.9% INJ 100 ML IV SCH ×2 (11:18→18:43)
[2016-08-01] MEDS: DILTIAZEM HCL 90 MG TAB PO SCH ×2 (12:00→18:00)
--- NOTE | 2016-08-01 17:35 | HHI.PR ---
Subjective Remarks 80 YOWM with VDRF,COPD,PF,Pneumonia Developed AF with RVR Converted to NSR with Amiodarone On CPAP no Fever minimal trach secretions Sedated with Diprivan Objective Vital Signs Vital Signs Date Time Temp Pulse Resp B/P Pulse Ox O2 Delivery O2 Flow Rate FiO2 08/01/16 16:00 99.0 127 17 151/72 98 172/83 08/01/16 16:00 122 08/01/16 15:54 50 08/01/16 14:29 93 50 08/01/16 14:00 106 08/01/16 12:00 98.3 123 22 84/54 92 115/57 08/01/16 12:00 50 08/01/16 12:00 123 08/01/16 10:00 72 08/01/16 09:55 95 100 08/01/16 08:35 95 50 08/01/16 08:00 99.0 63 22 150/74 92 155/61 08/01/16 08:00 50 08/01/16 08:00 63 08/01/16 06:00 59 08/01/16 04:00 99.7 59 22 123/59 92 143/56 08/01/16 04:00 50 08/01/16 04:00 59 08/01/16 03:20 93 50 08/01/16 02:00 65 08/01/16 00:10 93 50 08/01/16 00:00 99.2 122 22 107/63 93 127/59 08/01/16 00:00 50 08/01/16 00:00 122 07/31/16 22:00 135 07/31/16 20:30 93 50 07/31/16 20:00 150 07/31/16 20:00 50 07/31/16 20:00 99.6 150 22 109/59 92 118/54 07/31/16 18:00 147 I/O 07/31/16 07/31/16 07/31/16 08/01/16 08/01/16 08/01/16 07:00 15:00 23:00 07:00 15:00 23:00 Intake Total 649 ml 897 ml 1012 ml 1069 ml 870 ml Output Total 450 ml 1200 ml 975 ml 400 ml 1500 ml Balance 199 ml -303 ml 37 ml 669 ml -630 ml IV Total 369 ml 458 ml 622 ml 696 ml 500 ml Tube Feeding 280 ml 439 ml 390 ml 373 ml 250 ml Other 120 ml Output Urine Total 450 ml 1200 ml 975 ml 400 ml 1500 ml Stool Total 0 ml # Bowel Movements 0 2 0 1 Result Diagram: 08/01/16 0420 08/01/16 1048 Objective Remarks GENERAL: MBMN WM, on Vent Sedated SKIN: Warm and dry. HEAD: Normocephalic. EYES: No scleral icterus. No injection or drainage. NECK: Supple, trachea midline. No JVD or lymphadenopathy. CARDIOVASCULAR: IrRegular rate and rhythm without murmurs, gallops, or rubs. HR high RESPIRATORY: Breath sounds equal bilaterally. No accessory muscle use. Insp rales GASTROINTESTINAL: Abdomen soft, non-tender, nondistended. MUSCULOSKELETAL: No cyanosis, or edema. BACK: Nontender without obvious deformity. No CVA tenderness. A/P Assessment and Plan VDRF Pneumonia COPD exac PF AF with RVR PLAN: Vent support with PRVC AC 50% Daily CPAP trial Cont Abx per ID Amiodarone drip Diprivan for sedation. DW and Son at BS. Brandin Gayle MD Aug 01, 2016 17:35
[2016-08-01] MEDS: CLOPIDOGREL 75 MG TAB PO SCH (21:12)
[2016-08-01] MEDS: ATORVASTATIN 20 MG TAB PO SCH (21:12)
[2016-08-01] MEDS: INSULIN DETEMIR 100 UNITS/ML VIAL SQ SCH (21:13)
[2016-08-02] VITALS (15 sets, daily range): BP systolic 92–130; BP diastolic 45–61; PULSE 82–106; RESP 22; TEMP 98.9–100.1; O2SAT 90–98
[2016-08-02] MEDS: DILTIAZEM HCL 90 MG TAB PO SCH ×4 (00:23→20:08)
[2016-08-02] MEDS: PROPOFOL 1000 MG/100 ML INJ 100 ML IV SCH ×5 (01:36→21:48)
[2016-08-02] MEDS: RESP: ALBUTEROL 2.5 MG/IPRATROPIUM 0.5 MG NEB (SCH) INH ×6 (03:36→23:28)
[2016-08-02] MEDS: CHLORHEXIDINE GLUCONATE 2 % 1 PACK (2 CLOTHS) TOP SCH (04:00)
[2016-08-02] MEDS: PIPERACIL-TAZO 4.5 GM PREMIX 100 ML IV SCH ×2 (04:16→10:25)
[2016-08-02 04:54] LABS: HEMATOCRIT 30.1 % (39.0-51.0); MEAN CORPUSCULAR HEMOGLOBIN 26.6 PG (27.0-34.0); MEAN CORPUSCULAR HGB CONC 31.3 % (32.0-36.0); PLATELET COUNT 217 TH/MM3 (150-450); RED BLOOD COUNT 3.54 MIL/MM3 (4.50-5.90); RED CELL DISTRIBUTION WIDTH 18.2 % (11.6-17.2); REVIEW FLAG FINAL; WHITE BLOOD COUNT 29.7 TH/MM3 (4.0-11.0)
[2016-08-02] MEDS: LEVOTHYROXINE SODIUM 112 MCG TAB PO SCH (05:24)
[2016-08-02] MEDS: HEPARIN SODIUM - SQ 10,000 UNITS/ML VIAL SQ SCH ×3 (05:25→20:11)
[2016-08-02] MEDS: INSULIN NovoLIN REGULAR SUPPLEMENTAL SCALE SQ SCH ×4 (05:26→20:10)
[2016-08-02 05:31] LABS: BICARBONATE 30.9 MEQ/L (21.0-32.0); MAGNESIUM 2.9 MG/DL (1.5-2.5); POTASSIUM 4.8 MEQ/L (3.5-5.1)
[2016-08-02 06:26] LABS: BRONCHOALVEOLAR LAVAGE WBC 720 /MM3; LAVAGE TOTAL WBC COUNT 3.6 MILLION (4.7-7.1)
[2016-08-02 06:27] LABS: BRONCHOALVEOLAR LAVAGE RBC 320 /MM3; BRONCHOAVEOLAR HISTIOCYTES 3 %; BRONCHOAVEOLAR LYMPHOCYTES 0 %; BRONCHOAVEOLAR NEUTROPHILS 97 %
[2016-08-02] MEDS: DILTIAZEM INJ 125 MG in SODIUM CHLORIDE 0.9% INJ 100 ML IV SCH ×2 (07:25→15:53)
[2016-08-02] MEDS: RESP: BUDESONIDE 0.25 MG/2 ML NEB NEB SCH ×2 (07:27→19:38)
[2016-08-02] MEDS: ASPIRIN 81 MG CHEW TAB PO SCH (08:28)
[2016-08-02] MEDS: SENNOSIDES 8.6 MG TAB PO SCH ×2 (08:28→20:09)
[2016-08-02] MEDS: DOCUSATE SODIUM 100 MG/10 ML UDC PO SCH ×2 (08:28→20:08)
[2016-08-02] MEDS: FUROSEMIDE 20 MG/2 ML VIAL IV PUSH SCH (08:28)
[2016-08-02] MEDS: PANTOPRAZOLE SODIUM 40 MG VIAL IV SCH (08:28)
[2016-08-02] MEDS: ISOSORBIDE DINITRATE 10 MG TAB PO SCH (08:29)
[2016-08-02] MEDS: INSULIN DETEMIR 100 UNITS/ML VIAL SQ SCH ×2 (08:29→20:09)
[2016-08-02] MEDS: POTASSIUM CHLORIDE 25 MEQ EFFERVESCENT TAB NG SCH (08:29)
[2016-08-02] MEDS: FLUoxetine HCL 20 MG CAP PO SCH (08:29)
[2016-08-02] MEDS: BUDESONIDE-FORMOTEROL 160/4.5 MCG INHALER INH SCH ×2 (08:30→20:07)
[2016-08-02] MEDS: methylPREDNISolone SOD SUCC 125 MG/2 ML VIAL IV PUSH SCH ×2 (08:30→20:08)
[2016-08-02] MEDS: METOPROLOL TARTRATE 5 MG/5 ML VIAL IV PUSH PRN (10:47)
--- NOTE | 2016-08-02 13:07 | HHI.CCPN ---
Subjective Remarks/Hospital Course The patient is an 80-year-old male with past medical history of COPD on 3 L/m home oxygen continuously in addition to nebulizer, history of hypertension and diabetes mellitus, hyperlipidemia, and hypothyroidism. He presented to [facility] ED with a one-week history of progressive dyspnea. The patient denies any associated symptoms such as orthopnea, PND or edema of the lower extremities. He is being followed by Dr. booker, his outpatient rn endoscopy, and Dr. Gerardo his layboy operator. He denies any nausea vomiting or abdominal pain. Upon arrival to the ED, the patient was hypoxic with O2 saturation in the 70s on nasal cannula and he was subsequently placed on a nonrebreather mask and O2 sats of 94%. Chest x-ray upon arrival showed patchy airspace disease bilateral with coarse pleural changes. CT angiogram of his chest was obtained which showed no evidence of pulmonary embolus however, it showed interstitial fibrotic changes with multiple emphysematous blebs and left-sided pleural effusion. Also a 2 x 1.4 cm nodule was seen in the posterior aspect of the left lower lobe. In the emergency room he was given 500 cc of normal saline, vancomycin, cefepime, DuoNeb, Solu-Medrol 125 mg IV push and magnesium sulfate. Nasal washings were negative for influenza. Critical care medicine was consult for management. Subjective 07/25: Early this a.m. patient was noted to be on a nonrebreather mask with O2 sats in the 80s. The patient apparently has significant history for obstructive sleep apnea at which point he utilizes a CPAP machine at home. The place and was placed on CPAP with O2 sats 94%. Plan today to wean to high flow nasal cannula and aggressive pulmonary toileting, continue dosing of antibiotics. 07/26: The patient was weaned yesterday to high flow nasal cannula, to maintain an O2 sat of 90%. Patient was additionally diuresed with Lasix 40 mg approximately 1 L output yesterday. The patient was able to tolerate a clear liquid diet, diet advance to heart healthy this a.m.. The patient was noted to have an elevation in WBC count despite empiric antibiotics. ID consulted. 07/27: Afebrile. Yesterday afternoon the patient had hypoxic respiratory failure and required emergent intubation, secondary to decompensation. Plan for IR to do a CT-guided thoracentesis secondary to the numerous blebs and layering of fluid, unable to be performed at bedside. Thoracentesis performed approximately 2.4 L removed today the patient is now down to FiO2 of 50% .PEEP 8 with plan for weaning as clinically tolerated. 07/28: Overnight the patient became confused and self extubated at 12 midnight. The patient was maintained on BiPAP for several hours received Haldol, and Precedex. The patient subsequently was reintubated at 5:30 this morning after obtaining ABGs. Postintubation ABGs 7.36/44/108/25/05. The patient is now sedated, weaning FiO2 requirements. 07/29: Afebrile. Patient was noted to go into atrial fibrillation with a heart rate in the 150s last night. Received a bolus of Cardizem with subsequent Cardizem infusion. Resolution of atrial fib heart rate 90s, now normal sinus rhythm. The patient was noted to have ventilator dyssynchrony, the patient was bolused with Versed 5 mg IV, with resolution. Ventilator O2 requirements were successfully decreased to FiO2 of 40%. 07/30: The patient's FiO2 was increased to 55% overnight, the patient opted mechanical vent settings unchanged. The patient became agitated last night and required additional sedation. Versed when necessary added to medication regimen. The patient is continued on ARDS protocol, with goals of diminishing FiO2 with maintaining PEEP. The patient has currently been weaned down this morning to 45%. The patient blood glucose is still elevated most likely secondary to his steroid medication regimen in setting of diabetes mellitus. Levemir increased, steroids now being weaned. Pleural fluid cultures preliminarily negative. 07/31: The patient went into A. fib RVR, Cardizem bolused 15 mg, followed by 10 mg and an infusion was initiated. The patient continues to have elevation in WBC count, ID following. ABGs this a.m. showed a PaO2 of 76 on 45%. However in the setting of A. fib ABG was drawn and PaO2 decreased, FiO2 was increased to 50% ABG now pending this evening. The patient continues on propofol and fentanyl infusion. The patient responding adequately to diuresis with Lasix. 08/01: Afebrile. Last evening the patient went into A. fib with a rate of 150s. 25 mg IV bolus of Cardizem was given in 2 doses, patient was placed on a Cardizem infusion. The patient was then changed to an amiodarone bolus and amiodarone infusion, with subsequent conversion to normal sinus rhythm. The patient has remained in normal sinus rhythm, normotensive overnight. Amiodarone has been discontinued. The patient has been placed on Cardizem PO at increased dosage every 6 hours. 08/02:Afebrile. Yesterday daily patient was in normal sinus rhythm, and placed back Cardizem. The patient continued in normal sinus rhythm. A bronchoscopy was performed with BAL, postprocedure the patient went into A. fib RVR Cardizem infusion instituted. After bolus of Cardizem 20 mg. A. fib has remained rate controlled in the 90's. Cardiology has been consult regarding paroxysmal A. fib . The patient was placed on CPAP and was maintained for approximately 3 hours yesterday. We'll resume CPAP trials today. Objective Vital Signs Date Time Temp Pulse Resp B/P Pulse Ox O2 Delivery O2 Flow Rate FiO2 08/02/16 11:28 93 55 08/02/16 06:31 83 08/02/16 06:31 99.1 22 126/54 Intake and Output 08/01/16 08/01/16 08/02/16 08:00 16:00 00:00 Intake Total 1069 ml 870 ml 808 ml Output Total 400 ml 1500 ml 870 ml Balance 669 ml -630 ml -62 ml Result Diagram: 08/02/16 0350 08/02/16 0350 Imaging Last Impressions Chest X-Ray 07/31/16 0000 Signed Impressions: Service Date/Time: Sunday, July 31, 2016 13:25 - CONCLUSION: No significant change has occurred. Mikhail Cabrera MD Thoracentesis 07/27/16 0000 Signed Impressions: Service Date/Time: Wednesday, July 27, 2016 10:18 - CONCLUSION: Uncomplicated CT-guided left thoracentesis. Sample was saved and sent to lab for evaluation, as ordered. Tate Street MD CT Angiography 07/24/16 1450 Signed Impressions: Service Date/Time: Sunday, July 24, 2016 15:29 - CONCLUSION: 1. No pulmonary embolus identified. 2. Advanced COPD. 3. Interval development of a large left pleural effusion. There is diffuse interstitial prominence and cardiomegaly. Exam would suggest congestive failure. 4. Nodule at the left lung base which was seen on previous dated 06/29/16 is obscured by the pleural effusion. Raymond Stewart MD Last Impressions CT Angiography 07/24/16 1450 Signed Impressions: Service Date/Time: Sunday, July 24, 2016 15:29 - CONCLUSION: 1. No pulmonary embolus identified. 2. Advanced COPD. 3. Interval development of a large left pleural effusion. There is diffuse interstitial prominence and cardiomegaly. Exam would suggest congestive failure. 4. Nodule at the left lung base which was seen on previous dated 06/29/16 is obscured by the pleural effusion. Raymond Stewart MD Chest X-Ray 07/24/16 1252 Signed Impressions: Service Date/Time: Sunday, July 24, 2016 13:13 - CONCLUSION: Further deterioration in the appearance of the chest when compared to the study of 06/29/2014. Oscar Stewart MD FACR Objective Remarks GENERAL: Well-developed, obese male, currently intubated and sedated on propofol and fentanyl infusion SKIN: Warm and dry. HEAD: Atraumatic. Normocephalic. EYES: Pupils equal and round. No scleral icterus. No injection or drainage. ENT: No nasal bleeding or discharge. Mucous membranes pink and moist. Orotracheally intubated. NECK: Trachea midline. No JVD. CARDIOVASCULAR: Normal rate, regular rhythm. RESPIRATORY: Mechanical ventilation.No accessory muscle use. Breath sounds clear to auscultation, noted decrease breath sounds left. GASTROINTESTINAL: Abdomen soft, non-tender, nondistended. No guarding.Glucerna 1.5-tube feeds infusing MUSCULOSKELETAL: Extremities without clubbing, cyanosis, 2+ peripheral edema. No obvious deformities. NEUROLOGICAL: GCS 11 T Urinary Catheter: Yes Olvera insert reason: Measure Accurate Output Date of Insertion: Jul 26, 2016 A/P Assessment and Plan Plan by systems: Neurologic: Anxiety disorder H/O PTSD Pain Versed 2 mg every 4 hours PRN for anxiety Continue Prozac 40 mg daily Acetaminophen 650 every 6 hours when necessary for temperature > 101.0 Fentanyl and propofol infusions for sedation for ventilator synchrony Respiratory: COPD exacerbation Pulmonary edema Acute on chronic respiratory failure RADHA Acute hypoxic respiratory failure 07/26 Intubated-8.0 ETT Mechanical ventilation-previously on FIO2 90% PEEP 8 RR 22 I:E 1.3, FIO2 45% now decreased S/P thoracentesis Continue antibiotics per ID Methylprednisolone 40 mg 12 hours Continue duo nebs scheduled every 4 hours Maintain head of bed 30 Wean FIO2 to maintain PaO2 > 60 ABG - 7.41/29/77/29/4.7 on FiO2 of 50% Pulmonology consult-follow up recommendations Maintain sats O2 sat greater than 89-90%, ensure PaO2 > 60mmhg Continue CPAP trials as tolerated CTA 07/24-left lung base nodule 06/29 2.01.4 cm nodule posterior aspect left lower lung 07/27-CT guided thoracentesis-2.4 L removed, cultures and cytology pending 07/30 Lasix 20 mg daily 08/01 plan bronchoscopy with BAL Cardiovascular: Coronary artery disease Cardiomegaly Hypertension Paroxysmal Atrial fibrillation 07/29, 07/31, 08/01 Restart Cardizem infusion and begin increase Cardizem by mouth to 90 mg every 6 hours (home medication), discontinue amiodarone, will attempt to use calcium channel blockers and beta blockers in the setting of pulmonary dysfunction, and pre-existing pulmonary fibrosis 08/02 Telemetry -atrial fibrillation 90's-low 100's Continue statin, aspirin (home medication) Continue Plavix 75 g daily at bedtime 08/02 cardiology consult-appreciate recommendations Renal: Hyperkalemia Monitor BMP Potassium 6.1 this a.m., Lasix 20 mg IV given Follow-up BMP today Lasix 20 mg daily -- Strict I/Os FEN/GI: Replete electrolytes per ICU protocol Tube feeds initiated Glucerna 1.5@goal, minimal residual Bowel regimen BM 07/31 Heme/ID: Lactic acidosis-resolved Anemia of chronic disease Persistent Leukocytosis History of MRSA Follow-up cultures ID consulted -Dr. Person WBC17->19-> 25 today 07/26-Legionella and influenza negative 07/27-pleural fluid-NGTD 08/01-obtain blood and urine cultures 08/01-bronchoscopy with BAL Monitor CBC Lactate WNL Endocrine: Diabetes mellitus Hyperglycemia of critical illness Glucose monitoring per ICU protocol Medium dose sliding scale, increase Levemir 30 units every 12 hours -- SSI Prophylaxis: GI Prophylaxis Protonix DVT Prophylaxis -- SCDs Heparin 5000u subcutaneous 3 times a day Lines: Peripheral IVs. Central line if indicated Dispo: Discussed with family present and ENTERPRISE RESOURCE ANALYST at bedside. This patient remains critically ill with one or more organ systems which are or may become a threat to life. I have spent in excess of 39 minutes discontinuously in the care and management of this patient. This time is exclusive of procedures, and includes, but is not limited to, evaluation of the patient, review of the medical record, discussions with family, consultants, nursing staff, or respiratory therapy, and documentation in the medical record. Physician Willow Casiano MD Aug 02, 2016 13:07
[2016-08-02] MEDS: FREE WATER G-TUBE SCH ×2 (13:52→20:10)
[2016-08-02] MEDS ORDERED: PIPERACIL-TAZO 3.375 GM PREMIX 50 ML IV SCH (15:00)
[2016-08-02] MEDS: METOPROLOL TARTRATE 25 MG TAB PO SCH ×2 (15:15→20:08)
--- NOTE | 2016-08-02 15:32 | MB ---
cc: KATHRYN MILLER MD DATE OF CONSULTATION: 08/02/2016. REASON FOR CONSULTATION: Atrial fibrillation. HISTORY OF PRESENT ILLNESS: The patient is an 80-year gentleman who I believe sees my partner, Dr. Gerardo, who presented with a COPD exacerbation and ended up intubated. He has intermittently had a rapid atrial fibrillation for which he does have a history. I have been asked to assist with his medication regimen. Currently the patient is intubated and sedated. All history is obtained from the chart. PAST MEDICAL HISTORY: 1. COPD on continuous oxygen at home. 2. Coronary artery disease. 3. Diabetes. 4. Atrial fibrillation (apparently not on anticoagulation). 5. Hypothyroidism. 6. Depression. CURRENT MEDICATIONS: 1. Zosyn. 2. Heparin drip. 3. Cardizem drip. 4. Lasix 20 milligrams IV daily. 5. Imdur 30 milligrams daily. 6. Aspirin 81 milligrams daily. ALLERGIES: Sulfa. PHYSICAL EXAMINATION: VITAL SIGNS: Temperature 99.1, heart rate 122, blood pressure 126/54, satting 93 on 55% FIO2. GENERAL: In general, intubated and sedated. NECK: No jugular venous distention. LUNGS: Decreased breath sounds with ventilator sounds appreciated. CARDIOVASCULAR: Irregularly irregular rhythm with a mildly rapid rate. No murmurs appreciated. ABDOMEN: Benign. EXTREMITIES: No edema. LABORATORY DATA: Sodium 145, potassium 4.8, chloride 107, bicarbonate 30.9, BUN 71, creatinine 1.59, glucose 235. INR is 1.0. White count 29.7, hematocrit 30.1, platelets 217,000. EKGS: EKG showed sinus rhythm at 85 with right bundle-branch block and left anterior fascicular block. Current telemetry shows an atrial fibrillation about 90 to 100 beats per minute. IMPRESSION: 1. Atrial fibrillation. The patient with chronic paroxysmal atrial fibrillation and COPD has had intermittently rapid ventricular rates which is very difficult to control in the setting of an acute COPD exacerbation due to the disease itself as well as the medications required to treat COPD. His rates have been relatively reasonable. I have added oral Cardizem and Lopressor in an attempt to wean off the Cardizem drip. He is on anticoagulation and his daughter who is at the bedside, is not sure about this one way or the other and I will defer further recommendations regarding his anticoagulation to his primary clipper automatic who will return tomorrow. Further recommendations will be based on the clinical course. Thank you again for the opportunity to participate in this patient's care. MD WILI Allison/SARANYA /2:50 PM /3:25 PM
[2016-08-02] MEDS: CEFEPIME INJ 2,000 MG in SODIUM CHLORIDE 0.9% INJ 100 ML IV SCH (16:47)
[2016-08-02] MEDS: ATORVASTATIN 20 MG TAB PO SCH (20:08)
[2016-08-02] MEDS: CLOPIDOGREL 75 MG TAB PO SCH (20:09)
[2016-08-03] VITALS (19 sets, daily range): BP systolic 99–140; BP diastolic 49–67; PULSE 93–129; RESP 22; TEMP 99.5–101; O2SAT 88–100
[2016-08-03] MEDS: METOPROLOL TARTRATE 5 MG/5 ML VIAL IV PUSH PRN (02:50)
[2016-08-03] MEDS: ACETAMINOPHEN 325 MG TAB PO PRN ×3 (02:53→16:29)
[2016-08-03] MEDS: RESP: ALBUTEROL 2.5 MG/IPRATROPIUM 0.5 MG NEB (SCH) INH ×6 (03:40→23:25)
[2016-08-03] MEDS: CHLORHEXIDINE GLUCONATE 2 % 1 PACK (2 CLOTHS) TOP SCH (04:00)
[2016-08-03] MEDS: CEFEPIME INJ 2,000 MG in SODIUM CHLORIDE 0.9% INJ 100 ML IV SCH (04:19)
[2016-08-03] MEDS: FREE WATER G-TUBE SCH ×4 (05:00→20:19)
[2016-08-03 05:25] LABS: MEAN CELL VOLUME 84.9 FL (80.0-100.0); MEAN CORPUSCULAR HGB CONC 31.8 % (32.0-36.0); PLATELET COUNT 199 TH/MM3 (150-450); RED BLOOD COUNT 3.29 MIL/MM3 (4.50-5.90); WHITE BLOOD COUNT 30.3 TH/MM3 (4.0-11.0)
[2016-08-03] MEDS: LEVOTHYROXINE SODIUM 112 MCG TAB PO SCH (05:35)
[2016-08-03] MEDS: INSULIN NovoLIN REGULAR SUPPLEMENTAL SCALE SQ SCH ×4 (05:36→23:30)
[2016-08-03] MEDS: HEPARIN SODIUM - SQ 10,000 UNITS/ML VIAL SQ SCH ×3 (05:36→20:19)
[2016-08-03 05:43] LABS: REVIEW FLAG FINAL
[2016-08-03 05:45] LABS: MAGNESIUM 3.1 MG/DL (1.5-2.5); POTASSIUM 4.2 MEQ/L (3.5-5.1)
--- NOTE | 2016-08-03 06:16 | RADRPT ---
EXAM DATE/TIME: 08/03/2016 03:55 [facility] COMPARISON: CHEST SINGLE AP, July 31, 2016, 13:25. INDICATIONS : Shortness of breath. possible pulmonary disease. MEDICAL HISTORY : Hypertension. Cardiovascular disease. Chronic obstructive pulmonary disease. SURGICAL HISTORY : None. ENCOUNTER: Subsequent ACUITY: 4 - 6 days PAIN SCORE: Non-responsive. LOCATION: Bilateral chest FINDINGS: A single view of the chest demonstrates the endotracheal tube, nasogastric tube are both in good posi tion. Persistent areas of consolidation in the left lung with a pleural effusion are unchanged. Righ t lung remains relatively clear.. Osseous structures are intact. CONCLUSION: Stable area of opacification throughout the left lung. ET tube in good position Dav Santana MD on August 03, 2016 at 6:12 Board Certified Radiologist. This report was verified electronically.
[2016-08-03] MEDS: RESP: BUDESONIDE 0.25 MG/2 ML NEB NEB SCH ×2 (08:28→20:25)
--- NOTE | 2016-08-03 08:56 | PD.CARD.PN ---
Subjective Subjective Remarks Intubated Objective Medications Current Medications Medications (Trade) Dose Ordered Sig/Nya Route Start Time Stop Time Status Last Admin (NS Flush) 2 ml UNSCH PRN IVF 07/24/16 13:00 07/31/16 21:07 (Protonix Inj) 40 mg DAILY IV 07/24/16 16:00 08/02/16 08:28 Miscellaneous Information 1 Q361D XX 07/24/16 15:45 (Chlorhexidine 2% Cloth) Taper DAILY@04 TOP 07/25/16 04:00 07/21/17 03:59 08/03/16 04:00 (Chlorhexidine 2% Cloth) 3 pack UNSCH PRN TOP 07/24/16 15:45 (Lipitor) 20 mg HS PO 07/24/16 21:00 08/02/16 20:08 (Plavix) 75 mg HS PO 07/24/16 21:00 08/02/16 20:09 (Symbicort 160-4.5 Inh) 2 puff Q12HR INH 07/24/16 21:00 08/02/16 20:07 (PROzac) 40 mg DAILY PO 07/25/16 10:00 08/02/16 08:29 Metoprolol Tartrate 2.5 mg 2.5 mg Q6H PRN IV PUSH 07/25/16 09:00 08/03/16 02:50 Potassium Chloride 100 ml @ 50 mls/hr Q2H PRN IV-CENTRAL 07/26/16 08:45 Potassium Chloride 100 ml @ 50 mls/hr Q2H PRN IV 07/26/16 08:45 07/26/16 09:21 Potassium Chloride 100 ml @ 25 mls/hr UNSCH PRN IV-CENTRAL 07/26/16 08:45 Potassium Chloride 100 ml @ 50 mls/hr Q2H PRN IV 07/26/16 08:45 (Magnesium Sulfate Inj/NS Inj) 100 ml @ 50 mls/hr UNSCH PRN IV 07/26/16 08:45 Magnesium Oxide 800 mg 800 mg UNSCH PRN PO 07/26/16 08:45 07/31/16 13:16 (Magnesium Sulfate Inj/NS Inj) 100 ml @ 50 mls/hr UNSCH PRN IV 07/26/16 08:45 Potassium Phosphate 2000 mg 2,000 mg Q4H PRN PO 07/26/16 08:45 07/30/16 08:49 (Sodium Phosphate Inj/NS 250 ml Inj) 250 ml @ 42 mls/hr UNSCH PRN IV 07/26/16 08:45 Potassium Phosphate 2000 mg 2,000 mg UNSCH PRN PO/TUBE 07/26/16 08:45 (Potassium Phosphate Inj/NS 250 ml Inj) 260 ml @ 42 mls/hr UNSCH PRN IV 07/26/16 08:45 Acetaminophen 650 mg 650 mg Q6H PRN PO 07/26/16 10:00 08/03/16 02:53 (Diprivan 1000 Mg/100ml Inj) 100 ml @ 0 mls/hr TITRATE IV 07/26/16 13:00 08/02/16 21:48 (Aspirin Chew) 81 mg DAILY PO 07/27/16 10:00 08/02/16 08:28 (Isordil) 30 mg DAILY PO 07/27/16 11:30 08/02/16 08:29 (D50w (Vial) Inj) 25 ml UNSCH PRN IV PUSH 07/27/16 13:15 (Glucagon Inj) 1 mg UNSCH PRN OTHER 07/27/16 13:15 (Senokot) 8.6 mg Q12HR PO 07/28/16 21:00 08/02/16 20:09 Docusate Sodium 100 mg 100 mg Q12HR PO 07/28/16 21:00 08/02/16 20:08 (fentaNYL DRIP) 250 ml @ 0 mls/hr TITRATE IV 07/28/16 16:15 08/01/16 21:49 (Versed Inj) 2 mg Q4HR PRN IV PUSH 07/30/16 14:00 08/01/16 14:49 Furosemide 20 mg 20 mg DAILY IV PUSH 07/30/16 14:00 08/02/16 08:28 (Cardizem Inj/NS Inj) 125 ml @ 0 mls/hr TITRATE IV 07/31/16 18:00 08/02/16 15:53 (SoluMEDROL INJ) 40 mg Q12HR IV PUSH 07/31/16 21:00 08/02/16 20:08 (Levemir Inj) 30 units Q12HR SQ 08/01/16 21:00 08/02/16 20:09 (Heparin Inj) 5,000 units Q8HR SQ 08/01/16 14:00 08/03/16 05:36 (Free Water) VOLUME: 100 ML Q8HR G-TUBE 08/02/16 14:00 08/03/16 05:00 (Cardizem) 90 mg QID PO 08/02/16 18:00 08/02/16 20:08 Metoprolol Tartrate 25 mg 25 mg Q12HR PO 08/02/16 14:45 08/02/16 20:08 (Maxipime Inj/NS Inj) 100 ml @ 200 mls/hr Q12H IV 08/02/16 16:00 08/03/16 04:19 (Synthroid) 112 mcg DAILY@06 PO 08/03/16 06:00 08/03/16 05:35 Vital Signs / I&O Vital Signs Date Time Temp Pulse Resp B/P Pulse Ox O2 Delivery O2 Flow Rate FiO2 08/03/16 06:00 129 08/03/16 04:00 99.5 128 22 110/62 90 129/53 08/03/16 04:00 128 08/03/16 04:00 55 08/03/16 03:53 90 55 08/03/16 02:00 105 08/03/16 01:10 91 55 08/03/16 00:00 55 08/03/16 00:00 99.5 93 22 107/56 92 138/61 08/03/16 00:00 93 08/02/16 22:37 92 55 08/02/16 22:00 98 08/02/16 20:00 55 08/02/16 20:00 87 08/02/16 20:00 99.3 87 22 96/61 93 130/53 08/02/16 19:38 92 55 08/02/16 16:02 92 55 08/02/16 16:00 100.0 82 22 104/61 92 129/55 08/02/16 16:00 55 08/02/16 12:00 100.1 82 22 94/51 94 107/45 08/02/16 12:00 50 08/02/16 11:28 93 55 I/O 08/02/16 08/02/16 08/02/16 08/03/16 08/03/16 08/03/16 07:00 15:00 23:00 07:00 15:00 23:00 Intake Total 1292 ml 1200 ml 923 ml 705 ml Output Total 375 ml 520 ml 500 ml 475 ml Balance 917 ml 680 ml 423 ml 230 ml IV Total 815 ml 600 ml 420 ml 325 ml Tube Feeding 377 ml 400 ml 403 ml 320 ml Other 100 ml 200 ml 100 ml 60 ml Output Urine Total 375 ml 520 ml 500 ml 475 ml Stool Total 0 ml 0 ml 0 ml # Bowel Movements 0 Physical Exam GENERAL: Well developed, well nourished. No acute distress. HEENT: Jugular venous pressure is normal. CHEST: Lungs diminished to auscultation bilaterally. On vent CARDIAC: Irregular rate and rhythm without S3, S4, or murmur. ABDOMEN: Soft, nontender, no hepatosplenomegaly. Bowel sounds present. EXTREMITIES: No edema. Laboratory Laboratory Tests Test 08/03/16 04:20 White Blood Count 30.3 TH/MM3 Red Blood Count 3.29 MIL/MM3 Hemoglobin 8.9 GM/DL Hematocrit 28.0 % Mean Corpuscular Volume 84.9 FL Mean Corpuscular Hemoglobin 27.0 PG Mean Corpuscular Hemoglobin 31.8 % Concent Red Cell Distribution Width 18.0 % Platelet Count 199 TH/MM3 Mean Platelet Volume 10.2 FL Sodium Level 148 MEQ/L Potassium Level 4.2 MEQ/L Chloride Level 109 MEQ/L Carbon Dioxide Level 31.0 MEQ/L Anion Gap 8 MEQ/L Blood Urea Nitrogen 88 MG/DL Creatinine 1.59 MG/DL Estimat Glomerular Filtration 42 ML/MIN Rate Random Glucose 207 MG/DL Calcium Level 7.9 MG/DL Phosphorus Level 3.6 MG/DL Magnesium Level 3.1 MG/DL Imaging Last 24 hours Impressions Chest X-Ray 08/03/16 0600 Signed Impressions: Service Date/Time: Wednesday, August 03, 2016 03:55 - CONCLUSION: Stable area of opacification throughout the left lung. ET tube in good position Dav Santana MD Assessment and Plan Problem List: (1) COPD exacerbation Assessment and Plan: on vent. (2) Coronary artery disease Assessment and Plan: Last cath 03/18/2015 showed distal RCA and distal LAD disease. Medical management. LV function nl. (3) Peripheral artery disease Assessment and Plan: Prior right SFA stent (4) Paroxysmal atrial fibrillation with rapid ventricular response Assessment and Plan: Cont Dilt, BB, heparin Soham Gerardo MD Aug 03, 2016 08:56
[2016-08-03] MEDS: BUDESONIDE-FORMOTEROL 160/4.5 MCG INHALER INH SCH ×2 (09:00→20:17)
[2016-08-03] MEDS: METOPROLOL TARTRATE 25 MG TAB PO SCH ×2 (09:28→20:18)
[2016-08-03] MEDS: FLUoxetine HCL 20 MG CAP PO SCH (09:28)
[2016-08-03] MEDS: SENNOSIDES 8.6 MG TAB PO SCH ×2 (09:28→20:18)
[2016-08-03] MEDS: DILTIAZEM HCL 90 MG TAB PO SCH ×4 (09:29→20:17)
[2016-08-03] MEDS: ISOSORBIDE DINITRATE 10 MG TAB PO SCH (09:29)
[2016-08-03] MEDS: ASPIRIN 81 MG CHEW TAB PO SCH (09:29)
[2016-08-03] MEDS: methylPREDNISolone SOD SUCC 125 MG/2 ML VIAL IV PUSH SCH ×2 (09:30→20:17)
[2016-08-03] MEDS: PANTOPRAZOLE SODIUM 40 MG VIAL IV SCH (09:31)
[2016-08-03] MEDS: DOCUSATE SODIUM 100 MG/10 ML UDC PO SCH ×2 (09:31→20:17)
[2016-08-03] MEDS: FUROSEMIDE 20 MG/2 ML VIAL IV PUSH SCH (09:31)
[2016-08-03] MEDS: INSULIN DETEMIR 100 UNITS/ML VIAL SQ SCH ×2 (10:18→20:19)
[2016-08-03] MEDS: PROPOFOL 1000 MG/100 ML INJ 100 ML IV SCH ×2 (12:12→21:00)
[2016-08-03] MEDS: fentaNYL 2,500 MCG/NS 250 ML IV SCH (12:13)
--- NOTE | 2016-08-03 12:42 | HHI.CCPN ---
Subjective Remarks/Hospital Course The patient is an 80-year-old male with past medical history of COPD on 3 L/m home oxygen continuously in addition to nebulizer, history of hypertension and diabetes mellitus, hyperlipidemia, and hypothyroidism. He presented to [facility] ED with a one-week history of progressive dyspnea. The patient denies any associated symptoms such as orthopnea, PND or edema of the lower extremities. He is being followed by Dr. booker, his outpatient funnel coater, and Dr. Gerardo his mangle roller. He denies any nausea vomiting or abdominal pain. Upon arrival to the ED, the patient was hypoxic with O2 saturation in the 70s on nasal cannula and he was subsequently placed on a nonrebreather mask and O2 sats of 94%. Chest x-ray upon arrival showed patchy airspace disease bilateral with coarse pleural changes. CT angiogram of his chest was obtained which showed no evidence of pulmonary embolus however, it showed interstitial fibrotic changes with multiple emphysematous blebs and left-sided pleural effusion. Also a 2 x 1.4 cm nodule was seen in the posterior aspect of the left lower lobe. In the emergency room he was given 500 cc of normal saline, vancomycin, cefepime, DuoNeb, Solu-Medrol 125 mg IV push and magnesium sulfate. Nasal washings were negative for influenza. Critical care medicine was consult for management. Subjective 07/25: Early this a.m. patient was noted to be on a nonrebreather mask with O2 sats in the 80s. The patient apparently has significant history for obstructive sleep apnea at which point he utilizes a CPAP machine at home. The place and was placed on CPAP with O2 sats 94%. Plan today to wean to high flow nasal cannula and aggressive pulmonary toileting, continue dosing of antibiotics. 07/26: The patient was weaned yesterday to high flow nasal cannula, to maintain an O2 sat of 90%. Patient was additionally diuresed with Lasix 40 mg approximately 1 L output yesterday. The patient was able to tolerate a clear liquid diet, diet advance to heart healthy this a.m.. The patient was noted to have an elevation in WBC count despite empiric antibiotics. ID consulted. 07/27: Afebrile. Yesterday afternoon the patient had hypoxic respiratory failure and required emergent intubation, secondary to decompensation. Plan for IR to do a CT-guided thoracentesis secondary to the numerous blebs and layering of fluid, unable to be performed at bedside. Thoracentesis performed approximately 2.4 L removed today the patient is now down to FiO2 of 50% .PEEP 8 with plan for weaning as clinically tolerated. 07/28: Overnight the patient became confused and self extubated at 12 midnight. The patient was maintained on BiPAP for several hours received Haldol, and Precedex. The patient subsequently was reintubated at 5:30 this morning after obtaining ABGs. Postintubation ABGs 7.36/44/108/25/05. The patient is now sedated, weaning FiO2 requirements. 07/29: Afebrile. Patient was noted to go into atrial fibrillation with a heart rate in the 150s last night. Received a bolus of Cardizem with subsequent Cardizem infusion. Resolution of atrial fib heart rate 90s, now normal sinus rhythm. The patient was noted to have ventilator dyssynchrony, the patient was bolused with Versed 5 mg IV, with resolution. Ventilator O2 requirements were successfully decreased to FiO2 of 40%. 07/30: The patient's FiO2 was increased to 55% overnight, the patient opted mechanical vent settings unchanged. The patient became agitated last night and required additional sedation. Versed when necessary added to medication regimen. The patient is continued on ARDS protocol, with goals of diminishing FiO2 with maintaining PEEP. The patient has currently been weaned down this morning to 45%. The patient blood glucose is still elevated most likely secondary to his steroid medication regimen in setting of diabetes mellitus. Levemir increased, steroids now being weaned. Pleural fluid cultures preliminarily negative. 07/31: The patient went into A. fib RVR, Cardizem bolused 15 mg, followed by 10 mg and an infusion was initiated. The patient continues to have elevation in WBC count, ID following. ABGs this a.m. showed a PaO2 of 76 on 45%. However in the setting of A. fib ABG was drawn and PaO2 decreased, FiO2 was increased to 50% ABG now pending this evening. The patient continues on propofol and fentanyl infusion. The patient responding adequately to diuresis with Lasix. 08/01: Afebrile. Last evening the patient went into A. fib with a rate of 150s. 25 mg IV bolus of Cardizem was given in 2 doses, patient was placed on a Cardizem infusion. The patient was then changed to an amiodarone bolus and amiodarone infusion, with subsequent conversion to normal sinus rhythm. The patient has remained in normal sinus rhythm, normotensive overnight. Amiodarone has been discontinued. The patient has been placed on Cardizem PO at increased dosage every 6 hours. 08/02:Afebrile. Yesterday daily patient was in normal sinus rhythm, and placed back Cardizem. The patient continued in normal sinus rhythm. A bronchoscopy was performed with BAL, postprocedure the patient went into A. fib RVR Cardizem infusion instituted. After bolus of Cardizem 20 mg. A. fib has remained rate controlled in the 's. Cardiology has been consult regarding paroxysmal A. fib . The patient was placed on CPAP and was maintained for approximately 3 hours yesterday. We'll resume CPAP trials today. 08/03 Patient remains intubated and sedated with Diprivan and Fentanyl. T max 100.1. Off Cardizem drip remains in Afib RVR Objective Vital Signs Date Time Temp Pulse Resp B/P Pulse Ox O2 Delivery O2 Flow Rate FiO2 08/03/16 11:30 22 08/03/16 11:22 88 60 08/03/16 06:00 129 08/03/16 04:00 99.5 110/62 129/53 Intake and Output 08/02/16 08/02/16 08/03/16 08:00 16:00 00:00 Intake Total 1292 ml 1200 ml 923 ml Output Total 375 ml 520 ml 500 ml Balance 917 ml 680 ml 423 ml Result Diagram: 08/03/16 0420 08/03/16 0420 Other Results Laboratory Tests Test 08/03/16 04:20 White Blood Count 30.3 TH/MM3 Red Blood Count 3.29 MIL/MM3 Hemoglobin 8.9 GM/DL Hematocrit 28.0 % Mean Corpuscular Volume 84.9 FL Mean Corpuscular Hemoglobin 27.0 PG Mean Corpuscular Hemoglobin 31.8 % Concent Red Cell Distribution Width 18.0 % Platelet Count 199 TH/MM3 Mean Platelet Volume 10.2 FL Sodium Level 148 MEQ/L Potassium Level 4.2 MEQ/L Chloride Level 109 MEQ/L Carbon Dioxide Level 31.0 MEQ/L Anion Gap 8 MEQ/L Blood Urea Nitrogen 88 MG/DL Creatinine 1.59 MG/DL Estimat Glomerular Filtration 42 ML/MIN Rate Random Glucose 207 MG/DL Calcium Level 7.9 MG/DL Phosphorus Level 3.6 MG/DL Magnesium Level 3.1 MG/DL Imaging Last Impressions Chest X-Ray 08/03/16 0600 Signed Impressions: Service Date/Time: Wednesday, August 03, 2016 03:55 - CONCLUSION: Stable area of opacification throughout the left lung. ET tube in good position Dav Santana MD Thoracentesis 07/27/16 0000 Signed Impressions: Service Date/Time: Wednesday, July 27, 2016 10:18 - CONCLUSION: Uncomplicated CT-guided left thoracentesis. Sample was saved and sent to lab for evaluation, as ordered. Tate Street MD CT Angiography 07/24/16 1450 Signed Impressions: Service Date/Time: Sunday, July 24, 2016 15:29 - CONCLUSION: 1. No pulmonary embolus identified. 2. Advanced COPD. 3. Interval development of a large left pleural effusion. There is diffuse interstitial prominence and cardiomegaly. Exam would suggest congestive failure. 4. Nodule at the left lung base which was seen on previous dated 06/29/16 is obscured by the pleural effusion. Raymond Stewart MD Objective Remarks GENERAL: Well-developed, obese male, currently intubated and sedated on propofol and fentanyl infusion SKIN: Warm and dry. HEAD: Atraumatic. Normocephalic. EYES: Pupils equal and round. No scleral icterus. No injection or drainage. ENT: No nasal bleeding or discharge. Mucous membranes pink and moist. Orotracheally intubated. NECK: Trachea midline. No JVD. CARDIOVASCULAR: Normal rate, regular rhythm. RESPIRATORY: Mechanical ventilation.No accessory muscle use. Breath sounds clear to auscultation, noted decrease breath sounds left. GASTROINTESTINAL: Abdomen soft, non-tender, nondistended. No guarding.Glucerna 1.5-tube feeds infusing MUSCULOSKELETAL: Extremities without clubbing, cyanosis, 2+ peripheral edema. No obvious deformities. NEUROLOGICAL: GCS 11 T Date of Insertion: Jul 26, 2016 A/P Assessment and Plan Plan by systems: Neurologic: Anxiety disorder H/O PTSD Pain Continue Prozac 40 mg daily Acetaminophen 650 every 6 hours when necessary for temperature > 101.0 Fentanyl and propofol infusions for sedation for ventilator synchrony. Daily sedation vacation when appropriate. Respiratory: COPD exacerbation Pulmonary edema Acute on chronic respiratory failure RADHA Acute hypoxic respiratory failure 07/26 Intubated-8.0 ETT On PRVC RR 22, TV 550, PEEP:9, FIO2 60%. Continue antibiotics per ID Methylprednisolone 40 mg 12 hours Continue duo nebs scheduled every 4 hours Maintain head of bed 30 Pulmonary is following-Dr. Gayle CPAP trials when appropriate CTA 07/24-left lung base nodule 06/29 2.01.4 cm nodule posterior aspect left lower lung 07/27-CT guided thoracentesis-2.4 L removed, cultures and cytology pending Cardiovascular: Coronary artery disease Cardiomegaly Hypertension Paroxysmal Atrial fibrillation 07/29, 07/31, Monitor HR and BP keep MAP>65mmHg. On Cardizem 90mg QID, increase Lopressor 50mg Q12 Continue statin, aspirin (home medication) Continue Plavix 75 g daily at bedtime 08/02 cardiology is following Renal: Monitor renal function, I/O's, electrolytes replacement as needed. Lasix 20 mg daily Increase Free water 250ml Q8 monitor sodium level. FEN/GI: Replete electrolytes per ICU protocol Tube feeds initiated Glucerna 1.5@ 60ml/hr Heme/ID: Lactic acidosis-resolved Anemia of chronic disease Persistent Leukocytosis History of MRSA Continue with abx per ID (Cefepime, Zithromax)monitor for signs of infections ( Fever, WBC) 07/26-Legionella and influenza negative 07/27-pleural fluid-NGTD 08/01-obtain blood and urine cultures 08/01-bronchoscopy with BAL Monitor CBC Endocrine: Diabetes mellitus Hyperglycemia of critical illness Medium dose sliding scale, Levemir 30 units every 12 hours -- SSI Prophylaxis: GI Prophylaxis Protonix DVT Prophylaxis -- SCDs Heparin 5000u subcutaneous 3 times a day Lines: Peripheral IVs. CCT 30 mins Aidee Mcghee MD Aug 03, 2016 12:42
[2016-08-03] MEDS ORDERED: ASP: Other exception documentation: ( ) PRN (13:45)
[2016-08-03] MEDS ORDERED: Vancomycin Consult Pharmacy 1 EA OTHER SCH (13:45)
[2016-08-03] MEDS ORDERED: MISCELLANEOUS PHARMACY INFORMATION XX PRN (13:45)
--- NOTE | 2016-08-03 14:04 | HHI.IDPN ---
Subjective Subjective Remarks is an 80 y/o CM with PMHx of COPD, pulm fibrosis and emphysema on 3L Oxygen at home at baseline who sees Hatchery Attendant. His PMHx is also significant for HTN, diabetes mellitus, hyperlipidemia and hypothyroidism. He presented to [facility] ED with a one-week history of progressive worsening shortness of breath. The patient denies any associated symptoms of orthopnea, PND or edema of lower extremities. His advertisement distributor is Dr. eGrardo from cardiology. On arrival to the ED, the patient was hypoxic with O2 saturation in the 70s on NC and he was subsequently placed on a non-rebreather mask with a saturation of 94%. Chest x-ray on arrival showed patchy airspace disease bilaterally with coarse pleural changes. Due to his respiratory distress, CT angiogram of the chest was obtained which showed no evidence of a pulmonary embolism, however, it showed interstitial fibrotic changes with multiple emphysematous blebs and left-sided pleural effusion. Also a 2 x 1.4 cm nodule was seen in the posterior aspect of the left lower lobe. In the emergency room, he was given 500 mL of normal saline, vancomycin, cefepime, DuoNeb, Solu-Medrol 125 mg IV push and magnesium sulfate. His labs notable for lactic acid of 6.4 and leukocytosis with a WBC count of 19.1. The patient was admitted last month on June 29 with similar presentation and he also had a CT angiogram of the chest at that time which showed advanced COPD along with pulmonary fibrosis. Nasal washing in the ER negative for influenza. The patient denies any nausea, vomiting or any abdominal pain. ID following for HCAP, Pleural effusion. Overnight events reviewed. Fevers, elevated WBC at 30 k overnight. Not on pressors. Remains on Vent. On Fentanyl and Diprivan. No rash No diarrhea Antibiotics Cefepime IV Lines Line sites with no e.o infection. Past Medical History reviewed Allergies: Coded Allergies: Sulfa (Verified Allergy, Unknown, CAN'T RECALL , 06/29/16) *MDRO Multi-Drug Resistant Organism (Verified Adverse Reaction, Unknown, ) MRSA PCR Screen POSITIVE - 06/30/2016, 07/24/16 Objective . Vital Signs Date Time Temp Pulse Resp B/P Pulse Ox O2 Delivery O2 Flow Rate FiO2 08/03/16 12:15 100 50 08/03/16 12:00 128 08/03/16 12:00 101.0 128 22 99/55 92 117/49 08/03/16 11:30 22 08/03/16 11:22 88 60 08/03/16 10:00 126 08/03/16 08:00 101.0 114 22 120/67 91 139/59 08/03/16 08:00 114 08/03/16 06:00 129 08/03/16 04:00 99.5 128 22 110/62 90 129/53 08/03/16 04:00 128 08/03/16 04:00 55 08/03/16 03:53 90 55 08/03/16 02:00 105 08/03/16 01:10 91 55 08/03/16 00:00 55 08/03/16 00:00 99.5 93 22 107/56 92 138/61 08/03/16 00:00 93 08/02/16 22:37 92 55 08/02/16 22:00 98 08/02/16 20:00 55 08/02/16 20:00 87 08/02/16 20:00 99.3 87 22 96/61 93 130/53 08/02/16 19:38 92 55 08/02/16 16:02 92 55 08/02/16 16:00 100.0 82 22 104/61 92 129/55 08/02/16 16:00 55 08/02/16 08/02/16 08/03/16 15:00 23:00 07:00 Intake Total 1200 ml 923 ml 705 ml Output Total 520 ml 500 ml 475 ml Balance 680 ml 423 ml 230 ml IV Total 600 ml 420 ml 325 ml Tube Feeding 400 ml 403 ml 320 ml Other 200 ml 100 ml 60 ml Output Urine Total 520 ml 500 ml 475 ml Stool Total 0 ml 0 ml # Bowel Movements 0 . Laboratory Tests Test 08/02/16 08/03/16 03:50 04:20 White Blood Count 29.7 TH/MM3 30.3 TH/MM3 Red Blood Count 3.54 MIL/MM3 3.29 MIL/MM3 Hemoglobin 9.4 GM/DL 8.9 GM/DL Hematocrit 30.1 % 28.0 % Mean Corpuscular Volume 85.0 FL 84.9 FL Mean Corpuscular Hemoglobin 26.6 PG 27.0 PG Mean Corpuscular Hemoglobin 31.3 % 31.8 % Concent Red Cell Distribution Width 18.2 % 18.0 % Platelet Count 217 TH/MM3 199 TH/MM3 Mean Platelet Volume 9.8 FL 10.2 FL Laboratory Tests Test 08/02/16 08/03/16 03:50 04:20 Sodium Level 145 MEQ/L 148 MEQ/L Potassium Level 4.8 MEQ/L 4.2 MEQ/L Chloride Level 107 MEQ/L 109 MEQ/L Carbon Dioxide Level 30.9 MEQ/L 31.0 MEQ/L Anion Gap 7 MEQ/L 8 MEQ/L Blood Urea Nitrogen 71 MG/DL 88 MG/DL Creatinine 1.59 MG/DL 1.59 MG/DL Estimat Glomerular Filtration 42 ML/MIN 42 ML/MIN Rate Random Glucose 235 MG/DL 207 MG/DL Calcium Level 8.0 MG/DL 7.9 MG/DL Phosphorus Level 3.5 MG/DL 3.6 MG/DL Magnesium Level 2.9 MG/DL 3.1 MG/DL Microbiology Date/Time Procedure Status Source Growth 07/31/16 14:50 Gram Stain - Final Complete Sputum Endotracheal 07/31/16 14:50 Sputum Culture - Final Complete Sputum Endotracheal MODERATE GROWTH NORMAL RESPIRATORY ANISHA 08/01/16 10:07 Gram Stain - Final Resulted Bronchial Washings Bronchial 08/01/16 10:07 Bronchial Culture - Preliminary Resulted Gram Negative Marbin 08/01/16 10:07 Acid Fast Stain Received Bronchial Washings Bronchial Pending 08/01/16 10:07 Mycobacterial Culture Received Bronchial Washings Bronchial Pending 08/01/16 10:07 Fungal Smear - Final Resulted Bronchial Washings Bronchial NO FUNGAL ELEMENTS SEEN. 08/01/16 10:07 Fungal Culture Resulted Bronchial Washings Bronchial Pending 08/01/16 10:40 Aerobic Blood Culture - Preliminary Resulted Blood Peripheral NO GROWTH IN 2 DAYS 08/01/16 10:40 Anaerobic Blood Culture - Preliminary Resulted Blood Peripheral NO GROWTH IN 2 DAYS 08/01/16 10:45 Aerobic Blood Culture - Preliminary Resulted Blood Peripheral NO GROWTH IN 2 DAYS 08/01/16 10:45 Anaerobic Blood Culture - Preliminary Resulted Blood Peripheral NO GROWTH IN 2 DAYS 08/02/16 00:10 Urine Culture - Preliminary Resulted Urine Catheterized Urine NO GROWTH IN 24 HOURS. Imaging Last Impressions Chest X-Ray 07/26/16 0600 Signed Impressions: Service Date/Time: Tuesday, July 26, 2016 04:46 - CONCLUSION: 1. Left lung parenchymal disease especially in the left perihilar region appears also a moderate left effusion. 2. Milder interstitial disease in the right lung. A small right effusion may be present over the superior lateral right chest. Tate Parada MD CT Angiography 07/24/16 1450 Signed Impressions: Service Date/Time: Sunday, July 24, 2016 15:29 - CONCLUSION: 1. No pulmonary embolus identified. 2. Advanced COPD. 3. Interval development of a large left pleural effusion. There is diffuse interstitial prominence and cardiomegaly. Exam would suggest congestive failure. 4. Nodule at the left lung base which was seen on previous dated 06/29/16 is obscured by the pleural effusion. Raymond Stewart MD Physical Exam GENERAL: Elderly male patient, in mild respiratory distress. SKIN: No rashes, ecchymoses or lesions. Cool and dry. HEAD: Atraumatic. Normocephalic. No temporal or scalp tenderness. EYES: Pupils equal round and reactive. Extraocular motions intact. No scleral icterus. No injection or drainage. ENT: Nose without bleeding, purulent drainage or septal hematoma. Throat without erythema, tonsillar hypertrophy or exudate. Uvula midline. Airway patent. NECK: Trachea midline. Supple, nontender, no meningeal signs. CARDIOVASCULAR: RRR RESPIRATORY: Decreased air entry in left base. Occ wheezes. GASTROINTESTINAL: Abdomen soft, non-tender, nondistended. MUSCULOSKELETAL: Extremities without clubbing, cyanosis, or edema. NEUROLOGICAL: Awake and alert. Grossly nonfocal. Psych cooperative IV line sites with no evidence of infection. Assessment & Plan Remarks Sepsis (Leucocytosis, tachycardia, hypothermia,lactic acidemia) on admission Pneumonia (CAP vs HCAP) Acute respiratory failure Acute COPD exacerbation Acute renal failure on admission now resolved. CAD, PAD s/p stents and procedures. Recs: DC Cefepime IV Start Meropenem IV (ASP: persistent fevers despite Zosyn IV, Cefepime IV, ? new MDRO in GNR in sputum) Start Vanco IV (target bacteremia and HCAP) Start Micafungin IV (for possible fungemia was on Broad spectrum antibiotics) Start oral flagyl for possible Cdiff (will reassess in am) Follow cultures Follow clinically. d/w RN, Dr. Mcghee. Slime Person MD Aug 03, 2016 14:04
[2016-08-03 14:27] LABS: BLOOD GAS BASE EXCESS 1.8 mmol/L (-2-2); BLOOD GAS CARBOXYHEMOGLOBIN 1.7 % (0-4); BLOOD GAS HCO3 27 mmol/L (22-26); BLOOD GAS METHEMOGLOBIN 1.4 % (0-2); BLOOD GAS O2 HGB SATURATION 93 % (90-100); BLOOD GAS OXYGEN CONTENT 17.4 Vol % (12.0-20.0); BLOOD GAS PCO2 47 mmHg (38-42); BLOOD GAS PO2 87 mmHg (61-120); BLOOD GAS TOTAL HGB 13.3 G/DL (12.0-16.0); CRITICAL VALUE NO; OXYGEN DEVICE VENT; TEMP CORR TO 98.6
[2016-08-03 14:28] LABS: DRAW SITE ALINE; FIO2 60 %; STAT NO
[2016-08-03] MEDS ORDERED: VANCOMYCIN INJ 1,750 MG in SODIUM CHLORID 0.9% 500 ML INJ 500 ML IV ONE (16:00)
[2016-08-03] MEDS: MICAFUNGIN INJ 150 MG in SODIUM CHLORIDE 0.9% INJ 100 ML IV SCH (16:21)
[2016-08-03] MEDS: metroNIDAZOLE 500 MG TAB PO SCH ×2 (16:22→20:19)
[2016-08-03] MEDS: MEROPENEM INJ 500 MG in SODIUM CHLORIDE 0.9% INJ 100 ML IV SCH ×2 (16:22→23:30)
[2016-08-03] MEDS: ATORVASTATIN 20 MG TAB PO SCH (20:17)
[2016-08-03] MEDS: CLOPIDOGREL 75 MG TAB PO SCH (20:18)
[2016-08-04] VITALS (18 sets, daily range): BP systolic 87–120; BP diastolic 48–65; PULSE 97–137; RESP 22; TEMP 98.1–100.9; O2SAT 88–99
[2016-08-04] MEDS: RESP: ALBUTEROL 2.5 MG/IPRATROPIUM 0.5 MG NEB (SCH) INH ×5 (03:44→23:14)
[2016-08-04] MEDS: CHLORHEXIDINE GLUCONATE 2 % 1 PACK (2 CLOTHS) TOP SCH (04:00)
[2016-08-04] MEDS: metroNIDAZOLE 500 MG TAB PO SCH ×3 (04:40→20:37)
[2016-08-04] MEDS: FREE WATER G-TUBE SCH ×3 (04:40→20:37)
[2016-08-04] MEDS: ACETAMINOPHEN 325 MG TAB PO PRN (04:41)
[2016-08-04] MEDS: HEPARIN SODIUM - SQ 10,000 UNITS/ML VIAL SQ SCH ×3 (04:41→20:37)
[2016-08-04] MEDS: PROPOFOL 1000 MG/100 ML INJ 100 ML IV SCH (04:41)
[2016-08-04] MEDS: LEVOTHYROXINE SODIUM 112 MCG TAB PO SCH (04:41)
[2016-08-04 04:46] LABS: BASOPHIL # 0.1 TH/MM3 (0-0.2); BASOPHIL % 0.2 % (0.0-2.0); HEMATOCRIT 30.6 % (39.0-51.0); LYMPH % 1.3 % (9.0-44.0); LYMPHOCYTE # 0.5 TH/MM3 (1.0-4.8); MEAN CORPUSCULAR HEMOGLOBIN 27.4 PG (27.0-34.0); MEAN CORPUSCULAR HGB CONC 31.8 % (32.0-36.0); MONO % 2.3 % (0.0-8.0); NEUT % 96.2 % (16.0-70.0); PLATELET COUNT 233 TH/MM3 (150-450); RED BLOOD COUNT 3.56 MIL/MM3 (4.50-5.90); RED CELL DISTRIBUTION WIDTH 18.7 % (11.6-17.2); WHITE BLOOD COUNT 41.5 TH/MM3 (4.0-11.0)
[2016-08-04 04:59] LABS: HEMO FLAGS AUTO DIFF
[2016-08-04 05:22] LABS: BICARBONATE 27.8 MEQ/L (21.0-32.0); POTASSIUM 4.7 MEQ/L (3.5-5.1)
[2016-08-04] MEDS: INSULIN NovoLIN REGULAR SUPPLEMENTAL SCALE SQ SCH ×4 (05:34→23:00)
[2016-08-04] MEDS: fentaNYL 2,500 MCG/NS 250 ML IV SCH (06:24)
--- NOTE | 2016-08-04 07:32 | HHI.CCPN ---
Subjective Remarks/Hospital Course The patient is an 80-year-old male with past medical history of COPD on 3 L/m home oxygen continuously in addition to nebulizer, history of hypertension and diabetes mellitus, hyperlipidemia, and hypothyroidism. He presented to [facility] ED with a one-week history of progressive dyspnea. The patient denies any associated symptoms such as orthopnea, PND or edema of the lower extremities. He is being followed by Dr. booker, his outpatient lubricating engineer, and Dr. Gerardo his wire mesh knitter. He denies any nausea vomiting or abdominal pain. Upon arrival to the ED, the patient was hypoxic with O2 saturation in the 70s on nasal cannula and he was subsequently placed on a nonrebreather mask and O2 sats of 94%. Chest x-ray upon arrival showed patchy airspace disease bilateral with coarse pleural changes. CT angiogram of his chest was obtained which showed no evidence of pulmonary embolus however, it showed interstitial fibrotic changes with multiple emphysematous blebs and left-sided pleural effusion. Also a 2 x 1.4 cm nodule was seen in the posterior aspect of the left lower lobe. In the emergency room he was given 500 cc of normal saline, vancomycin, cefepime, DuoNeb, Solu-Medrol 125 mg IV push and magnesium sulfate. Nasal washings were negative for influenza. Critical care medicine was consult for management. Subjective 07/25: Early this a.m. patient was noted to be on a nonrebreather mask with O2 sats in the 80s. The patient apparently has significant history for obstructive sleep apnea at which point he utilizes a CPAP machine at home. The place and was placed on CPAP with O2 sats 94%. Plan today to wean to high flow nasal cannula and aggressive pulmonary toileting, continue dosing of antibiotics. 07/26: The patient was weaned yesterday to high flow nasal cannula, to maintain an O2 sat of 90%. Patient was additionally diuresed with Lasix 40 mg approximately 1 L output yesterday. The patient was able to tolerate a clear liquid diet, diet advance to heart healthy this a.m.. The patient was noted to have an elevation in WBC count despite empiric antibiotics. ID consulted. 07/27: Afebrile. Yesterday afternoon the patient had hypoxic respiratory failure and required emergent intubation, secondary to decompensation. Plan for IR to do a CT-guided thoracentesis secondary to the numerous blebs and layering of fluid, unable to be performed at bedside. Thoracentesis performed approximately 2.4 L removed today the patient is now down to FiO2 of 50% .PEEP 8 with plan for weaning as clinically tolerated. 07/28: Overnight the patient became confused and self extubated at 12 midnight. The patient was maintained on BiPAP for several hours received Haldol, and Precedex. The patient subsequently was reintubated at 5:30 this morning after obtaining ABGs. Postintubation ABGs 7.36/44/108/25/05. The patient is now sedated, weaning FiO2 requirements. 07/29: Afebrile. Patient was noted to go into atrial fibrillation with a heart rate in the 150s last night. Received a bolus of Cardizem with subsequent Cardizem infusion. Resolution of atrial fib heart rate 90s, now normal sinus rhythm. The patient was noted to have ventilator dyssynchrony, the patient was bolused with Versed 5 mg IV, with resolution. Ventilator O2 requirements were successfully decreased to FiO2 of 40%. 07/30: The patient's FiO2 was increased to 55% overnight, the patient opted mechanical vent settings unchanged. The patient became agitated last night and required additional sedation. Versed when necessary added to medication regimen. The patient is continued on ARDS protocol, with goals of diminishing FiO2 with maintaining PEEP. The patient has currently been weaned down this morning to 45%. The patient blood glucose is still elevated most likely secondary to his steroid medication regimen in setting of diabetes mellitus. Levemir increased, steroids now being weaned. Pleural fluid cultures preliminarily negative. 07/31: The patient went into A. fib RVR, Cardizem bolused 15 mg, followed by 10 mg and an infusion was initiated. The patient continues to have elevation in WBC count, ID following. ABGs this a.m. showed a PaO2 of 76 on 45%. However in the setting of A. fib ABG was drawn and PaO2 decreased, FiO2 was increased to 50% ABG now pending this evening. The patient continues on propofol and fentanyl infusion. The patient responding adequately to diuresis with Lasix. 08/01: Afebrile. Last evening the patient went into A. fib with a rate of 150s. 25 mg IV bolus of Cardizem was given in 2 doses, patient was placed on a Cardizem infusion. The patient was then changed to an amiodarone bolus and amiodarone infusion, with subsequent conversion to normal sinus rhythm. The patient has remained in normal sinus rhythm, normotensive overnight. Amiodarone has been discontinued. The patient has been placed on Cardizem PO at increased dosage every 6 hours. 08/02:Afebrile. Yesterday daily patient was in normal sinus rhythm, and placed back Cardizem. The patient continued in normal sinus rhythm. A bronchoscopy was performed with BAL, postprocedure the patient went into A. fib RVR Cardizem infusion instituted. After bolus of Cardizem 20 mg. A. fib has remained rate controlled in the s. Cardiology has been consult regarding paroxysmal A. fib . The patient was placed on CPAP and was maintained for approximately 3 hours yesterday. We'll resume CPAP trials today. 08/03 Patient remains intubated and sedated with Diprivan and Fentanyl. T max 100.1. Off Cardizem drip remains in Afib RVR 08/04 Patient remains sedated with Diprivan, Fentanyl and intubated. Persistent fever with Tmax 101.0 and increase WBC 41.5 from 30. In addition his renal function worse today with Cr: 2.61 today from 1.59. UO 800ml in 24 hrs Objective Vital Signs Date Time Temp Pulse Resp B/P Pulse Ox O2 Delivery O2 Flow Rate FiO2 08/04/16 06:00 120 08/04/16 04:08 90 60 08/04/16 04:00 100.9 22 94/56 114/55 Intake and Output 08/03/16 08/03/16 08/04/16 08:00 16:00 00:00 Intake Total 705 ml 1359 ml 1187 ml Output Total 475 ml 600 ml 200 ml Balance 230 ml 759 ml 987 ml Result Diagram: 08/04/16 0330 08/04/16 0330 Other Results Laboratory Tests Test 08/03/16 08/03/16 08/04/16 14:16 18:45 03:30 Blood Gas Puncture Site MARVEL Blood Gas Patient Temperature 98.6 Blood Gas HCO3 27 mmol/L Blood Gas Base Excess 1.8 mmol/L Blood Gas Oxygen Saturation 93 % Arterial Blood pH 7.37 Arterial Blood Partial 47 mmHg Pressure CO2 Arterial Blood Partial 87 mmHg Pressure O2 Arterial Blood Oxygen Content 17.4 Vol % Arterial Blood 1.7 % Carboxyhemoglobin Arterial Blood Methemoglobin 1.4 % Blood Gas Hemoglobin 13.3 G/DL Oxygen Delivery Device VENT Blood Gas Inspired Oxygen 60 % Urine Eosinophils NONE SEEN /HPF White Blood Count 41.5 TH/MM3 Red Blood Count 3.56 MIL/MM3 Hemoglobin 9.7 GM/DL Hematocrit 30.6 % Mean Corpuscular Volume 86.0 FL Mean Corpuscular Hemoglobin 27.4 PG Mean Corpuscular Hemoglobin 31.8 % Concent Red Cell Distribution Width 18.7 % Platelet Count 233 TH/MM3 Mean Platelet Volume 10.5 FL Neutrophils (%) (Auto) 96.2 % Lymphocytes (%) (Auto) 1.3 % Monocytes (%) (Auto) 2.3 % Eosinophils (%) (Auto) 0.0 % Basophils (%) (Auto) 0.2 % Neutrophils # (Auto) 40.0 TH/MM3 Lymphocytes # (Auto) 0.5 TH/MM3 Monocytes # (Auto) 0.9 TH/MM3 Eosinophils # (Auto) 0.0 TH/MM3 Basophils # (Auto) 0.1 TH/MM3 CBC Comment AUTO DIFF Sodium Level 145 MEQ/L Potassium Level 4.7 MEQ/L Chloride Level 105 MEQ/L Carbon Dioxide Level 27.8 MEQ/L Anion Gap 12 MEQ/L Blood Urea Nitrogen 122 MG/DL Creatinine 2.61 MG/DL Estimat Glomerular Filtration 24 ML/MIN Rate Random Glucose 234 MG/DL Calcium Level 7.9 MG/DL Imaging Last Impressions Chest X-Ray 08/03/16 0600 Signed Impressions: Service Date/Time: Wednesday, August 03, 2016 03:55 - CONCLUSION: Stable area of opacification throughout the left lung. ET tube in good position Dav Santana MD Thoracentesis 07/27/16 0000 Signed Impressions: Service Date/Time: Wednesday, July 27, 2016 10:18 - CONCLUSION: Uncomplicated CT-guided left thoracentesis. Sample was saved and sent to lab for evaluation, as ordered. Tate Street MD CT Angiography 07/24/16 1450 Signed Impressions: Service Date/Time: Sunday, July 24, 2016 15:29 - CONCLUSION: 1. No pulmonary embolus identified. 2. Advanced COPD. 3. Interval development of a large left pleural effusion. There is diffuse interstitial prominence and cardiomegaly. Exam would suggest congestive failure. 4. Nodule at the left lung base which was seen on previous dated 06/29/16 is obscured by the pleural effusion. Raymond Stewart MD Objective Remarks GENERAL: Well-developed, obese male, currently intubated and sedated on propofol and fentanyl infusion SKIN: Warm and dry. HEAD: Atraumatic. Normocephalic. EYES: Pupils equal and round. No scleral icterus. No injection or drainage. ENT: No nasal bleeding or discharge. Mucous membranes pink and moist. Orotracheally intubated. NECK: Trachea midline. No JVD. CARDIOVASCULAR: Normal rate, regular rhythm. RESPIRATORY: Mechanical ventilation.No accessory muscle use. Breath sounds clear to auscultation, noted decrease breath sounds left. GASTROINTESTINAL: Abdomen soft, non-tender, nondistended. No guarding.Glucerna 1.5-tube feeds infusing MUSCULOSKELETAL: Extremities without clubbing, cyanosis, 2+ peripheral edema. No obvious deformities. NEUROLOGICAL: GCS 11 T Date of Insertion: Jul 26, 2016 A/P Assessment and Plan Plan by systems: Neurologic: Anxiety disorder H/O PTSD Pain Continue Prozac 40 mg daily Acetaminophen 650 every 6 hours when necessary for temperature > 101.0 Fentanyl and propofol infusions for sedation for ventilator synchrony. Daily sedation vacation when appropriate. Respiratory: COPD exacerbation Pulmonary edema Acute on chronic respiratory failure RADHA Acute hypoxic respiratory failure 07/26 Intubated-8.0 ETT On PRVC RR 22, TV 550, PEEP:12, FIO2 60%. IT: 0.9 Continue antibiotics per ID Methylprednisolone 40 mg 12 hours Continue duo nebs scheduled every 4 hours Maintain head of bed 30 Pulmonary is following-Dr. Gayle CPAP trials when appropriate CTA 07/24-left lung base nodule 06/29 2.01.4 cm nodule posterior aspect left lower lung 07/27-CT guided thoracentesis-2.4 L removed, cultures and cytology pending Cardiovascular: Coronary artery disease Cardiomegaly Hypertension Paroxysmal Atrial fibrillation 07/29, 07/31, Monitor HR and BP keep MAP>65mmHg. On Cardizem 90mg QID, Lopressor 50mg Q12 Continue statin, aspirin (home medication) Continue Plavix 75 g daily at bedtime Cardiology is following Renal: Monitor renal function, I/O's, avoid nephrotoxins Free water 250ml Q8 monitor sodium level. d/c Lasix Renal function worse today with Cr: 2.61 from 1.59 and UO:800ml in 24 hrs Check renal US and consult Nephrology service. FEN/GI: Keep NPO, OGT to LIWS Continue with Bowel regimen- on Senna and Colace will add Lactulose 30ml QID Check KUB abdomen r/o ileus CT abdomen/pelvis reviewed discussed with Radiology and with Dr. Adler from general surgery. He will see patient after he is done with OR. Heme/ID: Lactic acidosis-resolved Anemia of chronic disease Persistent Leukocytosis History of MRSA Continue with abx per ID (Vanco, Micafungin, Merrem, PO Flagyl)monitor for signs of infections ( Fever, WBC) 07/26-Legionella and influenza negative 07/27-pleural fluid-NGTD 08/01-obtain blood and urine cultures 08/01-bronchoscopy with BAL- GNR Monitor CBC Check CT abdomen/pelvis wo contrast Endocrine: Diabetes mellitus Hyperglycemia of critical illness Medium dose sliding scale, Levemir 30 units every 12 hours -- SSI Prophylaxis: GI Prophylaxis Protonix DVT Prophylaxis -- SCDs Heparin 5000u subcutaneous 3 times a day Lines: Peripheral IVs. Consult palliatuve care to asses with goals of care CCT 30 mins Aidee Mcghee MD Aug 04, 2016 07:32
[2016-08-04] MEDS: RESP: BUDESONIDE 0.25 MG/2 ML NEB NEB SCH ×2 (08:00→19:33)
[2016-08-04 08:13] LABS: BANDS 4 % (0-6); NEUTROPHIL # MANUAL DIFF 39.4 TH/MM3 (1.8-7.7); PLATELET ESTIMATE SMEAR NORMAL (NORMAL); POLYS (SEG NEUTROPHILS) 91 % (16-70); WBC DIFF SAMPLE 100
[2016-08-04 08:14] LABS: PLATELET MORPHOLOGY NORMAL (NORMAL); SCAN/DIFF FINAL DIFF MANUAL
[2016-08-04] MEDS: ISOSORBIDE DINITRATE 10 MG TAB PO SCH (08:21)
[2016-08-04] MEDS: ASPIRIN 81 MG CHEW TAB PO SCH (08:22)
[2016-08-04] MEDS: SENNOSIDES 8.6 MG TAB PO SCH ×2 (08:22→20:32)
[2016-08-04] MEDS: FLUoxetine HCL 20 MG CAP PO SCH (08:22)
[2016-08-04] MEDS: DOCUSATE SODIUM 100 MG/10 ML UDC PO SCH ×2 (08:22→20:32)
[2016-08-04] MEDS: LACTULOSE SYRUP 20 GM/30 ML CUP PO SCH ×4 (08:22→20:32)
[2016-08-04] MEDS: DILTIAZEM HCL 90 MG TAB PO SCH ×4 (08:22→20:31)
[2016-08-04] MEDS: methylPREDNISolone SOD SUCC 125 MG/2 ML VIAL IV PUSH SCH ×2 (08:23→20:37)
[2016-08-04] MEDS: PANTOPRAZOLE SODIUM 40 MG VIAL IV SCH (08:23)
[2016-08-04] MEDS: INSULIN DETEMIR 100 UNITS/ML VIAL SQ SCH ×2 (08:24→21:00)
[2016-08-04] MEDS: MEROPENEM INJ 500 MG in SODIUM CHLORIDE 0.9% INJ 100 ML IV SCH ×3 (08:44→23:09)
[2016-08-04] MEDS: METOPROLOL TARTRATE 25 MG TAB PO SCH ×2 (08:54→20:32)
[2016-08-04] MEDS: BUDESONIDE-FORMOTEROL 160/4.5 MCG INHALER INH SCH ×2 (09:00→20:31)
--- NOTE | 2016-08-04 09:38 | RADRPT ---
EXAM DATE/TIME: 08/04/2016 07:37 [place] COMPARISON: No previous studies available for comparison. INDICATIONS : Rule out ileus MEDICAL HISTORY : Hypertension. Cardiovascular disease. Chronic obstructive pulmonary SURGICAL HISTORY : None. ENCOUNTER: Subsequent ACUITY: 1 week PAIN SCORE: Non-responsive. LOCATION: Bilateral Abdomen FINDINGS: The abdominal bowel gas pattern is abnormal with multiple distended loops of bowel measuring up to 6. 3 cm in dimension. There is loss of mucosal detail and cannot differentiate between dilated loops of small bowel and colon; I suspect that the dilated loops represent small bowel. No gas seen in the r ectum. Gastric tube tip projects over the stomach. Moderate degenerative changes lumbar spine. CONCLUSION: Multiple dilated loops of bowel suggest either severe ileus or small bowel obstruction. Pramod Pena MD on August 04, 2016 at 9:35 Board Certified Radiologist. This report was verified electronically.
--- NOTE | 2016-08-04 11:21 | PD.CONS ---
Consult Service Palliative Care Consult Requested By MD Elvira Primary Care Physician Corby Tavera MD Reason for Consultation a. To assist with evaluation and management of symptoms including: dyspnea, pain b. To assist medical decision maker(s) with: better understanding of current medical conditions; weighing benefits/burdens of medical treatment options; making medical treatment decisions. HPI History of Present Illness 80-year-old male who presented from home with hypoxiasaturations 78- 81 and 3 L of oxygen via nasal cannula. Patient reported increased shortness of breath with exertion in the last several days. He also reported "rib pain" for the past several weeks off and on. Patient denies coughing up anything significant. CTA shows Severe bullous emphysema with chronic interstitial lung changes as well as findings suggestive of pulmonary fibrosis. Of note, patient was last seen here on 29 June with similar presentation, but with history of fever 102 the day before. At that time the patient was diagnosed with SIRS, and COPD with acute exacerbation with hypoxia. The patient was hospitalized at that time. His past medical history includes CAD, diabetes, A. fib, hypothyroidism, and depression. Patient has had stents in both of his lower extremities as well as his heart During his hospital course. He was initially placed on BiPAP mask but required intubation on 07/26/16 He was found on x-ray to have pulmonary lesions and underwent thoracentesis on 07/27/16. Went into paroxysmal atrial fibrillation, was started on Cardizem. 08/04/16 he was found to have an ileus on KUB - CT is pending. At the time of my visit. Patient is sedated on a ventilator. FiO2 60% , PEEP is 12, O2 saturation is 89. His son , Tyree Dupree" is the spokesperson for the family. He is able to give me more information as to his father's history, as well as functional status and clinical decline prior to this hospitalization. He is realistic and pragmatic as difficult as the situation is. He states that the family is fully supportive at this time. He states that his mom, the patient's has Alzheimer's dementia and is not comprehending what is transpiring. Desired NO CODE status and pt has a Living will. Review of Systems ROS Limitations: Clinical Condition, Intubated Other ROS: Mr. Munguia is unresponsive and sedated on a ventilator. Unable to provide any information. Data obtained is from review of records or discussions with family or staff Past Family Social History Coded Allergies: Sulfa (Verified Allergy, Unknown, CAN'T RECALL , 06/29/16) *MDRO Multi-Drug Resistant Organism (Verified Adverse Reaction, Unknown, ) MRSA PCR Screen POSITIVE - 06/30/2016, 07/24/16 Past Medical History Coronary artery disease disease status post stents times 2. Peripheral vascular disease, status post stent. A. fib post ablation. 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 Obstructive sleep apnea, not utilizing a CPAP 2 Pulmonary nodules that have been stable and followed by pulmonary, diabetes Hypothyroidism Past Surgical History Percutaneous coronary angioplasty to 2 vessels Peripheral vascular disease with stents Reported Medications Nitrostat (Nitroglycerin) 0.3 Mg Sub Unknown Dose SL DIRECTED PRN Atrovent Ud 0.02% (0.5 Mg/2.5 Ml) (Ipratropium [place]) 0.5 Mg/2.5 Ml Nebu 0.5 Mg NEB BID NEB PRN Proventil Hfa (Albuterol Sulfate) 6.7 Gm Aero 2 Puff INH QID PRN * SHAKE WELL BEFORE USE * Isosorbide Mononitrate Er (Isosorbide Mononitrate) 30 Mg Tab 30 Mg PO DAILY Fluoxetine (Fluoxetine HCl) 40 Mg Cap 40 Mg PO DAILY Atorvastatin 20 mg tab (Atorvastatin Calcium) 20 Mg Tab 20 Mg PO HS 30 Days Metformin ER 24 HR (Metformin HCl) 1,000 Mg Tab 1,000 Mg PO HS Cardizem La 360 mg (Diltiazem La 360 mg) 360 Mg Tab 360 Mg PO HS Levothyroxine 112 mcg (Levothyroxine Sodium) 112 Mcg Tab 112 Mcg PO DAILY Plavix (Clopidogrel Bisulfate) 75 Mg Tab 75 Mg PO HS Aspirin 81 Mg Tab 162 Mg PO BID Current Medications Medications (Trade) Dose Ordered Sig/Nya Route Start Time Stop Time Status Last Admin (NS Flush) 2 ml UNSCH PRN IVF 07/24/16 13:00 07/31/16 21:07 (Protonix Inj) 40 mg DAILY IV 07/24/16 16:00 08/04/16 08:23 Miscellaneous Information 1 Q361D XX 07/24/16 15:45 (Chlorhexidine 2% Cloth) Taper DAILY@04 TOP 07/25/16 04:00 07/21/17 03:59 08/03/16 04:00 (Chlorhexidine 2% Cloth) 3 pack UNSCH PRN TOP 07/24/16 15:45 (Lipitor) 20 mg HS PO 07/24/16 21:00 08/03/16 20:17 (Plavix) 75 mg HS PO 07/24/16 21:00 08/03/16 20:18 (Symbicort 160-4.5 Inh) 2 puff Q12HR INH 07/24/16 21:00 08/02/16 20:07 (PROzac) 40 mg DAILY PO 07/25/16 10:00 08/04/16 08:22 (Lopressor Inj) 2.5 mg Q6H PRN IV PUSH 07/25/16 09:00 08/03/16 02:50 Acetaminophen 650 mg 650 mg Q6H PRN PO 07/26/16 10:00 08/04/16 04:41 (Diprivan 1000 Mg/100ml Inj) 100 ml @ 0 mls/hr TITRATE IV 07/26/16 13:00 08/04/16 04:41 (Aspirin Chew) 81 mg DAILY PO 07/27/16 10:00 08/04/16 08:22 (Isordil) 30 mg DAILY PO 07/27/16 11:30 08/04/16 08:21 (D50w (Vial) Inj) 25 ml UNSCH PRN IV PUSH 07/27/16 13:15 (Glucagon Inj) 1 mg UNSCH PRN OTHER 07/27/16 13:15 (Senokot) 8.6 mg Q12HR PO 07/28/16 21:00 08/04/16 08:22 Docusate Sodium 100 mg 100 mg Q12HR PO 07/28/16 21:00 08/04/16 08:22 (fentaNYL DRIP) 250 ml @ 0 mls/hr TITRATE IV 07/28/16 16:15 08/04/16 06:24 (Versed Inj) 2 mg Q4HR PRN IV PUSH 07/30/16 14:00 08/01/16 14:49 (SoluMEDROL INJ) 40 mg Q12HR IV PUSH 07/31/16 21:00 08/04/16 08:23 (Levemir Inj) 30 units Q12HR SQ 08/01/16 21:00 08/04/16 08:24 (Heparin Inj) 5,000 units Q8HR SQ 08/01/16 14:00 08/04/16 04:41 (Cardizem) 90 mg QID PO 08/02/16 18:00 08/04/16 08:22 (Synthroid) 112 mcg DAILY@06 PO 08/03/16 06:00 08/04/16 04:41 (Free Water) 250 ml Q8HR G-TUBE 08/03/16 14:00 08/04/16 04:40 (NovoLIN R SUPPLEMENTAL SCALE) 1 Q6H SQ 08/03/16 17:00 08/04/16 05:34 Metoprolol Tartrate 50 mg 50 mg Q12HR PO 08/03/16 21:00 08/04/16 08:54 Meropenem 500 mg/ Sodium Chloride 100 ml @ 200 mls/hr Q8H IV 08/03/16 16:00 08/04/16 08:44 Micafungin Sodium 150 mg/Sodium Chloride 100 ml @ 100 mls/hr Q24H IV 08/03/16 15:00 08/03/16 16:21 (Vancomycin Consult Pharmacy) 0 ml @ 0 mls/hr UNSCH OTHER 08/03/16 13:45 (Flagyl) 500 mg Q8HR PO 08/03/16 14:00 08/04/16 04:40 (Lactulose Liq) 30 ml QID PO 08/04/16 09:00 08/04/16 08:22 Family History Father passed from heart attack, mother from stroke Substance Use Tobacco use: Quit 25 years ago prior to this he smoked for 45 years. Alcohol use: Denies Illicit drug use: Denies Psychosocial History , lives with his who has dementia, has a dog at home. A worked as a salesman. Went back to school got PhD in Psychology. Served in the area. He served in the during the [place] Smoked 2-3 packs per day for 20- 30 years Spiritual/Cultural Factors Family states he is Agnostic Living Will: Completed, but not made available Health Care Surrogate: Copy in medical record Durable Power of Sheep Farm Manager: Never completed Health Care Surrogate(s): His son, Tyree Dupree" Munguia = [phone] - designated [facility] Today's verbally stated goals: Family wishes NO CODE DNR - per patients stated wishes. Physical Exam Vital Signs Date Time Temp Pulse Resp B/P Pulse Ox O2 Delivery O2 Flow Rate FiO2 08/04/16 10:00 91 60 08/04/16 10:00 116 08/04/16 08:00 121 08/04/16 08:00 100.1 121 22 102/65 88 118/48 08/04/16 08:00 60 08/04/16 06:00 120 08/04/16 04:08 90 60 08/04/16 04:00 104 08/04/16 04:00 60 08/04/16 04:00 100.9 104 22 94/56 91 114/55 08/04/16 02:00 107 08/04/16 01:06 90 60 08/04/16 00:00 99.9 97 22 87/55 91 115/60 08/04/16 00:00 60 08/04/16 00:00 97 08/03/16 23:20 90 60 08/03/16 22:00 93 08/03/16 20:25 93 60 08/03/16 20:00 60 08/03/16 20:00 95 08/03/16 20:00 101.0 95 22 111/62 93 140/66 08/03/16 18:00 111 08/03/16 16:00 60 08/03/16 16:00 118 08/03/16 16:00 100.4 118 22 102/67 94 135/66 08/03/16 15:35 95 60 08/03/16 14:00 97 08/03/16 12:15 100 50 08/03/16 12:00 128 08/03/16 12:00 101.0 128 22 99/55 92 117/49 08/03/16 12:00 60 08/03/16 11:30 22 08/03/16 11:22 88 60 08/03/16 08/04/16 19:00 07:00 Intake Total 1359 ml 2099 ml Output Total 600 ml 200 ml Balance 759 ml 1899 ml IV Total 283 ml 869 ml Tube Feeding 586 ml 670 ml Other 490 ml 560 ml Output Urine Total 600 ml 200 ml # Bowel Movements 0 Exam CONSTITUTIONAL/GENERAL: This is an adequately nourished patient, sedated on the ventilator TUBES/LINES/DRAINS: ET tube, OT tube, catheter, SKIN: No jaundice, rashes, or lesions. Ecchymoses on upper extremities. No wounds seen anteriorly. Skin temperature appropriate. HEAD: Atraumatic. Normocephalic. EYES: Pupils equal and round and sluggish, but reactive. No scleral icterus. No injection or drainage. ENT: . Nose without bleeding or purulent drainage. T. NECK: Trachea midline. Supple, No palpable thyroid enlargement or nodularity. CARDIOVASCULAR: Tachycardic, irregular rate and rhythm without murmurs, gallops , or rubs. No JVD. Peripheral pulses faint RESPIRATORY/CHEST: Symmetric, unlabored respirations. Clear but diminished to auscultation. GASTROINTESTINAL: Abdomen soft, non-tender, distended. Tympanic . Bowel sounds present. GENITOURINARY: Without palpable bladder distension. Olvera catheter in place. MUSCULOSKELETAL: Extremities without clubbing, cyanosis, or edema. No joint tenderness or effusion noted. No calf tenderness. No mottling or clubbing. LYMPHATICS: No palpable cervical or supraclavicular adenopathy. NEUROLOGICAL: Sedated, unable to assess PSYCHIATRIC: Sedated, unable to assess Diagnostic Tests Laboratory Laboratory Tests Test 08/01/16 08/02/16 08/03/16 08/03/16 10:48 03:50 04:20 14:16 Potassium Level 5.8 MEQ/L 4.8 MEQ/L 4.2 MEQ/L (3.5-5.1) (3.5-5.1) (3.5-5.1) White Blood Count 29.7 TH/MM3 30.3 TH/MM3 (4.0-11.0) (4.0-11.0) Red Blood Count 3.54 MIL/MM3 3.29 MIL/MM3 (4.50-5.90) (4.50-5.90) Hemoglobin 9.4 GM/DL 8.9 GM/DL (13.0-17.0) (13.0-17.0) Hematocrit 30.1 % 28.0 % (39.0-51.0) (39.0-51.0) Mean Corpuscular Volume 85.0 FL 84.9 FL (80.0-100.0) (80.0-100.0) Mean Corpuscular Hemoglobin 26.6 PG 27.0 PG (27.0-34.0) (27.0-34.0) Mean Corpuscular Hemoglobin 31.3 % 31.8 % Concent (32.0-36.0) (32.0-36.0) Red Cell Distribution Width 18.2 % 18.0 % (11.6-17.2) (11.6-17.2) Platelet Count 217 TH/MM3 199 TH/MM3 (150-450) (150-450) Mean Platelet Volume 9.8 FL 10.2 FL (7.0-11.0) (7.0-11.0) Sodium Level 145 MEQ/L 148 MEQ/L (136-145) (136-145) Chloride Level 107 MEQ/L 109 MEQ/L (98-107) (98-107) Carbon Dioxide Level 30.9 MEQ/L 31.0 MEQ/L (21.0-32.0) (21.0-32.0) Anion Gap 7 MEQ/L (5-15) 8 MEQ/L (5-15) Blood Urea Nitrogen 71 MG/DL (7-18) 88 MG/DL (7-18) Creatinine 1.59 MG/DL 1.59 MG/DL (0.60-1.30) (0.60-1.30) Estimat Glomerular Filtration 42 ML/MIN (>89) 42 ML/MIN (>89) Rate Random Glucose 235 MG/DL 207 MG/DL (74-106) (74-106) Calcium Level 8.0 MG/DL 7.9 MG/DL (8.5-10.1) (8.5-10.1) Phosphorus Level 3.5 MG/DL 3.6 MG/DL (2.5-4.9) (2.5-4.9) Magnesium Level 2.9 MG/DL 3.1 MG/DL (1.5-2.5) (1.5-2.5) Blood Gas Puncture Site MARVEL Blood Gas Patient Temperature 98.6 Blood Gas HCO3 27 mmol/L (22-26) Blood Gas Base Excess 1.8 mmol/L (-2-2) Blood Gas Oxygen Saturation 93 % (90-100) Arterial Blood pH 7.37 (7.380-7.420) Arterial Blood Partial 47 mmHg (38-42) Pressure CO2 Arterial Blood Partial 87 mmHg Pressure O2 (61-120) Arterial Blood Oxygen Content 17.4 Vol % (12.0-20.0) Arterial Blood 1.7 % (0-4) Carboxyhemoglobin Arterial Blood Methemoglobin 1.4 % (0-2) Blood Gas Hemoglobin 13.3 G/DL (12.0-16.0) Oxygen Delivery Device VENT Blood Gas Inspired Oxygen 60 % Test 08/03/16 08/04/16 18:45 03:30 Urine Eosinophils NONE SEEN /HPF (NONE SEEN) White Blood Count 41.5 TH/MM3 (4.0-11.0) Red Blood Count 3.56 MIL/MM3 (4.50-5.90) Hemoglobin 9.7 GM/DL (13.0-17.0) Hematocrit 30.6 % (39.0-51.0) Mean Corpuscular Volume 86.0 FL (80.0-100.0) Mean Corpuscular Hemoglobin 27.4 PG (27.0-34.0) Mean Corpuscular Hemoglobin 31.8 % Concent (32.0-36.0) Red Cell Distribution Width 18.7 % (11.6-17.2) Platelet Count 233 TH/MM3 (150-450) Mean Platelet Volume 10.5 FL (7.0-11.0) Neutrophils (%) (Auto) 96.2 % (16.0-70.0) Lymphocytes (%) (Auto) 1.3 % (9.0-44.0) Monocytes (%) (Auto) 2.3 % (0.0-8.0) Eosinophils (%) (Auto) 0.0 % (0.0-4.0) Basophils (%) (Auto) 0.2 % (0.0-2.0) Neutrophils # (Auto) 40.0 TH/MM3 (1.8-7.7) Lymphocytes # (Auto) 0.5 TH/MM3 (1.0-4.8) Monocytes # (Auto) 0.9 TH/MM3 (0-0.9) Eosinophils # (Auto) 0.0 TH/MM3 (0-0.4) Basophils # (Auto) 0.1 TH/MM3 (0-0.2) CBC Comment AUTO DIFF Differential Total Cells 100 Counted Neutrophils % (Manual) 91 % (16-70) Band Neutrophils % 4 % (0-6) Lymphocytes % 1 % (9-44) Monocytes % 4 % (0-8) Neutrophils # (Manual) 39.4 TH/MM3 (1.8-7.7) Differential Comment FINAL DIFF MANUAL Platelet Estimate NORMAL (NORMAL) Platelet Morphology Comment NORMAL (NORMAL) Red Cell Morphology Comment NORMAL (NORMAL) Sodium Level 145 MEQ/L (136-145) Potassium Level 4.7 MEQ/L (3.5-5.1) Chloride Level 105 MEQ/L (98-107) Carbon Dioxide Level 27.8 MEQ/L (21.0-32.0) Anion Gap 12 MEQ/L (5-15) Blood Urea Nitrogen 122 MG/DL (7-18) Creatinine 2.61 MG/DL (0.60-1.30) Estimat Glomerular Filtration 24 ML/MIN (>89) Rate Random Glucose 234 MG/DL (74-106) Calcium Level 7.9 MG/DL (8.5-10.1) Result Diagram: 08/04/16 0330 08/04/16 0330 Microbiology Microbiology Date/Time Procedure Status Source Growth 08/02/16 00:10 Urine Culture - Final Complete Urine Catheterized Urine NO GROWTH IN 48 HOURS. 08/03/16 14:30 Aerobic Blood Culture Received Blood Other Pending 08/03/16 14:30 Anaerobic Blood Culture Received Blood Other Pending 08/03/16 14:36 Aerobic Blood Culture Received Blood Other Pending 08/03/16 14:36 Anaerobic Blood Culture Received Blood Other Pending Imaging Abdomen X-Ray 08/04/16 0000 Signed Impressions: Service Date/Time: Thursday, August 04, 2016 07:37 - CONCLUSION: Multiple dilated loops of bowel suggest either severe ileus or small bowel obstruction. Pramod Pena MD Chest X-Ray 08/03/16 0600 Signed Impressions: Service Date/Time: Wednesday, August 03, 2016 03:55 - CONCLUSION: Stable area of opacification throughout the left lung. ET tube in good position Dav Santana MD Last 72 hours Impressions Abdomen X-Ray 08/04/16 0000 Signed Impressions: Service Date/Time: Thursday, August 04, 2016 07:37 - CONCLUSION: Multiple dilated loops of bowel suggest either severe ileus or small bowel obstruction. Pramod Pena MD Chest X-Ray 08/03/16 0600 Signed Impressions: Service Date/Time: Wednesday, August 03, 2016 03:55 - CONCLUSION: Stable area of opacification throughout the left lung. ET tube in good position Dav Santana MD Procedures 07/27/16 thoracentesis - no malignant cells Patient/Family Conference Present at Family Conference: Tyree Munguia (Shon), Son and grandson Romel Munguia Family Conference Location: Bedside Issues Discussed: * Palliative care role, purpose, approach * Additional medical, psychosocial, and spiritual history * Patients general health, functional status, and cognitive changes in the months leading up to the current hospitalization * Patient/family understanding of the current medical problems * Patient/family understanding of prognosis * Patients goals of care as best understood from advance directives and/or conversations and/or values * Current medical treatment options and benefits/burdens of those options * Likely scenarios comparing ongoing aggressive care with a transition to comfort measures only * Questions answered to the best of my ability * Palliative care contact information provided Assessment and Plan Disease Oriented Problem List: (1) COPD exacerbation (2) Acute respiratory failure with hypoxia (3) Paroxysmal atrial fibrillation with rapid ventricular response (4) Diabetes (5) Leukocytosis Symptom Scale: (1) Pain 0-10 Scale: Unable to quantify (2) Dyspnea 0-10 Scale: 10 Pertinent Non-Medical Issues Psychosocial: Mr. Munguia has a large family with 6 or 7 children, his has dementia. 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 Spiritual: Son states he is diagnostic, although raised Religion Legal: Timmy Urena is designated healthcare surrogate and spokesperson for the family. Ethical issues impacting care: None evident. Important Contacts Chuyita Munguia, Son, [phone] Dona Martinez, daughter, DO NOT CALL - has Alzheimers Prognosis Prognosis is very guarded in light of his extensive lung disease, and cardiac / vascular history. He remains in need of high ventilatory pressure support, he is in atrial fibrillation. He has progressive leukocytosis and is currently on multiple antibiotics Code Status: No Code Plan Decision Maker: His son, Tyree Munguia (Shon) = [phone] - designated [facility] Code Status: No code DNR- patient also has a living will Family Discussion: Spoke with health care surrogate Romel and grandson. They are realistic relative to his clinical decline. The patient had provided clear directive to them before his illness regarding CODE STATUS and living well. Romel tells me that his father would not even want the current interventions, however, they are being sensitive to the patient's 's needs at this time in light of her dementia. Symptoms: Dyspnea, pain Palliative care phone number provided - will follow during hospital stay. Thank you for the opportunity to participate in the care of Mr. Munguia. Attestation To help prompt me to consider important information that might be impacting today's encounter and assessment, information from prior notes written by myself or my colleagues may have been "brought forward" into today's note. My signature on this note, however, is an attestation that I personally performed the exam, history, and/or decision-making noted today, and, unless otherwise indicated, the interactions with patient, family, and staff as well as the review of records all occurred today. I also attest that the listed assessment and stated plan reflect my best clinical judgment today based on the combination of historical information, prior notes, and today's exam/ interactions. When time spent is documented, it refers only to time spent today by the signer, or if indicated, combined time spent today by collaborating physician/nurse practitioner. Sade Peter Aug 04, 2016 11:21
--- NOTE | 2016-08-04 14:00 | PD.CONS ---
HPI History of Present Illness This is a 80 year old with COPD/Emphysema who has had several "bouts" of pneumonia this year. His reports that he just never seemed to recover from his pneumonia and COPD exacerbations. He was at home and having shortness of breath, coughing, and wheezing. He was brought to the ER on 07/24/16 for respiratory distress. His condition worsened and he required intubation and mechanical ventilation on 07/26. He has remained in the ICU being treated for acute respiratory failure, COPD exacerbation, pneumonia, pulmonary edema, RADHA, CAD, HTN, Persistent leukocytosis, Atrial fibrillation, Anemia of chronic disease, and DM. GI has been consulted for abdominal distention- severe ileus vs. SBO. He developed abdominal distention and KUB (08/04/16) revealed multiple dilated loops of bowel suggest either severe ileus or small bowel obstruction. He went down for a CT scan earlier today, but the results are still pending. He was made NPO. His last BM was documented in the EMR on 08/02. He has had a colonoscopy in the past, but his reports that this was many years ago. He has been getting senokot and colace and was started on Lactulose 30mL po QID today. GI has been consulted for further evaluation of abdominal distention. His and son report that he has not had any issues with constipation or bowel obstructions in the past. He does have a remote hx of appendectomy and is currently on Fentanyl for sedation. His distention seems to be primarily in the small bowel. (Doreen London) PFSH Past Medical History CAD PAD Dyslipidemia A. fib, S/P ablation. 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 RADHA Pulmonary nodule DM Hypothyroidism Recent PNA Past Surgical History Cardiac catheterization with stent placement Stent placement for PAD CABG Cholecystectomy Hernia repair PPM placement Appendectomy Colonoscopy (Doreen London) Coded Allergies: Sulfa (Verified Allergy, Unknown, CAN'T RECALL , 06/29/16) *MDRO Multi-Drug Resistant Organism (Verified Adverse Reaction, Unknown, ) MRSA PCR Screen POSITIVE - 06/30/2016, 07/24/16 Medications Allergies Coded Allergies Type Severity Reaction Last Updated Verified Sulfa Allergy Unknown CAN'T RECALL 06/29/16 Yes *MDRO Multi-Drug Resistant Organism Adverse Reaction Unknown 07/27/16 Yes Active Scripts Medications Dose Route/Sig Days Date Category Dose Instructions Magnesium 250 Mg Tab Unknown Dose PO DAILY 07/24/16 Reported Vitamin D3 (Cholecalciferol) 1,000 Unit Tab Unknown Dose PO DAILY 07/24/16 Reported B-12 (Cyanocobalamin) 1,000 Mcg Subl Unknown Dose SL DAILY 07/24/16 Reported Duoneb (Ipratropium-Albuterol Neb) 0.5-2.5 Mg/3 Ml Neb 1 Nebule INH QID NEB PRN 07/24/16 Reported Nitroglycerin SL (Nitroglycerin) 0.3 Mg Subl 0.3 Mg SL DIRECTED PRN 07/24/16 Reported ONE TABLET UNDER THE TONGUE NEEDED FOR CHEST PAIN, MAY REPEAT EVERY FIVE MINUTES FOR A TOTAL OF 3 DOSES OR CALL 911 IF NO RELIEF Metformin ER (Metformin HCl) 1,000 Mg Emeka 1,000 Mg PO HS 07/24/16 Reported With evening meal Levothyroxine (Levothyroxine Sodium) 112 Mcg Tab 112 Mcg PO DAILY 07/24/16 Reported Isosorbide Mononitrate ER (Isosorbide Mononitrate) 30 Mg Emeka 30 Mg PO DAILY 07/24/16 Reported Prozac (Fluoxetine HCl) 40 Mg Cap 40 Mg PO DAILY 07/24/16 Reported Diltiazem CD 24 HR 240 Mg Caper 240 Mg PO HS 07/24/16 Reported Plavix (Clopidogrel Bisulfate) 75 Mg Tab 75 Mg PO HS 07/24/16 Reported Atorvastatin (Atorvastatin Calcium) 20 Mg Tab 20 Mg PO HS 07/24/16 Reported Aspir-81 (Aspirin) 81 Mg Tabdr 81 Mg PO BID 07/24/16 Reported Proventil Hfa 6.7 GM Inh (Albuterol Sulfate) 90 Mcg/Act Aer 2 Puff INH QID PRN 07/24/16 Reported Family History Noncontributory Social History Quit smoking at age 58. Rare etoh use. No illicit drug use. (Doreen London) Review of Systems ROS Unable to obtain (Doreen London) GI Exam Vitals I&O Vital Signs Date Time Temp Pulse Resp B/P Pulse Ox O2 Delivery O2 Flow Rate FiO2 08/04/16 12:00 60 08/04/16 12:00 129 08/04/16 12:00 99.9 129 22 102/59 92 118/59 08/04/16 11:40 92 60 08/04/16 10:00 91 60 08/04/16 10:00 116 08/04/16 08:00 121 08/04/16 08:00 100.1 121 22 102/65 88 118/48 08/04/16 08:00 60 08/04/16 06:00 120 08/04/16 04:08 90 60 08/04/16 04:00 104 08/04/16 04:00 60 08/04/16 04:00 100.9 104 22 94/56 91 114/55 08/04/16 02:00 107 08/04/16 01:06 90 60 08/04/16 00:00 99.9 97 22 87/55 91 115/60 08/04/16 00:00 60 08/04/16 00:00 97 08/03/16 23:20 90 60 08/03/16 22:00 93 08/03/16 20:25 93 60 08/03/16 20:00 60 08/03/16 20:00 95 08/03/16 20:00 101.0 95 22 111/62 93 140/66 08/03/16 18:00 111 08/03/16 16:00 60 08/03/16 16:00 118 08/03/16 16:00 100.4 118 22 102/67 94 135/66 08/03/16 15:35 95 60 08/03/16 14:00 97 I/O 08/03/16 08/03/16 08/03/16 08/04/16 08/04/16 08/04/16 07:00 15:00 23:00 07:00 15:00 23:00 Intake Total 705 ml 1359 ml 1187 ml 912 ml Output Total 475 ml 600 ml 200 ml Balance 230 ml 759 ml 987 ml 912 ml IV Total 325 ml 283 ml 593 ml 276 ml Tube Feeding 320 ml 586 ml 284 ml 386 ml Other 60 ml 490 ml 310 ml 250 ml Output Urine Total 475 ml 600 ml 200 ml Stool Total 0 ml # Bowel Movements 0 Imaging Last Impressions Abdomen X-Ray 08/04/16 0000 Signed Impressions: Service Date/Time: Thursday, August 04, 2016 07:37 - CONCLUSION: Multiple dilated loops of bowel suggest either severe ileus or small bowel obstruction. Pramod Pena MD Chest X-Ray 08/03/16 0600 Signed Impressions: Service Date/Time: Wednesday, August 03, 2016 03:55 - CONCLUSION: Stable area of opacification throughout the left lung. ET tube in good position Dav Santana MD Thoracentesis 07/27/16 0000 Signed Impressions: Service Date/Time: Wednesday, July 27, 2016 10:18 - CONCLUSION: Uncomplicated CT-guided left thoracentesis. Sample was saved and sent to lab for evaluation, as ordered. Tate Street MD CT Angiography 07/24/16 1450 Signed Impressions: Service Date/Time: Sunday, July 24, 2016 15:29 - CONCLUSION: 1. No pulmonary embolus identified. 2. Advanced COPD. 3. Interval development of a large left pleural effusion. There is diffuse interstitial prominence and cardiomegaly. Exam would suggest congestive failure. 4. Nodule at the left lung base which was seen on previous dated 06/29/16 is obscured by the pleural effusion. Raymond Stewart MD Laboratory Test 08/03/16 08/03/16 08/04/16 14:16 18:45 03:30 Blood Gas Puncture Site MARVEL Blood Gas Patient Temperature 98.6 Blood Gas HCO3 27 mmol/L Blood Gas Base Excess 1.8 mmol/L Blood Gas Oxygen Saturation 93 % Arterial Blood pH 7.37 Arterial Blood Partial 47 mmHg Pressure CO2 Arterial Blood Partial 87 mmHg Pressure O2 Arterial Blood Oxygen Content 17.4 Vol % Arterial Blood 1.7 % Carboxyhemoglobin Arterial Blood Methemoglobin 1.4 % Blood Gas Hemoglobin 13.3 G/DL Oxygen Delivery Device VENT Blood Gas Inspired Oxygen 60 % Urine Eosinophils NONE SEEN /HPF White Blood Count 41.5 TH/MM3 Red Blood Count 3.56 MIL/MM3 Hemoglobin 9.7 GM/DL Hematocrit 30.6 % Mean Corpuscular Volume 86.0 FL Mean Corpuscular Hemoglobin 27.4 PG Mean Corpuscular Hemoglobin 31.8 % Concent Red Cell Distribution Width 18.7 % Platelet Count 233 TH/MM3 Mean Platelet Volume 10.5 FL Neutrophils (%) (Auto) 96.2 % Lymphocytes (%) (Auto) 1.3 % Monocytes (%) (Auto) 2.3 % Eosinophils (%) (Auto) 0.0 % Basophils (%) (Auto) 0.2 % Neutrophils # (Auto) 40.0 TH/MM3 Lymphocytes # (Auto) 0.5 TH/MM3 Monocytes # (Auto) 0.9 TH/MM3 Eosinophils # (Auto) 0.0 TH/MM3 Basophils # (Auto) 0.1 TH/MM3 CBC Comment AUTO DIFF Differential Total Cells 100 Counted Neutrophils % (Manual) 91 % Band Neutrophils % 4 % Lymphocytes % 1 % Monocytes % 4 % Neutrophils # (Manual) 39.4 TH/MM3 Differential Comment FINAL DIFF MANUAL Platelet Estimate NORMAL Platelet Morphology Comment NORMAL Red Cell Morphology Comment NORMAL Sodium Level 145 MEQ/L Potassium Level 4.7 MEQ/L Chloride Level 105 MEQ/L Carbon Dioxide Level 27.8 MEQ/L Anion Gap 12 MEQ/L Blood Urea Nitrogen 122 MG/DL Creatinine 2.61 MG/DL Estimat Glomerular Filtration 24 ML/MIN Rate Random Glucose 234 MG/DL Calcium Level 7.9 MG/DL Date/Time Procedure Status Source Growth 08/03/16 14:36 Aerobic Blood Culture - Preliminary Resulted Blood Other NO GROWTH IN 1 DAY 08/03/16 14:36 Anaerobic Blood Culture - Preliminary Resulted Blood Other NO GROWTH IN 1 DAY 08/02/16 00:10 Urine Culture - Final Complete Urine Catheterized Urine NO GROWTH IN 48 HOURS. 08/01/16 10:07 Gram Stain - Final Resulted Bronchial Washings Bronchial 08/01/16 10:07 Bronchial Culture - Preliminary Resulted Klebsiella Pneumoniae 08/01/16 10:07 Fungal Smear - Final Resulted Bronchial Washings Bronchial NO FUNGAL ELEMENTS SEEN. 08/01/16 10:07 Fungal Culture Resulted Bronchial Washings Bronchial Pending 08/01/16 10:07 Acid Fast Stain - Final Resulted Bronchial Washings Bronchial NO ACID FAST BACILLI SEEN 08/01/16 10:07 Mycobacterial Culture Resulted Bronchial Washings Bronchial Pending Physical Examination HEENT: Normocephalic; atraumatic; no jaundice. CHEST: OETT to vent. Diminished CARDIAC: Irregular, tachycardic ABDOMEN: Firm, distended, no hepatosplenomegaly; bowel sounds are hypoactive. OGT clamped EXTREMITIES: Generalized edema. 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 (Doreen London) Assessment and Plan Plan ASSESSMENT: - Abdominal distention, Severe ileus vs. SBO. KUB (08/04/16) revealed multiple dilated loops of bowel suggest either severe ileus or small bowel obstruction. He went down for a CT scan earlier today, but the results are still pending. His distention seems to be more in the SB. He has a remote hx of appendectomy. His last colonoscopy was many years ago. He is on Fentanyl for sedation. He is on Lactulose, Senokot, and Colace. Will place NGT to LIWS, add reglan , and await CT report. If there is no transition point, then we can give a trial of relistor. Keep NPO. Of note, this seems to be more small bowel. - Acute respiratory failure, PNA, COPD, RADHA, Emphysema. Vent per [facility] - Persistent severe leukocytosis. Worsening- WBC 41.5 today. On Meropenem, Micafungin - TALA. Creat worsening, 2.61. - Atrial fibrillation with rate 120-140's. On heparin. - CAD, PAD, HTN, DM per primary. Of note on plavix, heparin PLAN: - NPO - NGT to LIWS - Reglan 5mg IV q8h - Await CT scan abdomen and pelvis - If no transition point and this looks more like severe ileus, then consider Relistor 12mg sq x 1. - KUB in am - If bm, then send for cdiff - Supportive care - Further recommendations to follow based on results of above - PT seen and examined by Dr. Negrete and myself and this note is written on her behalf (Doreen London) Physician Comments patient seen, examined agree with above surgical consultation obtained, reduction of hernia done bedside, abdomen seems to be better no surgical intervention as per family we will reassess in am, consider flexisigmoidoscoy vs Gastrografin enema r/o c diff -on flagyl (Martha Negrete MD) Doreen London Aug 04, 2016 13:59 Martha Negrete MD Aug 04, 2016 20:11
--- NOTE | 2016-08-04 14:58 | RADRPT ---
EXAM DATE/TIME: 08/04/2016 13:38 [facility] COMPARISON: CT PULMONARY ANGIOGRAM, July 24, 2016, 15:29. CT GUIDED THORACENTESIS LEFT, July 27, 2016, 10:18. CHEST SINGLE AP, August 03, 2016, 3:55. INDICATIONS : Abdominal distention. RADIATION DOSE: 7.36 CTDIvol (mGy) MEDICAL HISTORY : Chronic obstructive pulmonary disease. Congestive heart failure. Hypertension. SURGICAL HISTORY : Appendectomy. ENCOUNTER: Initial ACUITY: 1 day PAIN SCALE: Non-responsive LOCATION: TECHNIQUE: Volumetric scanning of the chest was performed. Using automated exposure control and adjustment of t he mA and/or kV according to patient size, radiation dose was kept as low as reasonably achievable to obtain optimal diagnostic quality images. FINDINGS: There is a large pleural effusion in the lower left chest the lower left lung by the diaph ragm by 8 cm. There is also fluid tracking about the 2 blebs in the lower left lateral chest. There is also collapse of the left lower lobe with some air bronchograms in place. On the right side, the re are multiple subpleural blebs without wall thickening. There is also volume loss in the right low er lung with prominent interstitial markings but only small areas of consolidation. Endotracheal tub e is in place. No significant pleural effusion on the right side. Gastric tube in place. Wide wind ows for bony detail demonstrate the osseous structures are grossly intact. CONCLUSION: Large left pleural effusion tracking around several blebs in the lateral left chest. There is also c ollapse of the left lower lobe. No pleural effusion on the right side. Interstitial infiltrates wit hout consolidation in the mid and lower right lung. Pramod Pena MD on August 04, 2016 at 14:31 Board Certified Radiologist. This report was verified electronically.
--- NOTE | 2016-08-04 15:28 | RADRPT ---
EXAM DATE/TIME: 08/04/2016 13:35 [facility] COMPARISON: No previous studies available for comparison. INDICATIONS : Abdominal distention ORAL CONTRAST: No oral contrast ingested. RADIATION DOSE: 7.36 CTDIvol (mGy) MEDICAL HISTORY : Chronic obstructive pulmonary disease. Congestive heart failure. Hypertension. SURGICAL HISTORY : Appendectomy. ENCOUNTER: Initial ACUITY: 1 day PAIN SCALE: Non-responsive LOCATION: TECHNIQUE: Volumetric scanning of the abdomen and pelvis was performed. Using automated exposure control and ad justment of the mA and/or kV according to patient size, radiation dose was kept as low as reasonably achievable to obtain optimal diagnostic quality images. FINDINGS: LOWER LUNGS: Abnormal, see concurrently performed CT thorax. LIVER: Homogeneous density without lesion for noncontrast technique.. There is no dilation of the biliary t ree. No calcified gallstones. SPLEEN: Normal size without lesion. PANCREAS: Within normal limits. KIDNEYS: Symmetric renal size. No evidence of hydronephrosis. There is a calcified stone lower pole right ki dney measuring 12 mm. And a 2 mm calcified stone in the midpole. ADRENAL GLANDS: Within normal limits. VASCULAR: There is no aortic aneurysm. Prominent wall calcification in the aorta and iliac vessels. BOWEL/MESENTERY: Small bowel loops are normal in size. There is distention of the colon with air fluid levels. The c ecum measures up to 11 cm in width. In the left lower quadrant, the sigmoid colon protrudes into a l eft inguinal hernia. The diameter of the sigmoid colon after the hernia is not distended. There is questionable twisting of the sigmoid colon as it enters the hernia sac. The hernia opening measures in excess of 3 cm. There is some mild fluid tracking along the paracolic gutter on both sides. No e vidence of free fluid in the pelvis. ABDOMINAL WALL: Within normal limits. RETROPERITONEUM: There is no lymphadenopathy. BLADDER: Olvera catheter in a nondistended bladder. REPRODUCTIVE: Multifocal calcification in a nonenlarged prostate. INGUINAL: Large left inguinal hernia containing loop of sigmoid (see bowel such). MUSCULOSKELETAL: Within normal limits for patient age. CONCLUSION: 1. There is a large left inguinal hernia with a loop of sigmoid extending into the sac approximately 7 cm. The colon proximal to the hernia appears distended with air-fluid levels. There is questionab le twisting of the sigmoid as it enters the hernia suggesting the possibility of partial obstruction. 2. There are 2 calcified stones in the right kidney without evidence of hydronephrosis. The case has been discussed with Dr. Mcghee. Pramod Pena MD on August 04, 2016 at 15:20 Board Certified Radiologist. This report was verified electronically.
[2016-08-04] MEDS: METOPROLOL TARTRATE 5 MG/5 ML VIAL IV PUSH PRN (15:45)
[2016-08-04] MEDS: MICAFUNGIN INJ 150 MG in SODIUM CHLORIDE 0.9% INJ 100 ML IV SCH (15:46)
--- NOTE | 2016-08-04 20:28 | RADRPT ---
EXAM DATE/TIME: 08/04/2016 19:07 [facility] COMPARISON: No previous studies available for comparison. EXTERNAL COMPARISON : [facility], ABDOMEN, KUB ONLY, January 26, 2014, [facility], PET/CT TUMOR COMPLETE, March 05, 2011. INDICATIONS : Abnormal labs. MEDICAL HISTORY : Hypothyroidism. Hypercholesterolemia. Chronic obstructive pulmonary disease. CHF. CAD. A-fib. Hyperte nsion. Kidney stones. Arthritis. Emphysema. MRSA. SURGICAL HISTORY : Appendectomy. Coronary artery stent. Cardiac cath. ENCOUNTER: Initial ACUITY: 1 day PAIN SCORE: Nonresponsive. LOCATION: Bilateral flank MEASUREMENTS: RIGHT KIDNEY: 10.2 x 5.2 x 6.3 cm LEFT KIDNEY: 10.3 x 5.3 x 6.3 cm FINDINGS: Kidneys mildly echogenic characteristic of mild medical renal disease. Left pleural effusion. Trace f ree fluid in the abdomen. The spleen decreased in size. CONCLUSION: 1. Mildly echogenic kidneys characteristic of medical renal disease. No hydronephrosis. Trace free fl uid. Bladder decompressed by Olvera. Zoltan Jacobs MD on August 04, 2016 at 20:23 Board Certified Radiologist. This report was verified electronically.
[2016-08-04] MEDS: SODIUM CHLOR 0.9% 1000 ML INJ 1,000 ML IV SCH (20:31)
[2016-08-04] MEDS: CLOPIDOGREL 75 MG TAB PO SCH (20:32)
[2016-08-04] MEDS: ATORVASTATIN 20 MG TAB PO SCH (20:32)
[2016-08-04] MEDS: METOCLOPRAMIDE HCL 10 MG/2 ML VIAL IV PUSH SCH (20:37)
--- NOTE | 2016-08-04 21:27 | MB ---
cc: NORBERTO YUNG MD DATE OF CONSULTATION 08/04/2016 REASON FOR CONSULTATION Elevated BUN and creatinine for evaluation. HISTORY OF PRESENT ILLNESS This is an 80-year-old male with past medical history of kidney stones, history of chronic obstructive pulmonary disease, hypertension, diabetes mellitus, hyperlipidemia, hypothyroidism was brought to the hospital because of worsening shortness of breath. I was called to see the patient because of elevated BUN and creatinine. The patient has creatinine of 1.35 on admission which stayed in the range of 1.0-1.1 most of the time and then started going up three days ago and now it is 2.6. The patient has decreased urine output. His blood pressure is kind of borderline and he has been tachycardiac. The patient was diagnosed with pneumonia and he was intubated on presentation and has been getting antibiotics. He was on vancomycin for some time and now he is currently getting micafungin and meropenem. The patient has been followed by infectious disease and GI has been consulted today also for possible ileus. He has an NG tube with suction and so far 750 ml of fluid came out from the nasogastric tube. The urine output has dropped to 100 ml since morning. PAST MEDICAL HISTORY 1. Hypertension. 2. Diabetes mellitus. 3. Chronic obstructive pulmonary disease. 4. Hyperlipidemia. 5. Hypothyroidism. 6. History of renal stones. 7. Ischemic heart disease. PAST SURGICAL HISTORY 1. History of lithotripsy. 2. Appendicectomy. 3. Cardiac catheterization with a stent. REVIEW OF SYSTEMS Cannot be taken since the patient is intubated and sedated. SOCIAL HISTORY The patient has a past history of smoking. He stopped 20 years ago. Occasionally he has alcoholic beverages. FAMILY HISTORY Noncontributory. ALLERGIES HE IS ALLERGIC TO SULFA. MEDICATIONS Currently he is on: 1. Protonix 40 mg once a day. 2. Prozac 40 mg once a day. 3. Aspirin 81 mg daily. 4. 30 mg once a day. 5. Synthroid 112 mcg daily. 6. Lipitor 20 mg q.h.s. 7. Plavix 75 mg q.h.s. 8. DuoNeb nebulizer. 9. Symbicort inhalation. 10. Methyl prednisolone 40 mg q. 12-hour. 11. Colace 100 mg q.12h. 12. Metoprolol 50 mg q.12-hour. 13. Heparin 5000 units subcu q.12. 14. Meropenem 500 mg IV q.8-hour. 15. Micafungin 150 mg q.24 h. 16. Reglan 5 mg q. 8-hour. PHYSICAL EXAMINATION GENERAL: The patient is intubated, sedated with NG tube suction. VITAL SIGNS: The last blood pressure is 89/57, temperature 98.1, heart rate is 116-132, oxygen saturation on 60% FIO2 is 93%. HEENT: Pupils are mid constricted. Nonicteric sclera, conjunctiva pale. NECK: Supple. JVD is not elevated. LUNGS: The patient has bilateral decreased air entry with basilar rales and scattered wheezing. HEART: S1-S2 with tachycardia. ABDOMEN: Distended. Has decreased bowel sounds. EXTREMITIES: He has 1+ edema in the leg. LABORATORY DATA Investigation, WBC count is 41.5, hemoglobin 9.7, platelet count of 233, neutrophils 96.2%. Sodium 145. Potassium 4.7, chloride 105, bicarb 27.8, BUN 122, creatinine 2.6, glucose 234. INR 1.0. Fibrinogen 460. Urinalysis was not done but urine eosinophils negative. Vancomycin trough level was 11.5 but this was on July 30. Cultures are so far all negative except one bronchial washing was positive for Klebsiella. IMAGING STUDIES The patient has abdominal x-ray done which shows dilated loops of bowel suggestive of severe ileus. Also had a CT scan of the abdomen and pelvis done which shows left inguinal hernia, two calcified stones in the right kidney without evidence of hydronephrosis. ASSESSMENT/PLAN 1. Acute kidney injury. 2. Pneumonia and respiratory failure. 3. Ileus. 4. Leukocytosis, rule-out sepsis. 5. Tachycardia with hypotension. 6. Anemia. The patient has multiple comorbid conditions and now he is developing acute kidney injury and urine output is on the lower side. The patient has been tachycardiac and having increased WBC count, possibly having sepsis. Infectious disease has been following and the cultures are all negative except bronchial washing. Most likely the acute kidney injury is because of ATN related to sepsis or hypotension. He has been losing some fluid through the NG tube. I will give him normal saline and follow the urine output. I discussed with son and the daughter who are sitting at the bedside about possibility of dialysis if there is no improvement in the renal function, and they do not want any dialysis. Once he has the fluid resuscitation and the urine output is low, then we can try the diuretics if bicarb is normal and potassium is normal. Thank you for the consultation. I will follow the patient while he is in the hospital. Norberto Yung MD AQJ/KK /5:52 PM /9:13 PM
[2016-08-04] MEDS: DILTIAZEM 125 MG/NS 100 ML IV SCH ×2 (21:32)
--- NOTE | 2016-08-04 22:10 | HHI.IDPN ---
Subjective Subjective Remarks ID X cover fro Dr Person delayed entry - pt ws seen today around 1700 chart was reviewed is an 80 y/o CM with PMHx of COPD, pulm fibrosis and emphysema on 3L Oxygen at home at baseline who sees Legal Operations Manager. His PMHx is also significant for HTN, diabetes mellitus, hyperlipidemia and hypothyroidism. He presented to [facility] ED with a one-week history of progressive worsening shortness of breath. The patient denies any associated symptoms of orthopnea, PND or edema of lower extremities. His taxi proprietor is Dr. Gerardo from cardiology. On arrival to the ED, the patient was hypoxic with O2 saturation in the 70s on NC and he was subsequently placed on a non-rebreather mask with a saturation of 94%. Chest x-ray on arrival showed patchy airspace disease bilaterally with coarse pleural changes. Due to his respiratory distress, CT angiogram of the chest was obtained which showed no evidence of a pulmonary embolism, however, it showed interstitial fibrotic changes with multiple emphysematous blebs and left-sided pleural effusion. Also a 2 x 1.4 cm nodule was seen in the posterior aspect of the left lower lobe. In the emergency room, he was given 500 mL of normal saline, vancomycin, cefepime, DuoNeb, Solu-Medrol 125 mg IV push and magnesium sulfate. His labs notable for lactic acid of 6.4 and leukocytosis with a WBC count of 19.1. The patient was admitted last month on June 29 with similar presentation and he also had a CT angiogram of the chest at that time which showed advanced COPD along with pulmonary fibrosis. Nasal washing in the ER negative for influenza. The patient denies any nausea, vomiting or any abdominal pain. Pt remains intubated, has fever and rising WBC over the last few days. Today his WBC was [address] abd/ pelvis showed bowel obtruction caused by sigmoid twisting. His CT from today showed a large left inguinal hernia with a loop of sigmoid extending into the sac approximately 7 cm. The colon proximal to the hernia appears distended with air-fluid levels. His BP borderline, UOP minimal and he is not tolerating tube feeds Last BM 2 days ago fever improvbed Antibiotics meropenm micafungin Lines Line sites with no e.o infection. Past Medical History reviewed Allergies: Coded Allergies: Sulfa (Verified Allergy, Unknown, CAN'T RECALL , 06/29/16) *MDRO Multi-Drug Resistant Organism (Verified Adverse Reaction, Unknown, ) MRSA PCR Screen POSITIVE - 06/30/2016, 07/24/16 Objective . Vital Signs Date Time Temp Pulse Resp B/P Pulse Ox O2 Delivery O2 Flow Rate FiO2 08/04/16 18:00 122 08/04/16 16:00 132 08/04/16 16:00 98.1 132 22 89/57 93 104/53 08/04/16 16:00 60 08/04/16 14:00 137 08/04/16 13:40 96 100 08/04/16 12:00 60 08/04/16 12:00 129 08/04/16 12:00 99.9 129 22 102/59 92 118/59 08/04/16 11:40 92 60 08/04/16 10:00 91 60 08/04/16 10:00 116 08/04/16 08:00 121 08/04/16 08:00 100.1 121 22 102/65 88 118/48 08/04/16 08:00 60 08/04/16 06:00 120 08/04/16 04:08 90 60 08/04/16 04:00 104 08/04/16 04:00 60 08/04/16 04:00 100.9 104 22 94/56 91 114/55 08/04/16 02:00 107 08/04/16 01:06 90 60 08/04/16 00:00 99.9 97 22 87/55 91 115/60 08/04/16 00:00 60 08/04/16 00:00 97 08/03/16 23:20 90 60 08/03/16 22:00 93 08/03/16 08/03/16 08/04/16 15:00 23:00 07:00 Intake Total 1359 ml 1187 ml 912 ml Output Total 600 ml 200 ml Balance 759 ml 987 ml 912 ml IV Total 283 ml 593 ml 276 ml Tube Feeding 586 ml 284 ml 386 ml Other 490 ml 310 ml 250 ml Output Urine Total 600 ml 200 ml # Bowel Movements 0 . Laboratory Tests Test 08/03/16 08/04/16 04:20 03:30 White Blood Count 30.3 TH/MM3 41.5 TH/MM3 Red Blood Count 3.29 MIL/MM3 3.56 MIL/MM3 Hemoglobin 8.9 GM/DL 9.7 GM/DL Hematocrit 28.0 % 30.6 % Mean Corpuscular Volume 84.9 FL 86.0 FL Mean Corpuscular Hemoglobin 27.0 PG 27.4 PG Mean Corpuscular Hemoglobin 31.8 % 31.8 % Concent Red Cell Distribution Width 18.0 % 18.7 % Platelet Count 199 TH/MM3 233 TH/MM3 Mean Platelet Volume 10.2 FL 10.5 FL Neutrophils (%) (Auto) 96.2 % Lymphocytes (%) (Auto) 1.3 % Monocytes (%) (Auto) 2.3 % Eosinophils (%) (Auto) 0.0 % Basophils (%) (Auto) 0.2 % Neutrophils # (Auto) 40.0 TH/MM3 Lymphocytes # (Auto) 0.5 TH/MM3 Monocytes # (Auto) 0.9 TH/MM3 Eosinophils # (Auto) 0.0 TH/MM3 Basophils # (Auto) 0.1 TH/MM3 CBC Comment AUTO DIFF Differential Total Cells 100 Counted Neutrophils % (Manual) 91 % Band Neutrophils % 4 % Lymphocytes % 1 % Monocytes % 4 % Neutrophils # (Manual) 39.4 TH/MM3 Differential Comment FINAL DIFF MANUAL Platelet Estimate NORMAL Platelet Morphology Comment NORMAL Red Cell Morphology Comment NORMAL Laboratory Tests Test 08/03/16 08/04/16 04:20 03:30 Sodium Level 148 MEQ/L 145 MEQ/L Potassium Level 4.2 MEQ/L 4.7 MEQ/L Chloride Level 109 MEQ/L 105 MEQ/L Carbon Dioxide Level 31.0 MEQ/L 27.8 MEQ/L Anion Gap 8 MEQ/L 12 MEQ/L Blood Urea Nitrogen 88 MG/DL 122 MG/DL Creatinine 1.59 MG/DL 2.61 MG/DL Estimat Glomerular Filtration 42 ML/MIN 24 ML/MIN Rate Random Glucose 207 MG/DL 234 MG/DL Calcium Level 7.9 MG/DL 7.9 MG/DL Phosphorus Level 3.6 MG/DL Magnesium Level 3.1 MG/DL Microbiology Date/Time Procedure Status Source Growth 08/02/16 00:10 Urine Culture - Final Complete Urine Catheterized Urine NO GROWTH IN 48 HOURS. 08/03/16 14:30 Aerobic Blood Culture - Preliminary Resulted Blood Other NO GROWTH IN 1 DAY 08/03/16 14:30 Anaerobic Blood Culture - Preliminary Resulted Blood Other NO GROWTH IN 1 DAY 08/03/16 14:36 Aerobic Blood Culture - Preliminary Resulted Blood Other NO GROWTH IN 1 DAY 08/03/16 14:36 Anaerobic Blood Culture - Preliminary Resulted Blood Other NO GROWTH IN 1 DAY Imaging Last Impressions Renal Ultrasound 08/04/16 0000 Signed Impressions: Service Date/Time: Thursday, August 04, 2016 19:07 - CONCLUSION: 1. Mildly echogenic kidneys characteristic of medical renal disease. No hydronephrosis. Trace free fluid. Bladder decompressed by Christiansen. Zoltan Jacobs MD Chest CT 08/04/16 0000 Signed Impressions: Service Date/Time: Thursday, August 04, 2016 13:38 - CONCLUSION: Large left pleural effusion tracking around several blebs in the lateral left chest. There is also collapse of the left lower lobe. No pleural effusion on the right side. Interstitial infiltrates without consolidation in the mid and lower right lung. Pramod Pena MD Abdomen/Pelvis CT 08/04/16 0000 Signed Impressions: Service Date/Time: Thursday, August 04, 2016 13:35 - CONCLUSION: 1. There is a large left inguinal hernia with a loop of sigmoid extending into the sac approximately 7 cm. The colon proximal to the hernia appears distended with air-fluid levels. There is questionable twisting of the sigmoid as it enters the hernia suggesting the possibility of partial obstruction. 2. There are 2 calcified stones in the right kidney without evidence of hydronephrosis. The case has been discussed with Dr. Mcghee. Pramod Pena MD Abdomen X-Ray 08/04/16 0000 Signed Impressions: Service Date/Time: Thursday, August 04, 2016 07:37 - CONCLUSION: Multiple dilated loops of bowel suggest either severe ileus or small bowel obstruction. Pramod Pena MD Chest X-Ray 08/03/16 0600 Signed Impressions: Service Date/Time: Wednesday, August 03, 2016 03:55 - CONCLUSION: Stable area of opacification throughout the left lung. ET tube in good position Dav Santana MD Thoracentesis 07/27/16 0000 Signed Impressions: Service Date/Time: Wednesday, July 27, 2016 10:18 - CONCLUSION: Uncomplicated CT-guided left thoracentesis. Sample was saved and sent to lab for evaluation, as ordered. Tate Street MD CT Angiography 07/24/16 1450 Signed Impressions: Service Date/Time: Sunday, July 24, 2016 15:29 - CONCLUSION: 1. No pulmonary embolus identified. 2. Advanced COPD. 3. Interval development of a large left pleural effusion. There is diffuse interstitial prominence and cardiomegaly. Exam would suggest congestive failure. 4. Nodule at the left lung base which was seen on previous dated 06/29/16 is obscured by the pleural effusion. Raymond Stewart MD Physical Exam GENERAL: Elderly male patient, sedated [facility] SKIN: No rashes, ecchymoses or lesions. Cool and dry. HEAD: Atraumatic. Normocephalic. EYES: Pupils equal round and reactive. Extraocular motions intact. + scleral icterus. No injection or drainage. ENT: Nose without bleeding, purulent drainage or septal hematoma. Dry mucosae NECK: Trachea midline. Supple, nontender, no meningeal signs. CARDIOVASCULAR: tachycardia, @ 150 on monitor, RVR afib RESPIRATORY: Decreased air entry in left base. Occ wheezes. GASTROINTESTINAL: Abdomen tense, exquisetely tender, markedly distended. Bowel sounds abscent Large area of tympany upper abdomen No hepatosplenomegaly, masses NG to LIWS with feculent appearing drainage christiansen in place with small amount of urine MUSCULOSKELETAL: Extremities without clubbing, cyanosis, + 1-2 edema. NEUROLOGICAL: sedated, not following commands, but grimacing to pain with abdominal exam Psych: unable to assess IV line sites with no evidence of infection. Assessment & Plan Remarks Sepsis (Leucocytosis, tachycardia, hypothermia,lactic acidemia) - likely of intraabdominal origin Hemodynamically unstable Pneumonia (CAP vs HCAP); growing Kleb pneumo in BAL clx Acute respiratory failure Acute COPD exacerbation Acute renal failure CAD, PAD s/p stents and procedures. Pt is critically ill unstable Recs: cont Meropenem IV (ASP: persistent fevers despite Zosyn IV, Cefepime IV, ? new MDRO in GNR in sputum) cont Micafungin IV (for possible fungemia was on Broad spectrum antibiotics) dc oral flagyl ( not toleraitng any po) awaiting surgery rec's d/w RN, Dr. Mcghee. dw family at b/s Miracle Ash MD Aug 04, 2016 22:10
--- NOTE | 2016-08-04 23:27 | MB ---
cc: ALEX NASH DATE OF CONSULTATION 08/04/[address] Mcghee REASON FOR CONSULTATION Left inguinal hernia and possible large bowel obstruction. HISTORY OF PRESENT ILLNESS The patient is an 80-year-old male who was admitted to [facility] for evaluation for pulmonary fibrosis, multiple comorbidities, sepsis, respiratory failure in critical condition. The patient currently is on the ventilator, critically ill in the Intensive Care Unit, had worsening sepsis. Workup did ensue and the patient was noted to have some dilated bowels on an x-ray. Follow up CT scan performed on 08/04/2016 did return left inguinal hernia, loop of sigmoid concerning for possible obstruction. General surgery was consulted. The patient is in comatose state in the ICU. History is obtained from the chart. PAST MEDICAL HISTORY 1. Hypertension, 2. Diabetes, 3. COPD 4. Pulmonary fibrosis 5. [id number], 6. Hypothyroidism 7. History of renal stones 8. Ischemic heart disease. PAST SURGICAL HISTORY Appendectomy. SOCIAL HISTORY History of tobacco, does not currently use tobacco, occasionally uses alcohol. FAMILY HISTORY Unknown. ALLERGIES SULFA MEDICATIONS 1. Protonix, 2. Prozac. 3. Aspirin. 4. Synthroid. 5. Lipitor. 6. Plavix 7. Nebulizers 8. Symbicort 9. Metoprolol 10. Heparin 11. Micafungin 12. Reglan 13. Lactulose. PHYSICAL EXAMINATION VITAL SIGNS: Unstable, heart rate 132, blood pressure 89/58, O2 saturation 93% on the ventilator. Temperature 98.1 degrees. GENERAL: The patient in a critically ill elderly male in the Intensive Care Unit. HEAD: Normocephalic, atraumatic. The patient is intubated, minimally responsive to pain. LUNGS: Significant lung disease bilaterally, left worse than right. HEART: Tachycardic ABDOMEN: Distended, tympanic, nontender to palpation. No guarding. No surgical scars or ascites. Left inguinal hernia is palpated. Loop of bowel is easily reducible on exam with minimal effort consistent with a non-incarcerated inguinal hernia. EXTREMITIES: Positive for acute edema. NEUROLOGIC: The patient is GCS of five, sedated on the ventilator. LABORATORY FINDINGS Hemoglobin 9.7, white blood cell count 41.5. The creatinine 2.61. ASSESSMENT/PLAN The patient is an 80-year-old male critically ill with significant lung disease and sepsis. The patient does have left inguinal hernia that contained loop of sigmoid colon which was easily reducible. The patient did have some air and liquid in his colon with no dilated small bowel. This potentially could be an early low grade large bowel obstruction due to this hernia, however, this was completely reduced and without any other significant dilated small bowel. I think this was of little clinical significance in this patient at this point in time. There is no free air, free fluid or signs of any ischemic bowel or any other abdominal process. Therefore, I would not Recommend acute surgical intervention to fix this hernia as the patient is extremely ill and hemodynamically unstable and would not tolerate surgery. I do not think the patient has a surgical process in the abdomen that is driving his illness at this time, although the patient may have had a small partial obstruction with the hernia. We will follow up this patient and continue to address the hernia and if this needs to be reduced we will be available for assistance. I Discussed the patient with the transcripter bus person dishwasher, in agreement with their plan and the family's plan with continued palliation for this patient. MD DIXON Moore/ /9:47 PM /11:15 PM MTDD
[2016-08-05] VITALS (13 sets, daily range): BP systolic 93–129; BP diastolic 50–64; PULSE 79–124; RESP 22; TEMP 98.5–100.5; O2SAT 82–95
[2016-08-05] MEDS: RESP: ALBUTEROL 2.5 MG/IPRATROPIUM 0.5 MG NEB (SCH) INH ×2 (03:31→07:52)
[2016-08-05] MEDS: PROPOFOL 1000 MG/100 ML INJ 100 ML IV SCH (03:50)
[2016-08-05] MEDS: CHLORHEXIDINE GLUCONATE 2 % 1 PACK (2 CLOTHS) TOP SCH (03:50)
[2016-08-05] MEDS: DILTIAZEM 125 MG/NS 100 ML IV SCH ×4 (03:50→13:27)
[2016-08-05] MEDS: SODIUM CHLOR 0.9% 1000 ML INJ 1,000 ML IV SCH ×2 (03:51→13:27)
[2016-08-05 04:15] LABS: AUTOMATED NEUTROPHIL # 44.5 TH/MM3 (1.8-7.7); BASOPHIL # 0.1 TH/MM3 (0-0.2); BASOPHIL % 0.2 % (0.0-2.0); HEMATOCRIT 32.4 % (39.0-51.0); LYMPH % 2.1 % (9.0-44.0); MEAN CELL VOLUME 86.2 FL (80.0-100.0); MEAN CORPUSCULAR HEMOGLOBIN 26.7 PG (27.0-34.0); MONO % 2.8 % (0.0-8.0); NEUT % 94.9 % (16.0-70.0); PLATELET COUNT 224 TH/MM3 (150-450); RED BLOOD COUNT 3.76 MIL/MM3 (4.50-5.90); RED CELL DISTRIBUTION WIDTH 18.7 % (11.6-17.2); WHITE BLOOD COUNT 46.9 TH/MM3 (4.0-11.0)
[2016-08-05 04:35] LABS: HEMO FLAGS AUTO DIFF
[2016-08-05] MEDS: INSULIN NovoLIN REGULAR SUPPLEMENTAL SCALE SQ SCH ×2 (05:00→11:00)
[2016-08-05 05:02] LABS: BICARBONATE 24.8 MEQ/L (21.0-32.0); POTASSIUM 5.3 MEQ/L (3.5-5.1)
[2016-08-05] MEDS: METOCLOPRAMIDE HCL 10 MG/2 ML VIAL IV PUSH SCH ×2 (05:37→13:27)
[2016-08-05] MEDS: LEVOTHYROXINE SODIUM 112 MCG TAB PO SCH (05:37)
[2016-08-05] MEDS: FREE WATER G-TUBE SCH ×2 (05:37→14:00)
[2016-08-05] MEDS: HEPARIN SODIUM - SQ 10,000 UNITS/ML VIAL SQ SCH ×2 (05:38→13:26)
[2016-08-05 05:39] LABS: BANDS 5 % (0-6); NEUTROPHIL # MANUAL DIFF 44.6 TH/MM3 (1.8-7.7); POLYS (SEG NEUTROPHILS) 90 % (16-70); WBC DIFF SAMPLE 100
[2016-08-05 05:40] LABS: OVALOCYTES 1+ (NORMAL); PLATELET ESTIMATE SMEAR NORMAL (NORMAL); PLATELET MORPHOLOGY NORMAL (NORMAL); SCAN/DIFF FINAL DIFF MANUAL
--- NOTE | 2016-08-05 06:35 | RADRPT ---
EXAM DATE/TIME: 08/05/2016 04:07 [place] COMPARISON: CT ABDOMEN & PELVIS W/O CONTRAST, August 04, 2016, 13:35. ABDOMEN KUB ONLY, August 04, 2016, 7:37. INDICATIONS : Abdominal distention. MEDICAL HISTORY : Chronic obstructive pulmonary disease. Congestive heart failure. Hypertension. SURGICAL HISTORY : Appendectomy. ENCOUNTER: Subsequent ACUITY: 1 week PAIN SCORE: Non-responsive. LOCATION: Bilateral abdomen FINDINGS: Supine view of the abdomen was performed. The patient has a air filled loop of bowel extending acros s the abdomen difficult to equip tech whether small or large bowel .nasogastric tube within the stomach . No abnormal masses, calcifications, or organomegaly is seen. The osseous structures are unremarkabl e. CONCLUSION: Stable study of the abdomen with an air filled loop of bowel across the abdomen difficult to equip tech of the small or large bowel. No interval change. Dav Santana MD on August 05, 2016 at 6:33 Board Certified Radiologist. This report was verified electronically.
[2016-08-05] MEDS: RESP: BUDESONIDE 0.25 MG/2 ML NEB NEB SCH (07:52)
--- NOTE | 2016-08-05 08:11 | HHI.CCPN ---
Subjective Remarks/Hospital Course The patient is an 80-year-old male with past medical history of COPD on 3 L/m home oxygen continuously in addition to nebulizer, history of hypertension and diabetes mellitus, hyperlipidemia, and hypothyroidism. He presented to [facility] ED with a one-week history of progressive dyspnea. The patient denies any associated symptoms such as orthopnea, PND or edema of the lower extremities. He is being followed by Dr. booker, his outpatient laser systems engineer, and Dr. Gerardo his small piece cutter. He denies any nausea vomiting or abdominal pain. Upon arrival to the ED, the patient was hypoxic with O2 saturation in the 70s on nasal cannula and he was subsequently placed on a nonrebreather mask and O2 sats of 94%. Chest x-ray upon arrival showed patchy airspace disease bilateral with coarse pleural changes. CT angiogram of his chest was obtained which showed no evidence of pulmonary embolus however, it showed interstitial fibrotic changes with multiple emphysematous blebs and left-sided pleural effusion. Also a 2 x 1.4 cm nodule was seen in the posterior aspect of the left lower lobe. In the emergency room he was given 500 cc of normal saline, vancomycin, cefepime, DuoNeb, Solu-Medrol 125 mg IV push and magnesium sulfate. Nasal washings were negative for influenza. Critical care medicine was consult for management. Subjective 07/25: Early this a.m. patient was noted to be on a nonrebreather mask with O2 sats in the 80s. The patient apparently has significant history for obstructive sleep apnea at which point he utilizes a CPAP machine at home. The place and was placed on CPAP with O2 sats 94%. Plan today to wean to high flow nasal cannula and aggressive pulmonary toileting, continue dosing of antibiotics. 07/26: The patient was weaned yesterday to high flow nasal cannula, to maintain an O2 sat of 90%. Patient was additionally diuresed with Lasix 40 mg approximately 1 L output yesterday. The patient was able to tolerate a clear liquid diet, diet advance to heart healthy this a.m.. The patient was noted to have an elevation in WBC count despite empiric antibiotics. ID consulted. 07/27: Afebrile. Yesterday afternoon the patient had hypoxic respiratory failure and required emergent intubation, secondary to decompensation. Plan for IR to do a CT-guided thoracentesis secondary to the numerous blebs and layering of fluid, unable to be performed at bedside. Thoracentesis performed approximately 2.4 L removed today the patient is now down to FiO2 of 50% .PEEP 8 with plan for weaning as clinically tolerated. 07/28: Overnight the patient became confused and self extubated at 12 midnight. The patient was maintained on BiPAP for several hours received Haldol, and Precedex. The patient subsequently was reintubated at 5:30 this morning after obtaining ABGs. Postintubation ABGs 7.36/44/108/25/05. The patient is now sedated, weaning FiO2 requirements. 07/29: Afebrile. Patient was noted to go into atrial fibrillation with a heart rate in the 150s last night. Received a bolus of Cardizem with subsequent Cardizem infusion. Resolution of atrial fib heart rate 90s, now normal sinus rhythm. The patient was noted to have ventilator dyssynchrony, the patient was bolused with Versed 5 mg IV, with resolution. Ventilator O2 requirements were successfully decreased to FiO2 of 40%. 07/30: The patient's FiO2 was increased to 55% overnight, the patient opted mechanical vent settings unchanged. The patient became agitated last night and required additional sedation. Versed when necessary added to medication regimen. The patient is continued on ARDS protocol, with goals of diminishing FiO2 with maintaining PEEP. The patient has currently been weaned down this morning to 45%. The patient blood glucose is still elevated most likely secondary to his steroid medication regimen in setting of diabetes mellitus. Levemir increased, steroids now being weaned. Pleural fluid cultures preliminarily negative. 07/31: The patient went into A. fib RVR, Cardizem bolused 15 mg, followed by 10 mg and an infusion was initiated. The patient continues to have elevation in WBC count, ID following. ABGs this a.m. showed a PaO2 of 76 on 45%. However in the setting of A. fib ABG was drawn and PaO2 decreased, FiO2 was increased to 50% ABG now pending this evening. The patient continues on propofol and fentanyl infusion. The patient responding adequately to diuresis with Lasix. 08/01: Afebrile. Last evening the patient went into A. fib with a rate of 150s. 25 mg IV bolus of Cardizem was given in 2 doses, patient was placed on a Cardizem infusion. The patient was then changed to an amiodarone bolus and amiodarone infusion, with subsequent conversion to normal sinus rhythm. The patient has remained in normal sinus rhythm, normotensive overnight. Amiodarone has been discontinued. The patient has been placed on Cardizem PO at increased dosage every 6 hours. 08/02:Afebrile. Yesterday daily patient was in normal sinus rhythm, and placed back Cardizem. The patient continued in normal sinus rhythm. A bronchoscopy was performed with BAL, postprocedure the patient went into A. fib RVR Cardizem infusion instituted. After bolus of Cardizem 20 mg. A. fib has remained rate controlled in the s. Cardiology has been consult regarding paroxysmal A. fib . The patient was placed on CPAP and was maintained for approximately 3 hours yesterday. We'll resume CPAP trials today. 08/03 Patient remains intubated and sedated with Diprivan and Fentanyl. T max 100.1. Off Cardizem drip remains in Afib RVR 08/04 Patient remains sedated with Diprivan, Fentanyl and intubated. Persistent fever with Tmax 101.0 and increase WBC 41.5 from 30. In addition his renal function worse today with Cr: 2.61 today from 1.59. UO 800ml in 24 hrs 08/05 Patient is sedated and intubated. Had T: 100.5 at midnight. Renal function continue to wprse with Cr: 3.92 today from 2.61 with minimal UO ( 300ml in 24hrs ) WBC continue to climb 46.5 today from 41.5. Palliative care met with family yesterday and they refused dialysis and surgery if needed. Patient was made no code DNR. Objective Vital Signs Date Time Temp Pulse Resp B/P Pulse Ox O2 Delivery O2 Flow Rate FiO2 08/05/16 06:00 103 08/05/16 04:03 94 60 08/05/16 04:00 98.5 22 100/55 104/54 Intake and Output 08/04/16 08/04/16 08/05/16 08:00 16:00 00:00 Intake Total 912 ml 174 ml 480 ml Output Total 800 ml 450 ml Balance 912 ml -626 ml 30 ml Result Diagram: 08/05/16 0310 08/05/16 0310 Other Results Laboratory Tests Test 08/05/16 03:10 White Blood Count 46.9 TH/MM3 Red Blood Count 3.76 MIL/MM3 Hemoglobin 10.0 GM/DL Hematocrit 32.4 % Mean Corpuscular Volume 86.2 FL Mean Corpuscular Hemoglobin 26.7 PG Mean Corpuscular Hemoglobin 31.0 % Concent Red Cell Distribution Width 18.7 % Platelet Count 224 TH/MM3 Mean Platelet Volume 11.0 FL Neutrophils (%) (Auto) 94.9 % Lymphocytes (%) (Auto) 2.1 % Monocytes (%) (Auto) 2.8 % Eosinophils (%) (Auto) 0.0 % Basophils (%) (Auto) 0.2 % Neutrophils # (Auto) 44.5 TH/MM3 Lymphocytes # (Auto) 1.0 TH/MM3 Monocytes # (Auto) 1.3 TH/MM3 Eosinophils # (Auto) 0.0 TH/MM3 Basophils # (Auto) 0.1 TH/MM3 CBC Comment AUTO DIFF Differential Total Cells 100 Counted Neutrophils % (Manual) 90 % Band Neutrophils % 5 % Lymphocytes % 1 % Monocytes % 4 % Neutrophils # (Manual) 44.6 TH/MM3 Differential Comment FINAL DIFF MANUAL Platelet Estimate NORMAL Platelet Morphology Comment NORMAL Ovalocytes 1+ Sodium Level 146 MEQ/L Potassium Level 5.3 MEQ/L Chloride Level 109 MEQ/L Carbon Dioxide Level 24.8 MEQ/L Anion Gap 12 MEQ/L Blood Urea Nitrogen 144 MG/DL Creatinine 3.92 MG/DL Estimat Glomerular Filtration 15 ML/MIN Rate Random Glucose 103 MG/DL Calcium Level 7.9 MG/DL Random Vancomycin Level 16.2 COMMENT Imaging Last Impressions Abdomen X-Ray 08/05/16 0600 Signed Impressions: Service Date/Time: Friday, August 05, 2016 04:07 - CONCLUSION: Stable study of the abdomen with an air filled loop of bowel across the abdomen difficult to surveyor chain helper of the small or large bowel. No interval change. Dav Santana MD Renal Ultrasound 08/04/16 0000 Signed Impressions: Service Date/Time: Thursday, August 04, 2016 19:07 - CONCLUSION: 1. Mildly echogenic kidneys characteristic of medical renal disease. No hydronephrosis. Trace free fluid. Bladder decompressed by Olvera. Zoltan Jacobs MD Chest CT 08/04/16 0000 Signed Impressions: Service Date/Time: Thursday, August 04, 2016 13:38 - CONCLUSION: Large left pleural effusion tracking around several blebs in the lateral left chest. There is also collapse of the left lower lobe. No pleural effusion on the right side. Interstitial infiltrates without consolidation in the mid and lower right lung. Pramod Pena MD Abdomen/Pelvis CT 08/04/16 0000 Signed Impressions: Service Date/Time: Thursday, August 04, 2016 13:35 - CONCLUSION: 1. There is a large left inguinal hernia with a loop of sigmoid extending into the sac approximately 7 cm. The colon proximal to the hernia appears distended with air-fluid levels. There is questionable twisting of the sigmoid as it enters the hernia suggesting the possibility of partial obstruction. 2. There are 2 calcified stones in the right kidney without evidence of hydronephrosis. The case has been discussed with Dr. Mcghee. Pramod Pena MD Chest X-Ray 08/03/16 0600 Signed Impressions: Service Date/Time: Wednesday, August 03, 2016 03:55 - CONCLUSION: Stable area of opacification throughout the left lung. ET tube in good position Dav Santana MD Thoracentesis 07/27/16 0000 Signed Impressions: Service Date/Time: Wednesday, July 27, 2016 10:18 - CONCLUSION: Uncomplicated CT-guided left thoracentesis. Sample was saved and sent to lab for evaluation, as ordered. Tate Street MD CT Angiography 07/24/16 1450 Signed Impressions: Service Date/Time: Sunday, July 24, 2016 15:29 - CONCLUSION: 1. No pulmonary embolus identified. 2. Advanced COPD. 3. Interval development of a large left pleural effusion. There is diffuse interstitial prominence and cardiomegaly. Exam would suggest congestive failure. 4. Nodule at the left lung base which was seen on previous dated 06/29/16 is obscured by the pleural effusion. Raymond Stewart MD Objective Remarks GENERAL: Well-developed, obese male, currently intubated and sedated on propofol and fentanyl infusion SKIN: Warm and dry. HEAD: Atraumatic. Normocephalic. EYES: Pupils equal and round. No scleral icterus. No injection or drainage. ENT: No nasal bleeding or discharge. Mucous membranes pink and moist. Orotracheally intubated. NECK: Trachea midline. No JVD. CARDIOVASCULAR:Tachycardic nl S1, S2. RESPIRATORY: B/L equal air entry GASTROINTESTINAL: Abdomen soft, non-tender, distended. No guarding. hypoactive BS MUSCULOSKELETAL: Extremities without clubbing, cyanosis, 2+ peripheral edema. No obvious deformities. NEUROLOGICAL: Sedated, intubated Date of Insertion: Jul 26, 2016 A/P Assessment and Plan Plan by systems: Neurologic: Anxiety disorder H/O PTSD Pain Continue Prozac 40 mg daily Acetaminophen 650 every 6 hours when necessary for temperature > 101.0 Fentanyl and propofol infusions for sedation for ventilator synchrony. Daily sedation vacation when appropriate. Respiratory: COPD exacerbation Pulmonary edema Acute on chronic respiratory failure RADHA Acute hypoxic respiratory failure 07/26 Intubated-8.0 ETT On PRVC RR 22, TV 550, PEEP:12, FIO2 60%. IT: 0.9 Continue antibiotics per ID Methylprednisolone 40 mg 12 hours Continue duo nebs scheduled every 4 hours Maintain head of bed 30 Pulmonary is following-Dr. Gayle CPAP trials when appropriate CTA 07/24-left lung base nodule 06/29 2.01.4 cm nodule posterior aspect left lower lung 07/27-CT guided thoracentesis-2.4 L removed, cultures and cytology pending Cardiovascular: Coronary artery disease Cardiomegaly Hypertension Paroxysmal Atrial fibrillation 07/29, 07/31, Monitor HR and BP keep MAP>65mmHg. On Cardizem 90mg QID, Lopressor 50mg Q12 Continue statin, aspirin (home medication) Continue Plavix 75 g daily at bedtime Cardiology is following Renal: Monitor renal function, I/O's, avoid nephrotoxins Free water 250ml Q8 monitor sodium level. Renal function continue to worse with Cr 3.92 today from 2.61 and UO: 300ml in 24 hrs renal US : No hydronephrosis. Renal is following- Dr. Raphael. On NS@100ml/hr. Patient's family refusing HD. FEN/GI: Keep NPO, OGT to LIWS Continue with Bowel regimen- on Senna,Colace, Lactulose 30ml QID KUB abdomen: Ileus vs bowel obstruction CT abdomen/pelvis reviewed 08/04 showed Left inguina hernia which contained loops of sigmoid colon that was reduced by Dr. Adler last night. Heme/ID: Lactic acidosis-resolved Anemia of chronic disease Persistent Leukocytosis History of MRSA Continue with abx per ID (Vanco, Micafungin, Avycaz, IV Flagyl)monitor for signs of infections ( Fever, WBC) 07/26-Legionella and influenza negative 07/27-pleural fluid-NGTD 08/01-obtain blood and urine cultures 08/01-bronchoscopy with BAL- Kleb pneumonia Monitor CBC Endocrine: Diabetes mellitus Hyperglycemia of critical illness Medium dose sliding scale, hold Levemir as patient is NPO Prophylaxis: GI Prophylaxis Protonix DVT Prophylaxis -- SCDs Heparin 5000u subcutaneous 3 times a day Lines: Peripheral IVs. Palliative care is following. Poor prognosis given multiorgan injury. CCT 30 mins Aidee Mcghee MD Aug 05, 2016 08:11
[2016-08-05] MEDS: PANTOPRAZOLE SODIUM 40 MG VIAL IV SCH (08:19)
[2016-08-05] MEDS: ASPIRIN 81 MG CHEW TAB PO SCH (08:19)
[2016-08-05] MEDS: BUDESONIDE-FORMOTEROL 160/4.5 MCG INHALER INH SCH (08:19)
[2016-08-05] MEDS: methylPREDNISolone SOD SUCC 125 MG/2 ML VIAL IV PUSH SCH (08:19)
[2016-08-05] MEDS: DILTIAZEM HCL 90 MG TAB PO SCH ×2 (08:20→13:00)
[2016-08-05] MEDS: DOCUSATE SODIUM 100 MG/10 ML UDC PO SCH (08:28)
[2016-08-05] MEDS: LACTULOSE SYRUP 20 GM/30 ML CUP PO SCH ×2 (08:29→13:00)
[2016-08-05] MEDS: FLUoxetine HCL 20 MG CAP PO SCH (08:29)
[2016-08-05] MEDS: METOPROLOL TARTRATE 25 MG TAB PO SCH (08:29)
[2016-08-05] MEDS: ISOSORBIDE DINITRATE 10 MG TAB PO SCH (08:29)
[2016-08-05] MEDS: SENNOSIDES 8.6 MG TAB PO SCH (08:29)
[2016-08-05] MEDS ORDERED: metroNIDAZOLE 500 MG INJ 100 ML IV SCH (09:00)
[2016-08-05] MEDS ORDERED: cefTAZidime/AVIBACTAM INJ 0.94 GM in SODIUM CHLORIDE 0.9% INJ 50 ML IV SCH (10:00)
--- NOTE | 2016-08-05 11:02 | HHI.GIFU ---
Subjective Remarks Resting in bed. Sedated on vent. Nurse reports that family has said that they are leaning towards comfort care and have a meeting with palliative care this morning. (Doreen London) Objective Vitals I&O Vital Signs Date Time Temp Pulse Resp B/P Pulse Ox O2 Delivery O2 Flow Rate FiO2 08/05/16 10:00 112 08/05/16 08:00 111 08/05/16 08:00 99.1 111 22 106/57 94 129/64 08/05/16 08:00 50 08/05/16 07:52 95 50 08/05/16 06:00 103 08/05/16 04:03 94 60 08/05/16 04:00 124 08/05/16 04:00 98.5 124 22 100/55 93 104/54 08/05/16 04:00 60 08/05/16 02:00 108 08/05/16 01:12 94 60 08/05/16 00:00 101 08/05/16 00:00 60 08/05/16 00:00 100.5 101 22 106/56 92 116/58 08/04/16 22:06 93 60 08/04/16 22:00 120 08/04/16 20:00 60 08/04/16 20:00 99.6 126 22 120/56 93 108/53 08/04/16 20:00 126 08/04/16 19:02 99 60 08/04/16 18:00 122 08/04/16 16:00 132 08/04/16 16:00 98.1 132 22 89/57 93 104/53 08/04/16 16:00 60 08/04/16 14:00 137 08/04/16 13:40 96 100 08/04/16 12:00 60 08/04/16 12:00 129 08/04/16 12:00 99.9 129 22 102/59 92 118/59 08/04/16 11:40 92 60 I/O 08/04/16 08/04/16 08/04/16 08/05/16 08/05/16 08/05/16 07:00 15:00 23:00 07:00 15:00 23:00 Intake Total 912 ml 174 ml 480 ml 911 ml Output Total 800 ml 450 ml 300 ml Balance 912 ml -626 ml 30 ml 611 ml IV Total 276 ml 174 ml 480 ml 911 ml Tube Feeding 386 ml 0 ml 0 ml Other 250 ml Output Urine Total 150 ml 50 ml 100 ml Gastric Drainage Total 400 ml 200 ml Emesis 650 ml # Bowel Movements 0 0 Laboratory Laboratory Tests Test 08/05/16 03:10 White Blood Count 46.9 Red Blood Count 3.76 Hemoglobin 10.0 Hematocrit 32.4 Mean Corpuscular Volume 86.2 Mean Corpuscular Hemoglobin 26.7 Mean Corpuscular Hemoglobin 31.0 Concent Red Cell Distribution Width 18.7 Platelet Count 224 Mean Platelet Volume 11.0 Neutrophils (%) (Auto) 94.9 Lymphocytes (%) (Auto) 2.1 Monocytes (%) (Auto) 2.8 Eosinophils (%) (Auto) 0.0 Basophils (%) (Auto) 0.2 Neutrophils # (Auto) 44.5 Lymphocytes # (Auto) 1.0 Monocytes # (Auto) 1.3 Eosinophils # (Auto) 0.0 Basophils # (Auto) 0.1 CBC Comment AUTO DIFF Differential Total Cells 100 Counted Neutrophils % (Manual) 90 Band Neutrophils % 5 Lymphocytes % 1 Monocytes % 4 Neutrophils # (Manual) 44.6 Differential Comment FINAL DIFF MANUAL Platelet Estimate NORMAL Platelet Morphology Comment NORMAL Ovalocytes 1+ Sodium Level 146 Potassium Level 5.3 Chloride Level 109 Carbon Dioxide Level 24.8 Anion Gap 12 Blood Urea Nitrogen 144 Creatinine 3.92 Estimat Glomerular Filtration 15 Rate Random Glucose 103 Calcium Level 7.9 Random Vancomycin Level 16.2 Date/Time Procedure Status Source Growth 08/03/16 14:36 Aerobic Blood Culture - Preliminary Resulted Blood Other NO GROWTH IN 1 DAY 08/03/16 14:36 Anaerobic Blood Culture - Preliminary Resulted Blood Other NO GROWTH IN 1 DAY 08/02/16 00:10 Urine Culture - Final Complete Urine Catheterized Urine NO GROWTH IN 48 HOURS. 08/01/16 10:07 Gram Stain - Final Resulted Bronchial Washings Bronchial 08/01/16 10:07 Bronchial Culture - Preliminary Resulted Klebsiella Pneumoniae 08/01/16 10:07 Fungal Smear - Final Resulted Bronchial Washings Bronchial NO FUNGAL ELEMENTS SEEN. 08/01/16 10:07 Fungal Culture - Preliminary Resulted Bronchial Washings Bronchial 08/01/16 10:07 Acid Fast Stain - Final Resulted Bronchial Washings Bronchial NO ACID FAST BACILLI SEEN 08/01/16 10:07 Mycobacterial Culture Resulted Bronchial Washings Bronchial Pending Imaging Last Impressions Abdomen X-Ray 08/05/16 0600 Signed Impressions: Service Date/Time: Friday, August 05, 2016 04:07 - CONCLUSION: Stable study of the abdomen with an air filled loop of bowel across the abdomen difficult to coffee shop manager of the small or large bowel. No interval change. Dav Santana MD Renal Ultrasound 08/04/16 0000 Signed Impressions: Service Date/Time: Thursday, August 04, 2016 19:07 - CONCLUSION: 1. Mildly echogenic kidneys characteristic of medical renal disease. No hydronephrosis. Trace free fluid. Bladder decompressed by Olvera. Zoltan Jacobs MD Chest CT 08/04/16 0000 Signed Impressions: Service Date/Time: Thursday, August 04, 2016 13:38 - CONCLUSION: Large left pleural effusion tracking around several blebs in the lateral left chest. There is also collapse of the left lower lobe. No pleural effusion on the right side. Interstitial infiltrates without consolidation in the mid and lower right lung. Pramod Pena MD Abdomen/Pelvis CT 08/04/16 0000 Signed Impressions: Service Date/Time: Thursday, August 04, 2016 13:35 - CONCLUSION: 1. There is a large left inguinal hernia with a loop of sigmoid extending into the sac approximately 7 cm. The colon proximal to the hernia appears distended with air-fluid levels. There is questionable twisting of the sigmoid as it enters the hernia suggesting the possibility of partial obstruction. 2. There are 2 calcified stones in the right kidney without evidence of hydronephrosis. The case has been discussed with Dr. Mcghee. Pramod Pena MD Chest X-Ray 08/03/16 0600 Signed Impressions: Service Date/Time: Wednesday, August 03, 2016 03:55 - CONCLUSION: Stable area of opacification throughout the left lung. ET tube in good position Dav Santana MD Thoracentesis 07/27/16 0000 Signed Impressions: Service Date/Time: Wednesday, July 27, 2016 10:18 - CONCLUSION: Uncomplicated CT-guided left thoracentesis. Sample was saved and sent to lab for evaluation, as ordered. Tate Street MD CT Angiography 07/24/16 1450 Signed Impressions: Service Date/Time: [place], July 24, 2016 15:29 - CONCLUSION: 1. No pulmonary embolus identified. 2. Advanced COPD. 3. Interval development of a large left pleural effusion. There is diffuse interstitial prominence and cardiomegaly. Exam would suggest congestive failure. 4. Nodule at the left lung base which was seen on previous dated 06/29/16 is obscured by the pleural effusion. Raymond Stewart MD Physical Exam HEENT: Normocephalic; atraumatic; no jaundice. CHEST: OETT to vent. Diminished CARDIAC: Irregular ABDOMEN: Semifirm, distended, ? slightly less than yesterday, no hepatosplenomegaly; bowel sounds are present in all four quadrants. EXTREMITIES: No clubbing, cyanosis, or edema. SKIN: Normal; no rash; no jaundice. VB DEVELOPER: Sedated on vent. (Doreen London) Assessment and Plan Plan ASSESSMENT: - Abdominal distention, Severe ileus vs. SBO. He has a remote hx of appendectomy. His last colonoscopy was many years ago. He is on Fentanyl for sedation. Abdomen/Pelvis CT (08/04/16)-----> 1. There is a large left inguinal hernia with a loop of sigmoid extending into the sac approximately 7 cm. The colon proximal to the hernia appears distended with air-fluid levels. There is questionable twisting of the sigmoid as it enters the hernia suggesting the possibility of partial obstruction. 2. There are 2 calcified stones in the right kidney without evidence of hydronephrosis. The case has been discussed with Dr. Mcghee. S /P GS evaluation, left inguinal hernia was reduced. Not a candidate for surgery. Rpt. KUB (08/05/16)----> Stable study of the abdomen with an air filled loop of bowel across the abdomen difficult to coffee shop manager of the small or large bowel. No interval change. He is on Lactulose, Senokot, Reglan,and Colace. NGT to LIWS. Not much improvement on today's KUB. However, nurse reports that patient's family is leaning towards comfort measures only and meeting with palliative care later today and therefore will wait for their decision re: goals of care. - Acute respiratory failure, PNA, COPD, RADHA, Emphysema. Vent per CCM - Persistent severe leukocytosis. Worsening- WBC 46.9 today. On Meropenem, Micafungin - TALA. Creat worsening, 3.92. Now with hyperkalemia. Renal following, family is not wanting dialysis, considering comfort measures. - Atrial fibrillation with rate 120-140's. On heparin. - CAD, PAD, HTN, DM per primary. Of note on plavix, heparin PLAN: - NPO - NGT to LIWS - Reglan 5mg IV q8h - Supportive care - Further recommendations to follow based on results of above - PT seen and examined by Dr. Negrete and myself and this note is written on her behalf (Doreen London) Doreen London Aug 05, 2016 11:02 Martha Negrete MD Aug 05, 2016 20:18
--- NOTE | 2016-08-05 11:15 | PD.CARD.PN ---
Subjective Subjective Remarks sedated intubated afib rvr on dilt drip critically ill Objective Medications Current Medications Medications (Trade) Dose Ordered Sig/Nya Route Start Time Stop Time Status Last Admin (NS Flush) 2 ml UNSCH PRN IVF 07/24/16 13:00 07/31/16 21:07 (Protonix Inj) 40 mg DAILY IV 07/24/16 16:00 08/05/16 08:19 Miscellaneous Information 1 Q361D XX 07/24/16 15:45 (Chlorhexidine 2% Cloth) Taper DAILY@04 TOP 07/25/16 04:00 07/21/17 03:59 08/03/16 04:00 (Chlorhexidine 2% Cloth) 3 pack UNSCH PRN TOP 07/24/16 15:45 (Lipitor) 20 mg HS PO 07/24/16 21:00 08/03/16 20:17 (Plavix) 75 mg HS PO 07/24/16 21:00 08/03/16 20:18 (Symbicort 160-4.5 Inh) 2 puff Q12HR INH 07/24/16 21:00 08/02/16 20:07 (PROzac) 40 mg DAILY PO 07/25/16 10:00 08/04/16 08:22 (Lopressor Inj) 2.5 mg Q6H PRN IV PUSH 07/25/16 09:00 08/04/16 15:45 Acetaminophen 650 mg 650 mg Q6H PRN PO 07/26/16 10:00 08/04/16 04:41 (Diprivan 1000 Mg/100ml Inj) 100 ml @ 0 mls/hr TITRATE IV 07/26/16 13:00 08/05/16 03:50 (Aspirin Chew) 81 mg DAILY PO 07/27/16 10:00 08/04/16 08:22 (Isordil) 30 mg DAILY PO 07/27/16 11:30 08/04/16 08:21 (D50w (Vial) Inj) 25 ml UNSCH PRN IV PUSH 07/27/16 13:15 (Glucagon Inj) 1 mg UNSCH PRN OTHER 07/27/16 13:15 (Senokot) 8.6 mg Q12HR PO 07/28/16 21:00 08/04/16 08:22 Docusate Sodium 100 mg 100 mg Q12HR PO 07/28/16 21:00 08/04/16 08:22 (fentaNYL DRIP) 250 ml @ 0 mls/hr TITRATE IV 07/28/16 16:15 08/04/16 06:24 (Versed Inj) 2 mg Q4HR PRN IV PUSH 07/30/16 14:00 08/01/16 14:49 (SoluMEDROL INJ) 40 mg Q12HR IV PUSH 07/31/16 21:00 08/05/16 08:19 (Heparin Inj) 5,000 units Q8HR SQ 08/01/16 14:00 08/05/16 05:38 (Cardizem) 90 mg QID PO 08/02/16 18:00 08/04/16 17:32 (Synthroid) 112 mcg DAILY@06 PO 08/03/16 06:00 08/04/16 04:41 (Free Water) 250 ml Q8HR G-TUBE 08/03/16 14:00 08/04/16 14:00 (NovoLIN R SUPPLEMENTAL SCALE) 1 Q6H SQ 08/03/16 17:00 08/04/16 17:32 Metoprolol Tartrate 50 mg 50 mg Q12HR PO 08/03/16 21:00 08/04/16 08:54 (Mycamine Inj/NS Inj) 100 ml @ 100 mls/hr Q24H IV 08/03/16 15:00 08/04/16 15:46 (Lactulose Liq) 30 ml QID PO 08/04/16 09:00 08/04/16 17:32 Metoclopramide HCl 5 mg 5 mg Q8HR IV PUSH 08/04/16 22:00 08/05/16 05:37 Sodium Chloride 1,000 ml @ 100 mls/hr Q10H IV 08/04/16 18:00 08/05/16 03:51 Diltiazem HCl 125 mg/Sodium Chloride 125 ml @ 0 mls/hr TITRATE IV 08/04/16 20:45 08/05/16 03:50 Ceftazidime/ Avibactam 0.94 gm/ Sodium Chloride 50 ml @ 25 mls/hr Q24H IV 08/05/16 10:00 08/05/16 10:46 (Flagyl 500 Mg Inj) 100 ml @ 100 mls/hr Q8H IV 08/05/16 09:00 08/05/16 10:46 Vital Signs / I&O Vital Signs Date Time Temp Pulse Resp B/P Pulse Ox O2 Delivery O2 Flow Rate FiO2 08/05/16 10:00 112 08/05/16 08:00 111 08/05/16 08:00 99.1 111 22 106/57 94 129/64 08/05/16 08:00 50 08/05/16 07:52 95 50 08/05/16 06:00 103 08/05/16 04:03 94 60 08/05/16 04:00 124 08/05/16 04:00 98.5 124 22 100/55 93 104/54 08/05/16 04:00 60 08/05/16 02:00 108 08/05/16 01:12 94 60 08/05/16 00:00 101 08/05/16 00:00 60 08/05/16 00:00 100.5 101 22 106/56 92 116/58 08/04/16 22:06 93 60 08/04/16 22:00 120 08/04/16 20:00 60 08/04/16 20:00 99.6 126 22 120/56 93 108/53 08/04/16 20:00 126 08/04/16 19:02 99 60 08/04/16 18:00 122 08/04/16 16:00 132 08/04/16 16:00 98.1 132 22 89/57 93 104/53 08/04/16 16:00 60 08/04/16 14:00 137 08/04/16 13:40 96 100 08/04/16 12:00 60 08/04/16 12:00 129 08/04/16 12:00 99.9 129 22 102/59 92 118/59 08/04/16 11:40 92 60 I/O 08/04/16 08/04/16 08/04/16 08/05/16 08/05/16 08/05/16 07:00 15:00 23:00 07:00 15:00 23:00 Intake Total 912 ml 174 ml 480 ml 911 ml Output Total 800 ml 450 ml 300 ml Balance 912 ml -626 ml 30 ml 611 ml IV Total 276 ml 174 ml 480 ml 911 ml Tube Feeding 386 ml 0 ml 0 ml Other 250 ml Output Urine Total 150 ml 50 ml 100 ml Gastric Drainage Total 400 ml 200 ml Emesis 650 ml # Bowel Movements 0 0 Physical Exam GENERAL: Sedated, intubated SKIN: Warm and dry. HEAD: Normocephalic. EYES: No scleral icterus. No injection or drainage. NECK: Supple, trachea midline. No JVD or lymphadenopathy. CARDIOVASCULAR: Irr Irr without murmurs, gallops, or rubs. RESPIRATORY: Breath sounds equal bilaterally. No accessory muscle use. GASTROINTESTINAL: Abdomen soft, non-tender, nondistended. EXTREMITIES: No cyanosis, or +2 edema. Laboratory Laboratory Tests Test 08/05/16 03:10 White Blood Count 46.9 TH/MM3 Red Blood Count 3.76 MIL/MM3 Hemoglobin 10.0 GM/DL Hematocrit 32.4 % Mean Corpuscular Volume 86.2 FL Mean Corpuscular Hemoglobin 26.7 PG Mean Corpuscular Hemoglobin 31.0 % Concent Red Cell Distribution Width 18.7 % Platelet Count 224 TH/MM3 Mean Platelet Volume 11.0 FL Neutrophils (%) (Auto) 94.9 % Lymphocytes (%) (Auto) 2.1 % Monocytes (%) (Auto) 2.8 % Eosinophils (%) (Auto) 0.0 % Basophils (%) (Auto) 0.2 % Neutrophils # (Auto) 44.5 TH/MM3 Lymphocytes # (Auto) 1.0 TH/MM3 Monocytes # (Auto) 1.3 TH/MM3 Eosinophils # (Auto) 0.0 TH/MM3 Basophils # (Auto) 0.1 TH/MM3 CBC Comment AUTO DIFF Differential Total Cells 100 Counted Neutrophils % (Manual) 90 % Band Neutrophils % 5 % Lymphocytes % 1 % Monocytes % 4 % Neutrophils # (Manual) 44.6 TH/MM3 Differential Comment FINAL DIFF MANUAL Platelet Estimate NORMAL Platelet Morphology Comment NORMAL Ovalocytes 1+ Sodium Level 146 MEQ/L Potassium Level 5.3 MEQ/L Chloride Level 109 MEQ/L Carbon Dioxide Level 24.8 MEQ/L Anion Gap 12 MEQ/L Blood Urea Nitrogen 144 MG/DL Creatinine 3.92 MG/DL Estimat Glomerular Filtration 15 ML/MIN Rate Random Glucose 103 MG/DL Calcium Level 7.9 MG/DL Random Vancomycin Level 16.2 COMMENT Imaging Last Impressions Abdomen X-Ray 08/05/16 0600 Signed Impressions: Service Date/Time: Friday, August 05, 2016 04:07 - CONCLUSION: Stable study of the abdomen with an air filled loop of bowel across the abdomen difficult to hull outfit supervisor of the small or large bowel. No interval change. Dav Santana MD Renal Ultrasound 08/04/16 0000 Signed Impressions: Service Date/Time: Thursday, August 04, 2016 19:07 - CONCLUSION: 1. Mildly echogenic kidneys characteristic of medical renal disease. No hydronephrosis. Trace free fluid. Bladder decompressed by Olvera. Zoltan Jacobs MD Chest CT 08/04/16 0000 Signed Impressions: Service Date/Time: Thursday, August 04, 2016 13:38 - CONCLUSION: Large left pleural effusion tracking around several blebs in the lateral left chest. There is also collapse of the left lower lobe. No pleural effusion on the right side. Interstitial infiltrates without consolidation in the mid and lower right lung. Pramod Pena MD Abdomen/Pelvis CT 08/04/16 0000 Signed Impressions: Service Date/Time: Thursday, August 04, 2016 13:35 - CONCLUSION: 1. There is a large left inguinal hernia with a loop of sigmoid extending into the sac approximately 7 cm. The colon proximal to the hernia appears distended with air-fluid levels. There is questionable twisting of the sigmoid as it enters the hernia suggesting the possibility of partial obstruction. 2. There are 2 calcified stones in the right kidney without evidence of hydronephrosis. The case has been discussed with Dr. Mcghee. Pramod Pena MD Chest X-Ray 08/03/16 0600 Signed Impressions: Service Date/Time: Wednesday, August 03, 2016 03:55 - CONCLUSION: Stable area of opacification throughout the left lung. ET tube in good position Dav Santana MD Thoracentesis 07/27/16 0000 Signed Impressions: Service Date/Time: Wednesday, July 27, 2016 10:18 - CONCLUSION: Uncomplicated CT-guided left thoracentesis. Sample was saved and sent to lab for evaluation, as ordered. Tate Street MD CT Angiography 07/24/16 1450 Signed Impressions: Service Date/Time: Sunday, July 24, 2016 15:29 - CONCLUSION: 1. No pulmonary embolus identified. 2. Advanced COPD. 3. Interval development of a large left pleural effusion. There is diffuse interstitial prominence and cardiomegaly. Exam would suggest congestive failure. 4. Nodule at the left lung base which was seen on previous dated 06/29/16 is obscured by the pleural effusion. Raymond Stewart MD Assessment and Plan Problem List: (1) COPD exacerbation (2) Coronary artery disease (3) Peripheral artery disease (4) Paroxysmal atrial fibrillation with rapid ventricular response Assessment and Plan: Critically ill Multi-organ failure Very poor prognosis Cont medical management for CAD with ASA, Plavix statin, nitrates Cont rate control with Dilt drip and BB for afib Start Heparin drip for anticoagulation given Afib if no contraindications Kevan Collins MD Aug 05, 2016 11:15 Kevan Collins MD Aug 05, 2016 11:15
--- NOTE | 2016-08-05 11:59 | HHI.NPPN ---
Subjective History of Present Illness 80-year-old male with past medical history of kidney stones, history of chronic obstructive pulmonary disease, hypertension, diabetes mellitus, hyperlipidemia, hypothyroidism was brought to the hospital because of worsening shortness of breath. I was called to see the patient because of elevated BUN and creatinine. Additional Remarks Patient remain on the vent. and sedated. Objective Data Data 08/04/16 08/05/16 19:00 07:00 Intake Total 174 ml 1391 ml Output Total 800 ml 750 ml Balance -626 ml 641 ml IV Total 174 ml 1391 ml Tube Feeding 0 ml Output Urine Total 150 ml 150 ml Gastric Drainage Total 600 ml Emesis 650 ml # Bowel Movements 0 Vital Signs Date Time Temp Pulse Resp B/P Pulse Ox O2 Delivery O2 Flow Rate FiO2 08/05/16 11:47 95 50 08/05/16 10:00 112 08/05/16 08:00 111 08/05/16 08:00 99.1 111 22 106/57 94 129/64 08/05/16 08:00 50 08/05/16 07:52 95 50 08/05/16 06:00 103 08/05/16 04:03 94 60 08/05/16 04:00 124 08/05/16 04:00 98.5 124 22 100/55 93 104/54 08/05/16 04:00 60 08/05/16 02:00 108 08/05/16 01:12 94 60 08/05/16 00:00 101 08/05/16 00:00 60 08/05/16 00:00 100.5 101 22 106/56 92 116/58 08/04/16 22:06 93 60 08/04/16 22:00 120 08/04/16 20:00 60 08/04/16 20:00 99.6 126 22 120/56 93 108/53 08/04/16 20:00 126 08/04/16 19:02 99 60 08/04/16 18:00 122 08/04/16 16:00 132 08/04/16 16:00 98.1 132 22 89/57 93 104/53 08/04/16 16:00 60 08/04/16 14:00 137 08/04/16 13:40 96 100 08/04/16 12:00 60 08/04/16 12:00 129 4/18/17 12:00 99.9 129 22 102/59 92 118/59 -: 08/05/16 0310 08/05/16 0310 Physical Exam General Appearance Remarks Intubated and sedated. Eyes Eye Exam: Pupils Equal Pulmonary Resp Exam: Crackles, Rhonchi, Decreased Bases, Diminished Breath Sounds, Poor Inspiratory Effort Gastrointestinal/Abdomen GI Exam: Soft, Bowel Sounds Present, Distended Extremeties Extremities Exam: Trace Edema Neurologic Neuro Exam: Sedated Assessment/Plan Assessment Summary: TALA/Acute Renal Failure Problem List: (1) COPD exacerbation (2) Coronary artery disease (3) HTN (hypertension) (4) A-fib (5) Acute exacerbation of COPD with asthma (6) Diabetes (7) Leukocytosis (8) Acute respiratory failure with hypoxia (9) Acute kidney injury Plan Patient has minimal urine out put despite IVF. BP is borderline. Continue antibiotics. Add Lasix. D/W the son and , they will be meeting Hospice at 4.00 pm, does not want Dialysis. Problem Qualifiers (1) HTN (hypertension): Qualified Code: I10 - Essential hypertension (2) Diabetes: Dee Raphael MD Aug 05, 2016 11:59
[2016-08-05] MEDS ORDERED: FUROSEMIDE 40 MG/4 ML VIAL IV PUSH SCH (13:00)
--- NOTE | 2016-08-05 15:01 | HHI.IDPN ---
Subjective Subjective Remarks is an 80 y/o CM with PMHx of COPD, pulm fibrosis and emphysema on 3L Oxygen at home at baseline who sees Bench Scientist. His PMHx is also significant for HTN, diabetes mellitus, hyperlipidemia and hypothyroidism. He presented to [facility] ED with a one-week history of progressive worsening shortness of breath. The patient denies any associated symptoms of orthopnea, PND or edema of lower extremities. His rn building is Dr. Gerardo from cardiology. On arrival to the ED, the patient was hypoxic with O2 saturation in the 70s on NC and he was subsequently placed on a non-rebreather mask with a saturation of 94%. Chest x-ray on arrival showed patchy airspace disease bilaterally with coarse pleural changes. Due to his respiratory distress, CT angiogram of the chest was obtained which showed no evidence of a pulmonary embolism, however, it showed interstitial fibrotic changes with multiple emphysematous blebs and left-sided pleural effusion. Also a 2 x 1.4 cm nodule was seen in the posterior aspect of the left lower lobe. In the emergency room, he was given 500 mL of normal saline, vancomycin, cefepime, DuoNeb, Solu-Medrol 125 mg IV push and magnesium sulfate. His labs notable for lactic acid of 6.4 and leukocytosis with a WBC count of 19.1. The patient was admitted last month on June 29 with similar presentation and he also had a CT angiogram of the chest at that time which showed advanced COPD along with pulmonary fibrosis. Nasal washing in the ER negative for influenza. The patient denies any nausea, vomiting or any abdominal pain. Pt remains intubated, has fever and rising WBC over the last few days. Today his WBC was 42 K Overnight events reviewed Remains intubated. Not much urine output Cr increasing. WBC increased further. Fevers persist Secretions liu small to moderate. CT abd/ pelvis showed bowel obstruction caused by sigmoid twisting. CT showed a large left inguinal hernia with a loop of sigmoid extending into the sac approximately 7 cm. The colon proximal to the hernia appears distended with air-fluid levels. Not tolerating tube feeds. Sputum with Kleb ESBL ? CRE. No diarrhea. Antibiotics meropenm micafungin Lines Line sites with no e.o infection. Past Medical History reviewed Allergies: Coded Allergies: Sulfa (Verified Allergy, Unknown, CAN'T RECALL , 06/29/16) *MDRO Multi-Drug Resistant Organism (Verified Adverse Reaction, Unknown, ) MRSA PCR Screen POSITIVE - 06/30/2016, 07/24/16 Objective . Vital Signs Date Time Temp Pulse Resp B/P Pulse Ox O2 Delivery O2 Flow Rate FiO2 08/05/16 14:00 99 08/05/16 12:00 99.0 123 22 97/51 94 95/54 08/05/16 12:00 103 08/05/16 12:00 50 08/05/16 11:47 95 50 08/05/16 10:00 112 08/05/16 08:00 111 08/05/16 08:00 99.1 111 22 106/57 94 129/64 08/05/16 08:00 50 08/05/16 07:52 95 50 08/05/16 06:00 103 08/05/16 04:03 94 60 08/05/16 04:00 124 08/05/16 04:00 98.5 124 22 100/55 93 104/54 08/05/16 04:00 60 08/05/16 02:00 108 08/05/16 01:12 94 60 08/05/16 00:00 101 08/05/16 00:00 60 08/05/16 00:00 100.5 101 22 106/56 92 116/58 08/04/16 22:06 93 60 08/04/16 22:00 120 08/04/16 20:00 60 08/04/16 20:00 99.6 126 22 120/56 93 108/53 08/04/16 20:00 126 08/04/16 19:02 99 60 08/04/16 18:00 122 08/04/16 16:00 132 08/04/16 16:00 98.1 132 22 89/57 93 104/53 08/04/16 16:00 60 08/04/16 08/04/16 08/05/16 15:00 23:00 07:00 Intake Total 174 ml 480 ml 911 ml Output Total 800 ml 450 ml 300 ml Balance -626 ml 30 ml 611 ml IV Total 174 ml 480 ml 911 ml Tube Feeding 0 ml 0 ml Output Urine Total 150 ml 50 ml 100 ml Gastric Drainage Total 400 ml 200 ml Emesis 650 ml # Bowel Movements 0 0 . Laboratory Tests Test 08/04/16 08/05/16 03:30 03:10 White Blood Count 41.5 TH/MM3 46.9 TH/MM3 Red Blood Count 3.56 MIL/MM3 3.76 MIL/MM3 Hemoglobin 9.7 GM/DL 10.0 GM/DL Hematocrit 30.6 % 32.4 % Mean Corpuscular Volume 86.0 FL 86.2 FL Mean Corpuscular Hemoglobin 27.4 PG 26.7 PG Mean Corpuscular Hemoglobin 31.8 % 31.0 % Concent Red Cell Distribution Width 18.7 % 18.7 % Platelet Count 233 TH/MM3 224 TH/MM3 Mean Platelet Volume 10.5 FL 11.0 FL Neutrophils (%) (Auto) 96.2 % 94.9 % Lymphocytes (%) (Auto) 1.3 % 2.1 % Monocytes (%) (Auto) 2.3 % 2.8 % Eosinophils (%) (Auto) 0.0 % 0.0 % Basophils (%) (Auto) 0.2 % 0.2 % Neutrophils # (Auto) 40.0 TH/MM3 44.5 TH/MM3 Lymphocytes # (Auto) 0.5 TH/MM3 1.0 TH/MM3 Monocytes # (Auto) 0.9 TH/MM3 1.3 TH/MM3 Eosinophils # (Auto) 0.0 TH/MM3 0.0 TH/MM3 Basophils # (Auto) 0.1 TH/MM3 0.1 TH/MM3 CBC Comment AUTO DIFF AUTO DIFF Differential Total Cells 100 100 Counted Neutrophils % (Manual) 91 % 90 % Band Neutrophils % 4 % 5 % Lymphocytes % 1 % 1 % Monocytes % 4 % 4 % Neutrophils # (Manual) 39.4 TH/MM3 44.6 TH/MM3 Differential Comment FINAL DIFF FINAL DIFF MANUAL MANUAL Platelet Estimate NORMAL NORMAL Platelet Morphology Comment NORMAL NORMAL Red Cell Morphology Comment NORMAL Ovalocytes 1+ Laboratory Tests Test 08/04/16 08/05/16 03:30 03:10 Sodium Level 145 MEQ/L 146 MEQ/L Potassium Level 4.7 MEQ/L 5.3 MEQ/L Chloride Level 105 MEQ/L 109 MEQ/L Carbon Dioxide Level 27.8 MEQ/L 24.8 MEQ/L Anion Gap 12 MEQ/L 12 MEQ/L Blood Urea Nitrogen 122 MG/DL 144 MG/DL Creatinine 2.61 MG/DL 3.92 MG/DL Estimat Glomerular Filtration 24 ML/MIN 15 ML/MIN Rate Random Glucose 234 MG/DL 103 MG/DL Calcium Level 7.9 MG/DL 7.9 MG/DL Microbiology Date/Time Procedure Status Source Growth 08/03/16 14:30 Aerobic Blood Culture - Preliminary Resulted Blood Other NO GROWTH IN 2 DAYS 08/03/16 14:30 Anaerobic Blood Culture - Preliminary Resulted Blood Other NO GROWTH IN 2 DAYS 08/03/16 14:36 Aerobic Blood Culture - Preliminary Resulted Blood Other NO GROWTH IN 2 DAYS 08/03/16 14:36 Anaerobic Blood Culture - Preliminary Resulted Blood Other NO GROWTH IN 2 DAYS Imaging Last Impressions Renal Ultrasound 08/04/16 0000 Signed Impressions: Service Date/Time: Thursday, August 04, 2016 19:07 - CONCLUSION: 1. Mildly echogenic kidneys characteristic of medical renal disease. No hydronephrosis. Trace free fluid. Bladder decompressed by Christiansen. Zoltan Jacobs MD Chest CT 08/04/16 0000 Signed Impressions: Service Date/Time: Thursday, August 04, 2016 13:38 - CONCLUSION: Large left pleural effusion tracking around several blebs in the lateral left chest. There is also collapse of the left lower lobe. No pleural effusion on the right side. Interstitial infiltrates without consolidation in the mid and lower right lung. Pramod Pena MD Abdomen/Pelvis CT 08/04/16 0000 Signed Impressions: Service Date/Time: Thursday, August 04, 2016 13:35 - CONCLUSION: 1. There is a large left inguinal hernia with a loop of sigmoid extending into the sac approximately 7 cm. The colon proximal to the hernia appears distended with air-fluid levels. There is questionable twisting of the sigmoid as it enters the hernia suggesting the possibility of partial obstruction. 2. There are 2 calcified stones in the right kidney without evidence of hydronephrosis. The case has been discussed with Dr. Mcghee. Pramod Pena MD Abdomen X-Ray 08/04/16 0000 Signed Impressions: Service Date/Time: Thursday, August 04, 2016 07:37 - CONCLUSION: Multiple dilated loops of bowel suggest either severe ileus or small bowel obstruction. Pramod Pena MD Chest X-Ray 08/03/16 0600 Signed Impressions: Service Date/Time: Wednesday, August 03, 2016 03:55 - CONCLUSION: Stable area of opacification throughout the left lung. ET tube in good position Dav Santana MD Thoracentesis 07/27/16 0000 Signed Impressions: Service Date/Time: Wednesday, July 27, 2016 10:18 - CONCLUSION: Uncomplicated CT-guided left thoracentesis. Sample was saved and sent to lab for evaluation, as ordered. Tate Street MD CT Angiography 07/24/16 1450 Signed Impressions: Service Date/Time: Sunday, July 24, 2016 15:29 - CONCLUSION: 1. No pulmonary embolus identified. 2. Advanced COPD. 3. Interval development of a large left pleural effusion. There is diffuse interstitial prominence and cardiomegaly. Exam would suggest congestive failure. 4. Nodule at the left lung base which was seen on previous dated 06/29/16 is obscured by the pleural effusion. Raymond Stewart MD Physical Exam GENERAL: Elderly male patient, sedated intubated on mech ventilation SKIN: No rashes, ecchymoses or lesions. Cool and dry. HEAD: Atraumatic. Normocephalic. EYES: Pupils equal round and reactive. Extraocular motions intact. + scleral icterus. No injection or drainage. ENT: Nose without bleeding, purulent drainage or septal hematoma. Dry mucosae NECK: Trachea midline. Supple, nontender, no meningeal signs. CARDIOVASCULAR: tachycardia, @ 150 on monitor, RVR afib RESPIRATORY: Decreased air entry in left base. Occ wheezes. GASTROINTESTINAL: Abdomen tense, exquisetely tender, markedly distended. Bowel sounds abscent Large area of tympany upper abdomen No hepatosplenomegaly, masses NG to LIWS with feculent appearing drainage christiansen in place with small amount of urine MUSCULOSKELETAL: Extremities without clubbing, cyanosis, + 1-2 edema. NEUROLOGICAL: sedated, not following commands, but grimacing to pain with abdominal exam Psych: unable to assess IV line sites with no evidence of infection. Assessment & Plan Remarks Sepsis (Leucocytosis, tachycardia, hypothermia,lactic acidemia) - likely of intraabdominal origin Hemodynamically unstable Pneumonia (CAP vs HCAP); growing Kleb pneumo in BAL clx Acute respiratory failure Acute COPD exacerbation Acute renal failure CAD, PAD s/p stents and procedures. Pt is critically ill unstable Recs: DC Meropenem IV Start Avycaz 1st dose now. Possible KPC in sputum. Start Flagyl IV. DC Vanco IV (no gram positives identified, trough ok for now, will reassess) Continue Micafungin IV (for possible fungemia was on Broad spectrum antibiotics ) Noted surgery recs. d/w RN, Dr. Mcghee: d.w Palliative care about possible withdrawal. Patient critically ill, guarded prognosis. dw patients son updated about infection issues. d/w Micro: CRE place droplet and contact isolation. D.w Clinical pharmacist: renal dose adjusted. Time spent in coordination in excess of 40 mins. Slime Person MD Aug 05, 2016 15:01
--- NOTE | 2016-08-05 16:53 | HHI.HCPN ---
Reason for visit a. To assist with evaluation and management of symptoms including: dyspnea, pain b. To assist medical decision maker(s) with: better understanding of current medical conditions; weighing benefits/burdens of medical treatment options; making medical treatment decisions. . Subjective/Interval History Patient seen in ICU. Multiple family members in room, including , son/ HCS ( Romel), children, grandchildren and siblings. Patient appears to be imminently dying, no recordable blood pressure. His breathing is agonal on mech vent (FiO2 50%) with oxygen sats in the upper 80s. Heart rate dropping, now 80s was tachycardic earlier today. SonRomel indicates he desires transition to comfort measures with continued mech ventilation. Patient's does not want mech vent to be stopped at this time. remains hopeful for recovery, son indicates she has dementia and does not remember conversations. WBC has increased to 46.9, hemoglobin 10, hematocrit 32.4, platelets 224. Potassium 5.3. Renal function declining creatinine 3.92. Bronchial washings positive Klebsiella pneumonia javed resistant. Abdominal x-ray stable with air filled loop of bowel. . Family/friend interactions see interval note. Advance Directives Living Will: Completed, but not made available Health Care Surrogate: Copy in medical record Durable Power of Manager Lighting: Never completed Advance Directive Specifics Health Care Surrogate(s): His sonTyree" Munguia = [phone] - designated HCS Significant change in goals: NO CODE. No further escalation of care. Comfort measures with mech vent. . Objective Vital Signs Date Time Temp Pulse Resp B/P Pulse Ox O2 Delivery O2 Flow Rate FiO2 08/05/16 14:00 99 08/05/16 12:00 99.0 123 22 97/51 94 95/54 08/05/16 12:00 103 08/05/16 12:00 50 08/05/16 11:47 95 50 08/05/16 10:00 112 08/05/16 08:00 111 08/05/16 08:00 99.1 111 22 106/57 94 129/64 08/05/16 08:00 50 08/05/16 07:52 95 50 08/05/16 06:00 103 08/05/16 04:03 94 60 08/05/16 04:00 124 08/05/16 04:00 98.5 124 22 100/55 93 104/54 08/05/16 04:00 60 08/05/16 02:00 108 08/05/16 01:12 94 60 08/05/16 00:00 101 08/05/16 00:00 60 08/05/16 00:00 100.5 101 22 106/56 92 116/58 08/04/16 22:06 93 60 08/04/16 22:00 120 08/04/16 20:00 60 08/04/16 20:00 99.6 126 22 120/56 93 108/53 08/04/16 20:00 126 08/04/16 19:02 99 60 08/04/16 18:00 122 Intake & Output 08/05/16 08/05/16 07:00 19:00 Intake Total 1391 ml 1123 ml Output Total 750 ml 350 ml Balance 641 ml 773 ml IV Total 1391 ml 1123 ml Tube Feeding 0 ml Output Urine Total 150 ml 50 ml Gastric Drainage Total 600 ml 300 ml # Bowel Movements 0 Physical Exam CONSTITUTIONAL/GENERAL: This is an adequately nourished patient, sedated on the ventilator TUBES/LINES/DRAINS: ET tube, OG tube to suction, catheter, SKIN: No jaundice, rashes, or lesions. Ecchymoses on upper extremities. No wounds seen anteriorly. Skin temperature appropriate. EYES: eyes open, not tracking. CARDIOVASCULAR: regular rate and irregular rhythm. RESPIRATORY/CHEST: Symmetric, agonal breathing on vent. GASTROINTESTINAL: Abdomen distended. GENITOURINARY: Without palpable bladder distension. Olvera catheter in place. MUSCULOSKELETAL: Extremities without clubbing, cyanosis, or edema. NEUROLOGICAL: Sedated. PSYCHIATRIC: Sedated. . Diagnostic Tests Laboratory Laboratory Tests Test 08/03/16 08/03/16 08/03/16 08/04/16 04:20 14:16 18:45 03:30 White Blood Count 30.3 TH/MM3 41.5 TH/MM3 (4.0-11.0) (4.0-11.0) Red Blood Count 3.29 MIL/MM3 3.56 MIL/MM3 (4.50-5.90) (4.50-5.90) Hemoglobin 8.9 GM/DL 9.7 GM/DL (13.0-17.0) (13.0-17.0) Hematocrit 28.0 % 30.6 % (39.0-51.0) (39.0-51.0) Mean Corpuscular Volume 84.9 FL 86.0 FL (80.0-100.0) (80.0-100.0) Mean Corpuscular Hemoglobin 27.0 PG 27.4 PG (27.0-34.0) (27.0-34.0) Mean Corpuscular Hemoglobin 31.8 % 31.8 % Concent (32.0-36.0) (32.0-36.0) Red Cell Distribution Width 18.0 % 18.7 % (11.6-17.2) (11.6-17.2) Platelet Count 199 TH/MM3 233 TH/MM3 (150-450) (150-450) Mean Platelet Volume 10.2 FL 10.5 FL (7.0-11.0) (7.0-11.0) Sodium Level 148 MEQ/L 145 MEQ/L (136-145) (136-145) Potassium Level 4.2 MEQ/L 4.7 MEQ/L (3.5-5.1) (3.5-5.1) Chloride Level 109 MEQ/L 105 MEQ/L (98-107) (98-107) Carbon Dioxide Level 31.0 MEQ/L 27.8 MEQ/L (21.0-32.0) (21.0-32.0) Anion Gap 8 MEQ/L (5-15) 12 MEQ/L (5-15) Blood Urea Nitrogen 88 MG/DL (7-18) 122 MG/DL (7-18) Creatinine 1.59 MG/DL 2.61 MG/DL (0.60-1.30) (0.60-1.30) Estimat Glomerular Filtration 42 ML/MIN (>89) 24 ML/MIN (>89) Rate Random Glucose 207 MG/DL 234 MG/DL (74-106) (74-106) Calcium Level 7.9 MG/DL 7.9 MG/DL (8.5-10.1) (8.5-10.1) Phosphorus Level 3.6 MG/DL (2.5-4.9) Magnesium Level 3.1 MG/DL (1.5-2.5) Blood Gas Puncture Site MARVEL Blood Gas Patient Temperature 98.6 Blood Gas HCO3 27 mmol/L (22-26) Blood Gas Base Excess 1.8 mmol/L (-2-2) Blood Gas Oxygen Saturation 93 % (90-100) Arterial Blood pH 7.37 (7.380-7.420) Arterial Blood Partial 47 mmHg (38-42) Pressure CO2 Arterial Blood Partial 87 mmHg Pressure O2 (61-120) Arterial Blood Oxygen Content 17.4 Vol % (12.0-20.0) Arterial Blood 1.7 % (0-4) Carboxyhemoglobin Arterial Blood Methemoglobin 1.4 % (0-2) Blood Gas Hemoglobin 13.3 G/DL (12.0-16.0) Oxygen Delivery Device VENT Blood Gas Inspired Oxygen 60 % Urine Eosinophils NONE SEEN /HPF (NONE SEEN) Neutrophils (%) (Auto) 96.2 % (16.0-70.0) Lymphocytes (%) (Auto) 1.3 % (9.0-44.0) Monocytes (%) (Auto) 2.3 % (0.0-8.0) Eosinophils (%) (Auto) 0.0 % (0.0-4.0) Basophils (%) (Auto) 0.2 % (0.0-2.0) Neutrophils # (Auto) 40.0 TH/MM3 (1.8-7.7) Lymphocytes # (Auto) 0.5 TH/MM3 (1.0-4.8) Monocytes # (Auto) 0.9 TH/MM3 (0-0.9) Eosinophils # (Auto) 0.0 TH/MM3 (0-0.4) Basophils # (Auto) 0.1 TH/MM3 (0-0.2) CBC Comment AUTO DIFF Differential Total Cells 100 Counted Neutrophils % (Manual) 91 % (16-70) Band Neutrophils % 4 % (0-6) Lymphocytes % 1 % (9-44) Monocytes % 4 % (0-8) Neutrophils # (Manual) 39.4 TH/MM3 (1.8-7.7) Differential Comment FINAL DIFF MANUAL Platelet Estimate NORMAL (NORMAL) Platelet Morphology Comment NORMAL (NORMAL) Red Cell Morphology Comment NORMAL (NORMAL) Test 08/05/16 03:10 White Blood Count 46.9 TH/MM3 (4.0-11.0) Red Blood Count 3.76 MIL/MM3 (4.50-5.90) Hemoglobin 10.0 GM/DL (13.0-17.0) Hematocrit 32.4 % (39.0-51.0) Mean Corpuscular Volume 86.2 FL (80.0-100.0) Mean Corpuscular Hemoglobin 26.7 PG (27.0-34.0) Mean Corpuscular Hemoglobin 31.0 % Concent (32.0-36.0) Red Cell Distribution Width 18.7 % (11.6-17.2) Platelet Count 224 TH/MM3 (150-450) Mean Platelet Volume 11.0 FL (7.0-11.0) Neutrophils (%) (Auto) 94.9 % (16.0-70.0) Lymphocytes (%) (Auto) 2.1 % (9.0-44.0) Monocytes (%) (Auto) 2.8 % (0.0-8.0) Eosinophils (%) (Auto) 0.0 % (0.0-4.0) Basophils (%) (Auto) 0.2 % (0.0-2.0) Neutrophils # (Auto) 44.5 TH/MM3 (1.8-7.7) Lymphocytes # (Auto) 1.0 TH/MM3 (1.0-4.8) Monocytes # (Auto) 1.3 TH/MM3 (0-0.9) Eosinophils # (Auto) 0.0 TH/MM3 (0-0.4) Basophils # (Auto) 0.1 TH/MM3 (0-0.2) CBC Comment AUTO DIFF Differential Total Cells 100 Counted Neutrophils % (Manual) 90 % (16-70) Band Neutrophils % 5 % (0-6) Lymphocytes % 1 % (9-44) Monocytes % 4 % (0-8) Neutrophils # (Manual) 44.6 TH/MM3 (1.8-7.7) Differential Comment FINAL DIFF MANUAL Platelet Estimate NORMAL (NORMAL) Platelet Morphology Comment NORMAL (NORMAL) Ovalocytes 1+ (NORMAL) Sodium Level 146 MEQ/L (136-145) Potassium Level 5.3 MEQ/L (3.5-5.1) Chloride Level 109 MEQ/L (98-107) Carbon Dioxide Level 24.8 MEQ/L (21.0-32.0) Anion Gap 12 MEQ/L (5-15) Blood Urea Nitrogen 144 MG/DL (7-18) Creatinine 3.92 MG/DL (0.60-1.30) Estimat Glomerular Filtration 15 ML/MIN (>89) Rate Random Glucose 103 MG/DL (74-106) Calcium Level 7.9 MG/DL (8.5-10.1) Random Vancomycin Level 16.2 COMMENT Result Diagram: 08/05/16 0310 08/05/16 0310 Microbiology Microbiology Date/Time Procedure Status Source Growth 08/03/16 14:30 Aerobic Blood Culture - Preliminary Resulted Blood Other NO GROWTH IN 2 DAYS 08/03/16 14:30 Anaerobic Blood Culture - Preliminary Resulted Blood Other NO GROWTH IN 2 DAYS 08/03/16 14:36 Aerobic Blood Culture - Preliminary Resulted Blood Other NO GROWTH IN 2 DAYS 08/03/16 14:36 Anaerobic Blood Culture - Preliminary Resulted Blood Other NO GROWTH IN 2 DAYS Imaging Last Impressions Abdomen X-Ray 08/05/16 0600 Signed Impressions: Service Date/Time: Friday, August 05, 2016 04:07 - CONCLUSION: Stable study of the abdomen with an air filled loop of bowel across the abdomen difficult to mine deputy of the small or large bowel. No interval change. Dav Santana MD Renal Ultrasound 08/04/16 0000 Signed Impressions: Service Date/Time: Thursday, August 04, 2016 19:07 - CONCLUSION: 1. Mildly echogenic kidneys characteristic of medical renal disease. No hydronephrosis. Trace free fluid. Bladder decompressed by Olvera. Zoltan Jacobs MD Chest CT 08/04/16 0000 Signed Impressions: Service Date/Time: Thursday, August 04, 2016 13:38 - CONCLUSION: Large left pleural effusion tracking around several blebs in the lateral left chest. There is also collapse of the left lower lobe. No pleural effusion on the right side. Interstitial infiltrates without consolidation in the mid and lower right lung. Pramod Pena MD Abdomen/Pelvis CT 08/04/16 0000 Signed Impressions: Service Date/Time: Thursday, August 04, 2016 13:35 - CONCLUSION: 1. There is a large left inguinal hernia with a loop of sigmoid extending into the sac approximately 7 cm. The colon proximal to the hernia appears distended with air-fluid levels. There is questionable twisting of the sigmoid as it enters the hernia suggesting the possibility of partial obstruction. 2. There are 2 calcified stones in the right kidney without evidence of hydronephrosis. The case has been discussed with Dr. Mcghee. Pramod Pena MD Chest X-Ray 08/03/16 0600 Signed Impressions: Service Date/Time: Wednesday, August 03, 2016 03:55 - CONCLUSION: Stable area of opacification throughout the left lung. ET tube in good position Dav Santana MD Thoracentesis 07/27/16 0000 Signed Impressions: Service Date/Time: Wednesday, July 27, 2016 10:18 - CONCLUSION: Uncomplicated CT-guided left thoracentesis. Sample was saved and sent to lab for evaluation, as ordered. Tate Street MD CT Angiography 07/24/16 1450 Signed Impressions: Service Date/Time: Sunday, July 24, 2016 15:29 - CONCLUSION: 1. No pulmonary embolus identified. 2. Advanced COPD. 3. Interval development of a large left pleural effusion. There is diffuse interstitial prominence and cardiomegaly. Exam would suggest congestive failure. 4. Nodule at the left lung base which was seen on previous dated 06/29/16 is obscured by the pleural effusion. Raymond Stewart MD Procedures 07/27/16 thoracentesis - no malignant cells Assessment and Plan Disease Oriented Problem List: (1) COPD exacerbation (2) Acute respiratory failure with hypoxia (3) Paroxysmal atrial fibrillation with rapid ventricular response (4) Diabetes (5) Leukocytosis Symptom Scale: (1) Pain 0-10 Scale: Unable to quantify (2) Dyspnea 0-10 Scale: 10 Pertinent Non-Medical Issues Psychosocial: Mr. Munguia has a large family with 6 or 7 children, his has dementia. 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 Spiritual: Son states he is diagnostic, although raised Worship Legal: Timmy Urena is designated healthcare surrogate and spokesperson for the family. Ethical issues impacting care: None evident. Important Contacts * Chuyita Munguia, Son/ [facility], [phone] * Dona Martinez, daughter, DO NOT CALL - has Alzheimers per family. Prognosis Patient appears to be imminently dying. . Code Status: No Code Plan * Living will on chart. Decision Maker: His son, Tyree Munguia (Shon) = is designated HCS * NO CODE * 08/05/16 Met with (has dementia), son/ HCS (Romel), children, grandchildren and siblings. Patient appears to be imminently dying, no recordable blood pressure. His breathing is agonal on mech vent (FiO2 50%) with oxygen sats in the upper 80s. Heart rate dropping, now 80s was tachycardic earlier today. SonRomel indicates he desires transition to comfort measures with continued mech ventilation. Patient's does not want mech vent to be stopped at this time. remains hopeful for recovery, son indicates she has dementia and does not remember conversations. * Symptoms: Dyspnea: agonal breathing on mech vent. Has PRN Versed and Fentanyl. Pain: sources include severe pulmonary disease, mech vent, tubes, sepsis, pneumonia, ileus and prolonged hospitalization. Has Fentanyl ordered. Comfort measures only with mech vent. No new medication recommendations at this time. * Declines ldr rn support, pt is atheist. * Palliative care phone number provided - will follow during hospital stay. Attestation To help prompt me to consider important information that might be impacting today's encounter and assessment, information from prior notes written by myself or my colleagues may have been "brought forward" into today's note. My signature on this note, however, is an attestation that I personally performed the exam, history, and/or decision-making noted today, and, unless otherwise indicated, the interactions with patient, family, and staff as well as the review of records all occurred today. I also attest that the listed assessment and stated plan reflect my best clinical judgment today based on the combination of historical information, prior notes, and today's exam/ interactions. When time spent is documented, it refers only to time spent today by the signer, or if indicated, combined time spent today by collaborating physician/nurse practitioner. MILDRED KANG Aug 05, 2016 16:53
[2016-08-06 08:18] LABS: STAT NO
--- NOTE | 2016-09-01 22:27 | MD ---
cc: TEVIN BARKER M.D. ADMISSION DATE: 07/24/2016 DISCHARGE DATE: 08/05/2016 DATE OF : 1935 BRIEF HISTORY: The patient is an 80-year-old male with past medical history of COPD on 3 liters home oxygen continuously, hypertension, diabetes mellitus, hyperlipidemia and hypothyroidism. He was admitted on July 24 for a one week history of progressive worsening, shortness of breath associated with hypoxemia. CT angiogram of the chest obtained on arrival showed no evidence of pulmonary embolism, however, it showed interstitial fibrotic changes with multiple emphysematous blebs and left-sided pleural effusion, in addition to a 2 x 1.4 cm nodule seen in the posterior aspect of the left lower lobe. Nasal washing for influenza was negative. The patient was placed on broad-spectrum antibiotics. The patient underwent CT-guided thoracentesis with removal of 2.4 liters of fluid on July 27. The patient required intubation and mechanical ventilation. However, he was self-extubated on July 28, and was maintained on BiPAP. However, he was reintubated due to worsening respiratory failure. His hospital course was complicated by atrial fibrillation with rapid ventricular response requiring Cardizem infusion and bolus. He was on Diprivan and fentanyl infusion for sedation and vensyncrony. In addition the patient was on bronchodilator, IV steroids. The patient was followed by Dr. Gayle from pulmonary service. His renal function continued to worsen and the patient was placed on IV fluids and seen by Dr. Raphael from nephrology service. His family refused dialysis. The patient also was found to have ileus versus bowel obstruction on the KUB and CT abdomen and pelvis obtained which showed left inguinal hernia which contained loops of sigmoid colon that was reduced by Dr. Adler from general surgery. He was on broad-spectrum antibiotic as above, and bronchoscopy which showed Klebsiella pneumonia. The patient also was on sliding scale insulin for glycemic control and placed on GI and DVT prophylaxis. He was seen by multiple consultants during his ICU course which include pulmonary service, cardiology, gastroenterology, nephrology and general surgery. Palliative care also was following and after discussion with the patient's family they elected to proceed with withdrawal life support and transition to comfort care. He on August 05. MD RYDER James/LIS /12:28 PM /10:18 PM
== END 2016-08-05 17:32 | disposition expired | DRG 870 ==
LOC: NEPC 12:38 → NEDA 14:55 → HIMW 18:20
PROVIDERS: ADMIT Internal Medicine Critical Care Medicine; ATTEND Internal Medicine Critical Care Medicine
PROC: 5A1955Z Respiratory Ventilation, Greater than 96 Consecutive Hours (ICD-10-PCS; principal; 2016-07-26)
PROC: 03HY32Z Insertion of Monitoring Device into Upper Artery, Percutaneous Approach (ICD-10-PCS; 2016-07-26)
PROC: 0BH17EZ Insertion of Endotracheal Airway into Trachea, Via Natural or Artificial Opening (ICD-10-PCS; 2016-07-26)
PROC: 0W9B3ZX Drainage of Left Pleural Cavity, Percutaneous Approach, Diagnostic (ICD-10-PCS; 2016-07-27)
PROC: 0BH17EZ Insertion of Endotracheal Airway into Trachea, Via Natural or Artificial Opening (ICD-10-PCS; 2016-07-28)
PROC: 0B978ZX Drainage of Left Main Bronchus, Via Natural or Artificial Opening Endoscopic, Diagnostic (ICD-10-PCS; 2016-08-01)
DX: A41.9 Sepsis, unspecified organism (principal); J96.21 Acute and chronic respiratory failure with hypoxia; N17.0 Acute kidney failure with tubular necrosis; R40.20 Unspecified coma; Z51.5 Encounter for palliative care; J90 Pleural effusion, not elsewhere classified; J15.0 Pneumonia due to Klebsiella pneumoniae; J44.0 Chronic obstructive pulmonary disease with (acute) lower respiratory infection; I11.0 Hypertensive heart disease with heart failure; E87.2 Acidosis; B49 Unspecified mycosis; I50.9 Heart failure, unspecified; J44.1 Chronic obstructive pulmonary disease with (acute) exacerbation; K40.30 Unilateral inguinal hernia, with obstruction, without gangrene, not specified as recurrent; J45.901 Unspecified asthma with (acute) exacerbation; J84.10 Pulmonary fibrosis, unspecified; E03.9 Hypothyroidism, unspecified; I25.10 Atherosclerotic heart disease of native coronary artery without angina pectoris; R91.1 Solitary pulmonary nodule; I73.9 Peripheral vascular disease, unspecified; G47.33 Obstructive sleep apnea (adult) (pediatric); I48.91 Unspecified atrial fibrillation; G30.9 Alzheimer's disease, unspecified; E87.6 Hypokalemia; E83.42 Hypomagnesemia; E83.39 Other disorders of phosphorus metabolism; D63.8 Anemia in other chronic diseases classified elsewhere; E78.5 Hyperlipidemia, unspecified; E11.65 Type 2 diabetes mellitus with hyperglycemia; E78.1 Pure hyperglyceridemia; F02.80 Dementia in other diseases classified elsewhere, unspecified severity, without behavioral disturbance, psychotic disturbance, mood disturbance, and anxiety; I48.0 Paroxysmal atrial fibrillation; I48.2 Chronic atrial fibrillation; F32.9 Major depressive disorder, single episode, unspecified; T38.0X5A Adverse effect of glucocorticoids and synthetic analogues, initial encounter; F43.10 Post-traumatic stress disorder, unspecified; E87.5 Hyperkalemia; N20.0 Calculus of kidney; M19.90 Unspecified osteoarthritis, unspecified site; Z16.24 Resistance to multiple antibiotics; Z66 Do not resuscitate; Z79.84 Long term (current) use of oral hypoglycemic drugs; Z86.14 Personal history of Methicillin resistant Staphylococcus aureus infection; Z87.891 Personal history of nicotine dependence; Z88.2 Allergy status to sulfonamides; Z95.5 Presence of coronary angioplasty implant and graft; Z99.81 Dependence on supplemental oxygen
CPT/HCPCS: 31500; 32555; 36556; 36600; 71010; 71250; 71275; 74000; 74176; 76775; 76937; 80048; 80053; 80202; 82150; 82550; 82805; 82945; 82948; 83605; 83615; 83735; 83880; 83986; 84100; 84132; 84155; 84157; 84443; 84484; 85007; 85025; 85027; 85384; 85610; 85730; 87015; 87040; 87070; 87077; 87086; 87102; 87116; 87186; 87205; 87206; 87449; 87641; 87804; 88112; 88305; 89051; 93005; 93306; 94002; 94003; 94640; 94664; 96365; 96368; 96375; C1729; C9113; J0282; J0456; J0692; J0714; J1120; J1630; J1644; J1940; J2185; J2248; J2250; J2543; J2765; J2920; J2930; J3010; J3370; J3475; J3480; J7030; J7040; J7050; J7060; J7626; Q9967